=== PATIENT | female | born 1965 | race Caucasian/White ===

== ENCOUNTER → 2016-07-19 | Outpatient (CLI) | payer MEDICARE, OTHER ==
--- NOTE | 2016-07-19 13:47 | REP ---
MRI CERVICAL SPINE WITHOUT CONTRAST: HISTORY: Neck pain. No comparison imaging. TECHNIQUE: Sagittal and axial T1 and T2-weighted scans are acquired in the usual fashion with and without fat saturation. Sequences include spin echo, turbo spin-echo, and STIR imaging sequences. MRI FINDINGS: There is reversal of the normal cervical lordosis. Diffuse degenerative spondylosis changes are noted. No extra vertebral abnormality is appreciated. Axial and sagittal images at C2-3 show no significant abnormality. At C3-4, there is a small to moderate-sized central disc herniation which effaces and subtly indents the ventral margin of the cord. No neural foraminal narrowing is seen. At C4-5, there is moderate diffuse posterior disc bulging effacing the ventral subarachnoid space. The cord is displaced posteriorly somewhat and the dorsal subarachnoid space is effaced as well. There is mild central canal stenosis. The mid sagittal AP dimension of the thecal sac at this level is 7 mm. There is mild right-sided uncovertebral spurring and C4-5. At C5-6, there is a central disc protrusion with posterior osteophytic ridging and diffuse mild disc bulging in the remainder of the disc margin. There is uncovertebral spurring bilaterally right more so than left. Mild central canal stenosis is seen at C5-6. Mid sagittal AP thecal sac dimension is 6 mm. At C6-7, there is diffuse moderate disc bulging and posterior osteophytic ridging. The ventral and dorsal subarachnoid spaces are somewhat effaced consistent with central canal stenosis. Mid sagittal AP dimension of the thecal sac is 6 mm. Mild bilateral uncovertebral spurring is seen. At C7-T1, there is a small central disc herniation effacing the ventral subarachnoid space but not displacing or compressing the cord. At T1-2, there is mild diffuse disc bulging. IMPRESSION: Degenerative spondylosis changes. There is central canal stenosis is C4-5, C5-6 and C6-7. A moderate sized central disc herniation is seen at C3-4 and a small central disc herniation is seen at C7-T1. Cervical cord signal intensity is normal on T1 and T2-weighted scans. Signed by Trav Ireland MD 07/19/2016 03:59 P
--- NOTE | 2016-07-19 13:57 | REP ---
MRI LUMBAR SPINE WITHOUT CONTRAST: HISTORY: Low back pain, limited range of motion, right sided numbness radiating to the buttock and right leg. Comparison MRI lumbar spine study is from January 02, 2016. TECHNIQUE: Sagittal and axial T1 and T2-weighted scans are acquired in the usual fashion with and without fat saturation. Sequences include spin echo, turbo spin-echo, and STIR imaging sequences. MRI findings: Lumbar vertebral body heights are preserved. Alignment is normal. Cortical and medullary bone signal intensity are normal. The conus medullaris terminates at L1 and is unremarkable in appearance. There are mild degenerative disc disease changes at each level in the lumbar spine as before. At L1-2, there is minimal diffuse disc bulging unchanged. No other abnormality. L2-3, there is similar minimal diffuse disc bulging unchanged. At L3-4, there is a small right-sided paracentral disc herniation effacing the ventral margin of the thecal sac and contributing to mild central canal stenosis along with developmentally short pedicles and some ligamentum flavum and facet hypertrophy. These findings are unchanged from the December 30, 2015 prior study. At L4-5, there is mild facet hypertrophy bilaterally and minimal diffuse disc bulging is again seen. At L5-S1, there is mild to moderate facet hypertrophy and diffuse central disc bulging is seen. IMPRESSION: Degenerative spondylosis changes. A right paracentral disc protrusion at L3-4 is again seen. Findings are unchanged from January 02, 2016. Signed by Trav Ireland MD 07/19/2016 03:59 P
== END ==
LOC: M RAD 08:57
PROVIDERS: ATTEND Physician Assistant
DX: M48.02 Spinal stenosis, cervical region (principal); M50.21 Other cervical disc displacement, high cervical region; M50.23 Other cervical disc displacement, cervicothoracic region; M47.892 Other spondylosis, cervical region; M51.26 Other intervertebral disc displacement, lumbar region

== ENCOUNTER 2016-08-01 14:21 | Emergency (ER) | payer MEDICARE ==
[~2016-08-01] VITALS: Ht 162.6 cm; Wt 63.5 kg
[2016-08-01] MEDS ORDERED: TYLE325T5 PO (14:28)
[2016-08-01] MEDS ORDERED: LAMO25TA2 (14:28)
[2016-08-01] MEDS ORDERED: LAMO100T (14:28)
[2016-08-01] MEDS ORDERED: DIVA250T7 (14:28)
[2016-08-01] MEDS ORDERED: PROP60CA (14:28)
[2016-08-01] MEDS ORDERED: OMEP40CA2 (14:28)
[2016-08-01] MEDS ORDERED: TOPI200T4 (14:28)
[2016-08-01] MEDS ORDERED: DIVA500T9 (14:28)
[2016-08-01] MEDS ORDERED: AMOX500C (14:28)
[2016-08-01] MEDS ORDERED: IBUP600T26 PO (14:28)
[2016-08-01] MEDS ORDERED: PERCOCET 5MG/325MG TAB PO ONE (14:45)
[2016-08-01 15:42] VITALS: BP 113/65
[2016-08-01] MEDS ORDERED: OXYC1TAB23 PO (15:47)
== END 2016-08-01 15:55 | disposition home or self-care (01) ==
LOC: M ED 15:04
DX: K02.9 Dental caries, unspecified (principal); I10 Essential (primary) hypertension; R56.9 Unspecified convulsions; G43.909 Migraine, unspecified, not intractable, without status migrainosus; G25.0 Essential tremor; Z79.899 Other long term (current) drug therapy; Z88.5 Allergy status to narcotic agent; Z88.8 Allergy status to other drugs, medicaments and biological substances; Z87.891 Personal history of nicotine dependence

== ENCOUNTER 2016-11-02 15:46 | Emergency (ER) | payer MEDICARE ==
[~2016-11-02] VITALS: Ht 162.6 cm; Wt 65.2 kg
[~2016-11-02 15:46] MED LIST: AMOX500C; DIVA250T7; DIVA500T9; IBUP-1022 PO; LAMO100T; LAMO25TA2; OMEP40CA2; OXYC1TAB23 PO; PROP60CA; TOPI200T7; TYLE325T5 PO
[2016-11-02 16:54] VITALS: BP 130/70
== END 2016-11-02 16:55 | disposition home or self-care (01) ==
LOC: M ED 15:46
DX: F41.9 Anxiety disorder, unspecified (principal); F17.210 Nicotine dependence, cigarettes, uncomplicated; Z88.5 Allergy status to narcotic agent; Z88.8 Allergy status to other drugs, medicaments and biological substances; Z79.899 Other long term (current) drug therapy

== ENCOUNTER → 2017-03-31 | Outpatient (CLI) | payer MEDICARE | LOC: M PAIN 09:30 | DX: G89.29 Other chronic pain (principal); M50.20 Other cervical disc displacement, unspecified cervical region; M79.1 Myalgia; G40.802 Other epilepsy, not intractable, without status epilepticus; R25.1 Tremor, unspecified; J45.909 Unspecified asthma, uncomplicated; K21.9 Gastro-esophageal reflux disease without esophagitis; Z88.5 Allergy status to narcotic agent; Z88.8 Allergy status to other drugs, medicaments and biological substances; Z79.899 Other long term (current) drug therapy; Z87.891 Personal history of nicotine dependence | CPT/HCPCS: G0463 ==

== ENCOUNTER 2017-04-26 09:58 | Emergency (ER) | payer MEDICARE | END 2017-04-26 10:57 | disposition home or self-care (01) | LOC: M ED 09:58 | DX: J45.909 Unspecified asthma, uncomplicated (principal); J02.0 Streptococcal pharyngitis; R56.9 Unspecified convulsions; Z79.899 Other long term (current) drug therapy; Z88.5 Allergy status to narcotic agent; Z88.8 Allergy status to other drugs, medicaments and biological substances | CPT/HCPCS: 87880 ==

== ENCOUNTER 2017-06-13 13:09 | Emergency (ER) | payer MEDICARE, BC ==
[2017-06-13 13:43] LABS: BASO # 0.1 10^3/uL (0.0-0.2); BASO % 0.9 % (0.0-1.0); EOS # 0.1 10^3/uL (0.0-0.50); EOS % 1.4 % (0.0-3.0); HEMATOCRIT 41.1 % (36.0-47.0); HEMOGLOBIN 14.4 g/dl (12.0-16.0); IMMATURE GRANULOCYTE % 2.1 % (0-3.0); MEAN CORPUSCULAR HEMOGLOBIN 32.3 pg (27.0-33.0); MEAN CORPUSCULAR VOLUME 92.2 fl (80.0-96.0); MONO # 0.7 10^3/uL (0.0-0.8); MONO % 8.4 % (0.0-5.0); NEUTROPHILS # 4.5 10^3/uL (1.8-7.7); NEUTROPHILS % 52.2 % (36.0-66.0); PLATELET COUNT, AUTOMATED 322 10^3/uL (150-450); RED BLOOD COUNT 4.46 10^6/uL (4.00-5.40); RED CELL DISTRIBUTION WIDTH 13.2 % (11.5-14.5); WHITE BLOOD COUNT 8.6 10^3/uL (4.0-10.0)
[2017-06-13 14:13] LABS: ANION GAP 15 MEQ/L (8-16); BLOOD UREA NITROGEN 13 MG/DL (7-18); CALCIUM LEVEL 8.2 MG/DL (8.5-10.1); CARBON DIOXIDE LEVEL 14 MEQ/L (21-32); CHLORIDE LEVEL 104 MEQ/L (98-107); CREATININE FOR GFR 0.96 MG/DL (0.55-1.30); GLOMERULAR FILTRATION RATE > 60.0 (>51); GLUCOSE, FASTING 141 MG/DL (70-100); POTASSIUM SERUM 4.5 MEQ/L (3.5-5.1); SODIUM LEVEL 133 MEQ/L (136-145); VALPROIC ACID (DEPAKOTE) 29.5 UG/ML (50.0-100.0)
[2017-06-13 15:21] LABS: LACTIC ACID SEPSIS PROTOCOL 7.4 MMOL/L (0.4-2.0)
[2017-06-13] MEDS: NS 1,000 ML IV (16:11)
[2017-06-13] MEDS: LORazepam 1 MG TAB PO (16:57)
[2017-06-15 00:06] LABS: LAMOTRIGINE (LAMICTAL) 5.2 ug/mL (2.0-20.0)
[2017-06-15 09:41] LABS: BEDSIDE GLUCOSE 147 MG/DL (70-105)
== END 2017-06-13 19:15 | disposition home or self-care (01) ==
LOC: M ED 13:09
DX: R56.9 Unspecified convulsions (principal); G40.B19 Juvenile myoclonic epilepsy, intractable, without status epilepticus; J45.909 Unspecified asthma, uncomplicated; Z79.899 Other long term (current) drug therapy
CPT/HCPCS: 80164

== ENCOUNTER → 2017-06-22 | Outpatient (CLI) | payer MEDICARE ==
[2017-06-22 17:30] LABS: BASO # 0.1 10^3/uL (0.0-0.2); EOS # 0.1 10^3/uL (0.0-0.50); EOS % 2.2 % (0.0-3.0); HEMATOCRIT 39.6 % (36.0-47.0); HEMOGLOBIN 12.9 g/dl (12.0-16.0); IMMATURE GRANULOCYTE % 0.6 % (0-3.0); LYMPH # 2.5 10^3/uL (1.5-4.5); LYMPH % 39.3 % (24.0-44.0); MEAN CORPUSCULAR HGB CONC 32.6 g/dl (32.0-36.5); MEAN CORPUSCULAR VOLUME 95.2 fl (80.0-96.0); MONO # 0.6 10^3/uL (0.0-0.8); MONO % 10.3 % (0.0-5.0); NEUTROPHILS # 2.9 10^3/uL (1.8-7.7); NEUTROPHILS % 46.6 % (36.0-66.0); PLATELET COUNT, AUTOMATED 244 10^3/uL (150-450); RED BLOOD COUNT 4.16 10^6/uL (4.00-5.40); RED CELL DISTRIBUTION WIDTH 13.2 % (11.5-14.5); WHITE BLOOD COUNT 6.2 10^3/uL (4.0-10.0)
[2017-06-22 17:31] LABS: ALBUMIN 3.9 GM/DL (3.2-5.2); ALBUMIN/GLOBULIN RATIO 1.03 (1.00-1.93); ALKALINE PHOSPHATASE 70 U/L (45-117); ALT/SGPT 41 U/L (12-78); ANION GAP 10 MEQ/L (8-16); AST/SGOT 14 U/L (7-37); BILIRUBIN,TOTAL 0.3 MG/DL (0.2-1.0); BLOOD UREA NITROGEN 19 MG/DL (7-18); CALCIUM LEVEL 8.9 MG/DL (8.5-10.1); CARBON DIOXIDE LEVEL 23 MEQ/L (21-32); CHLORIDE LEVEL 107 MEQ/L (98-107); CHOLESTEROL LEVEL 330 MG/DL (<200); CHOLESTEROL RISK RATIO 8.684 (<5); CREATININE FOR GFR 1.08 MG/DL (0.55-1.30); FREE T4 0.94 NG/DL (0.76-1.46); GLOMERULAR FILTRATION RATE 56.5 (>51); GLUCOSE, FASTING 96 MG/DL (70-100); HDL CHOLESTEROL 38 MG/DL (>40); LDL CHOLESTEROL 217.2 MG/DL (<100); NON-HDL-C 292 MG/DL; POTASSIUM SERUM 4.5 MEQ/L (3.5-5.1); SODIUM LEVEL 140 MEQ/L (136-145); TOTAL PROTEIN 7.7 GM/DL (6.4-8.2); TRIGLYCERIDES LEVEL 374 MG/DL (<150)
== END ==
LOC: M WUC 11:15
DX: Z13.220 Encounter for screening for lipoid disorders (principal); Z13.29 Encounter for screening for other suspected endocrine disorder; Z13.21 Encounter for screening for nutritional disorder; Z79.899 Other long term (current) drug therapy; J45.909 Unspecified asthma, uncomplicated; R56.9 Unspecified convulsions
CPT/HCPCS: 84443

== ENCOUNTER 2017-10-27 17:56 | Emergency (ER) | payer BC, MEDICARE ==
[2017-10-27] MEDS: PERCOCET 5MG/325MG TAB PO (19:08)
== END 2017-10-27 19:14 | disposition home or self-care (01) ==
LOC: M ED 17:56
DX: S39.012A Strain of muscle, fascia and tendon of lower back, initial encounter (principal); X50.1XXA Overexertion from prolonged static or awkward postures, initial encounter; Y92.099 Unspecified place in other non-institutional residence as the place of occurrence of the external cause; Y93.9 Activity, unspecified; Y99.9 Unspecified external cause status; R56.9 Unspecified convulsions; J45.909 Unspecified asthma, uncomplicated; K21.9 Gastro-esophageal reflux disease without esophagitis; M54.9 Dorsalgia, unspecified; Z79.899 Other long term (current) drug therapy; Z88.5 Allergy status to narcotic agent; Z88.8 Allergy status to other drugs, medicaments and biological substances
CPT/HCPCS: 99283

== ENCOUNTER → 2018-01-06 | Outpatient (CLI) | payer BC, MEDICARE ==
[2018-01-06 17:44] LABS: BASO # 0.1 10^3/uL (0.0-0.2); BASO % 0.8 % (0.0-1.0); EOS # 0.1 10^3/uL (0.0-0.50); EOS % 1.7 % (0.0-3.0); HEMATOCRIT 38.4 % (36.0-47.0); HEMOGLOBIN 12.9 g/dl (12.0-15.5); IMMATURE GRANULOCYTE % 1.3 % (0-3.0); LYMPH # 2.3 10^3/uL (1.5-4.5); LYMPH % 32.3 % (24.0-44.0); MEAN CORPUSCULAR HEMOGLOBIN 31.1 pg (27.0-33.0); MEAN CORPUSCULAR HGB CONC 33.6 g/dl (32.0-36.5); MEAN CORPUSCULAR VOLUME 92.5 fl (80.0-96.0); MONO # 0.8 10^3/uL (0.0-0.8); MONO % 11.4 % (0.0-5.0); NEUTROPHILS # 3.7 10^3/uL (1.8-7.7); NEUTROPHILS % 52.5 % (36.0-66.0); PLATELET COUNT, AUTOMATED 216 10^3/uL (150-450); RED BLOOD COUNT 4.15 10^6/uL (4.00-5.40); RED CELL DISTRIBUTION WIDTH 12.9 % (11.5-14.5); WHITE BLOOD COUNT 7.1 10^3/uL (4.0-10.0)
[2018-01-06 18:18] LABS: ALBUMIN 3.9 GM/DL (3.2-5.2); ALBUMIN/GLOBULIN RATIO 1.11 (1.00-1.93); ALKALINE PHOSPHATASE 72 U/L (45-117); ALT/SGPT 34 U/L (12-78); ANION GAP 9 MEQ/L (8-16); AST/SGOT 21 U/L (7-37); BILIRUBIN,TOTAL 0.3 MG/DL (0.2-1.0); BLOOD UREA NITROGEN 16 MG/DL (7-18); CARBON DIOXIDE LEVEL 23 MEQ/L (21-32); CHLORIDE LEVEL 102 MEQ/L (98-107); CHOLESTEROL LEVEL 298 MG/DL (<200); CREATININE FOR GFR 0.87 MG/DL (0.55-1.30); GLOMERULAR FILTRATION RATE > 60.0 (>51); GLUCOSE, FASTING 92 MG/DL (70-100); HDL CHOLESTEROL 33 MG/DL (>40); NON-HDL-C 265 MG/DL; POTASSIUM SERUM 4.6 MEQ/L (3.5-5.1); SODIUM LEVEL 134 MEQ/L (136-145); TOTAL PROTEIN 7.4 GM/DL (6.4-8.2); TRIGLYCERIDES LEVEL 512 MG/DL (<150)
[2018-01-06 18:37] LABS: TOTAL 25(OH) VITAMIN D 19.2 NG/ML (30.0-100.0)
== END ==
LOC: M WUC 14:21
DX: J45.20 Mild intermittent asthma, uncomplicated (principal); E78.2 Mixed hyperlipidemia; E55.9 Vitamin D deficiency, unspecified
CPT/HCPCS: 80053

== ENCOUNTER → 2018-08-11 | Outpatient (CLI) | payer BC, MEDICARE ==
[~2018-08-11] MED LIST changes: +AMOX500C PO; -LAMO25TA2; +LAMO25TA4; +LEVA1.2525; +LORA1TAB12; +PERC5TAB12 PO; +PROAAER10; +SIMV20TA2; +TESS100C PO; +VITA50005
== END ==
LOC: M WUC 14:07
PROVIDERS: ATTEND Psychiatry & Neurology Vascular Neurology
DX: G40.319 Generalized idiopathic epilepsy and epileptic syndromes, intractable, without status epilepticus (principal); R25.1 Tremor, unspecified

== ENCOUNTER → 2019-12-08 | Outpatient (CLI) | payer BC, MEDICARE ==
[~2019-12-08] MED LIST changes: +APAP325T4 PO; +ATOR40TA75 PO; +D31000TA2 PO; +FENO160T10 PO; +FLUTISP; +IBUP200C28 PO; -LAMO100T; +LAMO100T3; +LAMO100T3 PO; +LAMO25TA4 PO; +LEVAINH INH; -LORA1TAB12; +LORA1TAB4 PO; -OMEP40CA2; +OMEP40CA97; -PROP60CA; +PROP60CA PO; -SIMV20TA2; +SIMV20TA22; +TOPI100T9 PO
== END ==
LOC: M WUC 16:43
PROVIDERS: ATTEND Psychiatry & Neurology Vascular Neurology
DX: G40.B19 Juvenile myoclonic epilepsy, intractable, without status epilepticus (principal)

== ENCOUNTER 2020-01-19 19:04 | Inpatient (IN) | payer BC, MEDICARE ==
[~2020-01-19] VITALS: Ht 165.1 cm; Wt 74.4 kg
[~2020-01-19 19:04] MED LIST changes: -APAP325T4 PO; -ATOR40TA75 PO; -D31000TA2 PO; -FENO160T10 PO; -FLUTISP; -IBUP200C28 PO; -LAMO100T3 PO; -LAMO25TA4 PO; -LEVAINH INH; -TOPI100T9 PO
[2020-01-19 19:58] LABS: HEMATOCRIT 40.4 % (36.0-47.0); HEMOGLOBIN 13.6 g/dl (12.0-15.5); MEAN CORPUSCULAR HEMOGLOBIN 29.2 pg (27.0-33.0); MEAN CORPUSCULAR HGB CONC 33.7 g/dl (32.0-36.5); MEAN CORPUSCULAR VOLUME 86.9 fl (80.0-96.0); PLATELET COUNT, AUTOMATED 318 10^3/uL (150-450); RED BLOOD COUNT 4.65 10^6/uL (4.00-5.40); WHITE BLOOD COUNT 6.7 10^3/uL (4.0-10.0)
[2020-01-19 20:00] LABS: GLUCOSE, URINE (UA) MANUAL NEGATIVE (NEGATIVE); KETONE, URINE MANUAL NEGATIVE (NEGATIVE); UROBILINOGEN, URINE MANUAL NORMAL (NORMAL)
[2020-01-19 20:01] LABS: BILIRUBIN, URINE MANUAL 2+ (NEGATIVE)
[2020-01-19 20:06] LABS: RBC, URINE 0-1 /hpf (0-3); SQUAMOUS EPITHELIAL CELL URINE MOD AMOUNT /hpf (SMALL AMT)
[2020-01-19 20:07] LABS: AMORPHOUS SEDIMENT, URINE SMALL AMOUNT (NEGATIVE); BACTERIA, URINE SMALL AMOUNT; HYALINE CAST, URINE 0-1 /lpf (0-1); MUCUS, URINE SMALL AMOUNT (NEGATIVE)
--- NOTE | 2020-01-19 20:31 | REPVR ---
PROCEDURE INFORMATION: Exam: CT Head Without Contrast Exam date and time: 01/19/2020 8:02 PM Age: 54 years old Clinical indication: Visual disturbance; Additional info: Visual/auditory hallucinations TECHNIQUE: Imaging protocol: Computed tomography of the head without contrast. Radiation optimization: All CT scans at this facility use at least one of these dose optimization techniques: automated exposure control; mA and/or kV adjustment per patient size (includes targeted exams where dose is matched to clinical indication); or iterative reconstruction. COMPARISON: No relevant prior studies available. FINDINGS: Brain: Normal. No hemorrhage. Unremarkable white matter. No mass effect. Cerebral ventricles: No ventriculomegaly. Bones/joints: Unremarkable. No acute fracture. Paranasal sinuses: Visualized sinuses are unremarkable. No fluid levels. Mastoid air cells: Visualized mastoid air cells are well aerated. Soft tissues: Unremarkable. IMPRESSION: Negative noncontrast head CT. Electronically signed by: Wilmer Mejia On 01/19/2020 20:31:12 PM
[2020-01-19 20:33] LABS: ACETAMINOPHEN LEVEL < 2.0 UG/ML (10.0-30.0); ALBUMIN 4.3 GM/DL (3.2-5.2); ALT/SGPT 70 U/L (12-78); BILIRUBIN,DIRECT 0.2 MG/DL (0.0-0.2); BILIRUBIN,TOTAL 0.7 MG/DL (0.2-1.0); BLOOD UREA NITROGEN 26 MG/DL (7-18); CALCIUM LEVEL 9.2 MG/DL (8.5-10.1); CARBON DIOXIDE LEVEL 20 MEQ/L (21-32); CHLORIDE LEVEL 110 MEQ/L (98-107); ETHYL ALCOHOL (ETHANOL) < 0.003 % (0.000-0.010); GLOMERULAR FILTRATION RATE 45.1 (>51); GLUCOSE, FASTING 105 MG/DL (70-100); POTASSIUM SERUM 3.8 MEQ/L (3.5-5.1); SALICYLATE LEVEL < 1.7 MG/DL (5.0-30.0); SODIUM LEVEL 141 MEQ/L (136-145); THYROID STIMULATING HORMONE 0.656 uIU/ML (0.358-3.740); TOTAL PROTEIN 7.9 GM/DL (6.4-8.2)
[2020-01-19 23:35] LABS: AMPHETAMINES LEVEL URINE NEGATIVE (NEGATIVE); BARBITURATES URINE NEGATIVE (NEGATIVE); BENZODIAZEPINES URINE NEGATIVE (NEGATIVE); CANNABINOIDS URINE NEGATIVE (NEGATIVE); COCAINE METABOLITE URINE NEGATIVE (NEGATIVE); METHADONE URINE NEGATIVE (NEGATIVE); OPIATES URINE NEGATIVE (NEGATIVE); PHENCYCLIDINE URINE NEGATIVE (NEGATIVE)
[2020-01-20] MEDS ORDERED: traZODone 50 MG TAB PO PRN (00:30)
[2020-01-20] MEDS ORDERED: MAALOX 30 ML SUSP *UDC PO PRN (00:30)
[2020-01-20] MEDS ORDERED: MOM 30ML SUSPENSION UDC PO PRN (00:30)
[2020-01-20] MEDS ORDERED: ATOR40TA75 PO (01:23)
[2020-01-20] MEDS ORDERED: TOPI100T9 PO (01:23)
[2020-01-20] MEDS ORDERED: APAP325T4 PO (01:23)
[2020-01-20] MEDS ORDERED: LAMO100T3 PO (01:23)
[2020-01-20] MEDS ORDERED: LAMO25TA4 PO (01:23)
[2020-01-20] MEDS ORDERED: IBUP200C28 PO (01:23)
[2020-01-20] MEDS ORDERED: LORA1TAB4 PO (01:23)
[2020-01-20] MEDS ORDERED: LEVAINH INH (01:23)
[2020-01-20] MEDS ORDERED: D31000TA2 PO (01:25)
[2020-01-20] MEDS ORDERED: FENO160T10 PO (01:25)
[2020-01-20] MEDS ORDERED: FLUTISP (01:25)
[2020-01-20] MEDS: LORazepam 1 MG TAB PO SCH ×2 (02:45→21:34)
[2020-01-20] MEDS: ATORVASTATIN 20 MG TAB PO SCH ×2 (02:45→21:34)
[2020-01-20] MEDS: lamoTRIgine 100MG TAB PO SCH ×3 (02:45→21:35)
[2020-01-20] MEDS: lamoTRIgine 25 MG TAB PO SCH ×3 (02:46→21:34)
[2020-01-20] MEDS: TOPIRAMATE (TopAMAX) 100 MG TAB PO SCH ×3 (02:46→21:35)
[2020-01-20 02:53] VITALS: BP 143/76
[2020-01-20] MEDS: PROPRANOLOL 60 MG LA CAP PO SCH ×2 (03:01→21:34)
[2020-01-20] MEDS: ACETAMINOPHEN TAB 650MG DOSE (2X325MG) PO PRN ×2 (04:09→18:55)
[2020-01-20] MEDS: VITAMIN D 1,000 INTERNATIONAL UNITS TABLET PO SCH (10:00)
[2020-01-20] MEDS: FLUTICASONE PROP 0.05% NASAL SPRAY 16 GM (FLONASE) SCH (10:00)
[2020-01-20] MEDS: LORazepam 0.5 MG TAB PO SCH (11:41)
--- NOTE | 2020-01-20 12:22 | HPEPDOC ---
[facility] Medical History & Physical Date of Admission Jan 20, 2020 Date of Service: Jan 20, 2020 History and Physical Chief complaint: Presented to the ER, brought in by police because was concerned for her safety History of present illness: Patient is a 54 her old female with a PMHx of Epilepsy / Tremors / Grand mal seizures, Chronic Neck & Back pain, Asthma and GERD who presented to the ER, brought in by police because her was concerned for her safety. Patient was reporting negative thoughts and was admitted to the inpatient mental health unit under the care of psychiatry. Hospitalist service was called for medical screening evaluation. Currently patient reports a mild headache. Reports some chest discomfort. Denies any shortness of breath, cough, palpitations, abdominal pain consultation, diarrhea, or urinary discomfort. Patient denies any fevers or chills. Reports some changes in her weight after her medications were adjusted for the last several months. Denies any changes in her appetite. Past Medical History: Epilepsy / Tremors / Grand mal seizures, Chronic Neck & Back pain, Asthma and GERD Past Surgical History: Appendectomy Covered eardrums with skin grafts 1978 and 1981 Ear bone surgery of left 1978 Bilateral cataract surgery Right eye, glaucoma surgery Tonsillectomy Allergies: See below Medications: See below Family History: - Father with a history of diabetes. Mother with a history of hypertension Social History: - Patient reports that she quit smoking socially uses alcohol. Denies any drug use - Denies recent travel or sick contacts - Lives with - Occupation; on stability Review of Systems: 10 point review of systems complete, all negative otherwise stated in HPI Physical exam: - Vitals: BP [143/76], HR [72], RR [16], Sat [96%RA], Temp [98.2F] - General: Sitting up in bed, No acute distress, Speaking in full sentences, AAOx3 - HEENT: NC, AT, PERRLA - CVS: RRR, +S1S2 - Lungs: Fair air entry bilaterally, No wheezing / rales / rhonchi - Abdomen: Soft, Non-distended, Non-tender - Extremities: No lower extremity edema, No calf tenderness - Neuro: No focal motor or sensory deficit - Skin: No visible rashes Imaging: CT head 01/18: Negative noncontrast head CT. Assessment and Plan: Depressive thoughts - Patient has been admitted to inpatient mental health unit under the care of psychiatry - Currently being managed by psychiatry Epilepsy / Tremors / Grand mal seizures - Patient reports that she gets daily tremors; reported questionable seizures - but no post-ictal states - Will c/w home regimen of Lamotrigine, Topiramate and Ativan - Advised patient to continue with outpatient follow-up with her neurologist in [place] upon discharge DLP - c/w Fenofibrate Chronic Neck & Back pain - c/w Tylneol PRN Asthma - No evidence of exacerbation - Continue with inhaled therapy as ordered GERD / Heartburn / Indigestion - c/w Mylanta as needed DVT prophylaxis - Will c/w early ambulation Female licensed investment sales assistant was present for the duration of his history and physical examination Thank you for this consultation; hospitalist service will sign off, please reconsult as needed Vital Signs Vital Signs Date Time Temp Pulse Resp B/P (MAP) Pulse Ox O2 Delivery O2 Flow Rate FiO2 01/20/20 03:01 72 143/76 01/20/20 02:53 98.2 16 96 Room Air Laboratory Data Labs 24H Laboratory Tests 2 01/19/20 19:48: Nucleated Red Blood Cells % (auto) 0.0, Urine Color (CAIN) YELLOW, Urine Appearance (CAIN) HAZYH, Urine pH (CAIN) 5.0, Urine Specific [place] (CAIN) 1.030, Bedside Urine Glucose (UA) NEGATIVE, Bedside Urine Ketones (LAB) NEGATIVE, Bedside Urine Blood TRACEH, Bedside Urine Nitrite (LAB) NEGATIVE, Bedside Urine Bilirubin (LAB) 2+H, Bedside Urine Urobilinogen (LAB) NORMAL, Bedside Urine Leukocyte Esterase (L POSITIVEH, Urine Sediment Examination UNSPUN, Urine RBC 0- 1, Urine WBC 1-3, Urine Squamous Epithelial Cells MOD AMOUNTH, Urine Amorphous Sediment SMALL AMOUNTH, Urine Bacteria SMALL AMOUNTH, Urine Hyaline Casts 0-1, Urine Mucus SMALL AMOUNTH, Anion Gap 11, Glomerular Filtration Rate 45.1L, Calcium Level 9.2, Total Bilirubin 0.7, Direct Bilirubin 0.2, Aspartate Amino Transf (AST/SGOT) 45H, Alanine Aminotransferase (ALT/SGPT) 70, Alkaline Phosphatase 68, Total Protein 7.9, Albumin 4.3, Albumin/Globulin Ratio 1.2, Thyroid Stimulating Hormone (TSH) 0.656, Salicylates Level < 1.7L, Acetaminophen Level < 2.0L, Ethyl Alcohol Level < 0.003 10/10/20 22:53: Urine Opiates Screen NEGATIVE, Urine Methadone Screen NEGATIVE, Urine Barbiturates Screen NEGATIVE, Urine Phencyclidine Screen NEGATIVE, Urine Amphetamines Screen NEGATIVE, Urine Benzodiazepines Screen NEGATIVE, Urine Cocaine Metabolite Screen NEGATIVE, Urine Cannabinoids Screen NEGATIVE CBC/BMP Laboratory Tests 01/19/20 19:48 Microbiology Microbiology 01/19/20 Urine Culture, Received Pending Home Medications Scheduled Atorvastatin Calcium (Atorvastatin Calcium) 40 Mg Tablet, 40 MG PO QHS Cholecalciferol (Vitamin D3) (Vitamin D3) 1,000 Unit Tablet, 1,000 UNITS PO DAILY Fenofibrate (Fenofibrate) 160 Mg Tablet, 160 MG PO QHS Fluticasone Propionate (Fluticasone Propionate) 16 Gm [place].susp, 2 SPRAYS NA DAILY Lamotrigine (Lamotrigine) 100 Mg Tablet, 200 MG PO BID Lamotrigine (Lamotrigine) 25 Mg Tablet, 50 MG PO BID Lorazepam (Lorazepam) 1 Mg Tab, 1 MG PO QHS Lorazepam (Lorazepam) 1 Mg Tablet, 0.5 TAB PO QAM Use sublingually if unable to swallow MDD = 3 mg Propranolol HCl (Propranolol HCl ER) 60 Mg Cap, 60 MG PO QHS Topiramate (Topiramate) 100 Mg Tablet, 100 MG PO BID Scheduled PRN Acetaminophen (Acetaminophen) 325 Mg Tablet, 650 MG PO Q6H PRN for PAIN Ibuprofen (Ibuprofen) 200 Mg Capsule, 400 MG PO Q6H PRN for PAIN Levalbuterol Hydrochloride (Xopenex Hfa) 15 Gm Hfa.aer.ad, 2 PUFF INH Q4-6HP PRN for wheezing Allergies Coded Allergies: codeine (Verified Allergy, Unknown, 01/20/20) diphenhydramine (Verified Allergy, Unknown, 01/20/20) meperidine (Verified Allergy, Unknown, 01/20/20) tramadol (Verified Allergy, Unknown, NOT ALLOWED DUE TO SEIZURE DISORDER, 01/20/20) VY RONQUILLO MD Jan 20, 2020 12:22
[2020-01-20 18:18] VITALS: BP 153/80
[2020-01-20] MEDS: LEVALBUTEROL HFA 45MCG/ACT 15 GM INHALER INH PRN (19:02)
[2020-01-20] MEDS: FENOFIBRATE 145 MG TAB (TRICOR) PO SCH (21:34)
[2020-01-21 06:38] VITALS: BP 110/56
[2020-01-21] MEDS: TOPIRAMATE (TopAMAX) 100 MG TAB PO SCH ×2 (08:37→21:45)
[2020-01-21] MEDS: FLUTICASONE PROP 0.05% NASAL SPRAY 16 GM (FLONASE) SCH (08:37)
[2020-01-21] MEDS: lamoTRIgine 100MG TAB PO SCH ×2 (08:37→21:46)
[2020-01-21] MEDS: VITAMIN D 1,000 INTERNATIONAL UNITS TABLET PO SCH (08:38)
[2020-01-21] MEDS: LORazepam 0.5 MG TAB PO SCH (08:38)
[2020-01-21] MEDS: lamoTRIgine 25 MG TAB PO SCH ×2 (08:38→21:46)
[2020-01-21] MEDS ORDERED: FLUBLOK(EGG FREE)(QUAD)INFLUENZA VACC 0.5ML SYRINGE 18YRS & OLDER IM ONE (09:00)
[2020-01-21 16:07] VITALS: BP 138/71
--- NOTE | 2020-01-21 16:32 | MHIPNPDOC ---
[facility] Progress Note Progress Note DATE OF SERVICE: 01/21/20 HISTORY: Patient is a 54 year old , Domiciled, Female who was admitted to [facility] for reports of auditory and visual hallucinations. Patient r eports that she had been seeing things and hearing things that made her very frightened. She had unusual behaviors as reported by her family i.e. reporting seeing videos and hands reaching out for her in facebook videos and hearing demons. VITAL SIGNS: See below. NEW TEST RESULTS: CURRENT MEDICATIONS: See below. MENTAL STATUS EXAMINATION: Patient is a 54 -year old , female, who is calm and cooperative in the interview. She reports that she is continuing to have visual hallucinations but no auditory hallucinations. She is pleasant and denies depression, anxiety, manic, psychosis, paranoia, delusions or racing thoughts. Speech: Is normal rate, tone and volume. Language skills are intact Thought processes including: linear and goal oriented Thought content: denies depression, anxiety, jennifer or psychotic symptoms. Abstract reasoning, and computation: intact. Description of associations: visual hallucinations (black shadows) Description of abnormal or psychotic thoughts: visual hallucinations, but reports that these are sometimes floaters Judgment: good Insight: good Orientation: to person, place, time and situation Recent and remote memory: intact Attention span and concentration: good Language: expansive Fund of knowledge: average Mood: euthymic. Affect: reactive. DIAGNOSES: Unspecified psychotic disorder possibly due to another medical condition. Seizure disorder. ASSESSMENT: Was prescribed Clobazam and was discontinued off this just recently. Patient reports "It is super embarrassing. One thing lead to another. One night i was sitting in the living room and I thought I saw something, like a mop under the door. It was not tangible and not anything I could touch." She states on FB she was seeing things on there that were "bad" she states she was seeing black hands reaching out. Reporting that when she saw her wedding photo there were burn reynolds and birds on her wedding dress. States she saw a demon in the room. "Like I was being punished I believed it to be t rue I got upset because I feel like no one was seeing what I was seeing. I saw on the windows and I believed that there were these feelings about how I saw the windows, I became paranoid and scared" Reports in the interview that she sees black shadows. Patient reports several ocular medical conditions. History of neurological conditions and Epilepsy. States that she has upwards of 60 seizures per day and has to take an Ativan to reduce the seizure activity. At this time, patient does not exhibit any mental illnesses, she denies depression, SI/HI anxiety, manic behaviors and is not psychotic. I believe that her visual and auditory hallucination may stem from the abrupt discontinuation of Clobazam as well as the ocular medical conditions she reports. Patient is requesting discharge/ MANAGEMENT PLAN: Discharge tomorrow TIME SPENT:35 minutes. Vital Signs Vital Signs Date Time Temp Pulse Resp B/P (MAP) Pulse Ox O2 Delivery O2 Flow Rate FiO2 01/21/20 06:38 97.1 61 16 110/56 (74) 98 Room Air Current Medications Current Medications Medications (Trade) Dose Ordered Sig/Zak Route PRN Reason Start Time Stop Time Status Last Admin Dose Admin Acetaminophen (Tylenol Tab) 650 mg Q6HP PRN PO HEADACHE or DISCOMFORT 01/20/20 00:30 01/20/20 18:55 Al Hydrox/Mg Hydrox/Simethicone (Mylanta) 30 ml Q4HP PRN PO HEARTBURN/INDIGESTION 01/20/20 00:30 Atorvastatin Calcium (Lipitor) 40 mg QHS PO 01/19/20 21:00 01/20/20 21:34 Fenofibrate (Tricor) 145 mg QPM PO 01/20/20 21:00 01/20/20 21:34 Fluticasone Propionate (Flonase 0.05% Nasal [place]) 2 spray DAILY NA 01/20/20 09:00 01/21/20 08:37 Home Med (Med Rec Complete!) ASDIRECTED XX 01/20/20 01:30 01/20/20 01:30 DC Lamotrigine (LaMICtal) 50 mg BID PO 01/19/20 21:00 01/21/20 08:38 Lamotrigine (LaMICtal) 200 mg BID PO 01/19/20 21:00 01/21/20 08:37 Levalbuterol HCl (Xopenex Hfa) 2 puff Q6HP PRN INH wheezing 01/20/20 01:45 01/20/20 19:02 Lorazepam (Ativan) 0.5 mg DAILY PO 01/20/20 09:00 01/21/20 08:38 Lorazepam (Ativan) 1 mg QHS PO 01/19/20 21:00 01/20/20 21:34 Magnesium Hydroxide (Milk Of Magnesia) 30 ml DAILYPRN PRN PO CONSTIPATION 01/20/20 00:30 Propranolol HCl (Inderal La) 60 mg QHS PO 01/19/20 21:00 01/20/20 21:34 Topiramate (TopAMAX) 100 mg BID PO 01/19/20 21:00 01/21/20 08:37 Trazodone HCl (Desyrel) 50 mg QHSP PRN PO INSOMNIA 01/20/20 00:30 01/20/20 21:34 Vitamin D (Vitamin D) 1,000 units DAILY PO 01/20/20 09:00 01/21/20 08:38 Allergies Coded Allergies: codeine (Verified Allergy, Unknown, 01/20/20) diphenhydramine (Verified Allergy, Unknown, 01/20/20) meperidine (Verified Allergy, Unknown, 01/20/20) tramadol (Verified Allergy, Unknown, NOT ALLOWED DUE TO SEIZURE DISORDER, 01/20/20) JUAN LUIS DIEGO NP Jan 21, 2020 12:28
[2020-01-21] MEDS: LEVALBUTEROL HFA 45MCG/ACT 15 GM INHALER INH PRN (17:42)
[2020-01-21] MEDS: ACETAMINOPHEN TAB 650MG DOSE (2X325MG) PO PRN (17:42)
[2020-01-21] MEDS ORDERED: OMEPRAZOLE 20 MG CAP PO SCH (21:00)
[2020-01-21] MEDS: LORazepam 1 MG TAB PO SCH (21:45)
[2020-01-21 21:46] VITALS: BP 138/71
[2020-01-21] MEDS: PROPRANOLOL 60 MG LA CAP PO SCH (21:46)
[2020-01-21] MEDS: FENOFIBRATE 145 MG TAB (TRICOR) PO SCH (21:46)
[2020-01-21] MEDS: ATORVASTATIN 20 MG TAB PO SCH (21:46)
[2020-01-22 06:34] VITALS: BP 128/74
--- NOTE | 2020-01-22 07:33 | MHHPE ---
DATE: 01/20/2020 HISTORY OF PRESENT ILLNESS: This is the first psychiatric hospitalization for this 54-year-old woman who presented to the hospital brought in by the police after the called them. It seems that for about three weeks she has been experiencing auditory and visual hallucinations and possibly some delusions. The patient apparently had her neurologist change her medications for her seizures three weeks ago and it seemed that after that these hallucinations started. They did do a CT scan in the Emergency Room and it was negative for any acute problems in the brain. The patient says she has had seizures since she was 12 years old and that she continues to have seizures sometimes every day. It is not apparently fully treated with medications although apparently they have tried many different medications. For example she has Ativan that she takes on a p.r.n. basis which she says she will take when she thinks she has had a seizure. She talks about having a grand mal but it seems that most of her other seizures are not grand mal seizures but she has difficulty describing what type of seizures they are. The patient says that she has problems with her memory and she has a lot of problems finding appropriate words for what she wants to say. She says that her is very supportive and that he tries to give her cues to help her with finding appropriate words. She states that she started to experience hearing voices and she says that she also sees some what she describes as pepe masses on the hwang. She watches the weather channel. She will often see black masses all over the screen. The day before admission she said that she thought she saw what she refers to as shadow people and thought that one of them came in under her door so she walked to her local confucianist and spent two hours speaking with someone at the confucianist because she feels that the problem is that she is sensitive to spirit. She tries to take photographs of the things that she sees and she gets frustrated when others cannot see what she does. The patient states she can also hear what she refers to as people chanting at night but she says that has been happening less often. She had texted her at work on the day of admission stating that she wanted to sit in his care until he was done with work as she felt that she could not be alone. She told him she was feeling very anxious and that she needed to get away from her house. She stated she has lived in her current place for three years but has never felt at home there. The called the police to check on the patient. The officer asked the patient to come to the Emergency Room to speak with someone. The could not leave his job. In the Emergency Room they spoke with the patient's daughter Domenica Gallo and she expressed concern about the patient and stated that she has never exhibited this behavior before. The patient also tells me that sometimes she will hear music or sometimes she hears little kids voice. PAST PSYCHIATRIC HISTORY: The patient has never had any inpatient or outpatient psychiatric treatment. She is on lorazepam which she takes 0.5 mg every morning and 1 mg at bedtime but she says she takes this for seizures. She has never made any suicidal attempt. She has no history of self-mutilating behavior. FAMILY HISTORY: She denies any psychiatric illness in the family or any suicides in the family. MEDICAL HISTORY: In addition to her seizure disorder, she says she has irritable bowel syndrome, gastroesophageal reflux disease (GERD), asthma, environmental allergies, and she says that she has trouble with my balance sometimes. ABUSE HISTORY: She denies any history of any physical or sexual abuse. SUBSTANCE ABUSE: She denies any problems with alcohol or drugs. MENTAL STATUS EXAM: This patient is alert and oriented times three. Eye contact is fairly good. She is verbally spontaneous. Definitely she has a lot of problems finding the right words for what she wants to say and so it takes her awhile. There is no formal thought disorder noted. Mood is anxious. Affect appropriate to mood. She is not suicidal, homicidal and it does seem that she is having these visual and auditory hallucinations and somehow she is extra sensitive to spirits. The patients concentration is fair. Memory is grossly intact. However, insight and judgment is fair. DIAGNOSES: Unspecified psychotic disorder possibly due to another medical condition. Seizure disorder. TREATMENT PLAN: At this point the patient is having what appears to be both auditory and visual hallucinations. CT of the brain was negative for any acute medical problems. However, the patient appears to have a significant treatment resistant type seizure disorder and she and the family describe that everything started about three weeks ago when her neurologist changed her seizure medication so it is possible that maybe these hallucinations that she is having might be secondary to her neurological problems. My concern was that the patient was reaching the point where she had been leaving her house and not telling her family where she was going and leaving the house, calling the at work saying that she felt frightened. We will continue to monitor the patient. Today she says she is not having any hallucinations, not hearing the voices or seeing the shadows but as we were talking she pointed to the tiles on the floor and said that she was seeing some dark spots on the tile on the floor and this definitely points to an organic origin to these hallucinations. Therefore I am not going to start her on any psychotropic medications but definitely she needs to follow up with her neurologist at the time that she is discharged and prior contact with her neurologist definitely should be considered. MIKAEL
[2020-01-22] MEDS: FLUTICASONE PROP 0.05% NASAL SPRAY 16 GM (FLONASE) SCH (08:25)
[2020-01-22] MEDS: TOPIRAMATE (TopAMAX) 100 MG TAB PO SCH (08:25)
[2020-01-22] MEDS: lamoTRIgine 100MG TAB PO SCH (08:25)
[2020-01-22] MEDS: VITAMIN D 1,000 INTERNATIONAL UNITS TABLET PO SCH (08:25)
[2020-01-22] MEDS: LORazepam 0.5 MG TAB PO SCH (08:26)
[2020-01-22] MEDS: lamoTRIgine 25 MG TAB PO SCH (08:26)
--- NOTE | 2020-01-22 10:09 | MHDSPDOC ---
[facility] Discharge Summary Discharge Summary DATE OF ADMISSION: Jan 20, 2020 at 00:30 DATE OF DISCHARGE: January 22, 2020 at 0945 DISCHARGE DIAGNOSES: 1. 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 Seizure Disorder REASON FOR ADMISSION: Patient is a 54 year old , Domiciled, Female who [facility] for reports of auditory and visual hallucinations. Patient reports that she had been seeing things and hearing things that made her very frightened. She had unusual behaviors as reported by her family i.e. reporting seeing videos and hands reaching out for her in facebook videos and saw a demons. Seeing shadows on the hwang. Seeing things on pictures, TV and other places that weren't there. She has had bilateral cataract surgery. has a stent in right eye for Glaucoma. Has a history of Epileptic Seizures. States that she has had upwards of 60 seizures a day but lately it is about 10 per day. Continues to complain about pepe "floaters" that start in the peripheral areas of her vision. CONSULTANTS INVOLVED: See Medical H + P by medical consult. TREATMENT AND PROGRESS ON THE UNIT : Patient was [facility] to [facility] and restarted on all her home medications. The following treatment modalities: 1) Individual Therapy 2) Group Therapy 3) Medication Management 4) Milieu Therapy 5) Safe Environment HOSPITAL COURSE: She was restarted on all her home medications. DISCHARGE ASSESSMENT: "I am kind of tired, my roommate and I were talking until 3 AM" States she felt like she was helping someone, feels confident about going home. States that she needed to be away from home to realize that she was not having a mental illness but that this was a neurological +/or ocular issue. She reports that she had some stress around the time that her daughter broke up with her boyfriend and felt that she took on that stress. Daughter went to stay with her daughter after the breakup and pt states that this is when she started seeing things. States that she had numerous stressors at this time with needing an appointment for EEG, needing to see neurologist, stopped taking Clobazam without titration which states side effects of auditory and visual hallucinations but also feels that she should not have stopped it suddenly. States, "I am glad I came, because I was afraid of being alone, but now I know those things weren't real but that they were probably neurological or my vision" MENTAL STATUS EXAMINATION ON DISCHARGE: Patient is a 54 -year old , female, who is calm and cooperative in the interview. She reports that she is continuing to have visual hallucinations but no auditory hallucinations. She is pleasant and denies depression, anxiety, manic, psychosis, paranoia, delusions or racing thoughts. Speech: Is normal rate, tone and volume. Language skills are intact Thought processes including: linear and goal oriented Thought content: denies depression, anxiety, jennifer or psychotic symptoms. Abstract reasoning, and computation: intact. Description of associations: visual hallucinations (black shadows) Description of abnormal or psychotic thoughts: visual hallucinations, but reports that these are sometimes floaters Judgment: good Insight: good Orientation: to person, place, time and situation Recent and remote memory: intact Attention span and concentration: good Language: expansive Fund of knowledge: average Mood: euthymic. Affect: reactive. MEDICATIONS ON DISCHARGE: See Medication Reconciliation PLAN/FOLLOWUP ARRANGEMENTS: Patient has numerous appointments for EEG, neurologist, Dr. Mejia on Tuesday01/28/20 and Eye doctor. She is following up with [facility]. She would like to have an MRI. The amount of time spent in the coordination of care for this patient was approximately 35 minutes. Vital Signs/I&Os Vital Signs Date Time Temp Pulse Resp B/P (MAP) Pulse Ox O2 Delivery O2 Flow Rate FiO2 01/22/20 06:34 97.4 61 16 128/74 (92) 01/21/20 06:38 98 Room Air Laboratory Data Microbiology Microbiology 01/19/20 Urine Culture - Final, Complete Medications Scheduled Atorvastatin Calcium (Atorvastatin Calcium) 40 Mg Tablet, 40 MG PO QHS, (Reported) Cholecalciferol (Vitamin D3) (Vitamin D3) 1,000 Unit Tablet, 1,000 UNITS PO DAILY, (Reported) Fenofibrate (Fenofibrate) 160 Mg Tablet, 160 MG PO QHS, (Reported) Fluticasone Propionate (Fluticasone Propionate) 16 Gm Robinson.susp, 2 SPRAYS NA DAILY, (Reported) Lamotrigine (Lamotrigine) 100 Mg Tablet, 200 MG PO BID, (Reported) Lamotrigine (Lamotrigine) 25 Mg Tablet, 50 MG PO BID, (Reported) Lorazepam (Lorazepam) 1 Mg Tab, 1 MG PO QHS, (Reported) Lorazepam (Lorazepam) 1 Mg Tablet, 0.5 TAB PO QAM, (Reported) Use sublingually if unable to swallow MDD = 3 mg Propranolol HCl (Propranolol HCl ER) 60 Mg Cap, 60 MG PO QHS, (Reported) Topiramate (Topiramate) 100 Mg Tablet, 100 MG PO BID, (Reported) Scheduled PRN Acetaminophen (Acetaminophen) 325 Mg Tablet, 650 MG PO Q6H PRN for PAIN, (Reported) Ibuprofen (Ibuprofen) 200 Mg Capsule, 400 MG PO Q6H PRN for PAIN, (Reported) Levalbuterol Hydrochloride (Xopenex Hfa) 15 Gm Hfa.aer.ad, 2 PUFF INH Q4-6HP PRN for wheezing, (Reported) Allergies Coded Allergies: codeine (Verified Allergy, Unknown, 01/20/20) diphenhydramine (Verified Allergy, Unknown, 01/20/20) meperidine (Verified Allergy, Unknown, 01/20/20) tramadol (Verified Allergy, Unknown, NOT ALLOWED DUE TO SEIZURE DISORDER, 01/20/20) JUAN LUIS DIEGO NP Jan 22, 2020 10:09
== END 2020-01-22 11:50 | disposition home or self-care (01) | DRG 754 ==
LOC: M ED 19:04 → M ED INP 01-20 00:30 → M PSY 01-20 01:58
PROVIDERS: ADMIT Psychiatry & Neurology Psychiatry; ATTEND Psychiatry & Neurology Psychiatry
DX: F32.9 Major depressive disorder, single episode, unspecified (principal); G40.909 Epilepsy, unspecified, not intractable, without status epilepticus; Z79.899 Other long term (current) drug therapy; Z88.5 Allergy status to narcotic agent; Z88.8 Allergy status to other drugs, medicaments and biological substances; M54.2 Cervicalgia; M54.5 Low back pain; J45.909 Unspecified asthma, uncomplicated; K21.9 Gastro-esophageal reflux disease without esophagitis

== ENCOUNTER 2021-03-24 00:07 | Inpatient (IN) | payer BC, MEDICARE ==
[~2021-03-24] VITALS: Ht 165.1 cm; Wt 60.1 kg
[~2021-03-24 00:07] MED LIST changes: +APAP325T4 PO; +ATOR40TA75 PO; +D31000TA2 PO; +FENO160T10 PO; +FLUTISP; +IBUP200C28 PO; +LAMO100T3 PO; +LAMO25TA4 PO; +LEVAINH INH; +OMEP40CA4; -OMEP40CA97; +TOPI100T9 PO
--- OUTSIDE RECORDS SUMMARY | 2021-03-24 00:17 | CCD | Continuity of Care Document ---
Author Author Pete MEJIA M.D. Organization Unknown Address [address] [address] Phone [phone] Problems Active Problems Provider Date Refractory epilepsy Sotero Mejia M.D. Onset: 9 Asthma without status asthmaticus Sotero Mejia M.D. On set: 06/29/2018 Hyperlipidemia Sotero Mejia M.D. Onset: 9 Irritable bowel syndrome Sotero Mejia M.D. Onset: 06/10 Social History Type Date Description Comments Sex Unknown ETOH Use Consumes 1-2 beers per week Tobacco Use Start: Unknown Patient has never smoked Allergies and adverse reactions Active Allergies Criticality Reaction | Severity Comments Date Gabapentin Unable to assess criticality seizure 09/03/2020 Inactive Allergies NKDA Unable to assess criticality 08/03/2018 Medications Active Medications SIG Qnty Indications Ordering Provide r Date Levalbuterol Tartrate 45mcg/Act Ae rosol use 2 inhalations orally every 4 to 6 hours as needed. 3unSotero Bass M.D. 06/20/2020 Nebulizer Kit/Tubing/Mouthpiece K it for use with nebulizer as directed 1unSotero Bass M.D. 02/26/2020 Fenofibrate 160mg Tablets Take 1 Tablet Daily 90tabs Sotero Mejia M.D. 08/04/19 19 Lamotrigine 100mg Tablets 2 tabs po bid Unknown Propranolol HCL ER 60mg Caps ER 24 HR 1 by mouth every day Unknown Omeprazole 40mg Capsules DR Take 1 Capsule Daily 90caps Sotero Mejia M.D. Flonase Allergy Relief 50mcg/Act Suspension 2 sprays each nare every day [id number] 15.800ml Sotero Mejia M.D. Ativan 0.5mg Tablets 1 po morning, 2 po hs for seizure Unknown Vitamin D3 1000Unit Tablets 2452-4742 units qd Unknown Xopenex 1.25mg/3ML Nebulizer use via nebulizer 3 times a day as needed for sob or wheezing 144ml Sotero Mejia M.D. Lamotrigine 25mg Tablets 1 by mouth twice a day Unknown Topiramate 100mg Tablets take one tablet by mouth twice a day Unknown Qvar Redihaler 80mcg/Act Aerosol 3 puffs daily Unknown Atorvastatin Calcium 40mg Tablets 1 by mouth every day Unknown [place] Saline Nasal Gel as directed twice a day prn Unknown Immunizations CPT Code Status Date Vaccine Lot # [id number] Refused 01/18/2019 Influenza Virus Vaccine, Quadrivalent, Slit Virus, Im Use 3Y & Up Vital Signs Date Vital Result Comment 09/03/2020 10:35am BP Systolic 126 mmHg BP Diastolic 76 mmHg Body Temperature 98.2 F Heart Rate 68 /min Respiratory Rate 16 /min Height 64 inches 5'4" Weight 144.00 lb [place] Body Weight 120 lb BMI (Body Mass Index) 24.7 kg/m2 O2 % BldC Oximetry 98 % 08/04/2020 10:45am BP Systolic 138 mmHg BP Diastolic 88 mmHg Body Temperature 98.1 F Heart Rate 60 /min Respiratory Rate 18 /min Height 64 inches 5'4" Weight 142.00 lb [place] Body Weight 120 lb BMI (Body Mass Index) 24.4 kg/m2 O2 % BldC Oximetry 98 % Results Test Acquired Date Facility Test Result H/L Range Note Laboratory test finding 03/17/2021 [facility] [place] [address] [phone] Valproic Acid (Depakene) 44 ug/mL Low 50-100 1 CBC W/Automated Diff 03/12/2021 [facility] [place], [place] [id number] [phone] CBC W/Automated Diff (SEE NOTE) 2 WBC 7.2 10^3/uL 4.2 - 11.0 RBC 4.69 10^6/uL 4.20 - 5.40 Hemoglobin 14.1 g/dL 12.0 - 16.0 Hematocrit 42.8 % 37.0 - 47.0 MCV 91.3 fL 81.0 - 101 MCH 30.1 pg 27.0 - 34.0 MCHC 32.9 g/dL 31.0 - 36.0 RDW 13.0 % 11.5 - 14.5 Platelets 295 10^3/uL 150 - 450 MPV 11.0 fL High 7.4 - 10.4 Neut 55.9 % 37.0 - 80.0 Lymph 31.3 % 25.0 - 40.0 [place] 10.2 % High 3.0 - 8.0 Eos 1.2 % 0.0 - 7.0 Baso 1.0 % 0.0 - 2.5 %Ig 0.4 % High 0.0 - 0.0 %NRBC 0.0 % 0.0 - 0.0 #Neut 4.04 10^3/uL 2.00 - 6.90 #Lymph 2.26 10^3/uL 0.60 - 3.40 #[place] 0.74 10^3/uL 0.00 - 0.90 #Eos 0.09 10^3/uL 0.00 - 0.70 #Baso 0.07 10^3/uL 0.00 - 0.20 #Ig 0.03 10^3/uL 0.00 - 0.10 #NRBC 0.00 10^3/uL 0.00 - 0.00 Manual Diff NOT INDICATED RBC Morph NOT INDICATED Comprehensive Metabolic Panel 03/12/2021 [place] [address] [phone] Comprehensive Metabo (SEE NOTE) 3 Sodium 142 mEq/L 134 - 153 Potassium 3.8 mEq/L 3.6 - 5.0 Chloride 106 mEq/L 98 - 107 Co2 25 mEq/L 22 - 30 Glucose 97 mg/dL 70 - 99 BUN 17 mg/dL 7 - 21 Creatinine 1.0 mg/dL 0.7 - 1.5 BUN/Creat 17 8 - 27 Total Protein 7.6 g/dL 6.3 - 8.2 Albumin 4.9 g/dL 3.9 - 5.0 Globulin 2.7 GM/DL 2.4 - 3.2 A/G Ratio 1.8 0.8 - 2.0 Calcium 9.5 mg/dL 8.4 - 10.2 Total Bili <0.7 mg/dL 0.2 - 1.3 Alkaline Phos 103 U/L 38 - 126 Sgot/Ast 32 U/L 5 - 40 SGPT/Alt 30 U/L 7 - 56 Anion Gap 11.0 mmol/L 8.0 - 16.0 Age 55 yrs Non-Aa GFR >60 mL/min Afr Amer GFR >60 mL/min 4 [facility] [place] [id number] [phone] Cve Panel (SEE NOTE) 5 Cholesterol 170 mg/dL 131 - 200 Triglycerides 90 mg/dL 35 - 160 HDL 52 mg/dL 29 - 86 LDL 99 mg/dL 65 - 175 Risk Factor 3.3 3.2 - 4.4 LDL/HDL 1.90 1.47 - 3.22 6 Laboratory test finding 03/12/2021 [place] [id number] [phone] TSH Highly Sensitive 1.32 uIU/mL 0.47 - 5.0 1 Ua With Reflex To Ua Culture 03/12/2021 [place] [address] [phone] Ua Reflex To Ua Cult (SEE NOTE) 7 Source R Color yellow Normal: Yellow Clarity clear Normal: Clear Spec [place] 1.010 1.001 - 1.030 pH 7 5 - 9 Glucose NORM Normal: Negative Bilirubin NEG Normal: Negative Ketone 5 Abnormal Normal: Negative Protein 15 Normal: Negative Nitrite NEG Normal: Negative Blood NEG Normal: Negative Leuk Est 25 Normal: Negative Urobilinogen 1 less than 1.0 mg/dL Microscopic See Below WBC 1 - 3 Normal: None Seen RBC None Seen Normal: None Seen Epithelial MODERATE Abnormal Normal: None Seen Bacteria Trace Normal: None Seen Urine Pain Gideon 13 Drug 03/12/2021 [place] [id number] [phone] Amphetamines Screen,Urine Negative ng/mL Cu vjnq=9229 Barbiturates Screen,Urine Negative ng/mL Oijzxv=660 Benzodiazepines Screen,Urine Negative ng/mL Kzfruy=560 Cannabinoid Screen, Urine Negative ng/mL Cutoff=20 Cocaine (Metab.) Screen,Urine Negative ng/mL Cutoff=30 0 Opiate Screen, Urine Negative ng/mL Gxbbvu=742 8 Oxycodone/Oxymorphone,Urine Negative ng/mL Zgyumo=044 9 Phencyclidine Screen,Urine Negative ng/mL Cutoff=25 Methadone Screen, Urine Negative ng/mL Moyksh=622 Propoxyphene Screen,Urine Negative ng/mL Sctams=306 Meperidine Screen, Urine Negative ng/mL Hqafmm=318 1 0 Fentanyl, Urine Negative pg/mL Ydnfep=7836 11 Tramadol Screen, Urine Negative ng/mL Frlfch=501 Creatinine, Urine 196.3 mg/dL 20.0-300.0 Specific [place] 1.015 NA Please Note: COMMENT 12 pH, Urine 7.0 NA 4.5-8.9 1 Detection Limit = 4 <4 indicates None Detected Toxicity may occur at levels of 100-500. Measurements of free unbound valproic acid may improve the assess- ment of clinical response. 2 COMPLETE BLOOD COUNT 3 COMPREHENSIVE METABOLIC PANE L 4 Male GFR Interprentation 20-49 yrs >60 mL/min Normal 50-59 yrs >56 mL/min Normal 60-69 yrs >49 mL/min Normal 70-79yrs >42 mL/min Normal 80 and above >35 mL/min Normal Female GFR Interpretation 20-39 yrs >60 mL/min Normal 40-49 yrs >58 mL/min Normal 50-59 yrs >51 mL/min Normal 60-69 yrs >45 mL/min Normal 70-79 yrs >39 mL/min Normal 80 and above >32 mL/min Normal 5 LIPID PANEL 6 CVE RISK CHOL/HDL LDL/HDL MEN: 1/2 AVERAGE 3.43 1.00 AVERAGE 4.97 3.55 2X AVERAGE 9.55 6.25 3X AVERAGE 23.99 7.99 WOMEN: 1/2 AVERAGE 3.27 1.47 AVERAGE 4.44 3.22 2X AVERAGE 7.05 5.03 3X AVERAGE 11.04 6.14 7 URINALYSIS 8 Opiate test includes Codeine , Morphine, Hydromorphone, Hydrocodone. 9 Test includes Oxycodone and Oxymorphone 10 This test was developed and its performance characteristics determined by [employer]. It has not been cleared or approved by the Food and Drug Administration. 11 Test includes Fentanyl and N orfentanyl This test was developed and its performance characteristics determined by [employer]. It has not been cleared or approved by the Food and Drug Administration. 12 Drug-test results should be interpreted in the context of clinical information. Patient metabolic variables, specific drug chemistry, and specimen characteristics can affect test outcome. Technical consultation is available if a test result is inconsistent with an expected outcome. (email-[email or web address] or call toll-free [phone]) Drug brands, if listed herein, are trademarks of their respective owners. Procedures Description No Information Available Medical Devices Description No Information Available Encounters Description No Information Available Assessments Description No Information Available Plan of Treatment No Information Available Functional Status Description No Information Available Mental Status Description No Information Available Referrals Description No Information Available
--- OUTSIDE RECORDS SUMMARY | 2021-03-24 00:17 | CCD | Continuity of Care Document ---
Author Author Pete NICOLE Organization Unknown Address [address] [place] [address] Phone [phone] Care Team Providers Care Stores Laborer Name Role Phone Loretta Nicole AUTM [phone] Problems Description No Information Available Social History Type Date Description Comments Sex Unknown ETOH Use Rarely consumes beer Tobacco Use Start: Unknown End: Unknown Patient is a former smoker social smoker never inhaled Recreational Drug Use Denies Drug Use Allergies and adverse reactions Active Allergies Criticality Reaction | Severity Comments Date Gabapentin Unable to assess criticality caused seizu re 03/12/2021 Ahist Antihistamine Unable to assess criticality 03/17/2021 Morphine Unable to assess criticality 03/17/2021 Demerol Unable to assess criticality 03/17/2021 Oxycodone Unable to assess criticality 03/17/2021 Medications Active Medications SIG Qnty Indications Ordering Provide r Date Lorazepam 1mg Tablets Unknown Propranolol HCL ER 60mg Caps ER 24HR Unknown Divalproex Sodium ER 250mg Tablets ER 24HR 1 tab at night Unknown Lamotrigine 25mg Tablets 2 tab by mouth twice a day 60tabs Unknown Topiramate 50mg Tablets Unknown Lorazepam 0.5mg Tablets Unknown Omeprazole 40mg Capsules Sotero Robert, Levalbuterol Tartrate 45mcg/Act Aerosol Sotero Mejia, Lamotrigine 100mg Tablets 1 tab by mouth twice a day Unknown Atorvastatin Calcium 40mg Tablets Yair Morley Qvar Redihaler 80mcg/Act Aerosol Sotero Mejia, Travoprost (Arianna Free) 0.004% Solution Amy Nelson Fluticasone Propionate 50mcg/Act Suspension Sotero Mejia, Immunizations Description No Information Available Vital Signs Date Vital Result Comment 03/17/2021 11:00am BP Systolic 122 mmHg BP Diastolic 80 mmHg Heart Rate 89 /min Body Temperature 96.6 F Respiratory Rate 16 /min O2 % BldC Oximetry 98 % Weight 139.25 lb Weight 63.164 kg 03/12/2021 1:10pm BP Systolic 128 mmHg BP Diastolic 80 mmHg Heart Rate 72 /min Body Temperature 97.5 F Respiratory Rate 16 /min O2 % BldC Oximetry 97 % Weight 138.12 lb Weight 62.654 kg Height 65 inches 5'5" BMI (Body Mass Index) 23.0 kg/m2 BSA (Body Surface Area) 1.69 m2 Results Test Acquired Date Facility Test Result H/L Range Note Laboratory test finding 03/17/2021 [facility] Valproic Acid (Depakene) 44 ug/mL Low 50-100 1 Lamotrigine 16.8 ug/mL 2.0-20.0 2 CBC W/Automated Diff 03/12/2021 [facility] CBC W/Automated Diff (SEE NOTE) 3, 4 WBC 7.2 10^3/uL 4.2 - 11.0 RBC [...] 80.0 Lymph 31.3 % 25.0 - 40.0 [place] 10.2 % High 3.0 - 8.0 Eos 1.2 % 0.0 - 7.0 Baso 1.0 % 0.0 - 2.5 %Ig 0.4 % High 0.0 - 0.0 %NRBC 0.0 % 0.0 - 0.0 #Neut 4.04 10^3/uL 2.00 - 6.90 #Lymph 2.26 10^3/uL 0.60 - 3.40 #[place] 0.74 10^3/uL 0.00 - 0.90 #Eos 0.09 10^3/uL 0.00 - 0.70 #Baso 0.07 10^3/uL 0.00 - 0.20 #Ig 0.03 10^3/uL 0.00 - 0.10 #NRBC 0.00 10^3/uL 0.00 - 0.00 Manual Diff NOT INDICATED RBC Morph NOT INDICATED Comprehensive Metabolic Panel 03/12/2021 [facility] Comprehensive Metabo (SEE NOTE) 5 Sodium 142 mEq/L 134 - 153 Potassium [...] >60 mL/min Afr Amer GFR >60 mL/min 6 Cve Panel 03/12/2021 [facility] Cve Panel (SEE NOTE) 7 Cholesterol 170 mg/dL 131 - 200 Triglycerides 90 mg/dL 35 - 160 HDL 52 mg/dL 29 - 86 LDL 99 mg/dL 65 - 175 Risk Factor 3.3 3.2 - 4.4 LDL/HDL 1.90 1.47 - 3.22 8 Laboratory test finding 03/12/2021 [facility] TSH Highly Sensitive 1.32 uIU/mL 0.47 - 5.01 Ua With Reflex To Ua Culture 03/12/2021 [facility] Ua Reflex To Ua Cult (SEE NOTE) 9 Source R Color yellow Normal: Yellow Clarity clear Normal: Clear Spec [place] 1.010 1.001 - 1.030 pH 7 5 [...] Seen Urine Pain Gideon 13 Drug 03/12/2021 [facility] Amphetamines Screen,Urine Negative ng/mL Apqqmw=1518 Barbiturates Screen,Urine Negative ng/mL Yqhmpq=625 Benzodiazepines Screen,Urine Negative ng/mL Nsgkvg=986 Cannabinoid Screen, Urine Negative ng/mL Cutoff=20 Cocaine (Metab.) Screen,Urine Negative ng/mL Cutoff=30 0 Opiate Screen, Urine Negative ng/mL Jxxipo=358 10 Oxycodone/Oxymorphone,Urine Negative ng/mL Jkpxsp=554 11 Phencyclidine Screen,Urine Negative ng/mL Cutoff=25 Methadone Screen, Urine Negative ng/mL Awkhex=443 Propoxyphene Screen,Urine Negative ng/mL Pvqqku=548 Meperidine Screen, Urine Negative ng/mL Qigpio=581 1 2 Fentanyl, Urine Negative pg/mL Nfsvbz=4280 13 Tramadol Screen, Urine Negative ng/mL Yeenqt=302 Creatinine, Urine 196.3 mg/dL 20.0-300.0 Specific [place] 1.015 NA Please Note: COMMENT 14 pH, Urine 7.0 NA 4.5-8.9 1 Detection Limit = 4 <4 indicates None Detected Toxicity may occur at levels of 100-500. Measurements of free unbound valproic acid may improve the assess- ment of clinical response. 2 Detection Limit = 1.0 3 Is patient fasting? N 4 COMPLETE BLOOD COUNT 5 COMPREHENSIVE METABOLIC PANE L 6 Male GFR Interprentation 20-49 yrs >60 mL/min Normal 50-59 yrs >56 mL/min Normal 60-69 yrs >49 mL/min Normal 70-79yrs >42 mL/min Normal 80 and above >35 mL/min Normal Female GFR Interpretation 20-39 yrs >60 mL/min Normal 40-49 yrs >58 mL/min Normal 50-59 yrs >51 mL/min Normal 60-69 yrs >45 mL/min Normal 70-79 yrs >39 mL/min Normal 80 and above >32 mL/min Normal 7 LIPID PANEL 8 CVE RISK CHOL/HDL LDL/HDL MEN: 1/2 AVERAGE 3.43 1.00 AVERAGE 4.97 3.55 2X AVERAGE 9.55 6.25 3X AVERAGE 23.99 7.99 WOMEN: 1/2 AVERAGE 3.27 1.47 AVERAGE 4.44 3.22 2X AVERAGE 7.05 5.03 3X AVERAGE 11.04 6.14 9 URINALYSIS 10 Opiate test includes Codeine , Morphine, Hydromorphone, Hydrocodone. 11 Test includes Oxycodone and Oxymorphone 12 This test was developed and its performance characteristics determined by [employer]. It has not been cleared or approved by the Food and Drug Administration. 13 Test includes Fentanyl and N orfentanyl This test was developed and its performance characteristics determined by [employer]. It has not been cleared or approved by the Food and Drug Administration. 14 Drug-test results should be interpreted in the context of clinical information. Patient metabolic variables, specific drug chemistry, and specimen characteristics can affect test outcome. Technical consultation is available if a test result is inconsistent with an expected outcome. ([email or web address] or call toll-free [phone]) Drug brands, if listed herein, are trademarks of their respective owners. Procedures Date Code Description Status 03/17/2021 26607 Office/Outpatient Established Lo w MDM 20-29 Min Completed 03/12/2021 14783 Office/Outpatient New Moderate M DM 45-59 Minutes Completed 03/12/2021 55932 Brief Emotional/Beha v Assessment W/ Scoring Doc Per Standard Inst Completed Medical Devices Description No Information Available Encounters Description No Information Available Assessments Date Code Description Provider 03/17/2021 G40.909 Epilepsy, unspecifie d, not intractable, without status epilepticus YAO Quan 03/17/2021 R41.0 Disorientation, unspecified YAO Carnes 03/12/2021 G40.909 Epilepsy, unspecifie d, not intractable, without status epilepticus YAO Quan 03/12/2021 E78.5 Hyperlipidemia, unspecified YAO Carnes 03/12/2021 R25.1 Tremor, unspecified Loretta Yuri son, YAO 03/12/2021 R41.0 Disorientation, unspecified YAO Carnes 03/12/2021 L29.9 Generalized pruritus YAO Moon Plan of Treatment No Information Available Functional Status Description No Information Available Mental Status Description No Information Available Referrals Description No Information Available
--- OUTSIDE RECORDS SUMMARY | 2021-03-24 00:17 | CCD | Continuity of Care Document ---
Author Author Pete NICOLE Organization Unknown Address [address] [place] [address] Phone [phone] Care Team Providers Care Probation Counselor Name Role Phone Loretta Nicole AUTM [phone] Problems Description No Information Available Social History [...] H/L Range Note Laboratory test finding 03/17/2021 [facility] Valproic Acid (Depakene) <pending> Lamotrigine <pending> CBC W/Automated Diff 03/12/2021 [facility] CBC W/Automated Diff (SEE NOTE) 1, 2 WBC 7.2 10^3/uL 4.2 - 11.0 [...] 80.0 Lymph 31.3 % 25.0 - 40.0 [place] 10.2 % High 3.0 - 8.0 Eos 1.2 % 0.0 - 7.0 Baso 1.0 % 0.0 - 2.5 %Ig 0.4 % High 0.0 - 0.0 %NRBC 0.0 % 0.0 - 0.0 #Neut 4.04 10^3/uL 2.00 - 6.90 #Lymph 2.26 10^3/uL 0.60 - 3.40 #[place] 0.74 10^3/uL 0.00 - 0.90 #Eos 0.09 10^3/uL 0.00 - 0.70 #Baso 0.07 10^3/uL 0.00 - 0.20 #Ig 0.03 10^3/uL 0.00 - 0.10 #NRBC 0.00 10^3/uL 0.00 - 0.00 Manual Diff NOT INDICATED RBC Morph NOT INDICATED Comprehensive Metabolic Panel 03/12/2021 [facility] Comprehensive Metabo (SEE NOTE) 3 Sodium 142 [...] GFR >60 mL/min 4 Cve Panel 03/12/2021 [facility] Cve Panel (SEE NOTE) 5 Cholesterol 170 mg/dL 131 - 200 Triglycerides 90 mg/dL 35 - 160 HDL 52 mg/dL 29 - 86 LDL 99 mg/dL 65 - 175 Risk Factor 3.3 3.2 - 4.4 LDL/HDL 1.90 1.47 - 3.22 6 Laboratory test finding 03/12/2021 [facility] TSH Highly Sensitive 1.32 uIU/mL 0.47 - 5.01 Ua With Reflex To Ua Culture 03/12/2021 [facility]ital Ua Reflex To Ua Cult (SEE NOTE) 7 Source R Color yellow Normal: Yellow Clarity clear Normal: Clear Spec [place] 1.010 1.001 - 1.030 pH 7 5 [...] Seen Urine Pain Gideon 13 Drug 03/12/2021 [facility] l Amphetamines Screen,Urine Negative ng/mL Tuofve=4966 Barbiturates Screen,Urine Negative ng/mL Hlogwa=585 Benzodiazepines Screen,Urine Negative ng/mL Cpljsn=063 Cannabinoid Screen, Urine Negative ng/mL Cutoff=20 Cocaine (Metab.) Screen,Urine Negative ng/mL Cutoff=30 0 Opiate Screen, Urine Negative ng/mL Jlwvqn=585 8 Oxycodone/Oxymorphone,Urine Negative ng/mL Kdycuj=104 9 Phencyclidine Screen,Urine Negative ng/mL Cutoff=25 Methadone Screen, Urine Negative ng/mL Ugwubd=937 Propoxyphene Screen,Urine Negative ng/mL Rznwcj=098 Meperidine Screen, Urine Negative ng/mL Thyygr=324 1 0 Fentanyl, Urine Negative pg/mL Zfuwvk=2979 11 Tramadol Screen, Urine Negative ng/mL Auamsr=980 Creatinine, Urine 196.3 mg/dL 20.0-300.0 Specific [place] 1.015 NA Please Note: COMMENT 12 pH, Urine 7.0 NA 4.5-8.9 1 Is patient fasting? N 2 COMPLETE BLOOD COUNT 3 COMPREHENSIVE METABOLIC [...] developed and its performance characteristics determined by [employer]. It has not been cleared or approved by the Food and Drug Administration. 11 Test includes Fentanyl and N orfentanyl This test was developed and its performance characteristics determined by [employer]. It has not been cleared or approved by the Food and Drug Administration. 12 Drug-test results should be interpreted in the context of clinical information. Patient metabolic variables, specific drug chemistry, and specimen characteristics can affect test outcome. Technical consultation is available if a test result is inconsistent with an expected outcome. ([email or web address] or call toll-free [phone]) Drug brands, if listed herein, are trademarks of their respective owners. Procedures Date Code Description Status 03/17/2021 11278 Office/Outpatient Established Lo w MDM 20-29 Min Completed 03/12/2021 62587 Office/Outpatient New Moderate M DM 45-59 Minutes Completed 03/12/2021 12128 Brief Emotional/Beha v Assessment W/ Scoring Doc Per Standard Inst Completed Medical Devices Description No Information Available Encounters Type Date Location Provider Dx Diagnosis Office Visit 03/17/2021 [facility] YAO Quan G4 0.909 Epilepsy, unsp, not intractable, without status epilepticus R41.0 Disorientation, unspecified Assessments Date Code Description Provider 03/17/2021 G40.909 Epilepsy, unspecifie d, not intractable, without status epilepticus YAO Quan 03/17/2021 R41.0 Disorientation, unspecified YAO Carnes 03/12/2021 G40.909 Epilepsy, unspecifie d, not intractable, without status epilepticus YAO Quan 03/12/2021 E78.5 Hyperlipidemia, unspecified Cher Nicole, YAO 03/12/2021 R25.1 Tremor, unspecified Loretta Yuri son, YAO 03/12/2021 R41.0 Disorientation, unspecified Cher Nicole, YAO 03/12/2021 L29.9 Generalized pruritus YAO Moon Plan of Treatment No Information Available Functional Status Description No Information Available Mental Status Description No Information Available Referrals Description No Information Available
--- OUTSIDE RECORDS SUMMARY | 2021-03-24 00:17 | CCD | Continuity of Care Document ---
Author Author Pete MEJIA M.D. Organization Unknown Address [address] [address] Phone [phone] Problems Active Problems Provider Date Refractory epilepsy [...] Suspension 2 sprays each nare every day [id number] 15.800ml Sotero Mejia M.D. Ativan 0.5mg Tablets 1 po morning, 2 po hs for seizure Unknown Vitamin D3 1000Unit Tablets 4169-9508 units qd Unknown Xopenex 1.25mg/3ML Nebulizer use via nebulizer 3 times a day as needed for sob or wheezing 144ml Sotero Mejia M.D. Lamotrigine 25mg Tablets 1 by mouth twice a day Unknown Topiramate 100mg Tablets take one tablet by mouth twice a day Unknown Qvar Redihaler 80mcg/Act Aerosol 3 puffs daily Unknown Atorvastatin Calcium 40mg Tablets 1 by mouth every day Unknown [place] Saline Nasal Gel as directed twice a day prn Unknown Immunizations CPT Code Status Date Vaccine Lot # [id number] Refused 01/18/2019 Influenza Virus Vaccine, Quadrivalent, Slit Virus, Im Use 3Y & Up Vital Signs Date Vital Result Comment 09/03/2020 10:35am BP Systolic 126 mmHg BP Diastolic 76 mmHg Body Temperature 98.2 F Heart Rate 68 /min Respiratory Rate 16 /min Height 64 inches 5'4" Weight 144.00 lb [place] Body Weight 120 lb BMI (Body Mass Index) 24.7 kg/m2 O2 % BldC Oximetry 98 % 08/04/2020 10:45am BP Systolic 138 mmHg BP Diastolic 88 mmHg Body Temperature 98.1 F Heart Rate 60 /min Respiratory Rate 18 /min Height 64 inches 5'4" Weight 142.00 lb [place] Body Weight 120 lb BMI (Body Mass Index) 24.4 kg/m2 O2 % BldC Oximetry 98 % Results Test Acquired Date Facility Test Result H/L Range Note CBC W/Automated Diff 03/12/2021 [place] [address] [phone] CBC W/Automated Diff (SEE NOTE) 1 WBC 7.2 10^3/uL 4.2 - 11.0 RBC [...] 80.0 Lymph 31.3 % 25.0 - 40.0 [place] 10.2 % High 3.0 - 8.0 Eos 1.2 % 0.0 - 7.0 Baso 1.0 % 0.0 - 2.5 %Ig 0.4 % High 0.0 - 0.0 %NRBC 0.0 % 0.0 - 0.0 #Neut 4.04 10^3/uL 2.00 - 6.90 #Lymph 2.26 10^3/uL 0.60 - 3.40 #[place] 0.74 10^3/uL 0.00 - 0.90 #Eos 0.09 10^3/uL 0.00 - 0.70 #Baso 0.07 10^3/uL 0.00 - 0.20 #Ig 0.03 10^3/uL 0.00 - 0.10 #NRBC 0.00 10^3/uL 0.00 - 0.00 Manual Diff NOT INDICATED RBC Morph NOT INDICATED Comprehensive Metabolic Panel 03/12/2021 [place] [address] [phone] Comprehensive Metabo (SEE NOTE) 2 Sodium 142 mEq/L 134 - 153 Potassium [...] >60 mL/min Afr Amer GFR >60 mL/min 3 [facility]ve [facility] [place] [id number] [phone] Cve Panel (SEE NOTE) 4 Cholesterol 170 mg/dL 131 - 200 Triglycerides 90 mg/dL 35 - 160 HDL 52 mg/dL 29 - 86 LDL 99 mg/dL 65 - 175 Risk Factor 3.3 3.2 - 4.4 LDL/HDL 1.90 1.47 - 3.22 5 Laboratory test finding 03/12/2021 [place] [id number] [phone] TSH Highly Sensitive 1.32 uIU/mL 0.47 - 5.0 1 Ua With Reflex To Ua Culture 03/12/2021 [place] [address] [phone] Ua Reflex To Ua Cult (SEE NOTE) 6 Source R Color yellow Normal: Yellow Clarity clear Normal: Clear Spec [place] 1.010 1.001 - 1.030 pH 7 5 [...] Seen Urine Pain Gideon 13 Drug 03/12/2021 [place] [address] [phone] Amphetamines Screen,Urine Negative ng/mL Cu nrhl=0334 Barbiturates Screen,Urine Negative ng/mL Hciuot=955 Benzodiazepines Screen,Urine Negative ng/mL Vrvxqw=888 Cannabinoid Screen, Urine Negative ng/mL Cutoff=20 Cocaine (Metab.) Screen,Urine Negative ng/mL Cutoff=30 0 Opiate Screen, Urine Negative ng/mL Giewzp=215 7 Oxycodone/Oxymorphone,Urine Negative ng/mL Dxgruu=775 8 Phencyclidine Screen,Urine Negative ng/mL Cutoff=25 Methadone Screen, Urine Negative ng/mL Xtiqfi=919 Propoxyphene Screen,Urine Negative ng/mL Nusihq=334 Meperidine Screen, Urine Negative ng/mL Nbsdyz=277 9 Fentanyl, Urine Negative pg/mL Cmnhko=9584 10 Tramadol Screen, Urine Negative ng/mL Ekcapc=006 Creatinine, Urine 196.3 mg/dL 20.0-300.0 Specific [place] 1.015 NA Please Note: COMMENT 11 pH, Urine 7.0 NA 4.5-8.9 1 COMPLETE BLOOD COUNT 2 COMPREHENSIVE METABOLIC PANE L 3 Male GFR Interprentation 20-49 yrs >60 mL/min Normal 50-59 yrs >56 mL/min Normal 60-69 yrs >49 mL/min Normal 70-79yrs >42 mL/min Normal 80 and above >35 mL/min Normal Female GFR Interpretation 20-39 yrs >60 mL/min Normal 40-49 yrs >58 mL/min Normal 50-59 yrs >51 mL/min Normal 60-69 yrs >45 mL/min Normal 70-79 yrs >39 mL/min Normal 80 and above >32 mL/min Normal 4 LIPID PANEL 5 CVE RISK CHOL/HDL LDL/HDL MEN: 1/2 AVERAGE 3.43 1.00 AVERAGE 4.97 3.55 2X AVERAGE 9.55 6.25 3X AVERAGE 23.99 7.99 WOMEN: 1/2 AVERAGE 3.27 1.47 AVERAGE 4.44 3.22 2X AVERAGE 7.05 5.03 3X AVERAGE 11.04 6.14 6 URINALYSIS 7 Opiate test includes Codeine , Morphine, Hydromorphone, Hydrocodone. 8 Test includes Oxycodone and Oxymorphone 9 This test was developed and its performance characteristics determined by [employer]. It has not been cleared or approved by the Food and Drug Administration. 10 Test includes Fentanyl and N orfentanyl This test was developed and its performance characteristics determined by [email or web address]. It has not been cleared or approved by the Food and Drug Administration. 11 Drug-test results should be interpreted in the context of clinical information. Patient metabolic variables, specific drug chemistry, and specimen characteristics can affect test outcome. Technical consultation is available if a test result is inconsistent with an expected outcome. ([email or web address] or call toll-free [phone]) Drug brands, if listed herein, are trademarks of their respective owners. Procedures Description No Information Available Medical Devices Description No Information Available Encounters Description No Information Available Assessments Description No Information Available Plan of Treatment No Information Available Functional Status Description No Information Available Mental Status Description No Information Available Referrals Description No Information Available
--- OUTSIDE RECORDS SUMMARY | 2021-03-24 00:17 | CCD | Continuity of Care Document ---
Author Author Pete NICOLE Organization Unknown Address [address] [place] [address] Phone [phone] Care Team Providers Care Homemaker Companion Name Role Phone Loretta Nicole AUTM [phone] Problems Description No Information Available Social History [...] H/L Range Note Laboratory test finding 03/17/2021 [facility] Valproic Acid (Depakene) <pending> Lamotrigine <pending> CBC W/Automated Diff 03/12/2021 [facility] CBC W/Automated Diff (SEE NOTE) 1, 2 [...] 80.0 Lymph 31.3 % 25.0 - 40.0 [place] 10.2 % High 3.0 - 8.0 Eos 1.2 % 0.0 - 7.0 Baso 1.0 % 0.0 - 2.5 %Ig 0.4 % High 0.0 - 0.0 %NRBC 0.0 % 0.0 - 0.0 #Neut 4.04 10^3/uL 2.00 - 6.90 #Lymph 2.26 10^3/uL 0.60 - 3.40 #[place] 0.74 10^3/uL 0.00 - 0.90 #Eos 0.09 10^3/uL 0.00 - 0.70 #Baso 0.07 10^3/uL 0.00 - 0.20 #Ig 0.03 10^3/uL 0.00 - 0.10 #NRBC 0.00 10^3/uL 0.00 - 0.00 Manual Diff NOT INDICATED RBC Morph NOT INDICATED Comprehensive Metabolic Panel 03/12/2021 [facility] Comprehensive Metabo (SEE NOTE) 3 Sodium [...] GFR >60 mL/min 4 Cve Panel 03/12/2021 [facility] Cve Panel (SEE NOTE) 5 Cholesterol 170 mg/dL 131 - 200 Triglycerides 90 mg/dL 35 - 160 HDL 52 mg/dL 29 - 86 LDL 99 mg/dL 65 - 175 Risk Factor 3.3 3.2 - 4.4 LDL/HDL 1.90 1.47 - 3.22 6 Laboratory test finding 03/12/2021 [facility] TSH Highly Sensitive 1.32 uIU/mL 0.47 - 5.01 Ua With Reflex To Ua Culture 03/12/2021 [facility] spital Ua Reflex To Ua Cult (SEE NOTE) 7 Source R Color yellow Normal: Yellow Clarity clear Normal: Clear Spec [place] 1.010 1.001 - 1.030 pH 7 5 [...] Seen Urine Pain Gideon 13 Drug 03/12/2021 [facility] l Amphetamines Screen,Urine Negative ng/mL Gcxoyn=6722 Barbiturates Screen,Urine Negative ng/mL Ucyecl=731 Benzodiazepines Screen,Urine Negative ng/mL Bzupsl=881 Cannabinoid Screen, Urine Negative ng/mL Cutoff=20 Cocaine (Metab.) Screen,Urine Negative ng/mL Cutoff=30 0 Opiate Screen, Urine Negative ng/mL Zvlntd=138 8 Oxycodone/Oxymorphone,Urine Negative ng/mL Ypixgt=294 9 Phencyclidine Screen,Urine Negative ng/mL Cutoff=25 Methadone Screen, Urine Negative ng/mL Vaufvc=634 Propoxyphene Screen,Urine Negative ng/mL Mthrcx=216 Meperidine Screen, Urine Negative ng/mL Cgzwjk=916 1 0 Fentanyl, Urine Negative pg/mL Nudeup=4380 11 Tramadol Screen, Urine Negative ng/mL Nbxahn=834 Creatinine, Urine 196.3 mg/dL 20.0-300.0 Specific [place] 1.015 NA Please Note: COMMENT 12 pH, [...] developed and its performance characteristics determined by [employer]. It has not been cleared or approved by the Food and Drug Administration. 11 Test includes Fentanyl and N orfentanyl This test was developed and its performance characteristics determined by [employer]. It has not been cleared or approved by the Food and Drug Administration. 12 Drug-test results should be interpreted in the context of clinical information. Patient metabolic variables, specific drug chemistry, and specimen characteristics can affect test outcome. Technical consultation is available if a test result is inconsistent with an expected outcome. ([email or web address] or call toll-free [phone]) Drug brands, if listed herein, are trademarks of their respective owners. Procedures Date Code Description Status 03/12/2021 27671 Office/Outpatient New Moderate M DM 45-59 Minutes Completed 03/12/2021 88206 Brief Emotional/Beha v Assessment W/ Scoring Doc Per Standard Inst Completed Medical Devices Description No Information Available Encounters Description No Information Available Assessments Date Code Description Provider 03/17/2021 G40.909 Epilepsy, unspecifie d, not intractable, without status epilepticus YAO Quan 03/12/2021 G40.909 Epilepsy, unspecifie d, not intractable, without status epilepticus YAO Quan 03/12/2021 E78.5 Hyperlipidemia, unspecified YAO Carnes 03/12/2021 R25.1 Tremor, unspecified Loretta lovelace, YAO 03/12/2021 R41.0 Disorientation, unspecified YAO Carnes 03/12/2021 L29.9 Generalized pruritus YAO Moon Plan of Treatment No Information Available Functional Status Description No Information Available Mental Status Description No Information Available Referrals Description No Information Available
--- OUTSIDE RECORDS SUMMARY | 2021-03-24 00:17 | CCD | Continuity of Care Document ---
Author Author Pete MEJIA M.D. Organization Unknown Address [address] [address] Phone [phone] Problems Active Problems Provider Date Refractory epilepsy [...] DR Take 1 Capsule Daily 90caps Sotero Meija M.D. Flonase Allergy Relief 50mcg/Act Suspension 2 sprays each nare every day [id number] 15.800ml Sotero Mejia M.D. Ativan 0.5mg Tablets 1 po morning, 2 po hs for seizure Unknown Vitamin D3 1000Unit Tablets 6753-9160 units qd Unknown Xopenex 1.25mg/3ML Nebulizer use via nebulizer 3 times a day as needed for sob or wheezing 144ml Sotero Mejia M.D. Lamotrigine 25mg Tablets 1 by mouth twice a day Unknown Topiramate 100mg Tablets take one tablet by mouth twice a day Unknown Qvar Redihaler 80mcg/Act Aerosol 3 puffs daily Unknown Atorvastatin Calcium 40mg Tablets 1 by mouth every day Unknown [place] Saline Nasal Gel as directed twice a day prn Unknown Immunizations CPT Code Status Date Vaccine Lot # [id number] Refused 01/18/2019 Influenza Virus Vaccine, Quadrivalent, Slit Virus, Im Use 3Y & Up Vital Signs Date Vital Result Comment 09/03/2020 10:35am BP Systolic 126 mmHg BP Diastolic 76 mmHg Body Temperature 98.2 F Heart Rate 68 /min Respiratory Rate 16 /min Height 64 inches 5'4" Weight 144.00 lb [place] Body Weight 120 lb BMI (Body Mass Index) 24.7 kg/m2 O2 % BldC Oximetry 98 % 08/04/2020 10:45am BP Systolic 138 mmHg BP Diastolic 88 mmHg Body Temperature 98.1 F Heart Rate 60 /min Respiratory Rate 18 /min Height 64 inches 5'4" Weight 142.00 lb [place] Body Weight 120 lb BMI (Body Mass Index) 24.4 kg/m2 O2 % BldC Oximetry 98 % Results Test Acquired Date Facility Test Result H/L Range Note Laboratory test finding 03/17/2021 [facility] [place] [address] [phone] Valproic Acid (Depakene) 44 ug/mL Low 50-100 1 Lamotrigine 16.8 ug/mL 2.0-20.0 2 CBC W/Automated Diff 03/12/2021 [facility] [place] [address] [phone] CBC W/Automated Diff (SEE NOTE) 3 WBC 7.2 10^3/uL 4.2 - 11.0 RBC [...] 80.0 Lymph 31.3 % 25.0 - 40.0 [place] 10.2 % High 3.0 - 8.0 Eos 1.2 % 0.0 - 7.0 Baso 1.0 % 0.0 - 2.5 %Ig 0.4 % High 0.0 - 0.0 %NRBC 0.0 % 0.0 - 0.0 #Neut 4.04 10^3/uL 2.00 - 6.90 #Lymph 2.26 10^3/uL 0.60 - 3.40 #[place] 0.74 10^3/uL 0.00 - 0.90 #Eos 0.09 10^3/uL 0.00 - 0.70 #Baso 0.07 10^3/uL 0.00 - 0.20 #Ig 0.03 10^3/uL 0.00 - 0.10 #NRBC 0.00 10^3/uL 0.00 - 0.00 Manual Diff NOT INDICATED RBC Morph NOT INDICATED Comprehensive Metabolic Panel 03/12/2021 [place] [address] [phone] Comprehensive Metabo (SEE NOTE) 4 Sodium 142 mEq/L 134 - 153 Potassium [...] >60 mL/min Afr Amer GFR >60 mL/min 5 [facility] [place] [place] [address] [phone] Cve Panel (SEE NOTE) 6 Cholesterol 170 mg/dL 131 - 200 Triglycerides 90 mg/dL 35 - 160 HDL 52 mg/dL 29 - 86 LDL 99 mg/dL 65 - 175 Risk Factor 3.3 3.2 - 4.4 LDL/HDL 1.90 1.47 - 3.22 7 Laboratory test finding 03/12/2021 [place] [address] [phone] TSH Highly Sensitive 1.32 uIU/mL 0.47 - 5.0 1 Ua With Reflex To Ua Culture 03/12/2021 [place] [address] [phone] Ua Reflex To Ua Cult (SEE NOTE) 8 Source R Color yellow Normal: Yellow Clarity clear Normal: Clear Spec [place] 1.010 1.001 - 1.030 pH 7 5 [...] Seen Urine Pain Gideon 13 Drug 03/12/2021 [place] [address] [phone] Amphetamines Screen,Urine Negative ng/mL Cu zfpp=5086 Barbiturates Screen,Urine Negative ng/mL Rbujlw=727 Benzodiazepines Screen,Urine Negative ng/mL Mvytcn=588 Cannabinoid Screen, Urine Negative ng/mL Cutoff=20 Cocaine (Metab.) Screen,Urine Negative ng/mL Cutoff=30 0 Opiate Screen, Urine Negative ng/mL Jrqonh=815 9 Oxycodone/Oxymorphone,Urine Negative ng/mL Shhfwn=445 10 Phencyclidine Screen,Urine Negative ng/mL Cutoff=25 Methadone Screen, Urine Negative ng/mL Bfzltn=865 Propoxyphene Screen,Urine Negative ng/mL Ullgbh=318 Meperidine Screen, Urine Negative ng/mL Xhoxdl=248 1 1 Fentanyl, Urine Negative pg/mL Rrmdaa=0360 12 Tramadol Screen, Urine Negative ng/mL Wnddok=470 Creatinine, Urine 196.3 mg/dL 20.0-300.0 Specific [place] 1.015 NA Please Note: COMMENT 13 pH, Urine 7.0 NA 4.5-8.9 1 Detection Limit = 4 <4 indicates None Detected Toxicity may occur at levels of 100-500. Measurements of free unbound valproic acid may improve the assess- ment of clinical response. 2 Detection Limit = 1.0 3 COMPLETE BLOOD COUNT 4 COMPREHENSIVE METABOLIC PANE L 5 Male GFR Interprentation 20-49 yrs >60 mL/min Normal 50-59 yrs >56 mL/min Normal 60-69 yrs >49 mL/min Normal 70-79yrs >42 mL/min Normal 80 and above >35 mL/min Normal Female GFR Interpretation 20-39 yrs >60 mL/min Normal 40-49 yrs >58 mL/min Normal 50-59 yrs >51 mL/min Normal 60-69 yrs >45 mL/min Normal 70-79 yrs >39 mL/min Normal 80 and above >32 mL/min Normal 6 LIPID PANEL 7 CVE RISK CHOL/HDL LDL/HDL MEN: 1/2 AVERAGE 3.43 1.00 AVERAGE 4.97 3.55 2X AVERAGE 9.55 6.25 3X AVERAGE 23.99 7.99 WOMEN: 1/2 AVERAGE 3.27 1.47 AVERAGE 4.44 3.22 2X AVERAGE 7.05 5.03 3X AVERAGE 11.04 6.14 8 URINALYSIS 9 Opiate test includes Codeine , Morphine, Hydromorphone, Hydrocodone. 10 Test includes Oxycodone and Oxymorphone 11 This test was developed and its performance characteristics determined by [facility]. It has not been cleared or approved by the Food and Drug Administration. 12 Test includes Fentanyl and N orfentanyl This test was developed and its performance characteristics determined by [employer]. It has not been cleared or approved by the Food and Drug Administration. 13 Drug-test results should be interpreted in the context of clinical information. Patient metabolic variables, specific drug chemistry, and specimen characteristics can affect test outcome. Technical consultation is available if a test result is inconsistent with an expected outcome. ([email or web address] or call toll-free [phone]) Drug brands, if listed herein, are trademarks of their respective owners. Procedures Description No Information Available Medical Devices Description No Information Available Encounters Description No Information Available Assessments Description No Information Available Plan of Treatment No Information Available Functional Status Description No Information Available Mental Status Description No Information Available Referrals Description No Information Available
--- OUTSIDE RECORDS SUMMARY | 2021-03-24 00:18 | CCD | Continuity of Care Document ---
Author Author Pete NICOLE [place] Organization Unknown Address [address] [place] [address] Phone [phone] Problems Description No Information Available Social History Type Date Description Comments Sex Unknown ETOH Use Rarely consumes beer Tobacco Use Start: Unknown End: Unknown Patient is a former smoker social smoker never inhaled Recreational Drug Use Denies Drug Use Allergies and adverse reactions Active Allergies Criticality Reaction | Severity Comments Date Gabapentin Unable to assess criticality caused seizu re 03/12/2021 Medications Active Medications SIG Qnty Indications Ordering [...] Nelson Fluticasone Propionate 50mcg/Act Suspension Sotero Mejia, 00 Immunizations Description No Information Available Vital Signs Date Vital Result Comment 03/12/2021 1:10pm BP Systolic 128 mmHg BP Diastolic 80 mmHg Heart Rate 72 /min Body Temperature 97.5 F Respiratory Rate 16 /min O2 % BldC Oximetry 97 % Weight 138.12 lb Weight 62.654 kg Height 65 inches 5'5" BMI (Body Mass Index) 23.0 kg/m2 BSA (Body Surface Area) 1.69 m2 Results Test Acquired Date Facility Test Result H/L Range Note Laboratory test finding 03/12/2021 [facility] TSH Highly Sensitive <pending> Procedures Date Code Description Status 03/12/2021 43492 Brief Emotional/Beha v Assessment W/ Scoring Doc Per Standard Inst Completed Medical Devices Description No Information Available Encounters Description No Information Available Assessments Date Code Description Provider 03/12/2021 G40.909 Epilepsy, unspecifie d, not intractable, without status epilepticus YAO Quan 03/12/2021 E78.5 Hyperlipidemia, unspecified YAO Carnes 03/12/2021 R25.1 Tremor, unspecified Loretta Welch son, YAO 03/12/2021 R41.0 Disorientation, unspecified YAO Carnes 03/12/2021 L29.9 Generalized pruritus YAO Moon Plan of Treatment 03/12/2021 - YAO Quan* G40.909 Epilepsy, unspecified, not intractable, without status epilepticus* New Labs:* Valproic Acid (Depakene), Ordered: 03/12/21 * Lamotrigine, Ordered: 03/12/21 * Recommendations:* Patient is following with [facility]. She should continue to follow with [facility]. Will obtain old records to verify when her seizure medications were started due to possible reaction. Will verify this is not a side effect of any of her medications. Will obtain Lamotrigine and Depakote levels. Lamictal and Depakote does have a side effect of abnormality of thinking. * E78.5 Hyperlipidemia, unspecified* Recommendations:* In order to maintain a LDL<100 please eat a heart-healthy diet that is low in saturated fats and salt and includes whole grains, fruits, vegetables and lean protein; exercise regularly and maintain a heart healthy weight. Please continue to take medication as prescribed. Will update labs and treat accordingly. She should continue to follow with cardiology. * R25.1 Tremor, unspecified* Recommendations:* She is following with neurology. She should continue to follow with neurology. * R41.0 Disorientation, unspecified* Recommendations:* Patient is pre-occupied with thoughts of bugs biting her causing itching and pain. Discussed this with her who says this has been occurring for 3-4 months. He has had an environmental economist come to the house and they found only one beetle. He is having another environmental economist come tomorrow. He has placed her in hotel's to be away from house and symptoms are still occurring. She is seeing bugs bite her on exam that are not there. These symptoms are unlikely caused by bugs. Will obtain CT head. Will obtain seizure medication levels. Will order blood work including tox screen. Will have her return in 2 weeks for follow up. * L29.9 Generalized pruritus* Recommendations:* see above. Functional Status Description No Information Available Mental Status Description No Information Available Referrals Description No Information Available
--- OUTSIDE RECORDS SUMMARY | 2021-03-24 00:18 | CCD | Continuity of Care Document ---
Author Author Pete MEJIA M.D. Organization Unknown Address [address] [address] Phone [phone] Problems Active Problems Provider Date Refractory epilepsy [...] Suspension 2 sprays each nare every day [id number] 15.800ml Sotero Mejia M.D. Ativan 0.5mg Tablets 1 po morning, 2 po hs for seizure Unknown Vitamin D3 1000Unit Tablets 4032-4561 units qd Unknown Xopenex 1.25mg/3ML Nebulizer use via nebulizer 3 times a day as needed for sob or wheezing 144ml Sotero Mejia M.D. Lamotrigine 25mg Tablets 1 by mouth twice a day Unknown Topiramate 100mg Tablets take one tablet by mouth twice a day Unknown Qvar Redihaler 80mcg/Act Aerosol 3 puffs daily Unknown Atorvastatin Calcium 40mg Tablets 1 by mouth every day Unknown [place] Saline Nasal Gel as directed twice a day prn Unknown Immunizations CPT Code Status Date Vaccine Lot # [id number] Refused 01/18/2019 Influenza Virus Vaccine, Quadrivalent, Slit Virus, Im Use 3Y & Up Vital Signs Date Vital Result Comment 09/03/2020 10:35am BP Systolic 126 mmHg BP Diastolic 76 mmHg Body Temperature 98.2 F Heart Rate 68 /min Respiratory Rate 16 /min Height 64 inches 5'4" Weight 144.00 lb [place] Body Weight 120 lb BMI (Body Mass Index) 24.7 kg/m2 O2 % BldC Oximetry 98 % 08/04/2020 10:45am BP Systolic 138 mmHg BP Diastolic 88 mmHg Body Temperature 98.1 F Heart Rate 60 /min Respiratory Rate 18 /min Height 64 inches 5'4" Weight 142.00 lb [place] Body Weight 120 lb BMI (Body Mass Index) 24.4 kg/m2 O2 % BldC Oximetry 98 % Results Test Acquired Date Facility Test Result H/L Range Note CBC W/Automated Diff 03/12/2021 [place] [address] [phone] CBC W/Automated Diff (SEE NOTE) 1 WBC [...] 80.0 Lymph 31.3 % 25.0 - 40.0 [place] 10.2 % High 3.0 - 8.0 Eos 1.2 % 0.0 - 7.0 Baso 1.0 % 0.0 - 2.5 %Ig 0.4 % High 0.0 - 0.0 %NRBC 0.0 % 0.0 - 0.0 #Neut 4.04 10^3/uL 2.00 - 6.90 #Lymph 2.26 10^3/uL 0.60 - 3.40 #Roane 0.74 10^3/uL 0.00 - 0.90 #Eos 0.09 10^3/uL 0.00 - 0.70 #Baso 0.07 10^3/uL 0.00 - 0.20 #Ig 0.03 10^3/uL 0.00 - 0.10 #NRBC 0.00 10^3/uL 0.00 - 0.00 Manual Diff NOT INDICATED RBC Morph NOT INDICATED Comprehensive Metabolic Panel 03/12/2021 [place] [address] [phone] Comprehensive Metabo (SEE NOTE) 2 Sodium 142 [...] GFR >60 mL/min 3 Cve Panel 03/12/2021 [facility] [place] [address] [phone] Cve Panel (SEE NOTE) 4 Cholesterol 170 mg/dL 131 - 200 Triglycerides 90 mg/dL 35 - 160 HDL 52 mg/dL 29 - 86 LDL 99 mg/dL 65 - 175 Risk Factor 3.3 3.2 - 4.4 LDL/HDL 1.90 1.47 - 3.22 5 Laboratory test finding 03/12/2021 [facility] [place] [address] [phone] TSH Highly Sensitive 1.32 uIU/mL 0.47 - 5.0 1 Ua With Reflex To Ua Culture 03/12/2021 [place] [address] [phone] Ua Reflex To Ua Cult (SEE NOTE) 6 Source R Color yellow Normal: Yellow Clarity clear Normal: Clear Spec [place] 1.010 1.001 - 1.030 pH 7 5 [...] None Seen Bacteria Trace Normal: None Seen 1 COMPLETE BLOOD COUNT 2 COMPREHENSIVE METABOLIC [...] 5.03 3X AVERAGE 11.04 6.14 6 URINALYSIS Procedures Description No Information Available Medical Devices Description No Information Available Encounters Description No Information Available Assessments Description No Information Available Plan of Treatment No Information Available Functional Status Description No Information Available Mental Status Description No Information Available Referrals Description No Information Available
--- OUTSIDE RECORDS SUMMARY | 2021-03-24 00:18 | CCD | Continuity of Care Document ---
Author Author Pete NICOLE [place] Organization Unknown Address [address] [place] [address] Phone [phone] Problems Description No Information Available Social History [...] H/L Range Note Laboratory test finding 03/12/2021 [facility] TSH Highly Sensitive <pending> Procedures Date Code Description Status 03/12/2021 69280 Brief Emotional/Beha v Assessment W/ Scoring Doc [...] 03/12/21 * Recommendations:* Patient is following with [facility]. She should continue to follow with [facility]. Will obtain old records to verify when [...] for 3-4 months. He has had an marketing services specialist come to the house and they found only one beetle. He is having another marketing services specialist come tomorrow. He has placed her in [...]
--- OUTSIDE RECORDS SUMMARY | 2021-03-24 00:18 | CCD | Continuity of Care Document ---
Author Author Pete NICOLE [place] Organization Unknown Address [address] [place] [address] Phone [phone] Problems Description No Information Available Social History [...] H/L Range Note Laboratory test finding 03/12/2021 [facility] TSH Highly Sensitive <pending> Procedures Date Code Description Status 03/12/2021 74702 Brief Emotional/Beha v Assessment W/ Scoring Doc [...] 03/12/21 * Recommendations:* Patient is following with [facility]. She should continue to follow with [facility]. Will obtain old records to verify when [...] for 3-4 months. He has had an windows migration technician come to the house and they found only one beetle. He is having another windows migration technician come tomorrow. He has placed her in [...]
--- OUTSIDE RECORDS SUMMARY | 2021-03-24 00:18 | CCD | Continuity of Care Document ---
Author Author Pete NICOLE [place] Organization Unknown Address [address] [place] [address] Phone [phone] Problems Description No Information Available Social History [...] H/L Range Note Laboratory test finding 03/12/2021 [facility] TSH Highly Sensitive <pending> Procedures Date Code Description Status 03/12/2021 12045 Brief Emotional/Beha v Assessment W/ Scoring Doc [...] YAO Moon Plan of Treatment 03/12/2021 - AYO Quan* G40.909 Epilepsy, unspecified, not intractable, without status epilepticus* New Labs:* Valproic Acid (Depakene), Ordered: 03/12/21 * Lamotrigine, Ordered: 03/12/21 * Recommendations:* Patient is following with [facility]. She should continue to follow with [facility]. Will obtain old records to verify when [...] for 3-4 months. He has had an technology strategist come to the house and they found only one beetle. He is having another technology strategist come tomorrow. He has placed her in [...]
--- OUTSIDE RECORDS SUMMARY | 2021-03-24 00:19 | CCD ---
Author Author [facility] Organization [facility] Address Unknown Phone Unavailable Care Team Providers Care Community Development Worker Name Role Phone Loretta Ogden Unavailable Unavailable Loretta Ogden Unavailable Unavailable Loretta Ogden Unavailable Unavailable Loretta Ogden Unavailable Unavailable Loretta Ogden Unavailable Unavailable Loretta Ogden Unavailable Unavailable Loretta Ogden Unavailable Unavailable Loretta Ogden Unavailable Unavailable Loretta Ogden Unavailable Unavailable Loretta Ogden Unavailable Unavailable Steve Phan MD Unavailable Unavailable Steve Phan MD Unavailable Unavailable Steve Phan MD Unavailable Unavailable Steve Phan MD Unavailable Unavailable Steve Phan MD Unavailable Unavailable Steve Phan MD Unavailable Unavailable Paas-Mar, Piret MD Unavailable Unavailable MAJAK, R SHARRI DPM Unavailable Unavailable MAJAK, R SHARRI DPM Unavailable Unavailable MAJAK, R SHARRI DPM Unavailable Unavailable MAJAK, R SHARRI DPM Unavailable Unavailable MAJAK, R SHARRI DPM Unavailable Unavailable MAJAK, R SHARRI DPM Unavailable Unavailable MAJAK, R SHARRI DPM Unavailable Unavailable MAJAK, R SHARRI DPM Unavailable Unavailable MAJAK, R SHARRI DPM Unavailable Unavailable MAJAK, R SHARRI DPM Unavailable Unavailable MAJAK, R SHARRI DPM Unavailable Unavailable MAJAK, R SHARRI DPM Unavailable Unavailable MAJAK, R SHARRI DPM Unavailable Unavailable MAJAK, R SHARRI DPM Unavailable Unavailable MAJAK, R SHARRI DPM Unavailable Unavailable MAJAK, R SHARRI DPM Unavailable Unavailable MAJAK, R SHARRI DPM Unavailable Unavailable MAJAK, R SHARRI DPM Unavailable Unavailable MAJAK, R SHARRI DPM Unavailable Unavailable MAJAK, R SHARRI DPM Unavailable Unavailable MAJAK, R SHARRI DPM Unavailable Unavailable MAJAK, R SHARRI DPM Unavailable Unavailable MAJAK, R SHARRI DPM Unavailable Unavailable MAJAK, R SHARRI DPM Unavailable Unavailable MAJAK, R SHARRI DPM Unavailable Unavailable MAJAK, R SHARRI DPM Unavailable Unavailable MAJAK, R SHARRI DPM Unavailable Unavailable MAJAK, R SHARRI DPM Unavailable Unavailable MAJAK, R SHARRI DPM Unavailable Unavailable MAJAK, R SHARRI DPM Unavailable Unavailable MAJAK, R SHARRI DPM Unavailable Unavailable MAJAK, R SHARRI DPM Unavailable Unavailable MAJAK, R SHARRI DPM Unavailable Unavailable Graham Sosa DO Unavailable Unavailable Henry MEJIA MD Unavailable Unavailable Henry MEJIA MD Unavailable Unavailable Henry MEJIA MD Unavailable Unavailable Henry MEJIA MD Unavailable Unavailable Henry MEJIA MD Unavailable Unavailable Henry MEJIA MD Unavailable Unavailable Henry MEJIA MD Unavailable Unavailable Henry MEJIA MD Unavailable Unavailable Henry MEJIA MD Unavailable Unavailable Hnery MEJIA MD Unavailable Unavailable Henry MEJIA MD Unavailable Unavailable Henry MEJIA MD Unavailable Unavailable Henry MEJIA MD Unavailable Unavailable Henry MEJIA MD Unavailable Unavailable Henry MEJIA MD Unavailable Unavailable Henry MEJIA MD Unavailable Unavailable Henry MEJIA MD Unavailable Unavailable Henry MEJIA MD Unavailable Unavailable Henry MEJIA MD Unavailable Unavailable Henry MEJIA MD Unavailable Unavailable Henry MEJIA MD Unavailable Unavailable Henry MEJIA MD Unavailable Unavailable Henry MEJIA MD Unavailable Unavailable Henry MEJIA MD Unavailable Unavailable Henry MEJIA MD Unavailable Unavailable Henry MEJIA MD Unavailable Unavailable Henry MEJIA MD Unavailable Unavailable Henry MEJIA MD Unavailable Unavailable Henry MEJIA MD Unavailable Unavailable Henry MEJIA MD Unavailable Unavailable Henry MEJIA MD Unavailable Unavailable Henry MEJIA MD Unavailable Unavailable Henry MEJIA MD Unavailable Unavailable Henry MEJIA MD Unavailable Unavailable Henry MEJIA MD Unavailable Unavailable Henry MEJIA MD Unavailable Unavailable Henry MEJIA MD Unavailable Unavailable Henry MEJIA MD Unavailable Unavailable Henry MEJIA MD Unavailable Unavailable Henry MEJIA MD Unavailable Unavailable Henry MEJIA MD Unavailable Unavailable Henry MEJIA MD Unavailable Unavailable Henry MEJIA MD Unavailable Unavailable Henry MEJIA MD Unavailable Unavailable Henry MEJIA MD Unavailable Unavailable Henry MEJIA MD Unavailable Unavailable Henry MEJIA MD Unavailable Unavailable Henry MEJIA MD Unavailable Unavailable Henry MEJIA MD Unavailable Unavailable Henry MEJIA MD Unavailable Unavailable Henry MEJIA MD Unavailable Unavailable Henry MEJIA MD Unavailable Unavailable Henry MEJIA MD Unavailable Unavailable Henry MEJIA MD Unavailable Unavailable Henry MEJIA MD Unavailable Unavailable Henry MEJIA MD Unavailable Unavailable Henry MEJIA MD Unavailable Unavailable Henry MEJIA MD Unavailable Unavailable Henry MEJIA MD Unavailable Unavailable Henry MEJIA MD Unavailable Unavailable Henry MEJIA MD Unavailable Unavailable Henry MEJIA MD Unavailable Unavailable Henry MJEIA MD Unavailable Unavailable Henry MEJIA MD Unavailable Unavailable Henry MEJIA MD Unavailable Unavailable Henry MEJIA MD Unavailable Unavailable Henry MEJIA MD Unavailable Unavailable Henry MEJIA MD Unavailable Unavailable Henry MEJIA MD Unavailable Unavailable Henry MEJIA MD Unavailable Unavailable Henry MEJIA MD Unavailable Unavailable Henry MEJIA MD Unavailable Unavailable Henry MEJIA MD Unavailable Unavailable Henry MEJIA MD Unavailable Unavailable Henry MEJIA MD Unavailable Unavailable Henry MEJIA MD Unavailable Unavailable Henry MEJIA MD Unavailable Unavailable Henry MEJIA MD Unavailable Unavailable Henry MEJIA MD Unavailable Unavailable Sotero Feliz MD Unavailable Unavailable Sotero Feliz MD Unavailable Unavailable Sotero Feliz MD Unavailable Unavailable Sotero Feliz MD Unavailable Unavailable Sotero Feliz MD Unavailable Unavailable Sotero Feliz MD Unavailable Unavailable Sotero Feliz MD Unavailable Unavailable Sotero Feliz MD Unavailable Unavailable Sotero Feliz MD Unavailable Unavailable Sotero Feliz MD Unavailable Unavailable Sotero Feliz MD Unavailable Unavailable Sotero Feliz MD Unavailable Unavailable Sotero Feliz MD Unavailable Unavailable Sotero Feliz MD Unavailable Unavailable Sotero Feliz MD Unavailable Unavailable Sotero Feliz MD Unavailable Unavailable Sotero Feliz MD Unavailable Unavailable Sotero Feliz MD Unavailable Unavailable Sotero Feliz MD Unavailable Unavailable Sotero Feliz MD Unavailable Unavailable Sotero Feliz MD Unavailable Unavailable Sotero Feliz MD Unavailable Unavailable Sotero Feliz MD Unavailable Unavailable Sotero Feliz MD Unavailable Unavailable Sotero Feliz MD Unavailable Unavailable Sotero Feliz MD Unavailable Unavailable NICK, KEVIN COOK VEGETABLE Unavailable Unavailable NICK, KEVIN COOK VEGETABLE Unavailable Unavailable Maring, Efraín PA Unavailable Unavailable Maring, Efraín PA Unavailable Unavailable Maring, Efraín PA Unavailable Unavailable Maring, Efraín PA Unavailable Unavailable Maring, Efraín PA Unavailable Unavailable Maring, Efraín PA Unavailable Unavailable Maring, Efraín PA Unavailable Unavailable Maring, Efraín PA Unavailable Unavailable Maring, Efraín PA Unavailable Unavailable Maring, Efraín PA Unavailable Unavailable Maring, Efraín PA Unavailable Unavailable Maring, Efraín PA Unavailable Unavailable Maring, Efraín PA Unavailable Unavailable Maring, Efraín PA Unavailable Unavailable Maring, Efraín PA Unavailable Unavailable Maring, Efraín PA Unavailable Unavailable Skyler Preciado PA-C Unavailable Unavailable Skyler Preciado PA-C Unavailable Unavailable Feola, T Danielle PA Unavailable Unavailable Feola, T Danielle PA Unavailable Unavailable Feola, T Danielle PA Unavailable Unavailable Feola, T Danielle PA Unavailable Unavailable Feola, T Danielle PA Unavailable Unavailable Feola, T Danielle PA Unavailable Unavailable Feola, T Danielle PA Unavailable Unavailable Feola, T Danielle PA Unavailable Unavailable Feola, T Danielle PA Unavailable Unavailable Feola, T Danielle PA Unavailable Unavailable Feola, T Danielle PA Unavailable Unavailable Feola, T Danielle PA Unavailable Unavailable Feola, T Danielle PA Unavailable Unavailable Feola, T Danielle PA Unavailable Unavailable Feola, T Danielle PA Unavailable Unavailable Feola, T Danielle PA Unavailable Unavailable Feola, T Danielle PA Unavailable Unavailable Feola, T Danielle PA Unavailable Unavailable Feola, T Danielle PA Unavailable Unavailable Feola, T Danielle PA Unavailable Unavailable Feola, T Danielle PA Unavailable Unavailable Feola, T Danielle PA Unavailable Unavailable Feola, T Danielle PA Unavailable Unavailable Feola, T Danielle PA Unavailable Unavailable Feola, T Danielle PA Unavailable Unavailable Feola, T Danielle PA Unavailable Unavailable Feola, T Danielle PA Unavailable Unavailable Feola, T Danielle PA Unavailable Unavailable Feola, T Danielle PA Unavailable Unavailable Feola, T Danielle PA Unavailable Unavailable Feola, T Danielle PA Unavailable Unavailable Feola, T Danielle PA Unavailable Unavailable Feola, T Danielle PA Unavailable Unavailable Feola, T Danielle PA Unavailable Unavailable Feola, T Danielle PA Unavailable Unavailable Feola, T Danielle PA Unavailable Unavailable Feola, T Danielle PA Unavailable Unavailable Feola, T Danielle PA Unavailable Unavailable Feola, T Danielle PA Unavailable Unavailable Feola, T Danielle PA Unavailable Unavailable Feola, T Danielle PA Unavailable Unavailable Ramos Landaverde MD Unavailable Unavailable Ramos Landaverde MD Unavailable Unavailable Ramos Landaverde MD Unavailable Unavailable Ramos Landaverde MD Unavailable Unavailable Ramos Landaverde MD Unavailable Unavailable Ramos Landaverde MD Unavailable Unavailable Ramos Landaverde MD Unavailable Unavailable Ramos Landaverde MD Unavailable Unavailable Ramos Landaverde MD Unavailable Unavailable Ramos Landaverde MD Unavailable Unavailable Ramos Landaverde MD Unavailable Unavailable Ramos Landaverde MD Unavailable Unavailable Ramos Landaverde MD Unavailable Unavailable Ramos Landaverde MD Unavailable Unavailable Ramos Landaverde MD Unavailable Unavailable Ramos Landaverde MD Unavailable Unavailable Ramos Landaverde MD Unavailable Unavailable Ramos Landaverde MD Unavailable Unavailable Ramos Landaverde MD Unavailable Unavailable Ramos Landaverde MD Unavailable Unavailable Ramos Landaverde MD Unavailable Unavailable Ramos Landaverde MD Unavailable Unavailable Ramos Landaverde MD Unavailable Unavailable Ramos Landaverde MD Unavailable Unavailable Ramos Landaverde MD Unavailable Unavailable Ramos Landaverde MD Unavailable Unavailable Ramos Landaverde MD Unavailable Unavailable Ramos Landaverde MD Unavailable Unavailable Ramos Landaverde MD Unavailable Unavailable Ramos Landaverde MD Unavailable Unavailable Ramos Landaverde MD Unavailable Unavailable Ramos Landaverde MD Unavailable Unavailable Ramos Landaverde MD Unavailable Unavailable Ramos Landaverde MD Unavailable Unavailable Ramos Landaverde MD Unavailable Unavailable Ramos Landaverde MD Unavailable Unavailable Ramos Landaverde MD Unavailable Unavailable Ramos Landaverde MD Unavailable Unavailable Ramos Landaverde MD Unavailable Unavailable Ramos Landaevrde MD Unavailable Unavailable Ramos Landaverde MD Unavailable Unavailable Ramos Landaverde MD Unavailable Unavailable Ramos Landaverde MD Unavailable Unavailable Ramos Landaverde MD Unavailable Unavailable Ramos Landaverde MD Unavailable Unavailable Ogden, Loretta PA Unavailable Unavailable Ogden, Loretta PA Unavailable Unavailable Ogden, Loretta PA Unavailable Unavailable Ogden, Loretta PA Unavailable Unavailable Ogden, Loretta PA Unavailable Unavailable Ogden, Loretta PA Unavailable Unavailable Ogden, Loretta PA Unavailable Unavailable Ogden, Loretta PA Unavailable Unavailable Ogden, Loretta PA Unavailable Unavailable Ogden, Loretta PA Unavailable Unavailable Nik, Ary Unavailable Unavailable Nik, Ary Unavailable Unavailable Nik, Ary Unavailable Unavailable Nik, Ary Unavailable Unavailable Nik, Ary Unavailable Unavailable Nik, Ary Unavailable Unavailable Nik, Ary Unavailable Unavailable Nik, Ary Unavailable Unavailable Nik, Ary Unavailable Unavailable Nik, Ary Unavailable Unavailable Nik, Ary Unavailable Unavailable Nik, Ary Unavailable Unavailable Nik, Ary Unavailable Unavailable Nik, Ary Unavailable Unavailable Nik, Ary Unavailable Unavailable Nik, Ary Unavailable Unavailable Henry MEJIA MD Unavailable Unavailable Henry MEJIA MD Unavailable Unavailable Henry MEJIA MD Unavailable Unavailable Henry MEJIA MD Unavailable Unavailable Henry MEJIA MD Unavailable Unavailable Henry MEJIA MD Unavailable Unavailable Henry MEJIA MD Unavailable Unavailable Henry MEJIA MD Unavailable Unavailable Henry MEJIA MD Unavailable Unavailable Henry MEJIA MD Unavailable Unavailable Henry MEJIA MD Unavailable Unavailable Henry MEJIA MD Unavailable Unavailable Henry MEJIA MD Unavailable Unavailable Henry MEJIA MD Unavailable Unavailable Henry MEJIA MD Unavailable Unavailable Henry MEJIA MD Unavailable Unavailable Henry MEJIA MD Unavailable Unavailable Henry MEJIA MD Unavailable Unavailable Henry MEJIA MD Unavailable Unavailable Henry MEJIA MD Unavailable Unavailable Henry MEJIA MD Unavailable Unavailable Henry MEJIA MD Unavailable Unavailable Henry MEJIA MD Unavailable Unavailable Henry MEJIA MD Unavailable Unavailable Henry MEJIA MD Unavailable Unavailable Henry MEJIA MD Unavailable Unavailable Henry MEJIA MD Unavailable Unavailable ROBERTO H SOTERO LAGUNA Unavailable Unavailable Henry MEJIA MD Unavailable Unavailable Henry MEJIA MD Unavailable Unavailable Henry MEJIA MD Unavailable Unavailable Henry MEJIA MD Unavailable Unavailable ROBERTO H SOTERO LAGUNA Unavailable Unavailable ROBERTO H SOTERO LAGUNA Unavailable Unavailable ROBERTO H SOTERO LAGUNA Unavailable Unavailable ROBERTO H SOTERO LAGUNA Unavailable Unavailable ROBERTO H SOTERO LAGUNA Unavailable Unavailable ROBERTO H SOTERO LAGUNA Unavailable Unavailable ROBERTO H SOTERO LAGUNA Unavailable Unavailable ROBERTO H SOTERO LAGUNA Unavailable Unavailable ROBERTO H SOTERO LAGUNA Unavailable Unavailable ROBERTO H SOTERO LAGUNA Unavailable Unavailable ROBERTO H SOTERO LAGUNA Unavailable Unavailable ROBERTO H SOTERO LAGUNA Unavailable Unavailable ROBERTO H SOTERO LAGUAN Unavailable Unavailable ROBERTO H SOTERO LAGUNA Unavailable Unavailable Henry MEJIA MD Unavailable Unavailable Henry MEJIA MD Unavailable Unavailable Henry MEJIA MD Unavailable Unavailable Henry MEJIA MD Unavailable Unavailable Henry MEJIA MD Unavailable Unavailable Henry MEJIA MD Unavailable Unavailable Henry MEJIA MD Unavailable Unavailable Henry MEJIA MD Unavailable Unavailable Henry MEJIA MD Unavailable Unavailable Henry MEJIA MD Unavailable Unavailable Henry MEJIA MD Unavailable Unavailable Henry MEJIA MD Unavailable Unavailable Henry MEJIA MD Unavailable Unavailable Henry MEJIA MD Unavailable Unavailable Henry MEJIA MD Unavailable Unavailable Henry MEJIA MD Unavailable Unavailable Henry MEJIA MD Unavailable Unavailable Henry MEJIA MD Unavailable Unavailable Henry MEJIA MD Unavailable Unavailable Henry MEJIA MD Unavailable Unavailable Henry MEJIA MD Unavailable Unavailable Henry MEJIA MD Unavailable Unavailable Henry MEJIA MD Unavailable Unavailable Henry MEJIA MD Unavailable Unavailable Henry MEJIA MD Unavailable Unavailable Henry MEJIA MD Unavailable Unavailable Henry MEJIA MD Unavailable Unavailable Henry MEJIA MD Unavailable Unavailable Henry MEJIA MD Unavailable Unavailable Henry MEJIA MD Unavailable Unavailable Henry MEJIA MD Unavailable Unavailable Henry MEJIA MD Unavailable Unavailable Henry MEJIA MD Unavailable Unavailable KORManjinder Smith MD Unavailable Unavailable KORManjinder Smith MD Unavailable Unavailable KORManjinder Smith MD Unavailable Unavailable KORManjinder Smith MD Unavailable Unavailable KORManjinder Smith MD Unavailable Unavailable KORManjinder Smith MD Unavailable Unavailable KORManjinder Smith MD Unavailable Unavailable KORManjinder Smith MD Unavailable Unavailable KORT, Manjinder AVALOS MD Unavailable Unavailable KORT, Manjinder AVALOS MD Unavailable Unavailable KORManjinder Smith MD Unavailable Unavailable KORT C ROBBIE LAGUNA Unavailable Unavailable KORT, C ROBBIE MD Unavailable Unavailable KORT, C ROBBIE MD Unavailable Unavailable KORT, C ROBBIE MD Unavailable Unavailable KORT, C ROBBIE MD Unavailable Unavailable KORT, C ROBBIE MD Unavailable Unavailable KORT, C ROBBIE MD Unavailable Unavailable KORT, C ROBBIE MD Unavailable Unavailable KORT, C ROBBIE MD Unavailable Unavailable KORT, C ROBBIE MD Unavailable Unavailable KORT, C ROBBIE MD Unavailable Unavailable KORT, C ROBBIE MD Unavailable Unavailable KORT, C ROBBIE MD Unavailable Unavailable KORT, C ROBBIE MD Unavailable Unavailable KORT, C ROBBIE MD Unavailable Unavailable KORT, C ROBBIE MD Unavailable Unavailable KORT, C ROBBIE MD Unavailable Unavailable KORT, C ROBBIE MD Unavailable Unavailable KORT, C ROBBIE MD Unavailable Unavailable KORT, C ROBBIE MD Unavailable Unavailable KORT, C ROBBIE MD Unavailable Unavailable KORT, C ROBBIE MD Unavailable Unavailable KORT, C ROBBIE MD Unavailable Unavailable KORT, C ROBBIE MD Unavailable Unavailable KORT, C ROBBIE MD Unavailable Unavailable KORT, C ROBBIE MD Unavailable Unavailable KORT, C ROBBIE MD Unavailable Unavailable KORT, C ROBBIE MD Unavailable Unavailable KORT, C ROBBIE MD Unavailable Unavailable KORT, C ROBBIE MD Unavailable Unavailable KORT, C ROBBIE MD Unavailable Unavailable KORT, C ROBBIE MD Unavailable Unavailable KORT, C ROBBIE MD Unavailable Unavailable KORT, C ROBBIE MD Unavailable Unavailable KORT, C ROBBIE MD Unavailable Unavailable KORT, C ROBBIE MD Unavailable Unavailable KORT, C ROBBIE MD Unavailable Unavailable KORT, C ROBBIE MD Unavailable Unavailable KORT, C ROBBIE MD Unavailable Unavailable KORT, C ROBBIE MD Unavailable Unavailable KORT, C ROBBIE MD Unavailable Unavailable KORT, C ROBBIE MD Unavailable Unavailable KORT, C ROBBIE MD Unavailable Unavailable KORT, C ROBBIE MD Unavailable Unavailable KORT, C ROBBIE MD Unavailable Unavailable KORT, C ROBBIE MD Unavailable Unavailable KORT, C ROBBIE MD Unavailable Unavailable KORT, C ROBBIE MD Unavailable Unavailable KORT, C ROBBIE MD Unavailable Unavailable KORT, C ROBBIE MD Unavailable Unavailable KORT, C ROBBIE MD Unavailable Unavailable KORT, C ROBBIE MD Unavailable Unavailable KORT, C ROBBIE MD Unavailable Unavailable KORT, C ROBBIE MD Unavailable Unavailable KORT, C ORBBIE MD Unavailable Unavailable KORT, C ROBBIE MD Unavailable Unavailable KORT, C ROBBIE MD Unavailable Unavailable KORT, C ROBBIE MD Unavailable Unavailable KORT, C ROBBIE MD Unavailable Unavailable KORT, C ROBBIE MD Unavailable Unavailable KORT, C ROBBIE MD Unavailable Unavailable KORT, C ROBBIE MD Unavailable Unavailable KORT, C ROBBIE MD Unavailable Unavailable KORT, C ROBBIE MD Unavailable Unavailable KORT, C ROBBIE MD Unavailable Unavailable KORT, C ROBBIE MD Unavailable Unavailable KORT, C ROBBIE MD Unavailable Unavailable KORT, C ROBBIE MD Unavailable Unavailable KORT, C ROBBIE MD Unavailable Unavailable KORT, C ROBBIE MD Unavailable Unavailable KORT, C ROBBIE MD Unavailable Unavailable KORT, C ROBBIE MD Unavailable Unavailable KORT, C ROBBIE MD Unavailable Unavailable KORT, C ROBBIE MD Unavailable Unavailable KORT, C ROBBIE MD Unavailable Unavailable KORT, C ROBBIE MD Unavailable Unavailable KORT, C ROBBIE MD Unavailable Unavailable KORT, C ROBBIE MD Unavailable Unavailable KORT, C ROBBIE MD Unavailable Unavailable KORT, C ROBBIE MD Unavailable Unavailable KORT, C ROBBIE MD Unavailable Unavailable KORT, C ROBBIE MD Unavailable Unavailable KORT, C ROBBIE MD Unavailable Unavailable KORT, C ROBBIE MD Unavailable Unavailable KORT, C ROBBIE MD Unavailable Unavailable KORT, C ROBBIE MD Unavailable Unavailable Hicks, L Camelia PA Unavailable Unavailable Hicks, L Camelia PA Unavailable Unavailable Hicks, L Camelia PA Unavailable Unavailable Hicks, L Camelia PA Unavailable Unavailable Hicks, L Camelia PA Unavailable Unavailable Hicks, L Camelia PA Unavailable Unavailable Hicks, L Camelia PA Unavailable Unavailable Hicks, L Camelia PA Unavailable Unavailable Hicks, L Camelia PA Unavailable Unavailable Hicks, L Camelia PA Unavailable Unavailable Hicks, L Camelia PA Unavailable Unavailable Hicks, L Camelia PA Unavailable Unavailable Hicks, L Camelia PA Unavailable Unavailable Hicks, L Camelia PA Unavailable Unavailable Hicks, L Camelia PA Unavailable Unavailable Hicks, L Camelia PA Unavailable Unavailable Hicks, L Camelia PA Unavailable Unavailable Hicks, L Camelia PA Unavailable Unavailable Hicks, L Camelia PA Unavailable Unavailable Hicks, L Camelia PA Unavailable Unavailable Hicks, L Camelia PA Unavailable Unavailable Hicks, L Camelia PA Unavailable Unavailable Hicks, L Camelia PA Unavailable Unavailable Hicks, L Camelia PA Unavailable Unavailable Hicks, L Camelia PA Unavailable Unavailable Hicks, L Camelia PA Unavailable Unavailable Hicks, L Camelia PA Unavailable Unavailable Hicks, L Camelia PA Unavailable Unavailable Hicks, L Camelia PA Unavailable Unavailable Hicks, L Camelia PA Unavailable Unavailable Hicks, L Camelia PA Unavailable Unavailable Hicks, L Camelia PA Unavailable Unavailable Hicks, L Camelia PA Unavailable Unavailable Hicks, L Camelia PA Unavailable Unavailable Hicks, L Camelia PA Unavailable Unavailable Hicks, L Camelia PA Unavailable Unavailable Hicks, L Camelia PA Unavailable Unavailable Hicks, L Camelia PA Unavailable Unavailable Hicks, L Camelia PA Unavailable Unavailable Fons, M Mary CHIEF OF [employer]ITAL [employer]IST[employer] Unavailable Unavailable Fons, M Mary CHIE[employer]IST[employer] Unavailable Unavailable Fons, M Mary CHIE[employer] Unavailable Unavailable Fons, M Mary CHIE[employer] OF [employer]IST[employer] Unavailable Unavailable Fons, M Mary CHIEF OF [employer]ITAL STATIST[employer] Unavailable Unavailable Fons, M Mary CHIEF OF VITAL STATIST[employer] Unavailable Unavailable Fons, M Mary CHIEF OF VITAL STATIST[employer] Unavailable Unavailable Fons, M Mary CHIEF OF VITAL STATIST[employer] Unavailable Unavailable Fons, M Mary CHIEF OF [employer]ITAL STATIST[employer] Unavailable Unavailable Fons, M Mary CHIEF OF [employer]ITAL STATIST[employer] Unavailable Unavailable Fons, M Mary CHIEF OF [employer]ITAL STATIST[employer] Unavailable Unavailable Fons, M Mary CHIEF OF VITAL STATIST[employer] Unavailable Unavailable Fons, M Mary CHIEF OF VITAL STATIST[employer] Unavailable Unavailable Fons, M Mary CHIEF OF VITAL STATIST[employer] Unavailable Unavailable Fons, M Mary CHIEF OF VITAL STATIST[employer] Unavailable Unavailable Fons, M Mary CHIEF OF [employer]ITAL STATIST[employer] Unavailable Unavailable Fons, M Mary CHIEF OF [employer]ITAL STATIST[employer] Unavailable Unavailable Fons, M Mary CHIEF OF [employer] STATIST[employer] Unavailable Unavailable Fons, M Mary CHIEF OF [employer]ITAL STATIST[employer] Unavailable Unavailable Fons, M Mary CHIEF OF [employer]ITAL [employer]IST[employer] Unavailable Unavailable Fons, M Mary CHIEF OF [employer]ITAL [employer]IST[employer] Unavailable Unavailable Fons, M Mary CHIEF OF [employer]ITAL STATIST[employer] Unavailable Unavailable Fons, M Mary CHIEF OF [employer]IST[employer] Unavailable Unavailable Fons, M Mary CHIEF OF [employer]IST[employer] Unavailable Unavailable Fons, M Mary CHIEF OF [employer]IST[employer] Unavailable Unavailable Fons, M Mary CHIEF OF [employer]IST[employer] Unavailable Unavailable Fons, M Mary CHIEF OF [employer]IST[employer] Unavailable Unavailable Fons, M Mary CHIEF OF [employer]IST[employer] Unavailable Unavailable Fons, M Mary CHIEF OF [employer]IST[employer] Unavailable Unavailable Fons, M Mary CHIEF OF [employer]IST[employer] Unavailable Unavailable Fons, M Mary CHIEF OF [employer] Unavailable Unavailable Fons, M Mary CHIE[employer] OF [employer] Unavailable Unavailable Fons, M Mary CHIEF OF [employer] Unavailable Unavailable Fons, M Mary CHIEF OF [employer] Unavailable Unavailable Fons, M Mary CHIEF OF [employer]IST[employer] Unavailable Unavailable Fons, M Mary CHIEF OF [employer]IST[employer] Unavailable Unavailable Fons, M Mary CHIEF OF [employer]IST[employer] Unavailable Unavailable Fons, M Mary CHIEF OF [employer]IST[employer] Unavailable Unavailable Fons, M Mary CHIEF OF [employer] Unavailable Unavailable Fons, M Mary CHIEF OF [employer]IST[employer] Unavailable Unavailable Fons, M Mary CHIE[employer] Unavailable Unavailable Fons, M Mary CHIE[employer] Unavailable Unavailable Fons, M Mary CHIE[employer] Unavailable Unavailable Fons, M Mary CHIEF [employer] Unavailable Unavailable Fons, M Mary CHIEF OF VITAL STATISTICS Unavailable Unavailable Fons, M Mary CHIEF OF VITAL STATISTICS Unavailable Unavailable Fons, M Mary CHIEF OF VITAL STATISTICS Unavailable Unavailable Fons, M Mary CHIEF OF VITAL STATISTICS Unavailable Unavailable Fons, M Mary CHIEF OF VITAL STATISTICS Unavailable Unavailable Fons, M Mary CHIEF OF VITAL STATISTICS Unavailable Unavailable Fons, M Mary CHIEF OF VITAL STATISTICS Unavailable Unavailable Fons, M Mary CHIEF OF VITAL STATISTICS Unavailable Unavailable Fons, M Mary CHIEF OF VITAL STATISTICS Unavailable Unavailable Henry MEJIA MD Unavailable Unavailable Henry MEJIA MD Unavailable Unavailable Henry MEJIA MD Unavailable Unavailable Henry MEJIA MD Unavailable Unavailable Henry MEJIA MD Unavailable Unavailable Henry MEJIA MD Unavailable Unavailable Henry MEJIA MD Unavailable Unavailable Henry MEJIA MD Unavailable Unavailable Henry MEJIA MD Unavailable Unavailable Henry MEJIA MD Unavailable Unavailable Henry MEJIA MD Unavailable Unavailable Henry MEJIA MD Unavailable Unavailable Henry MEJIA MD Unavailable Unavailable Henry MEJIA MD Unavailable Unavailable Henry MEJIA MD Unavailable Unavailable Herny MEJIA MD Unavailable Unavailable Henry MEJIA MD Unavailable Unavailable Henry MEJIA MD Unavailable Unavailable Henry MEJIA MD Unavailable Unavailable Henry MEJIA MD Unavailable Unavailable Henry MEJIA MD Unavailable Unavailable Henry MEJIA MD Unavailable Unavailable Henry MEJIA MD Unavailable Unavailable Henry MEJIA MD Unavailable Unavailable Henry MEJIA MD Unavailable Unavailable Henry MEJIA MD Unavailable Unavailable Henry MEJIA MD Unavailable Unavailable Henry MEJIA MD Unavailable Unavailable Henry MEJIA MD Unavailable Unavailable Henry MEJIA MD Unavailable Unavailable Henry MEJIA MD Unavailable Unavailable Henry MEJIA MD Unavailable Unavailable Henry MEJIA MD Unavailable Unavailable Henry MEJIA MD Unavailable Unavailable Henry MEJIA MD Unavailable Unavailable Henry MEJIA MD Unavailable Unavailable Henry MEJIA MD Unavailable Unavailable Henry MEJIA MD Unavailable Unavailable Henry MEJIA MD Unavailable Unavailable Henry MEJIA MD Unavailable Unavailable Henry MEJIA MD Unavailable Unavailable Henry MEJIA MD Unavailable Unavailable Henry MEJIA MD Unavailable Unavailable Henry MEJIA MD Unavailable Unavailable Henry MEJIA MD Unavailable Unavailable Henry MEJAI MD Unavailable Unavailable Henry MEJIA MD Unavailable Unavailable Henry MEJIA MD Unavailable Unavailable Henry MEJIA MD Unavailable Unavailable Henry MEJIA MD Unavailable Unavailable Henry MEJIA MD Unavailable Unavailable Henry MEJIA MD Unavailable Unavailable Henry MEJIA MD Unavailable Unavailable Henry MEJIA MD Unavailable Unavailable Henry MEJIA MD Unavailable Unavailable Henry MEJIA MD Unavailable Unavailable Henry MEJIA MD Unavailable Unavailable Henry MEJIA MD Unavailable Unavailable ROBERTO, H SOTERO MD Unavailable Unavailable ROBERTO, H SOTERO MD Unavailable Unavailable ROBERTO, H SOTERO MD Unavailable Unavailable ROBERTO, H SOTERO MD Unavailable Unavailable ROBERTO, H SOTERO MD Unavailable Unavailable ROBERTO, H SOTERO MD Unavailable Unavailable ROBERTO, H SOTERO MD Unavailable Unavailable ROBERTO, H SOTERO MD Unavailable Unavailable ROBERTO, H SOTERO MD Unavailable Unavailable ROBERTO, H SOTERO MD Unavailable Unavailable ROBERTO, H SOTERO MD Unavailable Unavailable ROBERTO, H SOTERO MD Unavailable Unavailable ROBERTO, H SOTERO MD Unavailable Unavailable ROBERTO, H SOTERO MD Unavailable Unavailable ROBERTO, H SOTERO MD Unavailable Unavailable ROBERTO, H SOTERO MD Unavailable Unavailable ROBERTO, H SOTERO MD Unavailable Unavailable ROBERTO, H SOTERO MD Unavailable Unavailable ROBERTO, H SOTERO MD Unavailable Unavailable ROBERTO, H SOTERO MD Unavailable Unavailable ROBERTO, H SOTERO MD Unavailable Unavailable Re-disclosure Warning The records that you are about to access may contain information from federally-assisted alcohol or drug abuse programs. If such information is present, then the following federally mandated warning applies: This information has been disclosed to you from records protected by federal confidentiality rules (42 CFR part 2). The federal rules prohibit you from making any further disclosure of this information unless further disclosure is expressly permitted by the written consent of the person to whom it pertains or as otherwise permitted by 42 CFR part 2. A general authorization for the release of medical or other information is NOT sufficient for this purpose. The Federal rules restrict any use of the information to criminally investigate or prosecute any alcohol or drug abuse patient.The records that you are about to access may contain highly sensitive health information, the redisclosure of which is protected by Article 27-F of the [facility] Public Health law. If you continue you may have access to information: Regarding HIV / AIDS; Provided by facilities licensed or operated by the [facility] Office of Mental Health; or Provided by the [facility] Office for People With Developmental Disabilities. If such information is present, then the following [facility] mandated warning applies: This information has been disclosed to you from confidential records which are protected by state law. State law prohibits you from making any further disclosure of this information without the specific written consent of the person to whom it pertains, or as otherwise permitted by law. Any unauthorized further disclosure in violation of state law may result in a fine or nursing home sentence or both. A general authorization for the release of medical or other information is NOT sufficient authorization for further disc losure. Allergies and Adverse Reactions Type Description Substance Reaction Status Data Source(s ) Drug allergy Narcotics Narcotics Seizure [facility] Drug allergy antihistamines antihistamines SEIZURES; Seizure [facility] Drug allergy narcotics narcotics [facility] Drug allergy ANTIHISTAMINES ANTIHISTAMINES [facility] Propensity to adverse reactions FEXOFENADINE-PSEUDOEPHED ER Fexofenadine- Pseudoephed Er Other (See Comments) Low Active [facility] Low Propensity to adverse reactions GABAPENTIN gabapentin Acti ve [facility] Drug Allergy Drug Allergy NKDA [facility] ([facility] Family History Family Member Name Family Member Gender Family Member Status Date o f Status Description Data Source(s) Unknown Male Problem [facility] ([facility]) Encounters Encounter Providers Location Date Indications Data Source(s ) Outpatient Attender: Loretta Ogden PAConsultant: Loretta SAAMYOA 03/18/2021 08:33:00 AM EST - 03/18/2021 09:33:00 AM [facility] Outpatient Attender: Loretta Ogden PAConsultant: SOTERO GOLD MD 03/17/2021 10:12:00 AM EST - 03/17/2021 10:12:00 AM [facility] Outpatient Attender: Loretta SAMAYOA [facility] 10/2020 10:00:00 AM EST [facility] Emergency Attender: Graham Sosa DO 021 07:36:00 PM EST - 03/13/2021 09:31:00 PM EST [facility]. Outpatient Attender: Loretta Ogden PAConsultant: SOTERO GOLD MD 03/12/2021 01:08:00 PM EST - 03/12/2021 01:08:00 PM [facility] Emergency Attender: Kevin SAMAYOA-CAttender: Maki Bone MD 03/10/2021 04:42:00 PM EST - 03/10/2021 08:55:00 PM EST SCALP DISCOMFORT [facility] SCALP DISCOMFORT Patient discharged. Emergency Attender: Steve Phan MDConsultant: SOTERO Urbina 02/21/2021 12:18:00 AM EST - 02/21/2021 02:23:00 AM [facility] Patient discharged. Outpatient Attender: Efraín SAMAYOA 12/26/19 11:29:36 AM EDT - 12/25/2020 12:20:23 PM EDT [facility] ([facility] ) Outpatient Attender: Mary VAZQUEZ SJP.NAYA-SJP.NAYA 12:43:02 PM EDT - 11/14/2020 02:59:32 PM EDT [facility] Outpatient Attender: Efraín SAMAYOA 10/05/19 04:54:18 PM EDT - 10/04/2020 05:48:06 PM EDT [facility] ([facility] ) Outpatient Referrer: Ary Zaragoza 09/25/2020 03:46:30 PM ED T [facility] Outpatient Referrer: Ary Zaragoza 09/25/2020 02:28:40 PM ED T [facility] Outpatient Attender: Ary MARSHALL 09/25/2020 12:12:21 PM EDT - 09/25/2020 01:56:58 PM EDT [facility] Outpatient Referrer: Ary Zaragoza 09/19/2020 10:07:10 AM ED T [facility] Outpatient Attender: SOTERO [place] [facility] 10:20:00 AM EDT [facility] ([facility] Outpatient Attender: SHARRI BUSTILLOS DPM [place] [facility] 06/2020 09:45:00 AM EDT [facility] ([facility] Outpatient Attender: SOTERO [place] [facility] 10:20:00 AM EDT [facility] ([facility] Outpatient Attender: SOTERO MEJIA MD 06/18/2020 12:20:00 PM EST [facility]MA Outpatient Attender: SOTERO [place] [facility] 11/2020 03:00:00 PM EST [facility] ([facility] Outpatient Attender: Bree Landaverde MD 05/19/2020 09:30:00 AM EST [facility] Outpatient Attender: Danielle SAMAYOA 03:52:01 PM EST - 05/14/2020 04:49:56 PM EST [facility] ([facility] ) Outpatient Attender: Efraín SAMAYOA 04/30/19 01:12:18 PM EST - 04/30/2020 02:06:20 PM EST [facility] ([facility] ) Outpatient Attender: SOTERO [place] [facility] 03:00:00 PM EST [facility] ([facility] Outpatient Referrer: Ary Zaragoza 04/24/2020 02:06:25 PM ES [facility] Outpatient Referrer: ROBBIE OHLDER MD 04/10/2020 02:33:00 PM E [facility] Outpatient Attender: Ary MARSHALL 04/10/2020 10:53:10 AM EST - 04/10/2020 12:00:29 PM EST [facility] Outpatient Referrer: ROBBIE HOLDER MD 03/19/2020 09:03:01 AM E [facility] Outpatient Attender: SOTERO [place] [facility] 11/2019 12:30:00 PM EST [facility] ([facility] Outpatient Attender: SOTERO [place] [facility] 12:45:00 PM EST [facility] ([facility] Outpatient Attender: SOTERO [place] [facility] 10:15:00 AM EST [facility] ([facility] Outpatient Attender: Camelia Beller: Todd SAMAYOA SJSvetlana.NAYA-SJP.NAYA 02/18/2020 08:51:06 AM EST - 02/18/2020 09:43:12 AM EST [facility] Outpatient Referrer: Mary VAZQUEZ SJP.NAYA-SJP.NAYA 02/18/2020 12:00:00 AM EST [facility] Outpatient Attender: SOTERO MEJIA MDConsultant: SOTERO CHEUNG MD 02/07/2020 10:51:00 AM EDT - 02/07/2020 11:51:00 AM EDT [facility] Outpatient Attender: SOTERO MEJIA MD [facility] 10:00:00 AM EDT [facility] ([facility] Outpatient Attender: KEVIN APODACA WReferrer: Trav Feliz MDConsultant: SOTERO MEJIA MD 02/01/2020 08:50:00 AM EDT - 02/01/2020 08:50:00 AM EDT [facility] Immunizations Vaccine Date Status Description Data Source(s) COVID-19 VACCINE Moderna 07/25/2020 12:00:00 AM EDT completed [facility] Vaccine Series Complete: YESThis Data wa s Submitted to [facility] Via [facility]. 208 07/15/2020 12:00:00 AM EDT completed <td I D="[id number]">Covid-19 (Pfizer)</td><td>07/15/2020, 06/27/2020</td><td></td> [facility] COVID-19 VACCINE Pfizer 07/15/2020 12:00:00 AM EDT completed [facility] Vaccine Series Complete: YESThis Data wa s Submitted to [facility]. 208 06/27/2020 12:00:00 AM EDT completed <td I D="[id number]">Covid-19 (Pfizer)</td><td>07/15/2020, 06/27/2020</td><td></td> [facility] COVID-19 VACCINE Moderna 06/27/2020 12:00:00 AM EDT completed [facility] Vaccine Series Complete: NOThis Data was Submitted to [facility]. Medications Medication Brand Name Start Date Product Form Dose Route Admi nistrative Instructions Pharmacy Instructions Status Indications Reaction Description Data Source(s) atorvastatin 40 MG Oral Tablet atorvastatin (LIPITOR) 40 MG tablet atorvastatin (LIPITOR) 40 MG tablet 10/27/2020 12:00:00 AM EDT 40 mg Oral active Mixed hyperlipidemia Take 1 tablet (40 mg total) by mouth richard ly [facility] Mixed hyperlipidemia gabapentin 300 MG Oral Capsule Gabapentin 08/04/2020 12:00:00 AM EDT ORAL completed [facility] ([facility] 200 ACTUAT Levalbuterol 0.045 MG/ACTUAT Metered Dose I nhaler Levalbuterol Tartrate 06/20/2020 12:00:00 AM EST active [facility] ([facility] Nebulizer Kit/Tubing/Mouthpiece 02/26/2020 12:00:00 AM EST active [facility] ([facility] Cephalexin 500 MG Oral Capsule [Keflex] Keflex 02/26/2020 12:00:0 0 AM EST ORAL completed [facility] ([facility] travoprost 0.04 MG/ML Ophthalmic Solution travoprost ( TRAVATAN Z) 0.004 % SOLN travoprost (TRAVATAN Z) 0.004 % SOLN 01/24/2020 12:00:00 AM EDT active [facility] 200 ACTUAT Levalbuterol 0.045 MG/ACTUAT Metered Dose I nhaler Levalbuterol Tartrate 01/01/2020 12:00:00 AM EDT ORAL completed [facility] ([facility] Albuterol 0.83 MG/ML Inhalant Solution a lbuterol (PROVENTIL) (2.5 MG/3ML) 0.083% nebulizer solution albuterol (PROVENTIL) (2.5 MG/3ML) 0.083 % nebulizer solution 2.5 mg Inhalation aborted Inhale 2.5 m g [facility] Insurance Providers Payer name Policy type / Coverage type Policy ID Covered green party ID Covered green party's relationship to marinelli Policy Marinelli Plan Information [facility] [id number] [facility] [id number] MEDICARE BLUE PPO [id number] SP [id number] MEDICARE [id number] SP [id number] A [facility] [id number] [facility] [id number] EXCELLUS H [id number] Self [id number] EXCELLUS H [id number] Self [id number] Blue Shield MCR Advantage Commercial [id number] Self UHC UNITED MEDICARE COMPLETE [id number] Self [id number] EXCELLUS BCBS [id number] Spo [id number] EXCELLUS BCBS [id number] xxxxxxxxxxxxxxx [id number] RPR- Needs Payer Match [id number] Spouse [id number] [facility] MEDICARE [id number] Jazzy [id number] [facility] MEDICARE [id number] xxxxxxxxx [id number] [facility] MEDICARE [id number] Jazzy [id number] [facility] [employer] [id number] Self [id number] [employer] Blue Cross and Blue Shield - [place] Blue Cross/B lue Shield [id number] Spouse [id number] RPR- Needs Payer Match [id number] Spouse [id number] [employer] and Blue Shield [place] Blue Cross/B lue Shield [id number] Spouse [id number] RPR- Needs Payer Match [id number] Spouse [id number] [facility] [employer] [id number] Self [id number] RPR- Needs Payer Match [id number] Spouse [id number] [employer] and Blue [employer] [place] Blue Cross/B lue Shield [id number] Spouse [id number] [facility] [employer] [id number] Self [id number] MEDICARE COMPLETE [id number] SP [id number] Nys Of Temp Disability Commercial [id number] Self [id number] Nys Of Temp Disability Commercial [id number] Self [id number] MEDICARE BLUE PPO [id number] SP [id number] [employer] [place] [id number] SP [id number] MEDICARE BLUE PPO 306 [id number] SP [id number] [employer] [place] [id number] SP [id number] [employer] [place] O [id number] O [id number] EXCELLUS BCBS B [id number] S [id number] MEDICARE BLUE PPO 306 [id number] SP [id number] [employer] [place] [id number] SP [id number] MEDICARE BLUE PPO P [id number] S [id number] MEDICARE COMPLETE [id number] SP [id number] BCBS [place] PPO [id number] UNHC MEDICARE COMPLETE [id number] 18 [id number] BLUE CROSS BLUE SHIELD [place] [id number] 01 [id number] CLINIC BLUE CROSS BS [id number] UNHC MEDICARE COMPLETE - O/P [id number] 18 [id number] BLUE CROSS BLUE SHIELD -O/P [id number] UNHC MEDICARE COMPLETE -PHYS [id number] 18 [id number] BLUE CROSS BLUE SHIELD -PHYSICIAN [id number] 01 [id number] EXCELLUS BCBS B [id number] S [id number] MEDICARE COMPLETE-UHC O [id number] S [id number] EXCELLUS BCBS B [id number] S [id number] EXCELLUS BCBS B [id number] P H [id number] UNHC MEDICARE COMPLETE [id number] 18 [id number] UNHC MEDICARE COMPLETE [place] [id number] 18 [id number] MEDICARE COMPLETE [id number] ANS-Commercial [id number] ANS-Medicare Part B [id number] UNHC MEDICARE COMPLETE - O/P [id number] 18 [id number] [facility]-Medicare Part B [id number] [facility]-[employer] [id number] ANS-Commercial [id number] [facility]-Medicare Part B [id number] MEDICARE COMPLETE [id number] SP [id number] [place] [id number] [facility] [id number] Problems, Conditions, and Diagnoses Code Display Name Description Problem Type Effective Dates Data Source(s) R410 Disorientation, unspecified Disorientation, unspecifie d Diagnosis 03/17/2021 10:12:00 AM [facility] Y07414 Epilepsy, unspecified, not intractable, without status epilepticus Epilepsy, unspecified, not intractable, without status epilepticus Diagnosis 03/17/2021 10:12:00 AM [facility] L299 Pruritus, unspecified Pruritus, unspecified Diagnosis 03/12/2021 01:08:00 PM [facility] R251 Tremor, unspecified Tremor, unspecified Diagnosis 1 05/13/2020 01:08:00 PM [facility] E785 Hyperlipidemia, unspecified Hyperlipidemia, unspecifie d Diagnosis 03/12/2021 01:08:00 PM [facility] [id number] Toxic effect of detergents, accidental (unintentional), initial encounter Toxic effect of detergents, accidental ( unintentional), initial encounter Diagnosis 02/21/2021 12:18:00 AM [facility] D32675 Unspecified asthma, uncomplicated Unspecified as thma, uncomplicated Diagnosis 02/21/2021 12:18:00 AM [facility] L240 Irritant contact dermatitis due to deter gents Irritant contact dermatitis due to detergents Diagnosis 02/21/2021 12:18:00 AM [facility] R21 Rash and other nonspecific skin eruption Rash and other nonspecific skin eruption Diagnosis 02/21/2021 12:18:00 AM [facility] R07.89 Other chest pain Other chest pain Diagnosis 11/14/2020 12 :43:02 PM EDT [facility] R00.2 Palpitations Palpitations Diagnosis 11/14/2020 12:43:02 P M EDT [facility] E78.2 Mixed hyperlipidemia Mixed hyperlipidemia Diagnosis 11/14/2020 12:43:02 PM EDT [facility] R92.8 Other abnormal and inconclusive findings on diagnostic imaging of breast Other abnormal and inconclusive findings Diagnosis 04/10/2020 10:53:10 AM [facility] R07.9 Chest pain, unspecified Chest pain, unspecified Diagno sis 02/18/2020 08:51:06 AM [facility] Z711 Person with feared health complaint in w nida no diagnosis is made Person with feared health complaint in whom no diagnosis is made Diagnosis 02/01/2020 08:50:00 AM EDT [facility] N64.4 Breast pain Breast pain [id number] 09/19/2020 12:00:00 AM EDT [facility] M47.812 Cervical spondylosis Cervical spondylosis [id number] 07/01/2020 12:00:00 AM EDT [facility] R92.8 Abnormal finding on breast imaging Abnormal find ing on breast imaging [id number] 03/18/2020 12:00:00 AM EST [facility] Surgeries/Procedures Procedure Description Date Indications Data Source(s) OFFICE OUTPATIENT VISIT 15 MINUTES 03/17/2021 12:00:00 AM EST [facility] ([facility]) Brief Emotional/Behav Assessment W/ Scoring Doc Per Standard Inst 03/12/2021 12:00:00 AM EST [facility] ([facility]) OFFICE OUTPATIENT NEW 45 MINUTES 03/12/2021 12:00:00 A M EST [facility] ([facility]) ECG ROUTINE ECG W/LEAST 12 LDS W/I&R <td>POCT AMB EKG</td><td>Routine</td><td>11/19/2020 1:23 PM EDT</td><td> Other chest pain</td><td> </td> 11/19/2020 01:23:00 PM EDT Other chest pain [facility] Other chest pain HEPATIC FUNCTION PANEL <td>HEPATIC FUNCTION PANEL</td><td>Routine</td><td>08/04/2020</td><td></td><td> </td> 08/04/2020 12:00:00 AM EDT [facility] LIPID PANEL <td>LIPID PANEL</td><td>Rout ine</td><td>08/04/2020</td><td></td><td> </td> 08/04/2020 12:00:00 AM EDT [facility] BASIC METABOLIC PANEL CALCIUM TOTAL <td>BASIC METABOLI C PANEL</td><td>Routine</td><td>08/04/2020</td><td></td><td> </td> 08/04/2020 12:00:00 AM EDT [facility] Results ID Date Data Source [id number] 03/18/2021 09:46:00 AM EST [facility] [address] [place] [address] PHONE: [phone] FAX: [phone] Name .................. : NIRAJ GARCIA Acct Number.................. : [id number] ROOM. ................. : MR Number ................... : [id number] Stay type ............. : O/P Discharge Date......... ... : 03/18/21 Admit Date ......... : 03/18/21 Admit Phys .................... : COREY Alvarado Date of ....... : 1965 Family Phys ................... : OGDEN J Phone .................. : [phone] Age ................................ : 55 Film# .................. .:[id number] Sex ................................. : F Unsigned transcriptions are preliminary reports and do not represent a medical or legal document CT HEAD W/O CONTRAST [id number] COMPLETE:03/18/21 08:40 33053 Reason for Exam: DISORIENTATION CT BRAIN WITHOUT IV CONTRAST INDICATION: Disorientation COMPARISON: None CONTRAST: None One or more of the following dose reduction techniques were utilized in effectively lowering the radiation dose for this examination: Automated Exposure Control, Adjustment of the mA and/or kV according to patient size, or Iterative Reconstruction. FINDINGS: The ventricles, cisterns, sulci are normal for the patient's age. Silva white differentiation is intact. No acute infarction or hemorrhage. No midline shift or mass effect. No mass identified. No extra-axial fluid collections. No lesions are seen in the skull. Visualized sinuses are clear. IMPRESSION: Negative study. Electronically Reviewed and Signed By Thom Zelaya MD , 03/18/21 09:46, FILOMENA Transcribe Initials: SSR, Transcribe Date: 03/18/21 09:17, Dictation Date: Page 1 of 2 [facility] [address] [place] [address] PHONE: [phone] FAX: [phone] Name .................. : NIRAJ GARCIA Acct Number.................. : [id number] ROOM. ................. : MR Number ................... : [id number] Stay type ............. : O/P Discharge Date......... ... : 03/18/21 Admit Date ......... : 03/18/21 Admit Phys .................... : COREY Alvarado Date of ....... : 1965 Family Phys ................... : OGDEN J Phone .................. : [phone] Age ................................ : 55 Film# .................. .:[id number] Sex ................................. : F Unsigned transcriptions are preliminary reports and do not represent a medical or legal document CT HEAD W/O CONTRAST [id number] COMPLETE:03/18/21 08:40 [id number] Reason for Exam: DISORIENTATION Copy for: COREY JAIME Ese via fax Copy for: 710 MED REC Page 2 of 2 Name Value Range Interpretation Code Description Data Pallavi rce(s) Supporting Document(s) ID Date Data Source [id number] 03/17/2021 11:42:00 AM EST [facility] ([facility]) Name Value Range Interpretation Code Description Data Pallavi rce(s) Supporting Document(s) Lamotrigine [Mass/volume] in Serum or Plasma 16.8 ug/mL 2.0-20.0 [facility] ([facility]) Detection Limit = 1.0 Valproate [Mass/volume] in Serum or Plasma 44 ug/mL 50-100 [facility] normal [facility] ([facility]) <content>Detection Limit = 4</content><b r/><content><4 indicates None Detected</content>
<content>Toxicity may occur at levels of 100-500. Measurements</content>
<content>of free unbound valproic acid may improve the assess-</content>
<content>ment of clinical response.</content>
<content></content> ID Date Data Source [id number] 03/17/2021 11:16:00 AM EST [facility] ([facility] Name Value Range Interpretation Code Description Data Pallavi rce(s) Supporting Document(s) Valproate [Mass/volume] in Serum or Plasma 44 ug/mL 50-100 [place] w low normal [facility] ([facility] <content>Detection Limit = 4</content><b r/><content><4 indicates None Detected</content>
<content>Toxicity may occur at levels of 100-500. Measurements</content>
<content>of free unbound valproic acid may improve the assess-</content>
<content>ment of clinical response.</content>
<content></content> Lamotrigine [Mass/volume] in Serum or Plasma 16.8 ug/mL 2.0-20.0 [facility] ([facility] Detection Limit = 1.0 ID Date Data Source [id number] 03/21/2021 08:52:00 AM [facility] Name Value Range Interpretation Code Description Data Pallavi rce(s) Supporting Document(s) Lamotrigine [Mass/volume] in Serum or Plasma 16.8 ug/mL 2.0-20.0 [facility] Detection Limit = 1.0 ID Date Data Source [id number] 03/19/2021 08:58:00 AM [facility] Name Value Range Interpretation Code Description Data Pallavi rce(s) Supporting Document(s) Valproate [Mass/volume] in Serum or Plasma 44 ug/mL 50-100 L [facility] Detection Limit = 4 <4 indicates None Detected Toxicity may occur at levels of 100-500. Measurements of free unbound valproic acid may improve the assess- ment of clinical response. ID Date Data Source [id number] 03/13/2021 08:50:00 PM [facility] ED Physician Documentation NAME: JOSE HEALY : 1965 AGE: 55 MR#: [id number] SERVICE DATE: 03/13/[address]: Graham Sosa DO PRIMARY CARE DR: No Family PHYS Provided ROOM#: [facility] (Adult, General) General Chief Complaint: Multi system (Adult) Stated Complaint: BACK PAIN Time Seen by Provider: 03/13/21 20:54 History of Present Illness Narrative: 55-year-old female here with chief complaint of some back pain ongoing since she feels that she was bit by some bugs living in her home, states that she feels as if the bugs have created significant inflammation and is unclear what is causing her back pain in the upper left. Denies any fever or other complaints. Notes that they are currently treating the bugs. Denies any other significant complaints.States that her house is full of bugs including larva in her bedAnd she feels she is being bit on a regular basis. She was apparently previously seen for similar episode where she had had bugs biting her scalp Allergies/Home Meds Home M edications Medication Instructions Recorded Confirmed Last Taken Type lidocaine 5 % topical patch 1 patch TOPICAL DAILY #30 ea 03/13/21 Unknown Rx (Lidoderm) PMH (from Triage) Patient Medical History PMH Reviewed/Updated as Needed: Yes PMH/PSH from Triage: Medical History (Updated 03/13/21 @ 19:59 by Elaine Bergeron RN) Cataract (Medical) H26.9 Epilepsy (Medical) G40.909 Hx of appendectomy (Medical) Z90.49 Hx of tonsillectomy (Medical) Z90.89 Surgical History (Updated 03/13/21 @ 19:59 by Elaine Bergeron RN) Hx of appendectomy (Surgical) Z90.49 Hx of tonsillectomy (Surgical) Z90.89 Female History LMP:: Menopause Hx Drug Resistant Infections Hx Other Resistant Infection?: No Isolation: Standard precautions Hx Recent Travel Nurse screening for coronavirus: Recent Travel outside the No country (where) Has patient experienced No coronavirus symptoms Social History Are you in a relationship with/Does anyone hit you, yell/swear at you, steal from you?: No Substance Use Second Hand Smoke Exposure: No Smoking Status: Former smoker Vaccination History Hx/Date of Influenza Vaccination: No (would like vaccine if possible.) Hx/Date of Pneumococcal Vaccination: No Immunizations Up to Date: Yes PFSH Medical History (Updated 03/13/21 @ 19:59 by Elaine Bergeron RN) Cataract Epilepsy Surgical History (Updated 03/13/21 @ 19:59 by Elaine Bergeron RN) Hx of appendectomy Hx of tonsillectomy Social History Does the Patient have a Healthcare Proxy: No Does Patient have a DNR?: No Does Patient have a Living Will?: No Smoking Status: Former smoker ROS Review of Systems ROS Narrative: General: Denies fever, chills. Head: Denies headache, scalp tenderness. Eyes: Denies blurry vision, double vision. Ears: Denies earache, discharge. Nose: Denies nosebleeds, discharge. Neck: Denies pain, masses. Heart: Denies chest pain, palpitations. Lungs: Denies shortness of breath, orthopnea, cough. GI: Denies nausea, vomiting, diarrhea, constipation : Denies dysuria, hematuria. MUSK: + back pain. Skin: Denies rash, itching. Neurologic: Denies numbness, tingling. Psychiatric: Denies depression, anxiety. no si/hi Physical Exam General Physical Exam Narrative: General: Patient is alert and oriented to person, place, and time. Appears in no acute distress.Patient is offended when I asked her these questions, stating that she is not crazy and that there really are bugs in her home Head: Normocephalic and atraumatic. Eyes: Pupils equally round and react to light. Extraocular movements intact. Ears: Gross hearing intact. External ears within normal limits. Nose: No septal deviation. Nasal p assages clear. Throat: Moist oral mucosa. No erythema or exudate of the pharynx. Neck: Supple. Trachea midline. Heart: Regular, rate, and rhythm. Lungs: Clear to auscultation bilateral. Abdomen: Soft, non-tender, non- distended, and bowel sounds are present. Genitourinary: Deferred. Rectal: Deferred. Extremities: No cyanosis, clubbing, or edema. Skin: Warm and dry. Noting no significant erythema, but did note a few very very small Papular lesions on the posterior back In the general region she is indicating with no erythema or fluctuance Musculoskeletal: Deferred. Neurologic: Cranial nerves II through XII are grossly intact. Sensation to light touch is intact. Psychiatric: Judgment and insight are seemingly intact. Mood and affect are appropriate for the situation. Vital Signs Vital Signs: Vital Signs 03/13/21 19:36 Temperature 97.4 F L Pulse Rate 87 Respiratory Rate 18 Blood Pressure 182/84 O2 Sat by Pulse Oximetry 100 MDM (comprehensive) Medical Decision Making Free Text/Narative:: 55-year-old female with chief complaint of bugs biting her back leading to some back pain with a reassuring examination and some improvement noted with Toradol, patient was without any suicidal or homicidal ideation and was psychiatrically normal with the exception of the fact that she recurrently stated bugs in her bed, I am unclear as to whether or not this is true but does seem somewhat unlikely given the lack of exam findings. Based on her exam and History I cannot recommendany further evaluation at this time given particular the fact that she was offended when I made her answer some more in- depth questions such as who she was where she was etc. She answered everything appropriately. Follow-up as needed. Plan Visit Medications Administered ED medications:: Medications Discontinued Medications Generic Name Dose Route Start Last Admin Trade Name Damian PRN Reason Stop Dose Admin Ketorolac Tromethamine 30 mg 03/13/21 21:12 03/13/21 21:20 Ketorolac Tromethamine 30 Mg/Ml Sdv IM 03/13/21 21:13 30 mg 1T ONE Administration Lidocaine 1 pat 03/13/21 20:15 03/13/21 20:15 Lidocaine Hcl Patch TP 1 pat DAILY NILDA Administration Discharge Plan Admission/Discharge Dx Primary DC Diagnosis: back pain ED Provider: Graham Sosa ED Status: Discharged Time Seen by Provider: 03/13/21 20:54 Triaged At: 03/13/21 19:36 Discharge Detail Disposition: Home, Self-Care Med Rec New Prescriptions: New lidocaine [Lidoderm] 5 % adhesive patch,medicated 1 patch topical DAILY Qty: 30 0RF Rx Instructions: leave on most painful area for up to 12 hrs Follow Up Care/Instructions Diet/Activity/Wound Care..: Follow-up with your regular doctor if the problem persists *Discharge Patient* Discharge Orders: Discharge Order (Routine); Ordered 03/13/21 Ordered By: Graham Sosa Discharge Date/Time: 03/13/21 21:31 Interventions Interventions: ED Discharge Instructions Last Done: 03/13/21 21:28 ED General Adult Last Done: 03/13/21 19:50 Report Signers: <Electronically signed by Graham Sosa DO> Graham Sosa DO 03/13/21 2258 Graham Sosa DO SIGNATURE DA Report Cosigners: D: CHERISE 03/13/212049 T: CHERISE 03/13/212049 CC: No Family PHYS Provided Name Value Range Interpretation Code Description Data Pallavi rce(s) Supporting Document(s) ID Date Data Source [id number] 03/12/2021 02:47:00 PM EST [facility] ([facility]) Name Value Range Interpretation Code Description Data Pallavi rce(s) Supporting Document(s) Amphetamines Screen,Urine Laboratory test result [facility] ([facility]) Is patient fasting? N Benzodiazepines Screen,Urine Laboratory test result [facility] ([facility]) Is patient fasting? N Barbiturates Screen,Urine Laboratory test result [facility] ([facility]) Is patient fasting? N Cocaine (Metab.) Screen,Urine Laboratory test result [facility] ([facility]) Is patient fasting? N Cannabinoid Screen, Urine Laboratory test result [facility] ([facility]) Is patient fasting? N Oxycodone/Oxymorphone,Urine Laboratory test result [facility] ([facility]) Is patient fasting? N Opiate Screen, Urine Laboratory test result [facility] ([facility]) Is patient fasting? N Phencyclidine Screen,Urine Laboratory test result [facility] ([facility]) Is patient fasting? N Methadone Screen, Urine Laboratory test result [facility] ([facility]) Is patient fasting? N Propoxyphene Screen,Urine Laboratory test result [facility] ([facility]) Is patient fasting? N Meperidine Screen, Urine Laboratory test result [facility] ([facility]) Is patient fasting? N Fentanyl, Urine Laboratory test result [facility] ([facility]) Is patient fasting? N Creatinine, Urine 196.3 mg/dL 20.0-300.0 [facility] ([facility]) Is patient fasting? N Tramadol Screen, Urine Laboratory test result [facility] ([facility]) Is patient fasting? N Specific [place] 1.015 NA [facility] ([facility]) Is patient fasting? N Please Note: Laboratory test result [facility] ([facility]) Is patient fasting? N pH, Urine 7.0 NA 4.5-8.9 [facility] ([facility]) Is patient fasting? N ID Date Data Source [id number] 03/12/2021 02:47:00 PM EST [facility] ([facility]) Name Value Range Interpretation Code Description Data Pallavi rce(s) Supporting Document(s) Source Laboratory test result [facility] ([facility]) Is patient fasting? N Laboratory test finding (navigational concept) Laboratory test result [facility] ([facility]) Is patient fasting? N Color Laboratory test result [facility] ([facility]) Is patient fasting? N Clarity Laboratory test result [facility] ([facility]) Is patient fasting? N pH 7 5-9 [facility] ([facility]) Is patient fasting? N Spec [place] 1.010 1.001-1.030 [facility] ([facility]) Is patient fasting? N Ketone 5 Abnormal (applies to non-numeric res ults) [facility] ([facility]) Is patient fasting? N Bilirubin Laboratory test result [facility] ([facility]) Is patient fasting? N Glucose Laboratory test result [facility] ([facility]) Is patient fasting? N Nitrite Laboratory test result [facility] ([facility]) Is patient fasting? N Protein 15 [facility] ([facility]) Is patient fasting? N Blood Laboratory test result [facility] ([facility]) Is patient fasting? N Leuk Est 25 [facility] ([facility]) Is patient fasting? N Urobilinogen 1 [facility] ([facility]) Is patient fasting? N Microscopic Laboratory test result M [facility] ([facility]) Is patient fasting? N RBC Laboratory test result [facility] ([facility]) Is patient fasting? N WBC Laboratory test result [facility] ([facility]) Is patient fasting? N Epithelial Laboratory test result Abnormal (applies to non -numeric results) [facility] ([facility]) Is patient fasting? N Bacteria Laboratory test result [facility] ([facility]) Is patient fasting? N ID Date Data Source [id number] 03/12/2021 02:47:00 PM EST [facility] ([facility]) Name Value Range Interpretation Code Description Data Pallavi rce(s) Supporting Document(s) Thyrotropin [Units/volume] in Serum or Plasma 1.32 uIU/mL 0.47-5.01 [facility] ([facility]) Is patient fasting? N ID Date Data Source [id number] 03/12/2021 02:47:00 PM EST [facility] ([facility]) Name Value Range Interpretation Code Description Data Pallavi rce(s) Supporting Document(s) Cve Panel Laboratory test result [facility] ([facility]) Is patient fasting? N Cholesterol 170 mg/dL 131-200 [facility] ([facility]) Is patient fasting? N Triglycerides 90 mg/dL 35-160 [facility] ([facility]) Is patient fasting? N HDL 52 mg/dL 29-86 [facility] ([facility]) Is patient fasting? N LDL 99 mg/dL 65-175 [facility] ([facility]) Is patient fasting? N LDL/HDL 1.90 1.47-3.22 [facility] ([facility]) Is patient fasting? N Risk Factor 3.3 3.2-4.4 [facility] ([facility]) Is patient fasting? N ID Date Data Source [id number] 03/12/2021 02:47:00 PM EST [facility] ([facility]) Name Value Range Interpretation Code Description Data Pallavi rce(s) Supporting Document(s) Comprehensive Metabo Laboratory test result [facility] ([facility]) Is patient fasting? N Sodium 142 meq/L 134-153 [facility] ([facility]) Is patient fasting? N Potassium 3.8 meq/L 3.6-5.0 [facility] ([facility]) Is patient fasting? N Chloride 106 meq/L 98-107 [facility] ([facility]) Is patient fasting? N Co2 25 meq/L 22-30 [facility] ([facility]) Is patient fasting? N Glucose 97 mg/dL 70-99 [facility] ([facility]) Is patient fasting? N BUN 17 mg/dL 7-21 [facility] ([facility]) Is patient fasting? N Creatinine 1.0 mg/dL 0.7-1.5 [facility] ([facility]) Is patient fasting? N BUN/Creat 17 8-27 [facility] ([facility]) Is patient fasting? N Albumin 4.9 g/dL 3.9-5.0 [facility] ([facility]) Is patient fasting? N Total Protein 7.6 g/dL 6.3-8.2 [facility] ([facility]) Is patient fasting? N A/G Ratio 1.8 0.8-2.0 [facility] ([facility]) Is patient fasting? N Globulin 2.7 GM/DL 2.4-3.2 [facility] ([facility]) Is patient fasting? N Calcium 9.5 mg/dL 8.4-10.2 [facility] ([facility]) Is patient fasting? N Total Bili Laboratory test result 0.2-1.3 [facility] ([facility]) Is patient fasting? N Alkaline Phos 103 U/L 38-126 [facility] ([facility]) Is patient fasting? N Sgot/Ast 32 U/L 5-40 [facility] ([facility]) Is patient fasting? N Anion Gap 11.0 mmol/L 8.0-16.0 [facility] ([facility]) Is patient fasting? N SGPT/Alt 30 U/L 7-[facility] Is patient fasting? N Age 55 y[facility] Is patient fasting? N Non-Aa GFR Laboratory test result [facility] Is patient fasting? N Afr Amer GFR Laboratory test result [facility] ([facility]) Is patient fasting? N ID Date Data Source [id number] 03/12/2021 02:47:00 PM EST [facility] Name Value Range Interpretation Code Description Data Pallavi rce(s) Supporting Document(s) WBC 7.2 10^3/uL 4.2-11.0 [facility] Is patient fasting? N CBC W/Automated Diff Laboratory test result [facility] Is patient fasting? N Hemoglobin 14.1 g/dL 12.0-16.0 [facility] ([facility]) Is patient fasting? N RBC 4.69 10^6/uL 4.20-5.40 [facility] ([facility]) Is patient fasting? N Hematocrit 42.8 % 37.0-47.0 [facility] ([facility]) Is patient fasting? N MCV 91.3 fL 81.0-101 [facility] ([facility]) Is patient fasting? N MCH 30.1 pg 27.0-34.0 [facility] ([facility]) Is patient fasting? N RDW 13.0 % 11.5-14.5 [facility] ([facility]) Is patient fasting? N MCHC 32.9 g/dL 31.0-36.0 [facility] ([facility]) Is patient fasting? N MPV 11.0 fL 7.4-10.4 Above high normal [facility] ([facility]) Is patient fasting? N Platelets 295 10^3/uL 150-450 [facility] ([facility]) Is patient fasting? N Neut 55.9 % 37.0-80.0 [facility] ([facility]) Is patient fasting? N Lymph 31.3 % 25.0-40.0 [facility] ([facility]) Is patient fasting? N [place] 10.2 % 3.0-8.0 Above high normal [facility] ([facility]) Is patient fasting? N Eos 1.2 % 0.0-7.0 [facility] ([facility]) Is patient fasting? N %Ig 0.4 % 0.0-0.0 Above high normal [facility] ([facility]) Is patient fasting? N Baso 1.0 % 0.0-2.5 [facility] ([facility]) Is patient fasting? N %NRBC 0.0 % 0.0-0.0 [facility] ([facility]) Is patient fasting? N #Neut 4.04 10^3/uL 2.00-6.90 [facility] ([facility]) Is patient fasting? N #Lymph 2.26 10^3/uL 0.60-3.40 [facility] ([facility]) Is patient fasting? N #[place] 0.74 10^3/uL 0.00-0.90 [facility] ([facility]) Is patient fasting? N #Eos 0.09 10^3/uL 0.00-0.70 [facility] ([facility]) Is patient fasting? N #Baso 0.07 10^3/uL 0.00-0.20 [facility] ([facility]) Is patient fasting? N #Ig 0.03 10^3/uL 0.00-0.10 [facility] ([facility]) Is patient fasting? N #NRBC 0.00 10^3/uL 0.00-0.00 [facility] ([facility]) Is patient fasting? N Manual Diff Laboratory test result [facility] ([facility]) Is patient fasting? N RBC Morph Laboratory test result [facility] ([facility]) Is patient fasting? N ID Date Data Source [id number] 03/12/2021 02:16:00 PM EST [facility] ([facility] Name Value Range Interpretation Code Description Data Pallavi rce(s) Supporting Document(s) Laboratory test finding (navigational concept) Laboratory test result [facility] ([facility] Laboratory test finding (navigational concept) Laboratory test result [facility] ([facility] Cannabinoid Screen, Urine Laboratory test result [facility] ([facility] Laboratory test finding (navigational concept) Laboratory test result [facility] ([facility] Opiate Screen, Urine Laboratory test result [facility] ([facility] Opiate test includes Codeine, Morphine, Hydromorphone, Hydrocodone. Laboratory test finding (navigational concept) Laboratory test result [facility] ([facility] Laboratory test finding (navigational concept) Laboratory test result [facility] ([facility] Test includes Oxycodone and Oxymorphone Laboratory test finding (navigational concept) Laboratory test result [facility] ([facility] Laboratory test finding (navigational concept) Laboratory test result [facility] ([facility] Laboratory test finding (navigational concept) Laboratory test result [facility] ([facility] Laboratory test finding (navigational concept) Laboratory test result [facility] ([facility] This test was developed and its performa nce characteristics determined by [facility]. It has not been cleared or approved by the Food and Drug Administration. Tramadol Screen, Urine Laboratory test result [facility] ([facility] Laboratory test finding (navigational concept) Laboratory test result [facility] ([facility] Test includes Fentanyl and Norfentanyl This test was developed and its performance characteristics determined by [facility]. It has not been cleared or approved by the Food and Drug Administration. Specific [place] 1.015 NA [facility] ([facility] Creatinine, Urine 196.3 mg/dL 20.0-300.0 [facility] ([facility] Please Note: Laboratory test result [facility] ([facility] Drug-test results should be interpreted in the context of clinical information. Patient metabolic variables, specific drug chemistry, and specimen characteristics can affect test outcome. Technical consultation is available if a test result is inconsistent with an expected outcome. ([email or web address] or call toll-free [phone]) Drug brands, if listed herein, are trademarks of their respective owners. pH, Urine 7.0 NA 4.5-8.9 [facility] ([facility] ID Date Data Source [id number] 03/12/2021 02:16:00 PM EST [facility] ([facility] Name Value Range Interpretation Code Description Data Pallavi rce(s) Supporting Document(s) Source Laboratory test result [facility] ([facility] Laboratory test finding (navigational concept) Laboratory test result [facility] ([facility] URINALYSIS Clarity Laboratory test result [facility] ([facility] Color Laboratory test result [facility] ([facility] Spec [place] 1.010 1.001-1.030 [facility] ([facility] pH 7 5-9 [facility] Glucose Laboratory test result [facility] ([facility] Bilirubin Laboratory test result [facility] ([facility] Nitrite Laboratory test result [facility] ([facility] Ketone 5 Abnormal (applies to non-numeric res ults) [facility] ([facility] Protein 15 [facility] Leuk Est 25 [facility] Blood Laboratory test result [facility] Microscopic Laboratory test result [facility] Urobilinogen 1 [facility] WBC Laboratory test result [facility] [facility] RBC Laboratory test result [facility] ([facility] Bacteria Laboratory test result [facility] ([facility] Epithelial Laboratory test result Abnormal (applies to non -numeric results) [facility] ([facility] ID Date Data Source [id number] 03/12/2021 02:16:00 PM EST [facility] ([facility] Name Value Range Interpretation Code Description Data Pallavi rce(s) Supporting Document(s) Thyrotropin [Units/volume] in Serum or Plasma 1.32 uIU/mL 0.47-5.01 [facility] ([facility] ID Date Data Source [id number] 03/12/2021 02:16:00 PM EST [facility] ([facility] Name Value Range Interpretation Code Description Data Pallavi rce(s) Supporting Document(s) Cve Panel Laboratory test result ME DENT ([facility] LIPID PANEL Cholesterol 170 mg/dL 131-200 [facility] ([facility] HDL 52 mg/dL 29-86 [facility] ([facility] Triglycerides 90 mg/dL 35-160 [facility] ([facility] LDL 99 mg/dL 65-175 [facility] LDL/HDL 1.90 1.47-3.22 [facility] ([facility] CVE RISK CHOL/HDL LDL/HDL MEN: 1/2 AVERAGE 3.43 1.00 AVERAGE 4.97 3.55 2X AVERAGE 9.55 6.25 3X AVERAGE 23.99 7.99 WOMEN: /2 AVERAGE 3.27 1.47 AVERAGE 4.44 3.22 2X AVERAGE 7.05 5.03 3X AVERAGE 11.04 6.14 Risk Factor 3.3 3.2-4.4 [facility] ([facility] ID Date Data Source [id number] 03/12/2021 02:16:00 PM EST MED[facility] ([facility] Name Value Range Interpretation Code Description Data Pallavi rce(s) Supporting Document(s) Sodium 142 meq/L 134-153 [facility] Comprehensive [place] Laboratory test result [facility] ([facility] COMPREHENSIVE METABOLIC PANEL Potassium 3.8 meq/L 3.6-5.0 [facility] ([facility] Chloride 106 meq/L 98-107 [facility] Glucose 97 mg/dL 70-99 [facility] Co2 25 meq/L 22-30 [facility] BUN 17 mg/dL 7-21 [facility] ([facility] Creatinine 1.0 mg/dL 0.7-1.5 [facility] ([facility] Total Protein 7.6 g/dL 6.3-8.2 [facility] ([facility] BUN/Creat 17 8-27 [facility] ([facility] Albumin 4.9 g/dL 3.9-5.0 [facility] ([facility] A/G Ratio 1.8 0.8-2.0 [facility] ([facility] Globulin 2.7 GM/DL 2.4-3.2 [facility] ([facility] Total Bili Laboratory test result 0.2-1.3 ME DENT ([facility] Calcium 9.5 mg/dL 8.4-10.2 [facility] ([facility] Alkaline Phos 103 U/L 38-126 [facility] ([facility] Sgot/Ast 32 U/L 5-40 [facility] ([facility] SGPT/Alt 30 U/L 7-56 [facility] ([facility] Anion Gap 11.0 mmol/L 8.0-16.0 [facility] Age 55 [facility] ([facility] Non-Aa GFR Laboratory test result ME DENT ([facility] Afr Amer GFR Laboratory test result [facility] ([facility] Male GFR Interprentation 20-49 yrs >60 mL/min Normal 50-59 yrs >56 mL/min Normal 60-69 yrs >49 mL/min Normal 70-79yrs >42 mL/min Normal 80 and above >35 mL/min Normal Female GFR Interpretation 20-39 yrs >60 mL/min Normal 40-49 yrs >58 mL/min Normal 50-59 yrs >51 mL/min Normal 60-69 yrs >45 mL/min Normal 70-79 yrs >39 mL/min Normal 80 and above >32 mL/min Normal ID Date Data Source [id number] 03/12/2021 02:16:00 PM EST [facility] ([facility] Name Value Range Interpretation Code Description Data Pallavi rce(s) Supporting Document(s) CBC W/Automated Diff Laboratory test result [facility] ([facility] COMPLETE BLOOD COUNT WBC 7.2 10^3/uL 4.2-11.0 [facility] ([facility] Hemoglobin 14.1 g/dL 12.0-16.0 [facility] ([facility] RBC 4.69 10^6/uL 4.20-5.40 [facility] ([facility] MCV 91.3 fL 81.0-101 [facility] ([facility] Hematocrit 42.8 % 37.0-47.0 [facility] ([facility] MCH 30.1 pg 27.0-34.0 [facility] ([facility] MCHC 32.9 g/dL 31.0-36.0 [facility] RDW 13.0 % 11.5-14.5 [facility] Platelets 295 10^3/uL 150-450 [facility] Lymph 31.3 % 25.0-40.0 [facility] ([facility] Neut 55.9 % 37.0-80.0 [facility] MPV 11.0 fL 7.4-10.4 Above high normal [facility] ([facility] Eos 1.2 % 0.0-7.0 [facility] [place] 10.2 % 3.0-8.0 Above high normal [facility] ([facility] %Ig 0.4 % 0.0-0.0 Above high normal [facility] ([facility] Baso 1.0 % 0.0-2.5 [facility] ([facility] %NRBC 0.0 % 0.0-0.0 [facility] #Neut 4.04 10^3/uL 2.00-6.90 [facility] #[place] 0.74 10^3/uL 0.00-0.90 [facility] ([facility] #Lymph 2.26 10^3/uL 0.60-3.40 [facility] ([facility] #Eos 0.09 10^3/uL 0.00-0.70 [facility] ([facility] #Baso 0.07 10^3/uL 0.00-0.20 [facility] ([facility] #Ig 0.03 10^3/uL 0.00-0.10 [facility] ([facility] Manual Diff Laboratory test result M EDENT ([facility] #NRBC 0.00 10^3/uL 0.00-0.00 MEDJOSÉ ([facility] RBC Morph Laboratory test result ME BLUM ([facility] ID Date Data Source [id number] 03/17/2021 06:27:00 AM EST [facility] Name Value Range Interpretation Code Description Data Pallavi rce(s) Supporting Document(s) Amphetamines [Presence] in Urine by Screen method Negative ng/mL Cu njfc=6855 [facility] Barbiturates [Presence] in Urine by Screen method Negative ng/mL Cuto eq=285 [facility] Benzodiazepines [Presence] in Urine by Screen method Negative ng /mL Dessnz=586 [facility] Cannabinoids [Presence] in Urine by Screen method Negative ng/mL Cuto ff=20 [facility] Benzoylecgonine [Presence] in Urine by Screen method Negative ng /mL Bdasts=268 [facility] Opiates [Presence] in Urine by Screen method Negative ng/mL Cutoff=30 0 [facility] Opiate test includes Codeine, Morphine, Hydromorphone, Hydrocodone. Oxycodone+Oxymorphone [Presence] in Urine by Screen method N egative ng/mL Jtkagh=817 [facility] Test includes Oxycodone and Oxymorphone Phencyclidine [Presence] in Urine Negative ng/mL Cutoff=25 [facility] Methadone [Presence] in Urine by Screen method Negative ng/mL Cutoff= 300 [facility] Propoxyphene [Presence] in Urine by Screen method Negative ng/mL Cuto wu=422 [facility] Meperidine [Presence] in Urine Negative ng/mL Wvjauw=328 [facility] This test was developed and its performa nce characteristicsdetermined by [facility]. It has not been cleared or approvedby the Food and Drug Administration. Fentanyl [Mass/volume] in Urine Negative pg/mL Thtrpp=8294 [facility] Test includes Fentanyl and NorfentanylTh is test was developed and its performance characteristicsdetermined by [facility]. It has not been cleared or approvedby the Food and Drug Administration. Tramadol [Presence] in Urine by Screen method Negative ng/mL Cutoff=2 00 [facility] Creatinine [Mass/volume] in Urine 196.3 mg/dL 20.0-300.0 [facility] Specific gravity of Urine 1.015 NA [facility] Laboratory comment [Text] in Report Narrative COMMENT [facility] Drug-test results should be interpreted in the context of clinicalinformation. Patient metabolic variables, specific drug chemistry, andspecimen characteristics can affect test outcome. Technicalconsultation is available if a test result is inconsistent with anexpected outcome. (email- [email or web address] or call [phone])Drug brands, if listed herein, are trademarks of their respectiveowners. pH of Urine 7.0 NA 4.5-8.9 [facility] ital ID Date Data Source [id number] 03/12/2021 10:44:00 PM EST [facility] Name Value Range Interpretation Code Description Data Pallavi rce(s) Supporting Document(s) UA REFLEX TO UA CULTURE [facility]ALYSIS SOURCE R [facility] yellow NORMAL: Yellow [facility] CLARITY clear NORMAL: Clear [facility] Specific gravity of Urine by Test strip 1.010 1.001 - 1.030 [facility] pH 7 5 - 9 [facility] Glucose [Mass/volume] in Urine by Test strip NORM NORMAL: Negat [facility] Bilirubin.total [Presence] in Urine by Test strip NEG NORMAL: Negative [facility] Ketones [Presence] in Urine by Test strip 5 NORMAL: Negative [facility] Protein [Mass/volume] in Urine by Test strip 15 NORMAL: Negat [facility] Nitrite [Presence] in Urine by Test strip NEG NORMAL: Negative [facility] BLOOD NEG NORMAL: Negative [facility] Leukocyte esterase [Presence] in Urine by Test strip 25 ASHLEY L: Negative [facility] Urobilinogen [Mass/volume] in Urine by Test strip 1 less yaya n 1.0 mg/dL [facility] MICROSCOPIC See Below [facility] ital WBC 1 - 3 NORMAL: NONE SEEN [facility] Erythrocytes [#/volume] in Urine by Test strip None Seen NORMAL: NON E SEEN [facility] EPITHELIAL MODERATE NORMAL: NONE SEEN A [facility] Bacteria [Presence] in Urine sediment by Light microscopy Tr candiod NORMAL: NONE SEEN [facility] ID Date Data Source [id number] 03/12/2021 09:45:00 PM EST [facility] Name Value Range Interpretation Code Description Data Pallavi rce(s) Supporting Document(s) Thyrotropin [Units/volume] in Serum or Plasma by Detec tion limit <= 0.05 mIU/L 1.32 uIU/mL 0.47 - 5.01 [facility] ID Date Data Source [id number] 03/12/2021 09:32:00 PM [facility] Name Value Range Interpretation Code Description Data Pallavi rce(s) Supporting Document(s) CVE PANEL [facility] al LIPID PANEL Cholesterol [Mass/volume] in Serum or Plasma 170 MG/DL 131 - 200 [facility] Deprecated Triglyceride [Mass/volume] in Serum or Plasma 90 MG/DL 3 5 - 160 [facility] HDL 52 MG/DL 29 - 86 [facility] Cholesterol in LDL [Mass/volume] in Serum or Plasma by Direc t assay 99 mg/dL 65 - 175 [facility] Cholesterol.total/Cholesterol in HDL [Mass Ratio] in Serum o r Plasma 3.3 3.2 - 4.4 [facility] LDL/HDL 1.90 1.47 - 3.22 [facility] ital CVE RISK CHOL/HDL LDL/HDLMEN: 1/2 AVERAGE 3.43 1.00 AVERAGE 4.97 3.55 2X AVERAGE 9.55 6.25 3X AVERAGE 23.99 7.99WOMEN: 1/2 AVERAGE 3.27 1.47 AVERAGE 4.44 3.22 2X AVERAGE 7.05 5.03 3X AVERAGE 11.04 6.14 ID Date Data Source [id number] 03/12/2021 09:32:00 PM EST [facility] Name Value Range Interpretation Code Description Data Pallavi rce(s) Supporting Document(s) COMPREHENSIVE METABOLIC PANEL [facility] COMPREHENSIVE METABOLIC PANEL Sodium [Moles/volume] in Serum or Plasma 142 mEq/L 134 - 153 [facility] Potassium [Moles/volume] in Serum or Plasma 3.8 mEq/L 3.6 - 5.0 [facility] Chloride [Moles/volume] in Serum or Plasma 106 mEq/L 98 - 107 [facility] Carbon dioxide, total [Moles/volume] in Serum or Plasma 25 MEQ/L 22 - 30 [facility] Glucose [Mass/volume] in Serum or Plasma 97 MG/DL 70 - 99 [facility] BUN 17 MG/DL 7 - 21 [facility] Creatinine [Mass/volume] in Serum or Plasma 1.0 MG/DL 0.7 - 1.5 [facility] BUN/CREAT 17 8 - 27 [facility] Protein [Mass/volume] in Serum or Plasma 7.6 G/DL 6.3 - 8.2 [facility] Albumin [Mass/volume] in Serum or Plasma 4.9 G/DL 3.9 - 5.0 [facility] Globulin [Mass/volume] in Serum by calculation 2.7 GM/DL 2.4 - 3.2 [facility] A/G RATIO 1.8 0.8 - 2.0 [facility] Calcium [Mass/volume] in Serum or Plasma 9.5 MG/DL 8.4 - 10.2 [facility] Bilirubin.total [Mass/volume] in Serum or Plasma <0.7 MG/DL 0.2 - 1.3 [facility] Alkaline phosphatase [Enzymatic activity/volume] in Serum or Plasma 103 U/L 38 - 126 [facility] Aspartate aminotransferase [Enzymatic activity/volume] in Serum or Plasma 32 U/L 5 - 40 [facility] Alanine aminotransferase [Enzymatic activity/volume] in Seru m or Plasma 30 U/L 7 - 56 [facility] Anion gap 3 in Serum or Plasma 11.0 mmol/L 8.0 - 16.0 [facility] AGE 55 yrs [facility] NON-AA GFR >60 mL/min [facility] ital AFR AMER GFR >60 mL/min [facility] Male GFR In terprentation 20-49 yrs >60 mL/min Normal 50-59 yrs >56 mL/min Normal 60-69 yrs >49 mL/min Normal 70-79yrs >42 mL/min Normal 80 and above >35 mL/min Normal Female GFR Interpretation 20-39 yrs >60 mL/min Normal 40-49 yrs >58 mL/min Normal 50-59 yrs >51 mL/min Normal 60-69 yrs >45 mL/min Normal 70-79 yrs >39 mL/min Normal 80 and above >32 mL/min Normal ID Date Data Source [id number] 03/12/2021 09:27:00 PM EST [facility] Name Value Range Interpretation Code Description Data Pallavi rce(s) Supporting Document(s) CBC W/AUTOMATED DIFF [facility] COMPLETE BLOOD COUNT Leukocytes [#/volume] in Blood by Automated count 7.2 10^3/uL 4.2 - 1 1.0 [facility] Erythrocytes [#/volume] in Blood by Automated count 4.69 10^6/uL 4. 20 - 5.40 [facility] Hemoglobin [Mass/volume] in Blood 14.1 g/dL 12.0 - 16.0 [facility] Hematocrit [Volume Fraction] of Blood by Automated count 42.8 % 3 7.0 - 47.0 [facility] Erythrocyte mean corpuscular volume [Entitic volume] by Auto mated count 91.3 fL 81.0 - 101 [facility] Erythrocyte mean corpuscular hemoglobin [Entitic mass] by Automated count 30.1 pg 27.0 - 34.0 [facility] Erythrocyte mean corpuscular hemoglobin concentration [Mass/volume] by Automated count 32.9 g/dL 31.0 - 36.0 [facility] Erythrocyte distribution width [Ratio] by Automated count 13.0 % 11.5 - 14.5 [facility] Platelets [#/volume] in Blood by Automated count 295 10^3/uL 150 - 45 0 [facility] Platelet mean volume [Entitic volume] in Blood by Automated count 11.0 fL 7.4 - 10.4 H [facility] Neutrophils/100 leukocytes in Blood by Automated count 55.9 % 37. 0 - 80.0 [facility] Lymphocytes/100 leukocytes in Blood by Manual count 31.3 % 25.0 - 40.0 [facility] Monocytes/100 leukocytes in Blood by Automated count 10.2 % 3.0 - 8.0 H [facility] Eosinophils/100 leukocytes in Blood by Automated count 1.2 % 0.0 - 7.0 [facility] Basophils/100 leukocytes in Blood by Automated count 1.0 % 0.0 - 2.5 [facility] %IG 0.4 % 0.0 - 0.0 H [facility] %NRBC 0.0 % 0.0 - 0.0 [facility] Neutrophils [#/volume] in Blood by Automated count 4.04 10^3/uL 2.00 - 6.90 [facility] Lymphocytes [#/volume] in Blood by Automated count 2.26 10^3/uL 0.60 - 3.40 [facility] Monocytes [#/volume] in Blood by Automated count 0.74 10^3/uL 0.00 - 0.90 [facility] Eosinophils [#/volume] in Blood by Automated count 0.09 10^3/uL 0.00 - 0.70 [facility] Basophils [#/volume] in Blood by Automated count 0.07 10^3/uL 0.00 - 0.20 [facility] #IG 0.03 10^3/uL 0.00 - 0.10 [facility] #NRBC 0.00 10^3/uL 0.00 - 0.00 [facility] MANUAL DIFF NOT INDICATED [facility] RBC MORPH NOT INDICATED [facility] ID Date Data Source [id number] 03/11/2021 01:58:00 AM [facility] ED Physician Documentation NAME: JOSE HEALY : 1965 AGE: 55 MR#: [id number] SERVICE DATE: 03/10/[address]: Kevin Preciado MD PRIMARY CARE DR: No Family PHYS Provided ROOM#: HPI (Adult, General) General Chief Complaint: Skin/integument Stated Complaint: SCALP DISCOMFORT Time Seen by Provider: 03/10/21 20:10 History of Present Illness Narrative: Pt not in ED at 2100 PMH (from Triage) Patient Medical History PMH Reviewed/Updated as Needed: No PFSH Social History Does the Patient have a Healthcare Proxy: No Does Patient have a DNR?: No Does Patient have a Living Will?: No Discharge Plan Admission/Discharge Dx Primary DC Diagnosis: LWBS ED Provider: Kevin Preciado ED Status: Discharged Time Seen by Provider: 03/10/21 20:10 Triaged At: 03/10/21 16:43 Condition Condition: Undetermined Discharge Detail Disposition: Left Without Being Seen (ER) *Discharge Patient* Discharge Date/Time: 03/10/21 20:55 Report Signers: <Electronically signed by Kevin Preciado MD> Kevin Preciado MD 03/11/21 0200 Kevin Preciado MD SIGNATURE DA Report Cosigners: D: ISAEL 03/11/21 015 T: ISAEL 03/11/21 015 CC: No Family PHYS Provided Name Value Range Interpretation Code Description Data Pallavi rce(s) Supporting Document(s) ID Date Data Source [id number] 02/21/2021 12:18:00 AM EST [facility] 1 Medication Reconciliation Report [facility] Emergency Department [address] [place] [address] Phone #: ext- [phone] 02/21/2021 00:18 Patient: JOSE HEALY Sex: F : 1965 Age: 55yWeight: 63.5 kgHeight/Length: 65 in.BMI: 23.3ALLERGIES: Antihistamine, Narcotics cause seizuresThe patient's Home Medications are listed below:CONTINUE TAKING THE FOLLOWING MEDICATIONS: Ativan Oral Depakote Oral Eye Drops, for glaucoma lamoTRIgine Oral Topiramate OralThe source(s) of the original Home Medication information:Not obtained.The following Medications were given to the patient in the Emergency Department:None.The following Medications were prescribed to the patient:None. Name Value Range Interpretation Code Description Data [facility] Supporting Document(s) ID Date Data Source [id number] 02/21/2021 12:18:00 AM [facility] 1 Medication Administration Record [facility] Emergency Department [address] [place] [address] Phone #: ext- [phone] 02/21/2021 00:18 Patient: JOSE HEALY Sex: F : 1965 Age: 55yWeight: 63.5 kgHeight/Length: 65 inBMI: 23.3ALLERGIES: Narcotics cause seizures, AntihistamineDate/Time Medication Administered Medication Ordered Name Value Range Interpretation Code Description Data [facility](s) Supporting Document(s) ID Date Data Source [id number] 02/21/2021 12:18:00 AM [facility] 1 General Instructions [facility] Emergency Department [address] [place] [address] Phone #: [phone]- [phone] 02/21/2021 00:18 Patient: JOSE HEALY Sex: F : 1965 Age: 55yMild irritative contact dermatitis from detergents.INSTRUCTIONS(hydrocortisone cream TID).Warnings: Further evaluation is necessary.GENERAL WARNINGS: Return or contact your physician immediately if your condition worsens orchanges unexpectedly, if not improving as expected, or if other problems arise.Your Current Medications: Your current home medications have been reviewed.CONTINUE TAKING THE FOLLOWING MEDICATIONS:Ativan Oral.Depakote Oral.Eye Drops* : for glaucoma.lamoTRIgine Oral.Topiramate Oral.Understanding of the discharge instructions verbalized by patient.Follow-up with: Sotero Roberto, , , [address] [place] [address], [phone] Follow up in two if not better. Call for an appointment. Reason for referral: evaluation. ADDITIONAL INFORMATIONContact DermatitisContact dermatitis is a skin rash caused by something that touches the skin and makes it irritated andinflamed. Your skin may be red, swollen, dry, and may be cracked. Blisters may form and ooze. Therash will itch.Contact dermatitis often forms on the face and neck, backs of hands, forearms, genitals, and lowerlegs. But it can affect any area.People can get contact dermatitis from lots of sources. These include: Plants such as poison schuyler, oak, or sumac 2 General Instructions [facility] Emergency Department [address] [place] [address] Phone #: ext- [phone] 02/21/2021 00:18 Patient: JOSE HEALY Sex: F : 1965 Age: 55y Chemicals in hair dyes and rinses, soaps, solvents, waxes, fingernail english, and deodorants Jewelry or watchbands made of nickel or cobaltContact dermatitis is not passed from person to person.Talk with your healthcare provider about what may have caused the rash. A type of allergy testingcalled &q uot;patch testing" may be used to discover what you are allergic to. You will need to stay awayfrom the source of the rash in the future to prevent it from coming back.Treatment is done to ease itching and prevent the rash from coming back. The rash should go awayin a few days to a few weeks.Home careYour healthcare provider may prescribe medicine to ease swelling and itching. Follow all instructionswhen using these medicines.General care Stay away from anything that heats up your skin, such as hot showers or baths, or direct sunlight. This can make itching worse. Apply cold compresses to soothe your sores to help ease your symptoms. Do this for 30 minutes 3 to 4 times a day. You can make a cold compress by soaking a cloth in cold water. Squeeze out excess water. You can add colloidal oatmeal to the water to help reduce itching. For severe itching in a small area, apply an ice pack wrapped in a thin towel. Do this for 20 minutes 3 to 4 times a day. You can also try wet dressings. One way to do this is to wear a wet piece of clothing under a dry one. Wear a damp shirt under a dry shirt if your upper body is affected. This can relieve itching and prevent you from scratching the affected area. You can also help ease large areas of itching by taking a lukewarm bath with colloidal oatmeal added to the water. Use hydrocortisone cream for redness and irritation, unless another medicine was prescribed. Calamine lotion can also relieve mild symptoms. Use oral diphenhydramine to help reduce itching. You can buy this antihistamine at drugstores and grocery stores. It can make you sleepy, so use lower doses during the daytime. Don't use diphenhydramine if you have glaucoma or have trouble urinating because of an enlarged prostate. If a plant causes your rash, make sure to wash your skin and the clothes you were wearing when you came into contact with the plant. This is to wash away the plant oils that gave you 3 General Instructions [facility] Emergency Department [address] [place] [address] Phone #: ext- [phone] 02/21/2021 00:18 Patient: JOSE HEALY Sex: F DO B: 1965 Age: 55y the rash and prevent more or worse symptoms. If you have a pet that's been outdoors, its fur may also have oil from the plant. Bathe your pet with soap or shampoo. Stay away from the substance or object that causes your symptoms. If you can't stay away from it, wear gloves or some other type of protectionFollow-up careFollow up with your healthcare provider, or as advised.When to seek medical adviceCall your healthcare provider or seek medical attention right away if any of these occur: Spreading of the rash to other parts of your body Severe swelling of your face, eyelids, mouth, throat or tongue Trouble urinating due to swelling in the genital area Fever of 100.4F (38C) or higher, or as advised by your provider Redness or swelling that gets worse Pain that gets worse Foul-smelling fluid leaking from the skin Yellow-brown crusts on the open blisters [id number] [employer]. [address] [place] [address]. All rights reserved. This information is not intended as asubstitute for professional medical care. Always follow your healthcare professional's instructions. You have been given the following additional information: Contact Dermatitis(Electronically signed by Steve Phan 02/21/2021 19:42) Name Value Range Interpretation Code Description Data Pallavi rce(s) Supporting Document(s) ID Date Data Source [id number] 02/21/2021 12:18:00 AM EST [facility] 1 Clinical Report - Nurses [facility] Emergency Department [address] [place] [address] Phone #: [phone]- [phone] 02/21/2021 00:18 Patient: JOSE HEALY Sex: F : 1965 Age: 55yTRIAGEHistorian: patient.Triage time: 01:40 02/21/2021.Chief Complaint: PAIN TO RIGHT EYE. PAIN TO LEFT EYE.Onset. (yesterday afternoon). ( states that she was treating her head for lice and got shampoo in hereyes. Had runny nose and is concerned that she may of gotten shampoo in her bloodstream.). --01: Kiki Reddy R.N.( Pt reports the exposure was around 3 pm.). --01:53 02/21/21 Kiki Reddy R.N.01:54 02/21/21. BP: 128/74. MAP: 92. HR: 72. RR: 18. O2 saturation: 97%. Temp: 98.9 F. Pain level now:09/18. Additional comments: reports a dull frontal headache. --01:55 02/21/21 Kiki Reddy R.N.Acuity: LEVEL 5. --01:57 02/21/21 Kiki Reddy R.N.Fidencio ght: 63.5 kg stated. Height/Length: 65 inches Per Patient. BMI: 23.3. --01:39 02/21/21 Kiki Bassett R.N.MedicationsDepakote Oral. --01:49 02/21/21 Kkii Reddy R.N. lamoTRIgine Oral. --01:49 02/21/21 Kiki Reddy R.N. Ativan Oral. Topiramate Oral. --01:49 02/21/21 Kiki Reddy R.N. Eye Drops (for glaucoma). --01:51 02/21/21 Kiki Reddy R.N.AllergiesAntihistamine. (seizures) --01:52 02/21/21 Kiki Reddy R.N.Narcotics cause seizures. --01:52 02/21/21 Kiki Reddy R.N.PROBLEMS:Seizure.Asthma. --01:50 02/21/21 Kiki Reddy R.N.HistorySOCIAL HX: Never smoker. No alcohol use or drug use. She was offered HIV testing but declined andhepatitis C testing but declined. She has not traveled outside the [place]Infectious disease exposure: No infectious disease exposure. The patient was not exposed to C-diff,MRSA, VRE or CRE. (Has had her COVID Vaccines June and July (Moderna)). 2 Clinical Report - Nurses [facility] Emergency Department [address] [place] [address], [place] [address] Phone #: ext- [phone] 02/21/2021 00:18 Patient: JOSE HEALY Sex: F : 1965 Age: 55y SELF HARM ASSESSMENT: Self harm assessment was performed. The patient answered "no" to the question(s) "Do you have thoughts of harming or killing yourself?" and "Have you recently had thoughts about harming or killing others?". ABUSE ASSESSMENT: No report of abuse. FALL RISK ASSESSMENT: Fall risk assessment completed. Risk factors identified include patient impairment of sight. Fall interventions initiated. Bed in low position. Brakes on. Call light in reach of patient. --01:56 02/21/21 Kiki Reddy R.N. FAMILY HX: (non- contributory). --01:56 02/21/21 Steve Phan.PHYSICAL ASSESSMENTAmbulatory to room.GENERAL / NEURO / PSYCH: Alert.HEENT: Conjunctival findings present: redness of the right conjunctiva and redness of the left conjunctiva.Runny nose.RESPIRATORY: Respirations not labored.SKIN: Skin is warm and dry. Normal skin turgor. --01:51 02/21/21 Kiki Reddy R.N. RESPIRATORY: Respirations not labored. --01:54 02/21/21 Kiki Reddy R.N.NURSING PROGRESS NOTES( unable to do visual acuity as pt states that she left her glasses "for distance" at home). --01:50 02/21/21Kiki Reddy R.N. Reassurance given. Call light placed in reach. Bed placed in lowest position. Brakes of bed on. --01:51 02/21/21 Kiki Reddy R.N.DISPOSITION / DISCHARGE Departure time: 02:23 02/21/2021. Condition at departure: stable. No learning barriers present. Reviewed medication(s) information. Patient verbalized understanding. Written instructions provided in Brazilian. The patient was discharged by the physician. She was discharged home. She left ambulatory and via private vehicle. --02:02/21/21 Kiki Reddy R.N. 02:20 02/21/21. BP: deferred. HR: deferred. RR: deferred. O2 saturation: deferred. Temp: deferred. Pain level now deferred. --02:02/21/21 Kiki Reddy R.N.Locked/Released at 02/21/2021 21:37 by Kiki Reddy R.N. 3 Clinical Report - Nurses [facility] Emergency Department [address] [place] [address] Phone #: ext- [phone] 02/21/2021 00:18 Patient: JOSE HEALY Sex: F : 1965 Age: 55y Name Value Range Interpretation Code Description Data Pallavi rce(s) Supporting Document(s) ID Date Data Source [id number] 02/21/2021 12:18:00 AM EST [facility] 1 Clinical Report - Physicians/Mid Levels [facility] Emergency Department [address] [place] [address] Phone #: ext- [phone] 02/21/2021 00:18 Patient: JOSE HEALY Sex: F : 1965 Age: 55y Time Seen: 01:48 02/21/2021. Arrived- By private vehicle. Historian- patient.HISTORY OF PRESENT ILLNESS Chief Complaint: SKIN RASH. This started yesterday and is still present. It has been constant. Not painful. It is described as burning. It has been located on the face. Not located on the scalp. A cause has been identified. She has recently taken medication (Nix lotion/shampoo). (Treating lice with OTC medication. She dabbed a small amount of medication to right cheek and its now red. Eyelashes also crusting. She believes she has lice in her eyebrow and eyelashes and tried nix. Now she thinks she may need ivermectin). Similar symptoms previously. None. Recent medical care: Not recently seen/assessed.REVIEW OF SYSTEMSNo fever, sore throat, cough, hoarseness or enlarged lymph nodes. No nausea, vomiting, fever,decreased vision or double vision. No photophobia. She has had a runny nose, a headache, eyeirritation and eye irritation. All other systems reviewed and are negative.PAST HISTORYSee nurses notes. No history of diabetes mellitus. Problems: Seizure. Asthma. Medications: Eye Drops (for glaucoma). Ativan Oral. Topiramate Oral. lamoTRIgine Oral. Depakote Oral. Allergies: Antihistamine. (seizures) Narcotics cause seizures.SOCIAL HISTORYNo alcohol use. 2 Clinical Report - Physicians/Mid [facility] Emergency Department [address] [place] [address] Phone #: ext- [phone] 02/21/2021 00:18 Patient: JOSE HEALY Sex: F : 1965 Age: 55yFAMILY HISTORY(non-contributory).ADDITIONAL NOTESThe nursing notes have been reviewed.PHYSICAL EXAMVital Signs: 02/21/2021 01:54 BP: 128/74. MAP: 92. HR: 72. RR: 18. O2 saturation: 97%. Temp: 98.9 F.Pain level now: 09/18.Appearance: Alert. Oriented X3. No acute distress. Anxious.Eyes: Mild redness of the right conjunctiva; mild redness of the left conjunctiva.ENT: Nose normal. Pharynx normal. No pharyngeal swelling.Neck: Neck supple.CVS: Normal heart rate and rhythm.Respiratory: No respiratory distress. Breath sounds normal.Abdomen: Nontender.Skin: Skin warm. Normal skin color. No cellulitis.Extremities: Normal external inspection. Extremities nontender.Neuro: Oriented X 3. No motor deficit.PROGRESS AND PROCEDURESCourse of Care: 01:57 02/21/21. No signs of periorbital cellulitis, angioedema, chemosis to eyes. Nodacrocystitis. 02:13 . Patient now is questioning whether or not she needs Ivermectin. No signs of lice/scabies. Disposition: Discharged. Condition: stable.CLINICAL IMPRESSION Mild irritative contact dermatitis from detergents.INSTRUCTIONS (hydrocortisone cream TID). Warnings: Further evaluation is necessary. GENERAL WARNINGS: Return or contact your physician immediately if your condition worsens or changes unexpectedly, if not improving as expected, or if other problems arise. Your Current Medications: Your current home medications have been reviewed. CONTINUE TAKING THE FOLLOWING MEDICATIONS: 3 Clinical Report - Physicians/Mid Levels [facility] Emergency Department [address] [place] [address] Phone #: ext- [phone] 02/21/2021 00:18 Patient: JOSE HEALY Sex: F : 1965 Age: 55y Ativan Oral. Depakote Oral. Eye Drops* : for glaucoma. lamoTRIgine Oral. Topiramate Oral. Understanding of the discharge instructions verbalized by patient. Follow-up with: Sotero Mejia, , , [address] [place] [address], [id number] Follow up in two if not better. Call for an appointment. Reason for referral: evaluation.(Electronically signed by Steve Phan 02/21/2021 19:42) Name Value Range Interpretation Code Description Data Pallavi rce(s) Supporting Document(s) ID Date Data Source [id number] 10/01/2020 12:12:13 PM [facility] NT INFORMATIONPatient MRN Name Date of Age Gend*PT [id number] Jose Healy 1965 54 years F ---PT Location Admission Date/Time Visit ID Attending Provider --- --- --- --- EPI ID CSN Admitting Provider [id number] ---09/25/20 Jose Healy [id number] female 54 yearsInitial consult 04/10/2020, BI-RADS 4Referred by: Dr MejiaAssessment / Plan:1. Breast cancer screening by mammogram ([facility] or External) Mammography 3Dscreening bilateral with CAD & sarbjit ([facility] or External) Mammography 3D screening bilateral with CAD & tomoAssessment: Patient has a benign breast exam and benign bilateral mammogram andright sonogram.Follow-up: The patient will follow-up in 1 year with a bilateral mammogram.At today's appointment we discussed the physical examination and imagingfindings, and any questions they had were answered.We look for to seeing at her next appointment and we would be happy to see herin the interim if needed. She understands she can contact us at any time if shenotes any change in her self breast/chest wall exam, or has any questionsregarding her breast health.Dr Holder and Dr Rodriguez's office follows NCCN guidelines for benign and malignantbreast disease, she is my collaborating physician. I have followed protocolsestablished with them, and periodically review charts with them.Certain parts of this note may have been carried over from prior notes tomaintain patient's pertinent medical history and continuity of care. The detailswere verified and edited as appropriate.Pertinent History:Jose Healy comes in today for new breast consultation referred from . She had her recent screening mammogram completed 02/28/20. Spotcompression views were recommended of RIGHT breast, completed 03/13/20. Therewas a tiny nodular density noted in her right breast, lower/inner near 3:00.This was not palpable on exam. RIGHT stereo bx 04/10/2020:Benign breast tissue with fibrocystic changes Previous breast bx: None Pertinent PMH: Seizure disorder - refractory epilepsyDrHanna Dobbins [facility] Menstrual History:Menarche: 13Age at first live :20Menopause: 50G 1 , P 2HRT: noInfertility Drugs in past: noOC use in past: yes Social History:Occupation: Disabled (d/t her epilepsy) , RobertSmoking: social when youngETOH: occasional Family cancer history:F - lymphoma, 74MGF - prostate, 80 / bladder, 87PGM - crc; 83PGF - leukemia; 80sSubjective:HPI / Interval history:Jose Healy is a very pleasant 54 yearsyo female here today for more of anacute visit. She c/o lateral left breast pain for the past few months and theareola area and is tender to touch, she also noticed a few new bumps along theoutside edge of her areola. On exam, her breast exam is really unremarkablebilaterally. She is a bit tender in the lateral / superior left breast, butthere is no palpable abnormality noted.She was due to see me in October for a right mammogram following her benign biopsysix months ago. Given her current symptoms in the other breast; we obtaineddiagnostic mammogram today and right targeted ultrasound following her biopsy.Her imaging was benign, BR 2 B. Her right sonogram reveals a complex cysticarea with biopsy clip in place in the 3-400 position, which correlates withmammographic density, likely related to post biopsy change.She has numerous generalized complaints of fatigue and arthralgias, myalgias.She does have history of chronic back pain. She also has long standing historyof epilepsy. She tells me she does have seizures almost daily. [facility]. She maintains on lamotrigine and topiramate. Shealso has chronic back/lumbar/cervical pain. She is not able to take narcoticsnor is she able to get steroid injections d/t her epilepsy. She does takeativan prn. She brought her medication with her to take prior to her biopsy (toensure she does not tremor). She takes propanolol to help control her tremorsas well.I did reassure her that her breast imaging is benign, and stable. And herbreast tenderness is not related to the back and lateral rib pains, which hasbeen chronic. She inquires about if she should see rheumatology for additionalevalua tion of her chronic symptoms, which I did advise certainly would be a goodidea and she will need to obtain referral from her PCP.Again, her CBE was unremarkable with no worrisome findings.Current Meds:Current Outpatient Medications: acetaminophen (TYLENOL) 500 MG tablet, Take 500 mg by mouth as needed , Disp:, Rfl: albuterol (PROVENTIL) (2.5 MG/3ML) 0.083% nebulizer solution, Inhale 2.5 mg,Disp: , Rfl: atorvastatin (LIPITOR) 40 MG tablet, Take 1 tablet (40 mg total) by mouthdaily, Disp: 90 tablet, Rfl: 1 Cholecalciferol (VITAMIN D3) 10 MCG (400 UNIT) CHEW, Chew 1,600 Units daily,Disp: , Rfl: fenofibrate (LOFIBRA) 160 MG tablet, Take 160 mg by mouth daily, Disp: , Rfl: fluticasone (FLONASE) 50 MCG/ACT nasal spray, USE 2 SPRAY(S) IN EACH NOSTRILONCE DAILY, Disp: , Rfl: 4 lamoTRIgine (LAMICTAL) 100 MG tablet, Take 200 mg by mouth 2 (two) times aday, Disp: , Rfl: lamoTRIgine (LAMICTAL) 25 MG tablet, Take 50 mg by mouth 2 (two) times a d ay,Disp: , Rfl: levalbuterol (XOPENEX HFA) 45 MCG/ACT inhaler, INHALE 2 PUFFS BY MOUTH EVERY4 TO 6 HOURS NEEDED, Disp: , Rfl: LORazepam (ATIVAN) 0.5 MG tablet, TAKE 1 TABLET BY MOUTH ONCE DAILY BEFOREBREAKFAST AND 2 AT BEDTIME . DO NOT EXCEED 3 PER 24 HOURS, Disp: , Rfl: LORazepam (ATIVAN) 1 MG tablet, 1 tab twice daily prn for seizure or severejerking. MDD 2 mg, Disp: , Rfl: omeprazole (PRILOSEC) 40 MG capsule, Take 40 mg by mouth, Disp: , Rfl: propranolol (INDERAL LA) 60 MG 24 hr capsule, TAKE 1 CAPSULE BY MOUTH DAILY.SWALLOW WHOLE; DO NOT CRUSH OR CHEW., Disp: , Rfl: QVAR REDIHALER 80 MCG/ACT AERB, , Disp: , Rfl: topiramate (TOPAMAX) 200 MG tablet, 300 mg , Disp: , Rfl: travoprost (TRAVATAN Z) 0.004 % SOLN, , Disp: , Rfl:Allergi es:AllergiesAllergen Reactions Antihistamines, Diphenhydramine-Type Codeine Gabapentin Ketorolac Tromethamine Lacosamide Levetiracetam Meperidine Rizatriptan Sumatriptan-Naproxen SodiumPast Medical History:Diagnosis Date Asthma Back pain Epilepsy Followed by neurology in [place] [facility] ETT 09/18/2018 Borderline for ischemia at maximal workload 5.3 MET's. Moderately impairedfunctional aerobic capacity. No exercise-induced arrhythmias. Exercise inducedatypical chest discomfort without ischemic abnormalities on ECG Exercise SPECT 11/19/2009 ([facility]) - 7.7 MET's. Limited by chest pressure, dyspnea and leg fatigue.Worsened with deep inspiration. Baseline repolarization abnormalities. LVEF 81%.Normal perfusion. GERD (gastroesophageal reflux disease) Headache Hyperlipidemia Irritable bowel syndromeFamily HistoryProblem Relation Age of Onset Hypertension Mother Arthritis Mother GI problems Mother Heart disease Father 50's Lymphoma Father 74 Diabetes Father Hypertension Father Arthritis Father Epilepsy Sister Diabetes Sister Alcohol abuse Brother GI problems Daughter Epilepsy Daughter Healthy, No Significant History Daughter Healthy, No Significant History Sister Healthy, No Significant History Sister Prostate cancer Maternal Grandfather 60 Bladder Cancer Maternal Grandfather 85 Leukemia Paternal Grandfather 80Social HistorySocioeconomic History Marital status: Spouse name: Not on file Number of children: Not on file Years of education: Not on file Highest education level: Not on fileOccupational History Not on fileTobacco Use Smoking status: Never Smoker Smokeless tobacco: Never UsedSubstance and Sexual Activity Alcohol use: Yes Comment: 4 beers total a month very sparingly with water Drug use: Never Sexual activity: Not on fileOther Topics Concern Bike Helmet Not Asked History of Falls Not Asked Self-Exams Not Asked Caffeine Concern Not Asked Hobby Hazards Not Asked Sleep Concern Not Asked Daily Calcium Supplement Not Asked Lead Exposure Not Asked Special Diet Not Asked Daily Vitamin D Supplement Not Asked Service Not Asked Stress Concern Not Asked Domestic Violence in home Not Asked Radon exposure Not Asked Weight Concern Not Asked Exercise Not Asked Seat Belt Not Asked Well water Not Asked Firearms in home Not AskedSocial History Narrative Not on fileSocial Determinants of HealthFinancial Resource Strain: Difficulty of Paying Living Expenses:Food Insecurity: Worried About Running Out of Food in the Last Year: Ran Out of Food in the Last Year:Transportation Needs: Lack of Transportation (Medical): Lack of Transportation (Non-Medical):Physical Activity: Days of Exercise per Week: Minutes of Exercise per Session:Stress: Feeling of Stress :Social Connections: Frequency of Communication with Friends and Family: Frequency of Social Gatherings with Friends and Family: Attends [employer] Services: Active Member of Clubs or Organizations: Attends Club or Organization Meetings: Marital Status:Intimate Partner Violence: Fear of Current or Ex-Partner: Emotionally Abused: Physically Abused: Sexually Abused:Past Surgical History:Procedure Laterality Date APPENDECTOMY bilateral ear surgery CATARACT EXTRACTION eye stent INNER EAR SURGERY TONSILLECTOMYReview of SystemsReview of SystemsConstitutional: Positive for fatigue.HENT: Negative.Eyes: Negative.Respiratory: Negative.Cardiovascular: Negative.Gastrointestinal: Negative.Endocrine: Negative.Genitourinary: Negative.Musculoskeletal: Positive for arthralgias, back pain, gait problem, myalgias,neck pain and neck stiffness.Skin: Negative.Allergic/Immunologic: Negative.Neurological: Positive for tremors, seizures and weakness.Hematological: Negative.Psychiatric/Behavioral: Negative.ROS are not new according to patient.Objective:Vitals: 09/25/20 1306BP: 162/74Pulse: 60Exam:Const: Appears pleasant. No signs of apparent distress present. Alert andoriented. Patient is a good historian.Head/Face: Atraumatic, normocephalic and no lesions or masses.Eyes: Conjunctivae pink.No icterus of the sclerae bilaterally.ENMT: Oral mucosa: pink and moist with no lesions.Neck: Supple. Palpation reveals no lymphadenopathy, swelling or tenderness.Trachea midline.Resp: Respirations non labored, speech is normal.CV: Extremities: No clubbing, cyanosis or edema.Breasts: Breast exam was performed while patient was in a supine position and david sitting position. Breasts are large size and symmetrical. No dimpling of thebreasts bilaterally. Breasts are normal and no dominant mass on both breasts.Bilateral infraclavicular nodes are non-palpable. Nipples: No discharge orinversion of the nipples bilaterally. Axillae: Axillae are normal to palpationbilaterally, but no lymphadenopathy of the axillae.Musculo: Walks with a normal gait for age. Upper Extremities: Full ROMbilaterally. Lower Extremities: Full ROM bilaterally.Skin: No jaundice, lesion, rash.Neuro: Upper Extremities: Lower Extremities: Neuro reveals no focal deficits.Physical ExamToday's imaging reveals:CLINICAL HISTORY: Bilateral breast pain along the lateral side of thebreast.Last Clinical Breast Exam:September 2020. Tyrer-Cuzick Model 10-year risk:2.1% (Average: 3.3%) Tyrer-Cuzick Model lifetime risk: 6.5% (Average: 10.0%). COMPARISON: 02/28/2020 TECHNIQUE: Craniocaudal and oblique views were obtained digitally.Craniocaudal views were reviewed by CAD. Digital Breast Tomosynthesis wasobtained. FINDINGS: There are scattered fibroglandular densities. Benign typecalcifications are noted. There is a biopsy marker clip noted within theinferior medial right breast. In the region of the biopsy marker clip there maggy circumscribed nodulardensity which is likely related to post biopsy change. Targeted ultrasound ofthe same date demonstrates two adjacent benign-appearing cystic structures inthe prior biopsy site, most consistent with post biopsy change.No dominant mass, suspicious microcalcifications, architectural distortion orskin/nipple thickening or retraction is seen. There are no significant changes compared to the prior study/studies. IMPRESSION: Benign findings. No mammographic evidence for malignancy.A follow up mammogram is recommended in one year as per the [employer]. CLASSIFICATION: BI-RADS 2 - BENIGN FINDINGS. ACR Breast Density: B- Scattered fibroglandular density ResultCode: BR 2 B Dictated by: DIAMOND VERA MD on 1 Transcribed by: [email or web address] on 09/25/2020 03:34 PM CLINICAL HISTORY: Evaluate right biospy stereo region. COMPARISON: None available. FINDINGS: Real-time targeted sonographic images of the right breast wereobtained. At the three-4 o'clock position 2 to 3 cm from the nipple there is an ovoid,hypoechoic minimally complex cystic area with a biopsy marker clip measuring 0.9x 0.7 x 0.4 cm. Immediately adjacent to this is a small minimally complexcystic structuremeasuring 0.3 cm. This correlates with the mammographic density. IMPRESSION: Benign-appearing cystic structures are noted in the area of theprior biopsy and are likely related to post biopsy change. Please refer tomammogram report for further information. Dictated by: DIAMOND VERA MD on 09/25/2020lectronically Signed by: DIAMOND VERA MD on 09/25/2020 03:34 PMTranscribed by: [email or web address] on 09/25/2020 03:34 PMSignature: Ary Zaragoza NPDate: September 25, 2020Time: 1:03 PM Name Value Range Interpretation Code Description Data Pallavi rce(s) Supporting Document(s) ID Date Data Source [id number] 09/25/2020 02:54:00 PM EDT [facility] ULTR ASOUND BREAST RIGHT LIMITEDCLINICAL HISTORY: Evaluate right biospy stereo region.COMPARISON: None available.FINDINGS: Real-time targeted sonographic images of the right breast were obtained.At the three-4 o'clock position 2 to 3 cm from the nipple there is an ovoid, hypoechoic minimally complex cystic area with a biopsy marker clip measuring 0.9 x 0.7 x 0.4 cm. Immediately adjacent to this is a small minimally complex cystic structure measuring 0.3 cm. This correlates with the mammographic density.IMPRESSION: Benign-appearing cystic structures are noted in the area of the prior biopsy and are likely related to post biopsy change. Please refer to mammogram report for further information.Dictated by: DIAMOND VERA MD on 09/25/2020lectronically Signed by: DIAMOND VERA MD on 09/25/2020 03:34 PMTranscribed by: [email or web address] on 09/25/2020 03:34 PMCDS G code: ,CDS Modifier: ,cc: Name Value Range Interpretation Code Description Data Pallavi rce(s) Supporting Document(s) ID Date Data Source [id number] 09/25/2020 01:51:00 PM EDT [facility]EX[facility]: PATTIE PASTOR MAMMOGRAM DIAG BL W CAD W TOMOSYNTHESISCLINICAL HISTORY: Bilateral breast pain along the lateral side of the breast.Last Clinical Breast Exam:September 2020. Tyrer-Cuzick Model 10-year risk: 2.1% (Average: 3.3%) Tyrer-Cuzick Model lifetime risk: 6.5% (Average: 10.0%).COMPARISON: 02/28/2020TECHNIQUE: Craniocaudal and oblique views were obtained digitally. Craniocaudal views were reviewed by CAD. Digital Breast Tomosynthesis was obtained.FINDINGS: There are scattered fibroglandular densities. Benign type calcifications are noted. There is a biopsy marker clip noted within the inferior medial right breast. In the region of the biopsy marker clip there is a circumscribed nodular density which is likely related to post biopsy change. Targeted ultrasound of the same date demonstrates two adjacent benign-appearing cystic structures in the prior biopsy site, most consistent with post biopsy change.No dominant mass, suspicious microcalcifications, architectural distortion or skin/nipple thickening or retraction is seen.There are no significant changes compared to the prior study/studies.IMPRESSION: Benign findings. No mammographic evidence for malign sebastien.A follow up mammogram is recommended in one year as per the [employer].CLASSIFICATION: BI-RADS 2 - BENIGN FINDINGS.ACR Breast Density: B- Scattered fibroglandular densityResultCode: BR 2 BDISCLAIMER: According to the [employer] and the [employer], any patient with a lifetime risk assessment greater than 20% or patients with dense breasts (heterogeneously or extremely dense), may benefit from additional screening tests for breast cancer. Further screening tests for patients with dense breasts (heterogeneously or extremely dense) should be based upon the patient's breast cancer risk status. All patients, having their mammogram with [facility], with a lifetime risk assessment greater than 20% or with dense breasts, will be given the opportunity to meet with our certified breast health navigator to discuss their risk and further imaging options.Further screening test includes Ultrasound and MR (Magnetic Resonance) imaging.Dictated by: DIAMOND VERA MD on 09/25/2020lectronically Signed by: DIAMOND VERA MD on 09/25/2020 03:34 PMTranscribed by: [email or web address] on 09/25/2020 03:34 PMCDS G code: , ,CDS Modifier: , ,cc: Name Value Range Interpretation Code Description Data Pallavi rce(s) Supporting Document(s) ID Date Data Source [id number] 08/04/2020 12:25:00 PM EDT [facility] ([facility] Name Value Range Interpretation Code Description Data Pallavi rce(s) Supporting Document(s) Chol 247 mg/dL 0-200 Above high normal [facility] ([facility] CHRONIC KIDNEY DISEASE STAGING PER NKF: MALE GFR INTERPRETATION: 20-49 YRS: >60 mL/min Normal 50-59 YRS: >56 mL/min Normal 60-69 YRS: >49 mL/min Normal 70-79 YRS: >42 mL/min Normal 80 and above >35 mL/min Normal FEMALE GRF INTERPRETATION: 20-39 YRS: >60 mL/min Normal 40-49 YRS: >58 mL/min Normal 50-59 YRS: >51 mL/min Normal 60-69 YRS: >45 mL/min Normal 70-79 YRS: >39 mL/min Normal 80 and above >32 mL/min NormalCLASSIFICATION CHOLESTEROL FOR ADULTS CHILDREN/ADOLESCENTS* DESIRABLE: <200 MG/DL <170 MG/DL BORDER-LINE HIGH RISK: 200-239 MG/DL 170-199 MG/DL HIGH RISK: >240 MG/DL >200 MG/DL CLASS. FOR PRIMARY LDL CHOL PREVENTION: LDL CHOL-CHILD/ADOLESCENTS* DESIRABLE: <130 MG/DL <110 MG/DL BORDERLINE-HIGH RISK: 130- 159 MG/DL 110-129 MG/DL HIGH RISK: >160 MG/DL >130 MG/DL *CHILDREN AND ADOLESCENTS REPRESENTS INDIVIDUALA AGED 2-19 YEARS EXCLUSIVE. Trig 295 mg/dL 40-200 Above high normal [facility] ([facility] CHRONIC KIDNEY DISEASE STAGING PER NKF: MALE GFR INTERPRETATION: 20-49 YRS: >60 mL/min Normal 50-59 YRS: >56 mL/min Normal 60-69 YRS: >49 mL/min Normal 70-79 YRS: >42 mL/min Normal 80 and above >35 mL/min Normal FEMALE GRF INTERPRETATION: 20-39 YRS: >60 mL/min Normal 40-49 YRS: >58 mL/min Normal 50-59 YRS: >51 mL/min Normal 60-69 YRS: >45 mL/min Normal 70-79 YRS: >39 mL/min Normal 80 and above >32 mL/min NormalCLASSIFICATION CHOLESTEROL FOR ADULTS CHILDREN/ADOLESCENTS* DESIRABLE: <200 MG/DL <170 MG/DL BORDER-LINE HIGH RISK: 200-239 MG/DL 170-199 MG/DL HIGH RISK: >240 MG/DL >200 MG/DL CLASS. FOR PRIMARY LDL CHOL PREVENTION: LDL CHOL-CHILD/ADOLESCENTS* DESIRABLE: <130 MG/DL <110 MG/DL BORDERLINE-HIGH RISK: 130- 159 MG/DL 110-129 MG/DL HIGH RISK: >160 MG/DL >130 MG/DL *CHILDREN AND ADOLESCENTS REPRESENTS INDIVIDUALA AGED 2-19 YEARS EXCLUSIVE. Cholesterol in HDL [Mass/volume] in Serum or Plasma 40 mg/dL 45-65 Below low normal [facility] ([facility] CHRONIC KIDNEY DISEASE STAGING PER NKF: MALE GFR INTERPRETATION: 20-49 YRS: >60 mL/min Normal 50-59 YRS: >56 mL/min Normal 60-69 YRS: >49 mL/min Normal 70-79 YRS: >42 mL/min Normal 80 and above >35 mL/min Normal FEMALE GRF INTERPRETATION: 20-39 YRS: >60 mL/min Normal 40-49 YRS: >58 mL/min Normal 50-59 YRS: >51 mL/min Normal 60-69 YRS: >45 mL/min Normal 70-79 YRS: >39 mL/min Normal 80 and above >32 mL/min NormalCLASSIFICATION CHOLESTEROL FOR ADULTS CHILDREN/ADOLESCENTS* DESIRABLE: <200 MG/DL <170 MG/DL BORDER-LINE HIGH RISK: 200-239 MG/DL 170-199 MG/DL HIGH RISK: >240 MG/DL >200 MG/DL CLASS. FOR PRIMARY LDL CHOL PREVENTION: LDL CHOL-CHILD/ADOLESCENTS* DESIRABLE: <130 MG/DL <110 MG/DL BORDERLINE-HIGH RISK: 130- 159 MG/DL 110-129 MG/DL HIGH RISK: >160 MG/DL >130 MG/DL *CHILDREN AND ADOLESCENTS REPRESENTS INDIVIDUALA AGED 2-19 YEARS EXCLUSIVE. Cho/HDL Ratio 6.2 Calc [facility] ([facility] CHRONIC KIDNEY DISEASE STAGING PER NKF: MALE GFR INTERPRETATION: 20-49 YRS: >60 mL/min Normal 50-59 YRS: >56 mL/min Normal 60-69 YRS: >49 mL/min Normal 70-79 YRS: >42 mL/min Normal 80 and above >35 mL/min Normal FEMALE GRF INTERPRETATION: 20-39 YRS: >60 mL/min Normal 40-49 YRS: >58 mL/min Normal 50-59 YRS: >51 mL/min Normal 60-69 YRS: >45 mL/min Normal 70-79 YRS: >39 mL/min Normal 80 and above >32 mL/min NormalCLASSIFICATION CHOLESTEROL FOR ADULTS CHILDREN/ADOLESCENTS* DESIRABLE: <200 MG/DL <170 MG/DL BORDER-LINE HIGH RISK: 200-239 MG/DL 170-199 MG/DL HIGH RISK: >240 MG/DL >200 MG/DL CLASS. FOR PRIMARY LDL CHOL PREVENTION: LDL CHOL-CHILD/ADOLESCENTS* DESIRABLE: <130 MG/DL <110 MG/DL BORDERLINE-HIGH RISK: 130- 159 MG/DL 110-129 MG/DL HIGH RISK: >160 MG/DL >130 MG/DL *CHILDREN AND ADOLESCENTS REPRESENTS INDIVIDUALA AGED 2-19 YEARS EXCLUSIVE. LDL_C 148 Calc 75-129 Above high normal [facility] ([facility] CHRONIC KIDNEY DISEASE STAGING PER NKF: MALE GFR INTERPRETATION: 20-49 YRS: >60 mL/min Normal 50-59 YRS: >56 mL/min Normal 60-69 YRS: >49 mL/min Normal 70-79 YRS: >42 mL/min Normal 80 and above >35 mL/min Normal FEMALE GRF INTERPRETATION: 20-39 YRS: >60 mL/min Normal 40-49 YRS: >58 mL/min Normal 50-59 YRS: >51 mL/min Normal 60-69 YRS: >45 mL/min Normal 70-79 YRS: >39 mL/min Normal 80 and above >32 mL/min NormalCLASSIFICATION CHOLESTEROL FOR ADULTS CHILDREN/ADOLESCENTS* DESIRABLE: <200 MG/DL <170 MG/DL BORDER-LINE HIGH RISK: 200-239 MG/DL 170-199 MG/DL HIGH RISK: >240 MG/DL >200 MG/DL CLASS. FOR PRIMARY LDL CHOL PREVENTION: LDL CHOL-CHILD/ADOLESCENTS* DESIRABLE: <130 MG/DL <110 MG/DL BORDERLINE-HIGH RISK: 130- 159 MG/DL 110-129 MG/DL HIGH RISK: >160 MG/DL >130 MG/DL *CHILDREN AND ADOLESCENTS REPRESENTS INDIVIDUALA AGED 2-19 YEARS EXCLUSIVE. ID Date Data Source [id number] 08/04/2020 12:25:00 PM EDT [facility] ([facility] Name Value Range Interpretation Code Description Data Pallavi rce(s) Supporting Document(s) Glu 113 mg/dL 70-110 Above high normal [facility] ([facility] CHRONIC KIDNEY DISEASE STAGING PER NKF: MALE GFR INTERPRETATION: 20-49 YRS: >60 mL/min Normal 50-59 YRS: >56 mL/min Normal 60-69 YRS: >49 mL/min Normal 70-79 YRS: >42 mL/min Normal 80 and above >35 mL/min Normal FEMALE GRF INTERPRETATION: 20-39 YRS: >60 mL/min Normal 40-49 YRS: >58 mL/min Normal 50-59 YRS: >51 mL/min Normal 60-69 YRS: >45 mL/min Normal 70-79 YRS: >39 mL/min Normal 80 and above >32 mL/min NormalCLASSIFICATION CHOLESTEROL FOR ADULTS CHILDREN/ADOLESCENTS* DESIRABLE: <200 MG/DL <170 MG/DL BORDER-LINE HIGH RISK: 200-239 MG/DL 170-199 MG/DL HIGH RISK: >240 MG/DL >200 MG/DL CLASS. FOR PRIMARY LDL CHOL PREVENTION: LDL CHOL-CHILD/ADOLESCENTS* DESIRABLE: <130 MG/DL <110 MG/DL BORDERLINE-HIGH RISK: 130- 159 MG/DL 110-129 MG/DL HIGH RISK: >160 MG/DL >130 MG/DL *CHILDREN AND ADOLESCENTS REPRESENTS INDIVIDUALA AGED 2-19 YEARS EXCLUSIVE. BUN 16 mg/dL 8-23 [facility] CHRONIC KIDNEY DISEASE STAGING PER NKF: MALE GFR INTERPRETATION: 20-49 YRS: >60 mL/min Normal 50-59 YRS: >56 mL/min Normal 60-69 YRS: >49 mL/min Normal 70-79 YRS: >42 mL/min Normal 80 and above >35 mL/min Normal FEMALE GRF INTERPRETATION: 20-39 YRS: >60 mL/min Normal 40-49 YRS: >58 mL/min Normal 50-59 YRS: >51 mL/min Normal 60-69 YRS: >45 mL/min Normal 70-79 YRS: >39 mL/min Normal 80 and above >32 mL/min NormalCLASSIFICATION CHOLESTEROL FOR ADULTS CHILDREN/ADOLESCENTS* DESIRABLE: <200 MG/DL <170 MG/DL BORDER-LINE HIGH RISK: 200-239 MG/DL 170-199 MG/DL HIGH RISK: >240 MG/DL >200 MG/DL CLASS. FOR PRIMARY LDL CHOL PREVENTION: LDL CHOL-CHILD/ADOLESCENTS* DESIRABLE: <130 MG/DL <110 MG/DL BORDERLINE-HIGH RISK: 130- 159 MG/DL 110-129 MG/DL HIGH RISK: >160 MG/DL >130 MG/DL *CHILDREN AND ADOLESCENTS REPRESENTS INDIVIDUALA AGED 2-19 YEARS EXCLUSIVE. BUN/Creatinine Ratio 14.5 CALC [facility] ([facility] CHRONIC KIDNEY DISEASE STAGING PER NKF: MALE GFR INTERPRETATION: 20-49 YRS: >60 mL/min Normal 50-59 YRS: >56 mL/min Normal 60-69 YRS: >49 mL/min Normal 70-79 YRS: >42 mL/min Normal 80 and above >35 mL/min Normal FEMALE GRF INTERPRETATION: 20-39 YRS: >60 mL/min Normal 40-49 YRS: >58 mL/min Normal 50-59 YRS: >51 mL/min Normal 60-69 YRS: >45 mL/min Normal 70-79 YRS: >39 mL/min Normal 80 and above >32 mL/min NormalCLASSIFICATION CHOLESTEROL FOR ADULTS CHILDREN/ADOLESCENTS* DESIRABLE: <200 MG/DL <170 MG/DL BORDER-LINE HIGH RISK: 200-239 MG/DL 170-199 MG/DL HIGH RISK: >240 MG/DL >200 MG/DL CLASS. FOR PRIMARY LDL CHOL PREVENTION: LDL CHOL-CHILD/ADOLESCENTS* DESIRABLE: <130 MG/DL <110 MG/DL BORDERLINE-HIGH RISK: 130- 159 MG/DL 110-129 MG/DL HIGH RISK: >160 MG/DL >130 MG/DL *CHILDREN AND ADOLESCENTS REPRESENTS INDIVIDUALA AGED 2-19 YEARS EXCLUSIVE. Creat 1.1 mg/dL 0.5-1.0 Above high normal [facility] ([facility] CHRONIC KIDNEY DISEASE STAGING PER NKF: MALE GFR INTERPRETATION: 20-49 YRS: >60 mL/min Normal 50-59 YRS: >56 mL/min Normal 60-69 YRS: >49 mL/min Normal 70-79 YRS: >42 mL/min Normal 80 and above >35 mL/min Normal FEMALE GRF INTERPRETATION: 20-39 YRS: >60 mL/min Normal 40-49 YRS: >58 mL/min Normal 50-59 YRS: >51 mL/min Normal 60-69 YRS: >45 mL/min Normal 70-79 YRS: >39 mL/min Normal 80 and above >32 mL/min NormalCLASSIFICATION CHOLESTEROL FOR ADULTS CHILDREN/ADOLESCENTS* DESIRABLE: <200 MG/DL <170 MG/DL BORDER-LINE HIGH RISK: 200-239 MG/DL 170-199 MG/DL HIGH RISK: >240 MG/DL >200 MG/DL CLASS. FOR PRIMARY LDL CHOL PREVENTION: LDL CHOL-CHILD/ADOLESCENTS* DESIRABLE: <130 MG/DL <110 MG/DL BORDERLINE-HIGH RISK: 130- 159 MG/DL 110-129 MG/DL HIGH RISK: >160 MG/DL >130 MG/DL *CHILDREN AND ADOLESCENTS REPRESENTS INDIVIDUALA AGED 2-19 YEARS EXCLUSIVE. Na 135 mmol/L 136-145 Below low normal [facility] ( [facility] CHRONIC KIDNEY DISEASE STAGING PER NKF: MALE GFR INTERPRETATION: 20-49 YRS: >60 mL/min Normal 50-59 YRS: >56 mL/min Normal 60-69 YRS: >49 mL/min Normal 70-79 YRS: >42 mL/min Normal 80 and above >35 mL/min Normal FEMALE GRF INTERPRETATION: 20-39 YRS: >60 mL/min Normal 40-49 YRS: >58 mL/min Normal 50-59 YRS: >51 mL/min Normal 60-69 YRS: >45 mL/min Normal 70-79 YRS: >39 mL/min Normal 80 and above >32 mL/min NormalCLASSIFICATION CHOLESTEROL FOR ADULTS CHILDREN/ADOLESCENTS* DESIRABLE: <200 MG/DL <170 MG/DL BORDER-LINE HIGH RISK: 200-239 MG/DL 170-199 MG/DL HIGH RISK: >240 MG/DL >200 MG/DL CLASS. FOR PRIMARY LDL CHOL PREVENTION: LDL CHOL-CHILD/ADOLESCENTS* DESIRABLE: <130 MG/DL <110 MG/DL BORDERLINE-HIGH RISK: 130- 159 MG/DL 110-129 MG/DL HIGH RISK: >160 MG/DL >130 MG/DL *CHILDREN AND ADOLESCENTS REPRESENTS INDIVIDUALA AGED 2-19 YEARS EXCLUSIVE. K 4.5 mmol/L 3.5-5.1 [facility] ([facility] CHRONIC KIDNEY DISEASE STAGING PER NKF: MALE GFR INTERPRETATION: 20-49 YRS: >60 mL/min Normal 50-59 YRS: >56 mL/min Normal 60-69 YRS: >49 mL/min Normal 70-79 YRS: >42 mL/min Normal 80 and above >35 mL/min Normal FEMALE GRF INTERPRETATION: 20-39 YRS: >60 mL/min Normal 40-49 YRS: >58 mL/min Normal 50-59 YRS: >51 mL/min Normal 60-69 YRS: >45 mL/min Normal 70-79 YRS: >39 mL/min Normal 80 and above >32 mL/min NormalCLASSIFICATION CHOLESTEROL FOR ADULTS CHILDREN/ADOLESCENTS* DESIRABLE: <200 MG/DL <170 MG/DL BORDER-LINE HIGH RISK: 200-239 MG/DL 170-199 MG/DL HIGH RISK: >240 MG/DL >200 MG/DL CLASS. FOR PRIMARY LDL CHOL PREVENTION: LDL CHOL-CHILD/ADOLESCENTS* DESIRABLE: <130 MG/DL <110 MG/DL BORDERLINE-HIGH RISK: 130- 159 MG/DL 110-129 MG/DL HIGH RISK: >160 MG/DL >130 MG/DL *CHILDREN AND ADOLESCENTS REPRESENTS INDIVIDUALA AGED 2-19 YEARS EXCLUSIVE. CL 102.1 mmol/L 98.0-107.0 [facility] ([facility] CHRONIC KIDNEY DISEASE STAGING PER NKF: MALE GFR INTERPRETATION: 20-49 YRS: >60 mL/min Normal 50-59 YRS: >56 mL/min Normal 60-69 YRS: >49 mL/min Normal 70-79 YRS: >42 mL/min Normal 80 and above >35 mL/min Normal FEMALE GRF INTERPRETATION: 20-39 YRS: >60 mL/min Normal 40-49 YRS: >58 mL/min Normal 50-59 YRS: >51 mL/min Normal 60-69 YRS: >45 mL/min Normal 70-79 YRS: >39 mL/min Normal 80 and above >32 mL/min NormalCLASSIFICATION CHOLESTEROL FOR ADULTS CHILDREN/ADOLESCENTS* DESIRABLE: <200 MG/DL <170 MG/DL BORDER-LINE HIGH RISK: 200-239 MG/DL 170-199 MG/DL HIGH RISK: >240 MG/DL >200 MG/DL CLASS. FOR PRIMARY LDL CHOL PREVENTION: LDL CHOL-CHILD/ADOLESCENTS* DESIRABLE: <130 MG/DL <110 MG/DL BORDERLINE-HIGH RISK: 130- 159 MG/DL 110-129 MG/DL HIGH RISK: >160 MG/DL >130 MG/DL *CHILDREN AND ADOLESCENTS REPRESENTS INDIVIDUALA AGED 2-19 YEARS EXCLUSIVE. CA 9.8 mg/dL 8.6-10.2 [facility] ([facility] CHRONIC KIDNEY DISEASE STAGING PER NKF: MALE GFR INTERPRETATION: 20-49 YRS: >60 mL/min Normal 50-59 YRS: >56 mL/min Normal 60-69 YRS: >49 mL/min Normal 70-79 YRS: >42 mL/min Normal 80 and above >35 mL/min Normal FEMALE GRF INTERPRETATION: 20-39 YRS: >60 mL/min Normal 40-49 YRS: >58 mL/min Normal 50-59 YRS: >51 mL/min Normal 60-69 YRS: >45 mL/min Normal 70-79 YRS: >39 mL/min Normal 80 and above >32 mL/min NormalCLASSIFICATION CHOLESTEROL FOR ADULTS CHILDREN/ADOLESCENTS* DESIRABLE: <200 MG/DL <170 MG/DL BORDER-LINE HIGH RISK: 200-239 MG/DL 170-199 MG/DL HIGH RISK: >240 MG/DL >200 MG/DL CLASS. FOR PRIMARY LDL CHOL PREVENTION: LDL CHOL-CHILD/ADOLESCENTS* DESIRABLE: <130 MG/DL <110 MG/DL BORDERLINE-HIGH RISK: 130- 159 MG/DL 110-129 MG/DL HIGH RISK: >160 MG/DL >130 MG/DL *CHILDREN AND ADOLESCENTS REPRESENTS INDIVIDUALA AGED 2-19 YEARS EXCLUSIVE. Co2 19.0 mmol/L 22.0-29.0 Below low normal [facility] ([facility] CHRONIC KIDNEY DISEASE STAGING PER NKF: MALE GFR INTERPRETATION: 20-49 YRS: >60 mL/min Normal 50-59 YRS: >56 mL/min Normal 60-69 YRS: >49 mL/min Normal 70-79 YRS: >42 mL/min Normal 80 and above >35 mL/min Normal FEMALE GRF INTERPRETATION: 20-39 YRS: >60 mL/min Normal 40-49 YRS: >58 mL/min Normal 50-59 YRS: >51 mL/min Normal 60-69 YRS: >45 mL/min Normal 70-79 YRS: >39 mL/min Normal 80 and above >32 mL/min NormalCLASSIFICATION CHOLESTEROL FOR ADULTS CHILDREN/ADOLESCENTS* DESIRABLE: <200 MG/DL <170 MG/DL BORDER-LINE HIGH RISK: 200-239 MG/DL 170-199 MG/DL HIGH RISK: >240 MG/DL >200 MG/DL CLASS. FOR PRIMARY LDL CHOL PREVENTION: LDL CHOL-CHILD/ADOLESCENTS* DESIRABLE: <130 MG/DL <110 MG/DL BORDERLINE-HIGH RISK: 130- 159 MG/DL 110-129 MG/DL HIGH RISK: >160 MG/DL >130 MG/DL *CHILDREN AND ADOLESCENTS REPRESENTS INDIVIDUALA AGED 2-19 YEARS EXCLUSIVE. TP 7.2 g/dL 6.6-8.7 [facility] ([facility] CHRONIC KIDNEY DISEASE STAGING PER NKF: MALE GFR INTERPRETATION: 20-49 YRS: >60 mL/min Normal 50-59 YRS: >56 mL/min Normal 60-69 YRS: >49 mL/min Normal 70-79 YRS: >42 mL/min Normal 80 and above >35 mL/min Normal FEMALE GRF INTERPRETATION: 20-39 YRS: >60 mL/min Normal 40-49 YRS: >58 mL/min Normal 50-59 YRS: >51 mL/min Normal 60-69 YRS: >45 mL/min Normal 70-79 YRS: >39 mL/min Normal 80 and above >32 mL/min NormalCLASSIFICATION CHOLESTEROL FOR ADULTS CHILDREN/ADOLESCENTS* DESIRABLE: <200 MG/DL <170 MG/DL BORDER-LINE HIGH RISK: 200-239 MG/DL 170-199 MG/DL HIGH RISK: >240 MG/DL >200 MG/DL CLASS. FOR PRIMARY LDL CHOL PREVENTION: LDL CHOL-CHILD/ADOLESCENTS* DESIRABLE: <130 MG/DL <110 MG/DL BORDERLINE-HIGH RISK: 130- 159 MG/DL 110-129 MG/DL HIGH RISK: >160 MG/DL >130 MG/DL *CHILDREN AND ADOLESCENTS REPRESENTS INDIVIDUALA AGED 2-19 YEARS EXCLUSIVE. Alb 4.9 g/dL 3.4-4.8 Above high normal [facility] ([facility] CHRONIC KIDNEY DISEASE STAGING PER NKF: MALE GFR INTERPRETATION: 20-49 YRS: >60 mL/min Normal 50-59 YRS: >56 mL/min Normal 60-69 YRS: >49 mL/min Normal 70-79 YRS: >42 mL/min Normal 80 and above >35 mL/min Normal FEMALE GRF INTERPRETATION: 20-39 YRS: >60 mL/min Normal 40-49 YRS: >58 mL/min Normal 50-59 YRS: >51 mL/min Normal 60-69 YRS: >45 mL/min Normal 70-79 YRS: >39 mL/min Normal 80 and above >32 mL/min NormalCLASSIFICATION CHOLESTEROL FOR ADULTS CHILDREN/ADOLESCENTS* DESIRABLE: <200 MG/DL <170 MG/DL BORDER-LINE HIGH RISK: 200-239 MG/DL 170-199 MG/DL HIGH RISK: >240 MG/DL >200 MG/DL CLASS. FOR PRIMARY LDL CHOL PREVENTION: LDL CHOL-CHILD/ADOLESCENTS* DESIRABLE: <130 MG/DL <110 MG/DL BORDERLINE-HIGH RISK: 130- 159 MG/DL 110-129 MG/DL HIGH RISK: >160 MG/DL >130 MG/DL *CHILDREN AND ADOLESCENTS REPRESENTS INDIVIDUALA AGED 2-19 YEARS EXCLUSIVE. Globulin 2.2 CALC [facility] ([facility] CHRONIC KIDNEY DISEASE STAGING PER NKF: MALE GFR INTERPRETATION: 20-49 YRS: >60 mL/min Normal 50-59 YRS: >56 mL/min Normal 60-69 YRS: >49 mL/min Normal 70-79 YRS: >42 mL/min Normal 80 and above >35 mL/min Normal FEMALE GRF INTERPRETATION: 20-39 YRS: >60 mL/min Normal 40-49 YRS: >58 mL/min Normal 50-59 YRS: >51 mL/min Normal 60-69 YRS: >45 mL/min Normal 70-79 YRS: >39 mL/min Normal 80 and above >32 mL/min NormalCLASSIFICATION CHOLESTEROL FOR ADULTS CHILDREN/ADOLESCENTS* DESIRABLE: <200 MG/DL <170 MG/DL BORDER-LINE HIGH RISK: 200-239 MG/DL 170-199 MG/DL HIGH RISK: >240 MG/DL >200 MG/DL CLASS. FOR PRIMARY LDL CHOL PREVENTION: LDL CHOL-CHILD/ADOLESCENTS* DESIRABLE: <130 MG/DL <110 MG/DL BORDERLINE-HIGH RISK: 130- 159 MG/DL 110-129 MG/DL HIGH RISK: >160 MG/DL >130 MG/DL *CHILDREN AND ADOLESCENTS REPRESENTS INDIVIDUALA AGED 2-19 YEARS EXCLUSIVE. A/G Ratio 2.2 CALC [facility] ([facility] CHRONIC KIDNEY DISEASE STAGING PER NKF: MALE GFR INTERPRETATION: 20-49 YRS: >60 mL/min Normal 50-59 YRS: >56 mL/min Normal 60-69 YRS: >49 mL/min Normal 70-79 YRS: >42 mL/min Normal 80 and above >35 mL/min Normal FEMALE GRF INTERPRETATION: 20-39 YRS: >60 mL/min Normal 40-49 YRS: >58 mL/min Normal 50-59 YRS: >51 mL/min Normal 60-69 YRS: >45 mL/min Normal 70-79 YRS: >39 mL/min Normal 80 and above >32 mL/min NormalCLASSIFICATION CHOLESTEROL FOR ADULTS CHILDREN/ADOLESCENTS* DESIRABLE: <200 MG/DL <170 MG/DL BORDER-LINE HIGH RISK: 200-239 MG/DL 170-199 MG/DL HIGH RISK: >240 MG/DL >200 MG/DL CLASS. FOR PRIMARY LDL CHOL PREVENTION: LDL CHOL-CHILD/ADOLESCENTS* DESIRABLE: <130 MG/DL <110 MG/DL BORDERLINE-HIGH RISK: 130- 159 MG/DL 110-129 MG/DL HIGH RISK: >160 MG/DL >130 MG/DL *CHILDREN AND ADOLESCENTS REPRESENTS INDIVIDUALA AGED 2-19 YEARS EXCLUSIVE. Alp 70.5 U/L 35-129 [facility] CHRONIC KIDNEY DISEASE STAGING PER NKF: MALE GFR INTERPRETATION: 20-49 YRS: >60 mL/min Normal 50-59 YRS: >56 mL/min Normal 60-69 YRS: >49 mL/min Normal 70-79 YRS: >42 mL/min Normal 80 and above >35 mL/min Normal FEMALE GRF INTERPRETATION: 20-39 YRS: >60 mL/min Normal 40-49 YRS: >58 mL/min Normal 50-59 YRS: >51 mL/min Normal 60-69 YRS: >45 mL/min Normal 70-79 YRS: >39 mL/min Normal 80 and above >32 mL/min NormalCLASSIFICATION CHOLESTEROL FOR ADULTS CHILDREN/ADOLESCENTS* DESIRABLE: <200 MG/DL <170 MG/DL BORDER-LINE HIGH RISK: 200-239 MG/DL 170-199 MG/DL HIGH RISK: >240 MG/DL >200 MG/DL CLASS. FOR PRIMARY LDL CHOL PREVENTION: LDL CHOL-CHILD/ADOLESCENTS* DESIRABLE: <130 MG/DL <110 MG/DL BORDERLINE-HIGH RISK: 130- 159 MG/DL 110-129 MG/DL HIGH RISK: >160 MG/DL >130 MG/DL *CHILDREN AND ADOLESCENTS REPRESENTS INDIVIDUALA AGED 2-19 YEARS EXCLUSIVE. Alt (SGPT) 24 U/L 0-41 [facility] ([facility] CHRONIC KIDNEY DISEASE STAGING PER NKF: MALE GFR INTERPRETATION: 20-49 YRS: >60 mL/min Normal 50-59 YRS: >56 mL/min Normal 60-69 YRS: >49 mL/min Normal 70-79 YRS: >42 mL/min Normal 80 and above >35 mL/min Normal FEMALE GRF INTERPRETATION: 20-39 YRS: >60 mL/min Normal 40-49 YRS: >58 mL/min Normal 50-59 YRS: >51 mL/min Normal 60-69 YRS: >45 mL/min Normal 70-79 YRS: >39 mL/min Normal 80 and above >32 mL/min NormalCLASSIFICATION CHOLESTEROL FOR ADULTS CHILDREN/ADOLESCENTS* DESIRABLE: <200 MG/DL <170 MG/DL BORDER-LINE HIGH RISK: 200-239 MG/DL 170-199 MG/DL HIGH RISK: >240 MG/DL >200 MG/DL CLASS. FOR PRIMARY LDL CHOL PREVENTION: LDL CHOL-CHILD/ADOLESCENTS* DESIRABLE: <130 MG/DL <110 MG/DL BORDERLINE-HIGH RISK: 130- 159 MG/DL 110-129 MG/DL HIGH RISK: >160 MG/DL >130 MG/DL *CHILDREN AND ADOLESCENTS REPRESENTS INDIVIDUALA AGED 2-19 YEARS EXCLUSIVE. Ast (Sgot) 26 U/L 0-40 [facility] ([facility] CHRONIC KIDNEY DISEASE STAGING PER NKF: MALE GFR INTERPRETATION: 20-49 YRS: >60 mL/min Normal 50-59 YRS: >56 mL/min Normal 60-69 YRS: >49 mL/min Normal 70-79 YRS: >42 mL/min Normal 80 and above >35 mL/min Normal FEMALE GRF INTERPRETATION: 20-39 YRS: >60 mL/min Normal 40-49 YRS: >58 mL/min Normal 50-59 YRS: >51 mL/min Normal 60-69 YRS: >45 mL/min Normal 70-79 YRS: >39 mL/min Normal 80 and above >32 mL/min NormalCLASSIFICATION CHOLESTEROL FOR ADULTS CHILDREN/ADOLESCENTS* DESIRABLE: <200 MG/DL <170 MG/DL BORDER-LINE HIGH RISK: 200-239 MG/DL 170-199 MG/DL HIGH RISK: >240 MG/DL >200 MG/DL CLASS. FOR PRIMARY LDL CHOL PREVENTION: LDL CHOL-CHILD/ADOLESCENTS* DESIRABLE: <130 MG/DL <110 MG/DL BORDERLINE-HIGH RISK: 130- 159 MG/DL 110-129 MG/DL HIGH RISK: >160 MG/DL >130 MG/DL *CHILDREN AND ADOLESCENTS REPRESENTS INDIVIDUALA AGED 2-19 YEARS EXCLUSIVE. Tbili 0.30 mg/dL 0.0-1.2 [facility] ([facility] CHRONIC KIDNEY DISEASE STAGING PER NKF: MALE GFR INTERPRETATION: 20-49 YRS: >60 mL/min Normal 50-59 YRS: >56 mL/min Normal 60-69 YRS: >49 mL/min Normal 70-79 YRS: >42 mL/min Normal 80 and above >35 mL/min Normal FEMALE GRF INTERPRETATION: 20-39 YRS: >60 mL/min Normal 40-49 YRS: >58 mL/min Normal 50-59 YRS: >51 mL/min Normal 60-69 YRS: >45 mL/min Normal 70-79 YRS: >39 mL/min Normal 80 and above >32 mL/min NormalCLASSIFICATION CHOLESTEROL FOR ADULTS CHILDREN/ADOLESCENTS* DESIRABLE: <200 MG/DL <170 MG/DL BORDER-LINE HIGH RISK: 200-239 MG/DL 170-199 MG/DL HIGH RISK: >240 MG/DL >200 MG/DL CLASS. FOR PRIMARY LDL CHOL PREVENTION: LDL CHOL-CHILD/ADOLESCENTS* DESIRABLE: <130 MG/DL <110 MG/DL BORDERLINE-HIGH RISK: 130- 159 MG/DL 110-129 MG/DL HIGH RISK: >160 MG/DL >130 MG/DL *CHILDREN AND ADOLESCENTS REPRESENTS INDIVIDUALA AGED 2-19 YEARS EXCLUSIVE. Osmolality-Calculated 271.6 [facility] ([facility] CHRONIC KIDNEY DISEASE STAGING PER NKF: MALE GFR INTERPRETATION: 20-49 YRS: >60 mL/min Normal 50-59 YRS: >56 mL/min Normal 60-69 YRS: >49 mL/min Normal 70-79 YRS: >42 mL/min Normal 80 and above >35 mL/min Normal FEMALE GRF INTERPRETATION: 20-39 YRS: >60 mL/min Normal 40-49 YRS: >58 mL/min Normal 50-59 YRS: >51 mL/min Normal 60-69 YRS: >45 mL/min Normal 70-79 YRS: >39 mL/min Normal 80 and above >32 mL/min NormalCLASSIFICATION CHOLESTEROL FOR ADULTS CHILDREN/ADOLESCENTS* DESIRABLE: <200 MG/DL <170 MG/DL BORDER-LINE HIGH RISK: 200-239 MG/DL 170-199 MG/DL HIGH RISK: >240 MG/DL >200 MG/DL CLASS. FOR PRIMARY LDL CHOL PREVENTION: LDL CHOL-CHILD/ADOLESCENTS* DESIRABLE: <130 MG/DL <110 MG/DL BORDERLINE-HIGH RISK: 130- 159 MG/DL 110-129 MG/DL HIGH RISK: >160 MG/DL >130 MG/DL *CHILDREN AND ADOLESCENTS REPRESENTS INDIVIDUALA AGED 2-19 YEARS EXCLUSIVE. Anion Gap 18 mmol/L [facility] CHRONIC KIDNEY DISEASE STAGING PER NKF: MALE GFR INTERPRETATION: 20-49 YRS: >60 mL/min Normal 50-59 YRS: >56 mL/min Normal 60-69 YRS: >49 mL/min Normal 70-79 YRS: >42 mL/min Normal 80 and above >35 mL/min Normal FEMALE GRF INTERPRETATION: 20-39 YRS: >60 mL/min Normal 40-49 YRS: >58 mL/min Normal 50-59 YRS: >51 mL/min Normal 60-69 YRS: >45 mL/min Normal 70-79 YRS: >39 mL/min Normal 80 and above >32 mL/min NormalCLASSIFICATION CHOLESTEROL FOR ADULTS CHILDREN/ADOLESCENTS* DESIRABLE: <200 MG/DL <170 MG/DL BORDER-LINE HIGH RISK: 200-239 MG/DL 170-199 MG/DL HIGH RISK: >240 MG/DL >200 MG/DL CLASS. FOR PRIMARY LDL CHOL PREVENTION: LDL CHOL-CHILD/ADOLESCENTS* DESIRABLE: <130 MG/DL <110 MG/DL BORDERLINE-HIGH RISK: 130- 159 MG/DL 110-129 MG/DL HIGH RISK: >160 MG/DL >130 MG/DL *CHILDREN AND ADOLESCENTS REPRESENTS INDIVIDUALA AGED 2-19 YEARS EXCLUSIVE. eGFR 65 # [facility] ( [facility] CHRONIC KIDNEY DISEASE STAGING PER NKF: MALE GFR INTERPRETATION: 20-49 YRS: >60 mL/min Normal 50-59 YRS: >56 mL/min Normal 60-69 YRS: >49 mL/min Normal 70-79 YRS: >42 mL/min Normal 80 and above >35 mL/min Normal FEMALE GRF INTERPRETATION: 20-39 YRS: >60 mL/min Normal 40-49 YRS: >58 mL/min Normal 50-59 YRS: >51 mL/min Normal 60-69 YRS: >45 mL/min Normal 70-79 YRS: >39 mL/min Normal 80 and above >32 mL/min NormalCLASSIFICATION CHOLESTEROL FOR ADULTS CHILDREN/ADOLESCENTS* DESIRABLE: <200 MG/DL <170 MG/DL BORDER-LINE HIGH RISK: 200-239 MG/DL 170-199 MG/DL HIGH RISK: >240 MG/DL >200 MG/DL CLASS. FOR PRIMARY LDL CHOL PREVENTION: LDL CHOL-CHILD/ADOLESCENTS* DESIRABLE: <130 MG/DL <110 MG/DL BORDERLINE-HIGH RISK: 130- 159 MG/DL 110-129 MG/DL HIGH RISK: >160 MG/DL >130 MG/DL *CHILDREN AND ADOLESCENTS REPRESENTS INDIVIDUALA AGED 2-19 YEARS EXCLUSIVE. eGFR Non-Afr. [place] 56 # [facility] ([facility] CHRONIC KIDNEY DISEASE STAGING PER NKF: MALE GFR INTERPRETATION: 20-49 YRS: >60 mL/min Normal 50-59 YRS: >56 mL/min Normal 60-69 YRS: >49 mL/min Normal 70-79 YRS: >42 mL/min Normal 80 and above >35 mL/min Normal FEMALE GRF INTERPRETATION: 20-39 YRS: >60 mL/min Normal 40-49 YRS: >58 mL/min Normal 50-59 YRS: >51 mL/min Normal 60-69 YRS: >45 mL/min Normal 70-79 YRS: >39 mL/min Normal 80 and above >32 mL/min NormalCLASSIFICATION CHOLESTEROL FOR ADULTS CHILDREN/ADOLESCENTS* DESIRABLE: <200 MG/DL <170 MG/DL BORDER-LINE HIGH RISK: 200-239 MG/DL 170-199 MG/DL HIGH RISK: >240 MG/DL >200 MG/DL CLASS. FOR PRIMARY LDL CHOL PREVENTION: LDL CHOL-CHILD/ADOLESCENTS* DESIRABLE: <130 MG/DL <110 MG/DL BORDERLINE-HIGH RISK: 130- 159 MG/DL 110-129 MG/DL HIGH RISK: >160 MG/DL >130 MG/DL *CHILDREN AND ADOLESCENTS REPRESENTS INDIVIDUALA AGED 2-19 YEARS EXCLUSIVE. ID Date Data Source [id number] 06/18/2020 03:43:00 PM [facility] [address] [place] [address] [phone] NAME SEX PT STATUS ACCOUNT NUMBER JOSE HEALY REG REF [id number] ORDERING PHYSICIAN LOCATION MEDICAL RECORD NO. SOTERO MEJIA MD RAD [id number] ATTENDING PHYSICIAN DATE OF DATE OF EXAM/TIME SOTERO MEJIA MD 1965 06/18/20 / 1302 TYPE / EXAM Xray Chest 2 view PA/LAT REASON FOR EXAM ASTHMA COMPARISON: None FINDINGS: The cardiac and mediastinal silhouettes appear normal and the lungs are clear. The bones and soft tissues are normal. The upper abdomen is unremarkable. IMPRESSION: No acute cardiopulmonary disease. Reported By Conrado Lynne MD on 06/18/201542 Signed By Conrado Lynne MD on 06/18/201542 Date Time CC: SOTERO MEJIA MD; Conrado Lynne MD Techn: CARR Trans Dt/Tm: Trans by: DT Prt Dt/Tm: [id number]: Total DLP = 0.00 mGy-cm Fluoroscopy Time (in secs): Name Value Range Interpretation Code Description Data Pallavi rce(s) Supporting Document(s) ID Date Data Source [id number] 05/19/2020 11:12:00 AM [facility] Normal result is "BinaxNow Covid-19 Ag n egative"BinaxNow Covid-19 Ag is a rapid lateral flowimmunochromatographic immunoassayThis test detects both viable(live) and non-viable, SARS-COVand SARS-COV-2.Positive test results do not differentiate between SARS-COVand [id number] results , from patients with symptom onset beyondseven days, should be treated as presumptive andconfirmation with a molecular assay, if necessary, forpatient managementIf the differentiation of specific SARS viruses and strainsis needed, additional testing, in consultation with stateand local public health departments, is required.SARS-CoV-2 Ag Resp Ql IA.rapid Name Value Range Interpretation Code Description Data Pallavi rce(s) Supporting Document(s) ID Date Data Source [id number] 05/19/2020 12:00:00 AM EST [facility] Name Value Range Interpretation Code Description Data Pallavi rce(s) Supporting Document(s) SARS-CoV-2 (COVID-19) RNA [Presence] in Respiratory specimen by [facility] with probe detection Not Detected [facility] This lab was ordered by [facility] and reported by [employer]. ID Date Data Source [id number] 05/14/2020 12:00:00 AM EST [facility] Name Value Range Interpretation Code Description Data Pallavi rce(s) Supporting Document(s) SARS coronavirus 2 RNA [Presence] in Res piratory specimen by IRASEMA with probe detection NEGATIVE [facility] This lab was ordered by [facility] and reported by [employer]. ID Date Data Source [id number] 04/25/2020 04:21:00 PM EST [facility] Name Value Range Interpretation Code Description Data Pallavi rce(s) Supporting Document(s) Chol 269 mg/dL 0-200 Above high normal [facility] ([facility] Trig 409 mg/dL 40-200 Above high normal [facility] ([facility] LDL_C Laboratory test result 75-129 Abnormal (applies to non -numeric results) [facility] ([facility] Cholesterol in HDL [Mass/volume] in Serum or Plasma 29 mg/dL 45-65 Below low normal [facility] ([facility] ) Cho/HDL Ratio 9.1 Calc [facility] ([facility] ID Date Data Source [id number] 04/25/2020 04:21:00 PM EST [facility] Name Value Range Interpretation Code Description Data Pallavi rce(s) Supporting Document(s) Glu 104 mg/dL 70-110 [facility] ([facility] Creat 1.1 mg/dL 0.5-1.0 Above high normal [facility] ([facility] BUN 15 mg/dL 8-23 [facility] ([facility] BUN/Creatinine Ratio 14.0 Calc [facility] ([facility] K 4.2 mmol/L 3.5-5.1 [facility] Na 135 mmol/L 136-145 Below low normal [facility] ( [facility] CA 9.8 mg/dL 8.6-10.2 [facility] ([facility] Co2 16.5 mmol/L 22.0-29.0 Below low normal [facility] ([facility] CL 105.5 mmol/L 98.0-107.0 [facility] ([facility] A/G Ratio 2.2 Calc [facility] ([facility] TP 7.0 g/dL 6.6-8.7 [facility] ([facility] Alb 4.8 g/dL 3.4-4.8 [facility] ([facility] Alp 61.5 U/L 35-129 [facility] ([facility] Globulin 2.2 Calc [facility] ([facility] Ast (Sgot) 31 U/L 0-40 [facility] Alt (SGPT) 35 U/L 0-41 [facility] Tbili 0.32 mg/dL 0.0-1.2 [facility] ([facility] Osmolality-Calculated 270.4 Calc [facility] ([facility] Comment Laboratory test result [facility] ([facility] Anion Gap 17 mmol/L [facility] ([facility] eGFR Non-Afr. [place] 56 # [facility] ([facility] CKD-EPI eGFR 65 # [facility] ( [facility] CKD-EPI ID Date Data Source [id number] 04/25/2020 04:20:00 PM EST [facility] ([facility] Name Value Range Interpretation Code Description Data Pallavi rce(s) Supporting Document(s) Hemoglobin A1c/Hemoglobin.total in Blood 5.4 % 4.8-5.6 [facility] ([facility] <content>Prediabetes: 5.7 - 6.4</content >
<content>Diabetes: >6.4</content>
<content>Glycemic control for adults with diabetes: <7.0</content>
<content></content> ID Date Data Source [id number] 04/18/2020 02:00:00 PM EST [facility] [employer] [facility] EOTACTIC BREAST BIOPSY RIGHTADDENDUM: DiagnosisRight breast, stereotactic core biopsy:Benign breast tissue with fibrocystic changesThese findings are likely image concordant.Follow-up right breast mammogram in six months is recommended for re-evaluation.Dictated by: DIAMOND VERA MD on 1 Transcribed by: glory 04/24/2020 08:07 AM CDS G Code: , ,CDS Modifier: , ,cc: End of Addendum Report CLINICAL HISTORY: Right breast density.COMP ARISON: 03/13/2020 and 02/28/2020TECHNIQUE: See belowFINDINGS: After the risks and benefits of the procedure were explained to the patient, informed consent was obtained. The patient was brought to the stereotactic unit where sports photographer and stereotactic images of the right breast were obtained. The density of interest was identified in the right breast. The coordinates of the density was calculated and transmitted to the stereotactic unit. The breast was sterilely prepped, 1% lidocaine was used for local anesthesia, a small skin quinn was made. The stereotactic needle was advanced into the breast and additional stereotactic images demonstrate satisfactory needle positioning. The needle was fired. Subsequently, twelve 9 gauge vacuum assisted core biopsy specimens were obtained. The breast was lavaged. The specimen was radiographed demonstrating the density of interest within the specimen. A open coil biopsy clip was then placed. The sheath was removed and hemostasis was achieved using manual compress ion. A sterile dressing was applied.Postprocedure mammogram demonstrates satisfactory positioning of the biopsy clip with respect to the previously seen density.Providers: Dr. VeraComplications: None.IMPRESSION: Status post successful stereotactic biopsy of indeterminate right breast density. Pathology is pending.DISCLAIMER: According to [employer] [place] [employer] and the [place] [employer], any patient with a lifetime risk assessment greater than 20% of patients with dense breasts (heterogeneously or extremely dense), may benefit from additional screening tests for breast cancer. Further screening tests for patients with dense breasts (heterogeneously or extremely dense) should be based upon the patient's breast cancer risk status. All patients, having their mammogram with [facility], with a lifetime risk assessment greater than 20% or with dense breasts, will be given the opportunity to meet with our certified breast health navigator to discuss their risk and further imaging options.Further screening test includes Ultrasound and MR (Magnetic Resonance) imaging. While BSGI imaging (Gammagram) or 3D Mammography (Tomosynthesis) can be used, the radiation dose should be taken into consideration.Dictated by: DIAMOND VERA MD on 1 Transcribed by: glory 04/18/2020 02:33 PM CDS G Code: , ,CDS Modifier: , ,cc: Name Value Range Interpretation Code Description Data Pallavi rce(s) Supporting Document(s) ID Date Data Source [id number] 04/10/2020 01:14:40 PM EST [facility] NT INFORMATIONPatient MRN Name Date of Age Gend*PT [id number] Jose Healy 1965 54 years F ---PT Location Admission Date/Time Visit ID Attending Provider --- --- --- --- EPI ID CSN Admitting Provider [id number] ---04/10/20 Jose Healy [id number] female 54 yearsRene Brandee Healy is a new breast consultation; BI-RADS 4; BX recommended.Pertinent History:Jose Healy comes in today for new breast consultation referred from . She had her recent screening mammogram completed 02/28/20. Spotcompression views were recommended of RIGHT breast, completed 03/13/20. Therewas a tiny nodular density noted in her right breast, lower/inner near 3:00.This was not palpable on exam.RIGHT stereo bx 04/10/2020: results pendingPrevious breast bx: Non ePertinent PMH: Seizure disorder - refractory epilepsyDr. Dobbins [facility] CenterMenstrual History:Menarche: 13Age at first live :20Menopause: 50G 1 , P 2HRT: noInfertility Drugs in past: noOC use in past: yesSocial History:Occupation: Disabled (d/t her epilepsy) , RobertSmoking: social when youngETOH: occasionalFamily cancer history:F - lymphoma, 72MGF - prostate, 78 / bladder, 85PGM - crc; 81PGF - leukemia; 80sSubjective:Jose Healy comes in today with her very nice , Peter for new breastconsultation for abnormal findings of the RIGHT breast on recent imaging asnoted above. Stereotactic bx is recommended, which she is scheduled for today.She was a bit tearful and nervous today about her biopsy. Her is verysupportive. I reviewed her imaging with her in detail. We discussed the biopsyprocedure and what to expect during and afterward. She understands that we willcontact her with pathology results when they become available and we willschedule appropriate follow up at that time.Patient has long standing history of epilepsy. She tells me she does haveseizures almost daily. [facility]. Shemaintains on lamotrigine and topiramate. She also has chronicback/lumbar/cervical pain. She is not able to take narcotics nor is she able toget steroid injections d/t her epilepsy. She does take ativan prn. She broughther medication with her to take prior to her biopsy (to ensure she does nottremor). She takes propanolol to help control her tremors as well.Current Meds:Current Outpatient Medications: acetaminophen (TYLENOL) 500 MG tablet, Take 500 mg by mouth as needed , Disp:, Rfl: atorvastatin (LIPITOR) 40 MG tablet, Take 1 tablet (40 mg total) by mouthdaily, Disp: 30 tablet, Rfl: 2 fenofibrate (LOFIBRA) 160 MG tablet, Take 160 mg by mouth daily, Disp: , Rfl: fluticasone (FLONASE) 50 MCG/ACT nasal spray, USE 2 SPRAY(S) IN EACH NOSTRILONCE DAILY, Disp: , Rfl: 4 lamoTRIgine (LAMICTAL) 100 MG tablet, Take 200 mg by mouth 2 (two) times aday, Disp: , Rfl: lamoTRIgine (LAMICTAL) 25 MG tablet, Take 50 mg by mouth 2 (two) times a day,Disp: , Rfl: levalbuterol (XOPENEX HFA) 45 MCG/ACT inhaler, INHALE 2 PUFFS BY MOUTH EVERY4 TO 6 HOURS NEEDED, Disp: , Rfl: LORazepam (ATIVAN) 0.5 MG tablet, TAKE 1 TABLET BY MOUTH ONCE DAILY BEFOREBREAKFAST AND 2 AT BEDTIME . DO NOT EXCEED 3 PER 24 HOURS, Disp: , Rfl: LORazepam (ATIVAN) 1 MG tablet, 1 tab twice daily prn for seizure or severejerking. MDD 2 mg, Disp: , Rfl: omeprazole (PRILOSEC) 40 MG capsule, Take 40 mg by mouth, Disp: , Rfl: propranolol (INDERAL LA) 60 MG 24 hr capsule, TAKE 1 CAPSULE BY MOUTH DAILY.SWALLOW WHOLE; DO NOT CRUSH OR CHEW., Disp: , Rfl: QVAR REDIHALER 80 MCG/ACT AERB, , Disp: , Rfl: topiramate (TOPAMAX) 200 MG tablet, TAKE 1 TABLET BY MOUTH TWO TIMES DAILY,Disp: , Rfl: travoprost (TRAVATAN Z) 0.004 % SOLN, , Disp: , Rfl: albuterol (PROVENTIL) (2.5 MG/3ML) 0.083% nebulizer solution, Inhale 2.5 mg,Disp: , Rfl: Cholecalciferol (VITAMIN D3) 10 MCG (400 UNIT) CHEW, Chew 1,600 Units daily,Disp: , Rfl:Allergies:AllergiesAllergen Reactions Antihistamines, Diphenhydramine-Type Codeine Ketorolac Tromethamine Lacosamide Levetiracetam Meperidine Rizatriptan Sumatriptan-Naproxen SodiumPast Medical History:Diagnosis Date Asthma Back pain Epilepsy Followed by neurology in [place] [facility] 09/18/2018 Borderline for ischemia at maximal workload 5.3 MET's. Moderately impairedfunctional aerobic capacity. No exercise-induced arrhythmias. Exercise inducedatypical chest discomfort without ischemic abnormalities on ECG Exercise SPECT 11/19/2009 ([facility]) - 7.7 MET's. Limited by chest pressure, dyspnea and leg fatigue.Worsened with deep inspiration. Baseline repolarization abnormalities. LVEF 81%.Normal perfusion. GERD (gastroesophageal reflux disease) Headache Hyperlipidemia Irritable bowel syndromeFamily HistoryProblem Relation Age of Onset Hypertension Mother Arthritis Mother GI problems Mother Heart disease Father 50's Cancer Father Lymphoma Father Diabetes Father Hypertension Father Arthritis Father Epilepsy Sister Diabetes Sister Alcohol abuse Brother GI problems Daughter Epilepsy Daughter Healthy, No Significant History Daughter Healthy, No Significant History Sister Healthy, No Significant History Sister Prostate cancer Maternal Grandfather Bladder Cancer Maternal Grandfather Leukemia Paternal Grandfather 80Social HistorySocioeconomic History Marital status: Spouse name: Not on file Number of children: Not on file Years of education: Not on file Highest education level: Not on fileOccupational History Not on fileSocial Needs Financial resource strain: Not on file Food insecurity: Worry: Not on file Inability: Not on file Transportation needs: Medical: Not on file Non-medical: Not on fileTobacco Use Smoking status: Never Smoker Smokeless tobacco: Never UsedSubstance and Sexual Activity Alcohol use: Yes Frequency: 2-4 times a month Drinks per session: 1 or 2 Binge frequency: Never Comment: 4 beers total a month very sparingly with water Drug use: Never Sexual activity: Not on fileLifestyle Physical activity: Days per week: Not on file Minutes per session: Not on file Stress: Not on fileRelationships Social connections: Talks on phone: Not on file Gets together: Not on file Attends samaritan service: Not on file Active member of club or organization: Not on file Attends meetings of clubs or organizations: Not on file Relationship status: Not on file Intimate partner violence: Fear of current or ex partner: Not on file Emotionally abused: Not on file Physically abused: Not on file Forced sexual activity: Not on fileOther Topics Concern Bike Helmet Not Asked History of Falls Not Asked Self-Exams Not Asked Caffeine Concern Not Asked Hobby Hazards Not Asked Sleep Concern Not Asked Daily Calcium Supplement Not Asked Lead Exposure Not Asked Special Diet Not Asked Daily Vitamin D Supplement Not Asked Service Not Asked Stress Concern Not Asked Domestic Violence in home Not Asked Radon exposure Not Asked Weight Concern Not Asked Exercise Not Asked Seat Belt Not Asked Well water Not Asked Firearms in home Not AskedSocial History Narrative Not on filePast Surgical History:Procedure Laterality Date APPENDECTOMY bilateral ear surgery CATARACT EXTRACTION eye stent INNER EAR SURGERYReview of SystemsReview of SystemsConstitutional: Positive for fatigue.HENT: Negative.Eyes: Negative.Respiratory: Negative.Cardiovascular: Negative.Gastrointestinal: Negative.Endocrine: Negative.Genitourinary: Negative.Musculoskeletal: Positive for arthralgias, back pain, gait problem, myalgias,neck pain and neck stiffness.Skin: Negative.Allergic/Immunologic: Negative.Neurological: Positive for tremors, seizures and weakness.Hematologi bailee: Negative.Psychiatric/Behavioral: Negative.Objective:Vitals: 04/10/20 1106BP: 154/83Pulse: 68Exam:Const: Appears pleasant. No signs of apparent distress present. Alert andoriented. Patient is a good historian.Head/Face: Atraumatic, normocephalic and no lesions or masses.Eyes: Conjunctivae pink. No icterus of the sclerae bilaterally.ENMT: Oral mucosa: pink and moist with no lesions.Neck: Supple. Palpation reveals no lymphadenopathy, swelling or tenderness.Trachea midline.Resp: Respirations are regular. Lungs are clear bilaterally.CV: Rate is regular. Rhythm is regular. Extremities: No clubbing, c yanosis oredema.Breasts: Breast exam was performed while patient was in a supine position and david sitting position. Breasts are large size and symmetrical. No dimpling of thebreasts bilaterally. Breasts are normal and no dominant mass on both breasts.Bilateral infraclavicular nodes are non-palpable. Nipples: No discharge orinversion of the nipples bilaterally. Axillae: Axillae are normal to palpationbilaterally, but no lymphadenopathy of the axillae.Musculo: Walks with a normal gait for age. Upper Extremities: Full ROMbilaterally.Lower Extremities: Full ROM bilaterally.Skin: No jaundice, lesion or rash.Neuro: Neuro reveals no focal deficits.Today's imaging reveals:N/aAssessment / Plan:1. Abnormal finding on breast imagingAssessment: The patient has an area of moderate suspicion in the rightbreast(s). We recommend a/an stereotactic core biopsy. The procedure and thepost procedural period was discussed with the patient. The risks and thebenefits were discussed and included but did not dash ited to bleeding andinfections. The patient understands and accepts the risks and complication andwould like to move forward with the procedure.Plan: The patient has been set up for a stereotactic core biopsy of the rightbreast(s). She is aware not to take aspirin or aspirin products 5 days beforethe biopsy. We will contact her with the results. In the meantime, patientwill call with any problems, questions, or concerns.At today's appointment we discussed the physical examination and imagingfindings, and any questions they had were answered.We look for to seeing at her next appointment and we would be happy to see herin the interim if needed. She understands she can contact us at any time if shenotes any change in her self breast/chest wall exam, or has any questionsregarding her breast health.Dr Holder and Dr Rodriguez's office follows NCCN guidelines for benign and malignantbreast disease, she is my collaborating physician. I have followed protocolsestablished with them, and periodically rev iew charts with them.Certain parts of this note may have been carried over from prior notes tomaintain patient's pertinent medical history and continuity of care. The detailswere verified and edited as appropriate.Signature: Ary Zaragoza NPDate: April 10, 2020Time: 1:14 PMThis document or parts of this document, were dictated using The [employer] software. A reasonable attempt at proofreading has beenmade to minimize errors. Please call with any questions or corrections. Name Value Range Interpretation Code Description Data Pallavi rce(s) Supporting Document(s) ID Date Data Source [id number] 03/13/2020 12:00:00 AM EST [facility] Sotero Mejia MD Patient Name: PRIYA [id number] [facility] Date of : 1965[place] [address] Date of Exam: 03/13/2020PH#: Fax: [phone] EXAM: MAMMO DIAG INC CAD BILATERAL AND ULTRASOUND BREAST UNI LIMITEDCLINICAL INFORMATION: Diagnostic.Prior screening examination 02/28/2020 showed potential densities in eachbreast, right breast lower/inner quadrant near 3 o'clock and left breastupper/inner aspect near 12 o'clock.In addition to diagnostic digital magnified spot compression views over theregions of interest bilaterally, diagnostic ultrasonography was performedbilaterally.In the right breast, the tiny suspected nodular density persists on thespot compression views.Ultrasonography of the right breast over the region of interest shows nocystic or solid masses.In the left breast, the potential area of interest has compressed out tonormal breast parenchyma. Ultrasonography of the left breast region ofinterest shows no cystic or solid masses.IMPRESSION:BI-RADS Category 4 - Suspicious findings right breast. No left breastabnormalities are noted.Seen in the right breast, there is a tiny nodular density seenmammographically only as described and for which biopsy is recommended.This density has partially obscured margins which persist on spotcompression view imaging.SHERIN Mendosa/Shreyas you for referring JOSE HEALY to our office. Electronically Signed - PITER POP DO 03/14/20 16:57 Name Value Range Interpretation Code Description Data Pallavi rce(s) Supporting Document(s) ID Date Data Source [id number] 03/13/2020 12:00:00 AM EST [facility] Sotero Mejia MD Patient Name: PRIYA [id number] [facility] Date of : 1965[place] [address] Date of Exam: 03/13/2020PH#: Fax: [id number] EXAM: MAMMO DIAG INC CAD BILATERAL AND ULTRASOUND BREAST UNI LIMITEDCLINICAL INFORMATION: Diagnostic.Prior screening examination 02/28/2020 showed potential densities in eachbreast, right breast lower/inner quadrant near 3 o'clock and left breastupper/inner aspect near 12 o'clock.In addition to diagnostic digital magnified spot compression views over theregions of interest bilaterally, diagnostic ultrasonography was performedbilaterally.In the right breast, the tiny suspected nodular density persists on thespot compression views.Ultrasonography of the right breast over the region of interest shows nocystic or solid masses.In the left breast, the potential area of interest has compressed out tonormal breast parenchyma. Ultrasonography of the left breast region ofinterest shows no cystic or solid masses.IMPRESSION:BI-RADS Category 4 - Suspicious findings right breast. No left breastabnormalities are noted.Seen in the right breast, there is a tiny nodular density seenmammographically only as described and for which biopsy is recommended.This density has partially obscured margins which persist on spotcompression view imaging.SHERIN Mendosa/Shreyas you for referring JOSE HEALY to our office. Electronically Signed - PITER POP DO 03/14/20 16:57 Name Value Range Interpretation Code Description Data Pallavi rce(s) Supporting Document(s) ID Date Data Source [id number] 02/28/2020 12:00:00 AM EST [facility] Sotero Mejia MD Patient Name: KOURTNEY HEALY [address] Date of : 1965[place], [place] [address] Date of Exam: 02/28/2020PH#: Fax: [phone] EXAM: MAMMO SCREENING WITH CADCLINICAL INFORMATION: Screening.Based on the personal and family history information your patient suppliedat the time of imaging, her lifetime risk of breast cancer estimated by theTyrer-Cuzick model is 7.3%. Given that this patient has less than 20% TCrisk score, no further medical management is currently recommended at thistime.Digital screening (2D) mammography was performed bilaterally. Additionally,breast tomosynthesis (3D) mammography was performed bilaterally in the CCand MLO projections.Today's examination is the initial screening examination.By history, the patient has no complaints of a palpable breast abnormalityor other significant breast complaints.The patient states last clinical breast exam was in February of 2020.The breasts are symmetric in size and shape.In the right breast lower/inner quadrant but near the 3 o'clock position,there is a potential nodular density.In the left breast in the upper/slightly inner aspect but near the 12o'clock position, there is a potential adrian-density. These are seen muchmore clearly on the DBT images.Benign calcifications are seen bilaterally.No other suspicious features are seen in either breast.The Volpara volumetric breast density category is B, there are scatteredareas of fibroglandular density.IMPRESSION:BI-RADS Category 0 - Incomplete: Needs Additional Imaging Evaluation.Possible breast nodules, one in each breast, as described above and forwhich diagnostic digital magnified spot compression views are recommendedin the CC and MLO projections along with diagnostic ultrasonography ifnecessary.Our office will attempt to contact the patient for additional imaging.This mammogram was read with the assistance of [employer], an FDAapproved computer aided detection system for mammography.Negative x-ray reports should not delay surgical consultation if a dominantor clinically suspicious mass is present.Not all breast cancers can be identified by mammography. Therefore, werecommend that you continue to perform regular breast self-examination andphysical examination and then promptly contact your physician of anyconcerns or changes.Adenosis and dense breasts may obscure an underlying neoplasm.SHERIN Mendosa/Shreyas you for referring JOSE HEALY to our office. Electronically Signed - PITER POP DO 02/29/20 16:48 Name Value Range Interpretation Code Description Data Pallavi rce(s) Supporting Document(s) ID Date Data Source [id number] 02/26/2020 11:48:00 AM EST [facility] ([facility] Name Value Range Interpretation Code Description Data Pallavi rce(s) Supporting Document(s) Glu 91 mg/dL 70-110 [facility] NORMAL RANGES Age WBC RBC HGB HCT MCV PLT Adult M 4.1-10.9 4.20-6.30 12.0-18.0 37.0-51.0 80-97 140-440 Adult F 4.1-10.9 4.04-5.48 12.0-18.0 37.0-51.0 80-97 140-440 0 -1 Yr 5.0-20.0 3.9-5.9 15-18 MV: 44 MV: 91 MV: 277 2-9 Yr. 6.0-17.0 3.8-5.4 11-13 MV: 37 MV: 78 MV: 300 10 Yrs. 5.0-13.0 3.8-5.4 12-15 MV: 39 MV: 80 MV: 250 NOTE: * FOR ADULT BLACK MALES AND FEMALES, NORMAL WBC IS 2.9-7.7 K/ML * FOR ADULT BLACK MALES AND FEMALES, NORMAL RBC,HGB, AND HCT IS 5% LESS SOURCE FOR DATA: [employer] 1800 OPERATION MANUAL( AUTOMATED BLOOD COUNTS AND DIFF.) APPENDIX B-3 CHRONIC KIDNEY DISEASE STAGING PER NKF: MALE GFR INTERPRETATION: 20-49 YRS: >60 mL/min Normal 50-59 YRS: >56 mL/min Normal 60-69 YRS: >49 mL/min Normal 70-79 YRS: >42 mL/min Normal 80 and above >35 mL/min Normal FEMALE GRF INTERPRETATION: 20-39 YRS: >60 mL/min Normal 40-49 YRS: >58 mL/min Normal 50-59 YRS: >51 mL/min Normal 60-69 YRS: >45 mL/min Normal 70-79 YRS: >39 mL/min Normal 80 and above >32 mL/min Normal BUN 19 mg/dL 8-23 [facility] NORMAL RANGES Age WBC RBC HGB HCT MCV PLT Adult M 4.1-10.9 4.20-6.30 12.0-18.0 37.0-51.0 80-97 140-440 Adult F 4.1-10.9 4.04-5.48 12.0-18.0 37.0-51.0 80-97 140-440 0 -1 Yr 5.0-20.0 3.9-5.9 15-18 MV: 44 MV: 91 MV: 277 2-9 Yr. 6.0-17.0 3.8-5.4 11-13 MV: 37 MV: 78 MV: 300 10 Yrs. 5.0-13.0 3.8-5.4 12-15 MV: 39 MV: 80 MV: 250 NOTE: * FOR ADULT BLACK MALES AND FEMALES, NORMAL WBC IS 2.9-7.7 K/ML * FOR ADULT BLACK MALES AND FEMALES, NORMAL RBC,HGB, AND HCT IS 5% LESS SOURCE FOR DATA: [employer] 1800 OPERATION MANUAL( AUTOMATED BLOOD COUNTS AND DIFF.) APPENDIX B-3 CHRONIC KIDNEY DISEASE STAGING PER NKF: MALE GFR INTERPRETATION: 20-49 YRS: >60 mL/min Normal 50-59 YRS: >56 mL/min Normal 60-69 YRS: >49 mL/min Normal 70-79 YRS: >42 mL/min Normal 80 and above >35 mL/min Normal FEMALE GRF INTERPRETATION: 20-39 YRS: >60 mL/min Normal 40-49 YRS: >58 mL/min Normal 50-59 YRS: >51 mL/min Normal 60-69 YRS: >45 mL/min Normal 70-79 YRS: >39 mL/min Normal 80 and above >32 mL/min Normal Creat 1.0 mg/dL 0.5-1.0 [facility] ([facility] NORMAL RANGES Age WBC RBC HGB HCT MCV PLT Adult M 4.1-10.9 4.20-6.30 12.0-18.0 37.0-51.0 80-97 140-440 Adult F 4.1-10.9 4.04-5.48 12.0-18.0 37.0-51.0 80-97 140-440 0 -1 Yr 5.0-20.0 3.9-5.9 15-18 MV: 44 MV: 91 MV: 277 2-9 Yr. 6.0-17.0 3.8-5.4 11-13 MV: 37 MV: 78 MV: 300 10 Yrs. 5.0-13.0 3.8-5.4 12-15 MV: 39 MV: 80 MV: 250 NOTE: * FOR ADULT BLACK MALES AND FEMALES, NORMAL WBC IS 2.9-7.7 K/ML * FOR ADULT BLACK MALES AND FEMALES, NORMAL RBC,HGB, AND HCT IS 5% LESS SOURCE FOR DATA: [employer] 1800 OPERATION MANUAL( AUTOMATED BLOOD COUNTS AND DIFF.) APPENDIX B-3 CHRONIC KIDNEY DISEASE STAGING PER NKF: MALE GFR INTERPRETATION: 20-49 YRS: >60 mL/min Normal 50-59 YRS: >56 mL/min Normal 60-69 YRS: >49 mL/min Normal 70-79 YRS: >42 mL/min Normal 80 and above >35 mL/min Normal FEMALE GRF INTERPRETATION: 20-39 YRS: >60 mL/min Normal 40-49 YRS: >58 mL/min Normal 50-59 YRS: >51 mL/min Normal 60-69 YRS: >45 mL/min Normal 70-79 YRS: >39 mL/min Normal 80 and above >32 mL/min Normal BUN/Creatinine Ratio 18.3 CALC [facility] ([facility] NORMAL RANGES Age WBC RBC HGB HCT MCV PLT Adult M 4.1-10.9 4.20-6.30 12.0-18.0 37.0-51.0 80-97 140-440 Adult F 4.1-10.9 4.04-5.48 12.0-18.0 37.0-51.0 80-97 140-440 0 -1 Yr 5.0-20.0 3.9-5.9 15-18 MV: 44 MV: 91 MV: 277 2-9 Yr. 6.0-17.0 3.8-5.4 11-13 MV: 37 MV: 78 MV: 300 10 Yrs. 5.0-13.0 3.8-5.4 12-15 MV: 39 MV: 80 MV: 250 NOTE: * FOR ADULT BLACK MALES AND FEMALES, NORMAL WBC IS 2.9-7.7 K/ML * FOR ADULT BLACK MALES AND FEMALES, NORMAL RBC,HGB, AND HCT IS 5% LESS SOURCE FOR DATA: [employer] 1800 OPERATION MANUAL( AUTOMATED BLOOD COUNTS AND DIFF.) APPENDIX B-3 CHRONIC KIDNEY DISEASE STAGING PER NKF: MALE GFR INTERPRETATION: 20-49 YRS: >60 mL/min Normal 50-59 YRS: >56 mL/min Normal 60-69 YRS: >49 mL/min Normal 70-79 YRS: >42 mL/min Normal 80 and above >35 mL/min Normal FEMALE GRF INTERPRETATION: 20-39 YRS: >60 mL/min Normal 40-49 YRS: >58 mL/min Normal 50-59 YRS: >51 mL/min Normal 60-69 YRS: >45 mL/min Normal 70-79 YRS: >39 mL/min Normal 80 and above >32 mL/min Normal Co2 20.6 mmol/L 22.0-29.0 Below low normal [facility] ([facility] NORMAL RANGES Age WBC RBC HGB HCT MCV PLT Adult M 4.1-10.9 4.20-6.30 12.0-18.0 37.0-51.0 80-97 140-440 Adult F 4.1-10.9 4.04-5.48 12.0-18.0 37.0-51.0 80-97 140-440 0 -1 Yr 5.0-20.0 3.9-5.9 15-18 MV: 44 MV: 91 MV: 277 2-9 Yr. 6.0-17.0 3.8-5.4 11-13 MV: 37 MV: 78 MV: 300 10 Yrs. 5.0-13.0 3.8-5.4 12-15 MV: 39 MV: 80 MV: 250 NOTE: * FOR ADULT BLACK MALES AND FEMALES, NORMAL WBC IS 2.9-7.7 K/ML * FOR ADULT BLACK MALES AND FEMALES, NORMAL RBC,HGB, AND HCT IS 5% LESS SOURCE FOR DATA: [employer] 1800 OPERATION MANUAL( AUTOMATED BLOOD COUNTS AND DIFF.) APPENDIX B-3 CHRONIC KIDNEY DISEASE STAGING PER NKF: MALE GFR INTERPRETATION: 20-49 YRS: >60 mL/min Normal 50-59 YRS: >56 mL/min Normal 60-69 YRS: >49 mL/min Normal 70-79 YRS: >42 mL/min Normal 80 and above >35 mL/min Normal FEMALE GRF INTERPRETATION: 20-39 YRS: >60 mL/min Normal 40-49 YRS: >58 mL/min Normal 50-59 YRS: >51 mL/min Normal 60-69 YRS: >45 mL/min Normal 70-79 YRS: >39 mL/min Normal 80 and above >32 mL/min Normal Na 136 mmol/L 136-145 [facility] NORMAL RANGES Age WBC RBC HGB HCT MCV PLT Adult M 4.1-10.9 4.20-6.30 12.0-18.0 37.0-51.0 80-97 140-440 Adult F 4.1-10.9 4.04-5.48 12.0-18.0 37.0-51.0 80-97 140-440 0 -1 Yr 5.0-20.0 3.9-5.9 15-18 MV: 44 MV: 91 MV: 277 2-9 Yr. 6.0-17.0 3.8-5.4 11-13 MV: 37 MV: 78 MV: 300 10 Yrs. 5.0-13.0 3.8-5.4 12-15 MV: 39 MV: 80 MV: 250 NOTE: * FOR ADULT BLACK MALES AND FEMALES, NORMAL WBC IS 2.9-7.7 K/ML * FOR ADULT BLACK MALES AND FEMALES, NORMAL RBC,HGB, AND HCT IS 5% LESS SOURCE FOR DATA: [employer] 1800 OPERATION MANUAL( AUTOMATED BLOOD COUNTS AND DIFF.) APPENDIX B-3 CHRONIC KIDNEY DISEASE STAGING PER NKF: MALE GFR INTERPRETATION: 20-49 YRS: >60 mL/min Normal 50-59 YRS: >56 mL/min Normal 60-69 YRS: >49 mL/min Normal 70-79 YRS: >42 mL/min Normal 80 and above >35 mL/min Normal FEMALE GRF INTERPRETATION: 20-39 YRS: >60 mL/min Normal 40-49 YRS: >58 mL/min Normal 50-59 YRS: >51 mL/min Normal 60-69 YRS: >45 mL/min Normal 70-79 YRS: >39 mL/min Normal 80 and above >32 mL/min Normal CA 10.3 mg/dL 8.6-10.2 Above high normal [facility] ([facility] NORMAL RANGES Age WBC RBC HGB HCT MCV PLT Adult M 4.1-10.9 4.20-6.30 12.0-18.0 37.0-51.0 80-97 140-440 Adult F 4.1-10.9 4.04-5.48 12.0-18.0 37.0-51.0 80-97 140-440 0 -1 Yr 5.0-20.0 3.9-5.9 15-18 MV: 44 MV: 91 MV: 277 2-9 Yr. 6.0-17.0 3.8-5.4 11-13 MV: 37 MV: 78 MV: 300 10 Yrs. 5.0-13.0 3.8-5.4 12-15 MV: 39 MV: 80 MV: 250 NOTE: * FOR ADULT BLACK MALES AND FEMALES, NORMAL WBC IS 2.9-7.7 K/ML * FOR ADULT BLACK MALES AND FEMALES, NORMAL RBC,HGB, AND HCT IS 5% LESS SOURCE FOR DATA: [employer] 1800 OPERATION MANUAL( AUTOMATED BLOOD COUNTS AND DIFF.) APPENDIX B-3 CHRONIC KIDNEY DISEASE STAGING PER NKF: MALE GFR INTERPRETATION: 20-49 YRS: >60 mL/min Normal 50-59 YRS: >56 mL/min Normal 60-69 YRS: >49 mL/min Normal 70-79 YRS: >42 mL/min Normal 80 and above >35 mL/min Normal FEMALE GRF INTERPRETATION: 20-39 YRS: >60 mL/min Normal 40-49 YRS: >58 mL/min Normal 50-59 YRS: >51 mL/min Normal 60-69 YRS: >45 mL/min Normal 70-79 YRS: >39 mL/min Normal 80 and above >32 mL/min Normal K 4.1 mmol/L 3.5-5.1 [facility] ([facility] NORMAL RANGES Age WBC RBC HGB HCT MCV PLT Adult M 4.1-10.9 4.20-6.30 12.0-18.0 37.0-51.0 80-97 140-440 Adult F 4.1-10.9 4.04-5.48 12.0-18.0 37.0-51.0 80-97 140-440 0 -1 Yr 5.0-20.0 3.9-5.9 15-18 MV: 44 MV: 91 MV: 277 2-9 Yr. 6.0-17.0 3.8-5.4 11-13 MV: 37 MV: 78 MV: 300 10 Yrs. 5.0-13.0 3.8-5.4 12-15 MV: 39 MV: 80 MV: 250 NOTE: * FOR ADULT BLACK MALES AND FEMALES, NORMAL WBC IS 2.9-7.7 K/ML * FOR ADULT BLACK MALES AND FEMALES, NORMAL RBC,HGB, AND HCT IS 5% LESS SOURCE FOR DATA: LISSETH DYN 1800 OPERATION MANUAL( AUTOMATED BLOOD COUNTS AND DIFF.) APPENDIX B-3 CHRONIC KIDNEY DISEASE STAGING PER NKF: MALE GFR INTERPRETATION: 20-49 YRS: >60 mL/min Normal 50-59 YRS: >56 mL/min Normal 60-69 YRS: >49 mL/min Normal 70-79 YRS: >42 mL/min Normal 80 and above >35 mL/min Normal FEMALE GRF INTERPRETATION: 20-39 YRS: >60 mL/min Normal 40-49 YRS: >58 mL/min Normal 50-59 YRS: >51 mL/min Normal 60-69 YRS: >45 mL/min Normal 70-79 YRS: >39 mL/min Normal 80 and above >32 mL/min Normal CL 103.9 mmol/L 98.0-107.0 [facility] ([facility] NORMAL RANGES Age WBC RBC HGB HCT MCV PLT Adult M 4.1-10.9 4.20-6.30 12.0-18.0 37.0-51.0 80-97 140-440 Adult F 4.1-10.9 4.04-5.48 12.0-18.0 37.0-51.0 80-97 140-440 0 -1 Yr 5.0-20.0 3.9-5.9 15-18 MV: 44 MV: 91 MV: 277 2-9 Yr. 6.0-17.0 3.8-5.4 11-13 MV: 37 MV: 78 MV: 300 10 Yrs. 5.0-13.0 3.8-5.4 12-15 MV: 39 MV: 80 MV: 250 NOTE: * FOR ADULT BLACK MALES AND FEMALES, NORMAL WBC IS 2.9-7.7 K/ML * FOR ADULT BLACK MALES AND FEMALES, NORMAL RBC,HGB, AND HCT IS 5% LESS SOURCE FOR DATA: LISSETH DYN 1800 OPERATION MANUAL( AUTOMATED BLOOD COUNTS AND DIFF.) APPENDIX B-3 CHRONIC KIDNEY DISEASE STAGING PER NKF: MALE GFR INTERPRETATION: 20-49 YRS: >60 mL/min Normal 50-59 YRS: >56 mL/min Normal 60-69 YRS: >49 mL/min Normal 70-79 YRS: >42 mL/min Normal 80 and above >35 mL/min Normal FEMALE GRF INTERPRETATION: 20-39 YRS: >60 mL/min Normal 40-49 YRS: >58 mL/min Normal 50-59 YRS: >51 mL/min Normal 60-69 YRS: >45 mL/min Normal 70-79 YRS: >39 mL/min Normal 80 and above >32 mL/min Normal Anion Gap 16 mmol/L [facility] NORMAL RANGES Age WBC RBC HGB HCT MCV PLT Adult M 4.1-10.9 4.20-6.30 12.0-18.0 37.0-51.0 80-97 140-440 Adult F 4.1-10.9 4.04-5.48 12.0-18.0 37.0-51.0 80-97 140-440 0 -1 Yr 5.0-20.0 3.9-5.9 15-18 MV: 44 MV: 91 MV: 277 2-9 Yr. 6.0-17.0 3.8-5.4 11-13 MV: 37 MV: 78 MV: 300 10 Yrs. 5.0-13.0 3.8-5.4 12-15 MV: 39 MV: 80 MV: 250 NOTE: * FOR ADULT BLACK MALES AND FEMALES, NORMAL WBC IS 2.9-7.7 K/ML * FOR ADULT BLACK MALES AND FEMALES, NORMAL RBC,HGB, AND HCT IS 5% LESS SOURCE FOR DATA: [employer] 1800 OPERATION MANUAL( AUTOMATED BLOOD COUNTS AND DIFF.) APPENDIX B-3 CHRONIC KIDNEY DISEASE STAGING PER NKF: MALE GFR INTERPRETATION: 20-49 YRS: >60 mL/min Normal 50-59 YRS: >56 mL/min Normal 60-69 YRS: >49 mL/min Normal 70-79 YRS: >42 mL/min Normal 80 and above >35 mL/min Normal FEMALE GRF INTERPRETATION: 20-39 YRS: >60 mL/min Normal 40-49 YRS: >58 mL/min Normal 50-59 YRS: >51 mL/min Normal 60-69 YRS: >45 mL/min Normal 70-79 YRS: >39 mL/min Normal 80 and above >32 mL/min Normal eGFR Non-Afr. [place] 63 # [facility] ([facility] NORMAL RANGES Age WBC RBC HGB HCT MCV PLT Adult M 4.1-10.9 4.20-6.30 12.0-18.0 37.0-51.0 80-97 140-440 Adult F 4.1-10.9 4.04-5.48 12.0-18.0 37.0-51.0 80-97 140-440 0 -1 Yr 5.0-20.0 3.9-5.9 15-18 MV: 44 MV: 91 MV: 277 2-9 Yr. 6.0-17.0 3.8-5.4 11-13 MV: 37 MV: 78 MV: 300 10 Yrs. 5.0-13.0 3.8-5.4 12-15 MV: 39 MV: 80 MV: 250 NOTE: * FOR ADULT BLACK MALES AND FEMALES, NORMAL WBC IS 2.9-7.7 K/ML * FOR ADULT BLACK MALES AND FEMALES, NORMAL RBC,HGB, AND HCT IS 5% LESS SOURCE FOR DATA: [employer] 1800 OPERATION MANUAL( AUTOMATED BLOOD COUNTS AND DIFF.) APPENDIX B-3 CHRONIC KIDNEY DISEASE STAGING PER NKF: MALE GFR INTERPRETATION: 20-49 YRS: >60 mL/min Normal 50-59 YRS: >56 mL/min Normal 60-69 YRS: >49 mL/min Normal 70-79 YRS: >42 mL/min Normal 80 and above >35 mL/min Normal FEMALE GRF INTERPRETATION: 20-39 YRS: >60 mL/min Normal 40-49 YRS: >58 mL/min Normal 50-59 YRS: >51 mL/min Normal 60-69 YRS: >45 mL/min Normal 70-79 YRS: >39 mL/min Normal 80 and above >32 mL/min Normal eGFR 73 # [facility] ( [facility] NORMAL RANGES Age WBC RBC HGB HCT MCV PLT Adult M 4.1-10.9 4.20-6.30 12.0-18.0 37.0-51.0 80-97 140-440 Adult F 4.1-10.9 4.04-5.48 12.0-18.0 37.0-51.0 80-97 140-440 0 -1 Yr 5.0-20.0 3.9-5.9 15-18 MV: 44 MV: 91 MV: 277 2-9 Yr. 6.0-17.0 3.8-5.4 11-13 MV: 37 MV: 78 MV: 300 10 Yrs. 5.0-13.0 3.8-5.4 12-15 MV: 39 MV: 80 MV: 250 NOTE: * FOR ADULT BLACK MALES AND FEMALES, NORMAL WBC IS 2.9-7.7 K/ML * FOR ADULT BLACK MALES AND FEMALES, NORMAL RBC,HGB, AND HCT IS 5% LESS SOURCE FOR DATA: [employer] 1800 OPERATION MANUAL( AUTOMATED BLOOD COUNTS AND DIFF.) APPENDIX B-3 CHRONIC KIDNEY DISEASE STAGING PER NKF: MALE GFR INTERPRETATION: 20-49 YRS: >60 mL/min Normal 50-59 YRS: >56 mL/min Normal 60-69 YRS: >49 mL/min Normal 70-79 YRS: >42 mL/min Normal 80 and above >35 mL/min Normal FEMALE GRF INTERPRETATION: 20-39 YRS: >60 mL/min Normal 40-49 YRS: >58 mL/min Normal 50-59 YRS: >51 mL/min Normal 60-69 YRS: >45 mL/min Normal 70-79 YRS: >39 mL/min Normal 80 and above >32 mL/min Normal ID Date Data Source [id number] 02/26/2020 11:48:00 AM EST [facility] ([facility] Name Value Range Interpretation Code Description Data Pallavi rce(s) Supporting Document(s) WBC 5.6 10E3/uL 4.1-10.9 [facility] ([facility] NORMAL RANGES Age WBC RBC HGB HCT MCV PLT Adult M 4.1-10.9 4.20-6.30 12.0-18.0 37.0-51.0 80-97 140-440 Adult F 4.1-10.9 4.04-5.48 12.0-18.0 37.0-51.0 80-97 140-440 0 -1 Yr 5.0-20.0 3.9-5.9 15-18 MV: 44 MV: 91 MV: 277 2-9 Yr. 6.0-17.0 3.8-5.4 11-13 MV: 37 MV: 78 MV: 300 10 Yrs. 5.0-13.0 3.8-5.4 12-15 MV: 39 MV: 80 MV: 250 NOTE: * FOR ADULT BLACK MALES AND FEMALES, NORMAL WBC IS 2.9-7.7 K/ML * FOR ADULT BLACK MALES AND FEMALES, NORMAL RBC,HGB, AND HCT IS 5% LESS SOURCE FOR DATA: [employer] 1800 OPERATION MANUAL( AUTOMATED BLOOD COUNTS AND DIFF.) APPENDIX B-3 CHRONIC KIDNEY DISEASE STAGING PER NKF: MALE GFR INTERPRETATION: 20-49 YRS: >60 mL/min Normal 50-59 YRS: >56 mL/min Normal 60-69 YRS: >49 mL/min Normal 70-79 YRS: >42 mL/min Normal 80 and above >35 mL/min Normal FEMALE GRF INTERPRETATION: 20-39 YRS: >60 mL/min Normal 40-49 YRS: >58 mL/min Normal 50-59 YRS: >51 mL/min Normal 60-69 YRS: >45 mL/min Normal 70-79 YRS: >39 mL/min Normal 80 and above >32 mL/min Normal HGB 13.7 g/dL 12.0-18.0 [facility] ([facility] NORMAL RANGES Age WBC RBC HGB HCT MCV PLT Adult M 4.1-10.9 4.20-6.30 12.0-18.0 37.0-51.0 80-97 140-440 Adult F 4.1-10.9 4.04-5.48 12.0-18.0 37.0-51.0 80-97 140-440 0 -1 Yr 5.0-20.0 3.9-5.9 15-18 MV: 44 MV: 91 MV: 277 2-9 Yr. 6.0-17.0 3.8-5.4 11-13 MV: 37 MV: 78 MV: 300 10 Yrs. 5.0-13.0 3.8-5.4 12-15 MV: 39 MV: 80 MV: 250 NOTE: * FOR ADULT BLACK MALES AND FEMALES, NORMAL WBC IS 2.9-7.7 K/ML * FOR ADULT BLACK MALES AND FEMALES, NORMAL RBC,HGB, AND HCT IS 5% LESS SOURCE FOR DATA: [employer]anda 1800 OPERATION MANUAL( AUTOMATED BLOOD COUNTS AND DIFF.) APPENDIX B-3 CHRONIC KIDNEY DISEASE STAGING PER NKF: MALE GFR INTERPRETATION: 20-49 YRS: >60 mL/min Normal 50-59 YRS: >56 mL/min Normal 60-69 YRS: >49 mL/min Normal 70-79 YRS: >42 mL/min Normal 80 and above >35 mL/min Normal FEMALE GRF INTERPRETATION: 20-39 YRS: >60 mL/min Normal 40-49 YRS: >58 mL/min Normal 50-59 YRS: >51 mL/min Normal 60-69 YRS: >45 mL/min Normal 70-79 YRS: >39 mL/min Normal 80 and above >32 mL/min Normal RBC 4.52 10E6/uL 4.20-6.30 [facility] ([facility] NORMAL RANGES Age WBC RBC HGB HCT MCV PLT Adult M 4.1-10.9 4.20-6.30 12.0-18.0 37.0-51.0 80-97 140-440 Adult F 4.1-10.9 4.04-5.48 12.0-18.0 37.0-51.0 80-97 140-440 0 -1 Yr 5.0-20.0 3.9-5.9 15-18 MV: 44 MV: 91 MV: 277 2-9 Yr. 6.0-17.0 3.8-5.4 11-13 MV: 37 MV: 78 MV: 300 10 Yrs. 5.0-13.0 3.8-5.4 12-15 MV: 39 MV: 80 MV: 250 NOTE: * FOR ADULT BLACK MALES AND FEMALES, NORMAL WBC IS 2.9-7.7 K/ML * FOR ADULT BLACK MALES AND FEMALES, NORMAL RBC,HGB, AND HCT IS 5% LESS SOURCE FOR DATA: [employer]anda 1800 OPERATION MANUAL( AUTOMATED BLOOD COUNTS AND DIFF.) APPENDIX B-3 CHRONIC KIDNEY DISEASE STAGING PER NKF: MALE GFR INTERPRETATION: 20-49 YRS: >60 mL/min Normal 50-59 YRS: >56 mL/min Normal 60-69 YRS: >49 mL/min Normal 70-79 YRS: >42 mL/min Normal 80 and above >35 mL/min Normal FEMALE GRF INTERPRETATION: 20-39 YRS: >60 mL/min Normal 40-49 YRS: >58 mL/min Normal 50-59 YRS: >51 mL/min Normal 60-69 YRS: >45 mL/min Normal 70-79 YRS: >39 mL/min Normal 80 and above >32 mL/min Normal MCV 89.6 fL 80.0-97.0 [facility] NORMAL RANGES Age WBC RBC HGB HCT MCV PLT Adult M 4.1-10.9 4.20-6.30 12.0-18.0 37.0-51.0 80-97 140-440 Adult F 4.1-10.9 4.04-5.48 12.0-18.0 37.0-51.0 80-97 140-440 0 -1 Yr 5.0-20.0 3.9-5.9 15-18 MV: 44 MV: 91 MV: 277 2-9 Yr. 6.0-17.0 3.8-5.4 11-13 MV: 37 MV: 78 MV: 300 10 Yrs. 5.0-13.0 3.8-5.4 12-15 MV: 39 MV: 80 MV: 250 NOTE: * FOR ADULT BLACK MALES AND FEMALES, NORMAL WBC IS 2.9-7.7 K/ML * FOR ADULT BLACK MALES AND FEMALES, NORMAL RBC,HGB, AND HCT IS 5% LESS SOURCE FOR DATA: [employer] 1800 OPERATION MANUAL( AUTOMATED BLOOD COUNTS AND DIFF.) APPENDIX B-3 CHRONIC KIDNEY DISEASE STAGING PER NKF: MALE GFR INTERPRETATION: 20-49 YRS: >60 mL/min Normal 50-59 YRS: >56 mL/min Normal 60-69 YRS: >49 mL/min Normal 70-79 YRS: >42 mL/min Normal 80 and above >35 mL/min Normal FEMALE GRF INTERPRETATION: 20-39 YRS: >60 mL/min Normal 40-49 YRS: >58 mL/min Normal 50-59 YRS: >51 mL/min Normal 60-69 YRS: >45 mL/min Normal 70-79 YRS: >39 mL/min Normal 80 and above >32 mL/min Normal HCT 40.5 % 37.0-51.0 [facility] NORMAL RANGES Age WBC RBC HGB HCT MCV PLT Adult M 4.1-10.9 4.20-6.30 12.0-18.0 37.0-51.0 80-97 140-440 Adult F 4.1-10.9 4.04-5.48 12.0-18.0 37.0-51.0 80-97 140-440 0 -1 Yr 5.0-20.0 3.9-5.9 15-18 MV: 44 MV: 91 MV: 277 2-9 Yr. 6.0-17.0 3.8-5.4 11-13 MV: 37 MV: 78 MV: 300 10 Yrs. 5.0-13.0 3.8-5.4 12-15 MV: 39 MV: 80 MV: 250 NOTE: * FOR ADULT BLACK MALES AND FEMALES, NORMAL WBC IS 2.9-7.7 K/ML * FOR ADULT BLACK MALES AND FEMALES, NORMAL RBC,HGB, AND HCT IS 5% LESS SOURCE FOR DATA: [employer] 1800 OPERATION MANUAL( AUTOMATED BLOOD COUNTS AND DIFF.) APPENDIX B-3 CHRONIC KIDNEY DISEASE STAGING PER NKF: MALE GFR INTERPRETATION: 20-49 YRS: >60 mL/min Normal 50-59 YRS: >56 mL/min Normal 60-69 YRS: >49 mL/min Normal 70-79 YRS: >42 mL/min Normal 80 and above >35 mL/min Normal FEMALE GRF INTERPRETATION: 20-39 YRS: >60 mL/min Normal 40-49 YRS: >58 mL/min Normal 50-59 YRS: >51 mL/min Normal 60-69 YRS: >45 mL/min Normal 70-79 YRS: >39 mL/min Normal 80 and above >32 mL/min Normal PLT 288 10E3/uL 140-440 [employer] ([facility] NORMAL RANGES Age WBC RBC HGB HCT MCV PLT Adult M 4.1-10.9 4.20-6.30 12.0-18.0 37.0-51.0 80-97 140-440 Adult F 4.1-10.9 4.04-5.48 12.0-18.0 37.0-51.0 80-97 140-440 0 -1 Yr 5.0-20.0 3.9-5.9 15-18 MV: 44 MV: 91 MV: 277 2-9 Yr. 6.0-17.0 3.8-5.4 11-13 MV: 37 MV: 78 MV: 300 10 Yrs. 5.0-13.0 3.8-5.4 12-15 MV: 39 MV: 80 MV: 250 NOTE: * FOR ADULT BLACK MALES AND FEMALES, NORMAL WBC IS 2.9-7.7 K/ML * FOR ADULT BLACK MALES AND FEMALES, NORMAL RBC,HGB, AND HCT IS 5% LESS SOURCE FOR DATA: [employer] 1800 OPERATION MANUAL( AUTOMATED BLOOD COUNTS AND DIFF.) APPENDIX B-3 CHRONIC KIDNEY DISEASE STAGING PER NKF: MALE GFR INTERPRETATION: 20-49 YRS: >60 mL/min Normal 50-59 YRS: >56 mL/min Normal 60-69 YRS: >49 mL/min Normal 70-79 YRS: >42 mL/min Normal 80 and above >35 mL/min Normal FEMALE GRF INTERPRETATION: 20-39 YRS: >60 mL/min Normal 40-49 YRS: >58 mL/min Normal 50-59 YRS: >51 mL/min Normal 60-69 YRS: >45 mL/min Normal 70-79 YRS: >39 mL/min Normal 80 and above >32 mL/min Normal MCHC 33.8 g/dL 31.0-36.0 [facility] ([facility] NORMAL RANGES Age WBC RBC HGB HCT MCV PLT Adult M 4.1-10.9 4.20-6.30 12.0-18.0 37.0-51.0 80-97 140-440 Adult F 4.1-10.9 4.04-5.48 12.0-18.0 37.0-51.0 80-97 140-440 0 -1 Yr 5.0-20.0 3.9-5.9 15-18 MV: 44 MV: 91 MV: 277 2-9 Yr. 6.0-17.0 3.8-5.4 11-13 MV: 37 MV: 78 MV: 300 10 Yrs. 5.0-13.0 3.8-5.4 12-15 MV: 39 MV: 80 MV: 250 NOTE: * FOR ADULT BLACK MALES AND FEMALES, NORMAL WBC IS 2.9-7.7 K/ML * FOR ADULT BLACK MALES AND FEMALES, NORMAL RBC,HGB, AND HCT IS 5% LESS SOURCE FOR DATA: [employer] 1800 OPERATION MANUAL( AUTOMATED BLOOD COUNTS AND DIFF.) APPENDIX B-3 CHRONIC KIDNEY DISEASE STAGING PER NKF: MALE GFR INTERPRETATION: 20-49 YRS: >60 mL/min Normal 50-59 YRS: >56 mL/min Normal 60-69 YRS: >49 mL/min Normal 70-79 YRS: >42 mL/min Normal 80 and above >35 mL/min Normal FEMALE GRF INTERPRETATION: 20-39 YRS: >60 mL/min Normal 40-49 YRS: >58 mL/min Normal 50-59 YRS: >51 mL/min Normal 60-69 YRS: >45 mL/min Normal 70-79 YRS: >39 mL/min Normal 80 and above >32 mL/min Normal MCH 30.3 pg 26.0-32.0 [facility] ([facility] NORMAL RANGES Age WBC RBC HGB HCT MCV PLT Adult M 4.1-10.9 4.20-6.30 12.0-18.0 37.0-51.0 80-97 140-440 Adult F 4.1-10.9 4.04-5.48 12.0-18.0 37.0-51.0 80-97 140-440 0 -1 Yr 5.0-20.0 3.9-5.9 15-18 MV: 44 MV: 91 MV: 277 2-9 Yr. 6.0-17.0 3.8-5.4 11-13 MV: 37 MV: 78 MV: 300 10 Yrs. 5.0-13.0 3.8-5.4 12-15 MV: 39 MV: 80 MV: 250 NOTE: * FOR ADULT BLACK MALES AND FEMALES, NORMAL WBC IS 2.9-7.7 K/ML * FOR ADULT BLACK MALES AND FEMALES, NORMAL RBC,HGB, AND HCT IS 5% LESS SOURCE FOR DATA: [employer] 1800 OPERATION MANUAL( AUTOMATED BLOOD COUNTS AND DIFF.) APPENDIX B-3 CHRONIC KIDNEY DISEASE STAGING PER NKF: MALE GFR INTERPRETATION: 20-49 YRS: >60 mL/min Normal 50-59 YRS: >56 mL/min Normal 60-69 YRS: >49 mL/min Normal 70-79 YRS: >42 mL/min Normal 80 and above >35 mL/min Normal FEMALE GRF INTERPRETATION: 20-39 YRS: >60 mL/min Normal 40-49 YRS: >58 mL/min Normal 50-59 YRS: >51 mL/min Normal 60-69 YRS: >45 mL/min Normal 70-79 YRS: >39 mL/min Normal 80 and above >32 mL/min Normal RDW-CV 13.7 % 11.5-14.5 [facility] NORMAL RANGES Age WBC RBC HGB HCT MCV PLT Adult M 4.1-10.9 4.20-6.30 12.0-18.0 37.0-51.0 80-97 140-440 Adult F 4.1-10.9 4.04-5.48 12.0-18.0 37.0-51.0 80-97 140-440 0 -1 Yr 5.0-20.0 3.9-5.9 15-18 MV: 44 MV: 91 MV: 277 2-9 Yr. 6.0-17.0 3.8-5.4 11-13 MV: 37 MV: 78 MV: 300 10 Yrs. 5.0-13.0 3.8-5.4 12-15 MV: 39 MV: 80 MV: 250 NOTE: * FOR ADULT BLACK MALES AND FEMALES, NORMAL WBC IS 2.9-7.7 K/ML * FOR ADULT BLACK MALES AND FEMALES, NORMAL RBC,HGB, AND HCT IS 5% LESS SOURCE FOR DATA: [employer] 1800 OPERATION MANUAL( AUTOMATED BLOOD COUNTS AND DIFF.) APPENDIX B-3 CHRONIC KIDNEY DISEASE STAGING PER NKF: MALE GFR INTERPRETATION: 20-49 YRS: >60 mL/min Normal 50-59 YRS: >56 mL/min Normal 60-69 YRS: >49 mL/min Normal 70-79 YRS: >42 mL/min Normal 80 and above >35 mL/min Normal FEMALE GRF INTERPRETATION: 20-39 YRS: >60 mL/min Normal 40-49 YRS: >58 mL/min Normal 50-59 YRS: >51 mL/min Normal 60-69 YRS: >45 mL/min Normal 70-79 YRS: >39 mL/min Normal 80 and above >32 mL/min Normal Lym% 37.6 % 10.0-58.5 [facility] ([facility] NORMAL RANGES Age WBC RBC HGB HCT MCV PLT Adult M 4.1-10.9 4.20-6.30 12.0-18.0 37.0-51.0 80-97 140-440 Adult F 4.1-10.9 4.04-5.48 12.0-18.0 37.0-51.0 80-97 140-440 0 -1 Yr 5.0-20.0 3.9-5.9 15-18 MV: 44 MV: 91 MV: 277 2-9 Yr. 6.0-17.0 3.8-5.4 11-13 MV: 37 MV: 78 MV: 300 10 Yrs. 5.0-13.0 3.8-5.4 12-15 MV: 39 MV: 80 MV: 250 NOTE: * FOR ADULT BLACK MALES AND FEMALES, NORMAL WBC IS 2.9-7.7 K/ML * FOR ADULT BLACK MALES AND FEMALES, NORMAL RBC,HGB, AND HCT IS 5% LESS SOURCE FOR DATA: [employer] 1800 OPERATION MANUAL( AUTOMATED BLOOD COUNTS AND DIFF.) APPENDIX B-3 CHRONIC KIDNEY DISEASE STAGING PER NKF: MALE GFR INTERPRETATION: 20-49 YRS: >60 mL/min Normal 50-59 YRS: >56 mL/min Normal 60-69 YRS: >49 mL/min Normal 70-79 YRS: >42 mL/min Normal 80 and above >35 mL/min Normal FEMALE GRF INTERPRETATION: 20-39 YRS: >60 mL/min Normal 40-49 YRS: >58 mL/min Normal 50-59 YRS: >51 mL/min Normal 60-69 YRS: >45 mL/min Normal 70-79 YRS: >39 mL/min Normal 80 and above >32 mL/min Normal Neut% 55.4 % 37.0-92.0 [facility] ([facility] NORMAL RANGES Age WBC RBC HGB HCT MCV PLT Adult M 4.1-10.9 4.20-6.30 12.0-18.0 37.0-51.0 80-97 140-440 Adult F 4.1-10.9 4.04-5.48 12.0-18.0 37.0-51.0 80-97 140-440 0 -1 Yr 5.0-20.0 3.9-5.9 15-18 MV: 44 MV: 91 MV: 277 2-9 Yr. 6.0-17.0 3.8-5.4 11-13 MV: 37 MV: 78 MV: 300 10 Yrs. 5.0-13.0 3.8-5.4 12-15 MV: 39 MV: 80 MV: 250 NOTE: * FOR ADULT BLACK MALES AND FEMALES, NORMAL WBC IS 2.9-7.7 K/ML * FOR ADULT BLACK MALES AND FEMALES, NORMAL RBC,HGB, AND HCT IS 5% LESS SOURCE FOR DATA: [employer] 1800 OPERATION MANUAL( AUTOMATED BLOOD COUNTS AND DIFF.) APPENDIX B-3 CHRONIC KIDNEY DISEASE STAGING PER NKF: MALE GFR INTERPRETATION: 20-49 YRS: >60 mL/min Normal 50-59 YRS: >56 mL/min Normal 60-69 YRS: >49 mL/min Normal 70-79 YRS: >42 mL/min Normal 80 and above >35 mL/min Normal FEMALE GRF INTERPRETATION: 20-39 YRS: >60 mL/min Normal 40-49 YRS: >58 mL/min Normal 50-59 YRS: >51 mL/min Normal 60-69 YRS: >45 mL/min Normal 70-79 YRS: >39 mL/min Normal 80 and above >32 mL/min Normal MXD% 7.0 % 0.1-24.0 [facility] ([facility] NORMAL RANGES Age WBC RBC HGB HCT MCV PLT Adult M 4.1-10.9 4.20-6.30 12.0-18.0 37.0-51.0 80-97 140-440 Adult F 4.1-10.9 4.04-5.48 12.0-18.0 37.0-51.0 80-97 140-440 0 -1 Yr 5.0-20.0 3.9-5.9 15-18 MV: 44 MV: 91 MV: 277 2-9 Yr. 6.0-17.0 3.8-5.4 11-13 MV: 37 MV: 78 MV: 300 10 Yrs. 5.0-13.0 3.8-5.4 12-15 MV: 39 MV: 80 MV: 250 NOTE: * FOR ADULT BLACK MALES AND FEMALES, NORMAL WBC IS 2.9-7.7 K/ML * FOR ADULT BLACK MALES AND FEMALES, NORMAL RBC,HGB, AND HCT IS 5% LESS SOURCE FOR DATA: [employer] 1800 OPERATION MANUAL( AUTOMATED BLOOD COUNTS AND DIFF.) APPENDIX B-3 CHRONIC KIDNEY DISEASE STAGING PER NKF: MALE GFR INTERPRETATION: 20-49 YRS: >60 mL/min Normal 50-59 YRS: >56 mL/min Normal 60-69 YRS: >49 mL/min Normal 70-79 YRS: >42 mL/min Normal 80 and above >35 mL/min Normal FEMALE GRF INTERPRETATION: 20-39 YRS: >60 mL/min Normal 40-49 YRS: >58 mL/min Normal 50-59 YRS: >51 mL/min Normal 60-69 YRS: >45 mL/min Normal 70-79 YRS: >39 mL/min Normal 80 and above >32 mL/min Normal Lym# 2.1 10E3/uL 0.6-4.1 [facility] ([facility] NORMAL RANGES Age WBC RBC HGB HCT MCV PLT Adult M 4.1-10.9 4.20-6.30 12.0-18.0 37.0-51.0 80-97 140-440 Adult F 4.1-10.9 4.04-5.48 12.0-18.0 37.0-51.0 80-97 140-440 0 -1 Yr 5.0-20.0 3.9-5.9 15-18 MV: 44 MV: 91 MV: 277 2-9 Yr. 6.0-17.0 3.8-5.4 11-13 MV: 37 MV: 78 MV: 300 10 Yrs. 5.0-13.0 3.8-5.4 12-15 MV: 39 MV: 80 MV: 250 NOTE: * FOR ADULT BLACK MALES AND FEMALES, NORMAL WBC IS 2.9-7.7 K/ML * FOR ADULT BLACK MALES AND FEMALES, NORMAL RBC,HGB, AND HCT IS 5% LESS SOURCE FOR DATA: [employer] 1800 OPERATION MANUAL( AUTOMATED BLOOD COUNTS AND DIFF.) APPENDIX B-3 CHRONIC KIDNEY DISEASE STAGING PER NKF: MALE GFR INTERPRETATION: 20-49 YRS: >60 mL/min Normal 50-59 YRS: >56 mL/min Normal 60-69 YRS: >49 mL/min Normal 70-79 YRS: >42 mL/min Normal 80 and above >35 mL/min Normal FEMALE GRF INTERPRETATION: 20-39 YRS: >60 mL/min Normal 40-49 YRS: >58 mL/min Normal 50-59 YRS: >51 mL/min Normal 60-69 YRS: >45 mL/min Normal 70-79 YRS: >39 mL/min Normal 80 and above >32 mL/min Normal Neut# 3.1 % 2.0-7.8 [facility] NORMAL RANGES Age WBC RBC HGB HCT MCV PLT Adult M 4.1-10.9 4.20-6.30 12.0-18.0 37.0-51.0 80-97 140-440 Adult F 4.1-10.9 4.04-5.48 12.0-18.0 37.0-51.0 80-97 140-440 0 -1 Yr 5.0-20.0 3.9-5.9 15-18 MV: 44 MV: 91 MV: 277 2-9 Yr. 6.0-17.0 3.8-5.4 11-13 MV: 37 MV: 78 MV: 300 10 Yrs. 5.0-13.0 3.8-5.4 12-15 MV: 39 MV: 80 MV: 250 NOTE: * FOR ADULT BLACK MALES AND FEMALES, NORMAL WBC IS 2.9-7.7 K/ML * FOR ADULT BLACK MALES AND FEMALES, NORMAL RBC,HGB, AND HCT IS 5% LESS SOURCE FOR DATA: [employer] 1800 OPERATION MANUAL( AUTOMATED BLOOD COUNTS AND DIFF.) APPENDIX B-3 CHRONIC KIDNEY DISEASE STAGING PER NKF: MALE GFR INTERPRETATION: 20-49 YRS: >60 mL/min Normal 50-59 YRS: >56 mL/min Normal 60-69 YRS: >49 mL/min Normal 70-79 YRS: >42 mL/min Normal 80 and above >35 mL/min Normal FEMALE GRF INTERPRETATION: 20-39 YRS: >60 mL/min Normal 40-49 YRS: >58 mL/min Normal 50-59 YRS: >51 mL/min Normal 60-69 YRS: >45 mL/min Normal 70-79 YRS: >39 mL/min Normal 80 and above >32 mL/min Normal MXD# 0.4 10E3/uL 0.0-1.8 [employer] ([facility] NORMAL RANGES Age WBC RBC HGB HCT MCV PLT Adult M 4.1-10.9 4.20-6.30 12.0-18.0 37.0-51.0 80-97 140-440 Adult F 4.1-10.9 4.04-5.48 12.0-18.0 37.0-51.0 80-97 140-440 0 -1 Yr 5.0-20.0 3.9-5.9 15-18 MV: 44 MV: 91 MV: 277 2-9 Yr. 6.0-17.0 3.8-5.4 11-13 MV: 37 MV: 78 MV: 300 10 Yrs. 5.0-13.0 3.8-5.4 12-15 MV: 39 MV: 80 MV: 250 NOTE: * FOR ADULT BLACK MALES AND FEMALES, NORMAL WBC IS 2.9-7.7 K/ML * FOR ADULT BLACK MALES AND FEMALES, NORMAL RBC,HGB, AND HCT IS 5% LESS SOURCE FOR DATA: [employer] 1800 OPERATION MANUAL( AUTOMATED BLOOD COUNTS AND DIFF.) APPENDIX B-3 CHRONIC KIDNEY DISEASE STAGING PER NKF: MALE GFR INTERPRETATION: 20-49 YRS: >60 mL/min Normal 50-59 YRS: >56 mL/min Normal 60-69 YRS: >49 mL/min Normal 70-79 YRS: >42 mL/min Normal 80 and above >35 mL/min Normal FEMALE GRF INTERPRETATION: 20-39 YRS: >60 mL/min Normal 40-49 YRS: >58 mL/min Normal 50-59 YRS: >51 mL/min Normal 60-69 YRS: >45 mL/min Normal 70-79 YRS: >39 mL/min Normal 80 and above >32 mL/min Normal MPV 9.5 fL 9.0-13.0 [facility] NORMAL RANGES Age WBC RBC HGB HCT MCV PLT Adult M 4.1-10.9 4.20-6.30 12.0-18.0 37.0-51.0 80-97 140-440 Adult F 4.1-10.9 4.04-5.48 12.0-18.0 37.0-51.0 80-97 140-440 0 -1 Yr 5.0-20.0 3.9-5.9 15-18 MV: 44 MV: 91 MV: 277 2-9 Yr. 6.0-17.0 3.8-5.4 11-13 MV: 37 MV: 78 MV: 300 10 Yrs. 5.0-13.0 3.8-5.4 12-15 MV: 39 MV: 80 MV: 250 NOTE: * FOR ADULT BLACK MALES AND FEMALES, NORMAL WBC IS 2.9-7.7 K/ML * FOR ADULT BLACK MALES AND FEMALES, NORMAL RBC,HGB, AND HCT IS 5% LESS SOURCE FOR DATA: [employer] 1800 OPERATION MANUAL( AUTOMATED BLOOD COUNTS AND DIFF.) APPENDIX B-3 CHRONIC KIDNEY DISEASE STAGING PER NKF: MALE GFR INTERPRETATION: 20-49 YRS: >60 mL/min Normal 50-59 YRS: >56 mL/min Normal 60-69 YRS: >49 mL/min Normal 70-79 YRS: >42 mL/min Normal 80 and above >35 mL/min Normal FEMALE GRF INTERPRETATION: 20-39 YRS: >60 mL/min Normal 40-49 YRS: >58 mL/min Normal 50-59 YRS: >51 mL/min Normal 60-69 YRS: >45 mL/min Normal 70-79 YRS: >39 mL/min Normal 80 and above >32 mL/min Normal ID Date Data Source [id number] 02/18/2020 03:04:17 PM EST [facility] Name Value Range Interpretation Code Description Data Pallavi rce(s) Supporting Document(s) &PDF [facility] [id number]/CPXvoDCUan0DhYWliUXi2QYizZEMbU4BjaYoqDL5MBSRNPD0iLfIGWDIAAO4m oRX [file] ICAgICAgICAgICAgICAgICAgICAgICAgICAgICAgICAgICAgICAgICAgICAgICAgICAgICAgICAgICAg QKRdEYRvHSBaYJJeTLUqWAIaXKIgHX4IGVXeIXVbTNSyIMFoKCStARDaSDBoPPGeAAUrTPUvMHRxXJOc ICAgICAgICAgICAgICAgICAgICAgICAgICAgICAgIC NjITMeITKdVLFsEEVzPEKuVMAtOHRtAAAuEWUmNDHhWV6PJXDbHQTjZSBjDLMfBEMcCWVfTPEnHTJgTD AgICAgICAgICAgICAgICAgICAgICAgICAgICAgICAgICAgICAgICAgICAgICAgICAgICAgICAgICAgIC JuMPTyBFSaRTNsWDSiVL8HGAEiKGBwASOrXYScLBTv ICAgICAgICAgICAgICAgICAgICAgICAgICAgICAgICAgICAgICAgICAgICAgICAgICAgICAgICAgICAg WQAmEQFmQDQfXGTaEUGwVENoLQWvQGZoVM5YLDKwSAVaASKqORFkELIyXUTnKFLpLULiVGPiKOLiDAVh ICAgICAgICAgICAgICAgICAgICAgICAgICAgICAgIC DhJZAkXTEjEYFdWOGtJPBvBSBnISNfCQYyARSwCEGfOBKmDO4WMSItUISxSSEbENUlSFJpBDUqYKTiPP AgICAgICAgICAgICAgICAgICAgICAgICAgICAgICAgICAgICAgICAgICAgICAgICAgICAgICAgICAgIC UvGZUqXGNvPGZvPHGlUHKuWF8HDGBuIDGrVYRjQQTj ICAgICAgICAgICAgICAgICAgICAgICAgICAgICAgICAgICAgICAgICAgICAgICAgICAgICAgICAgICAg WQOwFXMkWFDnNIIuQJYvEGKtQXCxJOQrJAIlBI2WVEObZXQsNNEdSTBjGSAtOQQdGWPfHGHyIPGgSFOx ICAgICAgICAgICAgICAgICAgICAgICAgICAgICAgIC AwGXWkJPLwKGHtIOLtZTJyAODpLISiLDMzIJKkRMKbTOPiZACdPA3QCNTpLXPzWDRsENQgVBTkMPByKI AgICAgICAgICAgICAgICAgICAgICAgICAgICAgICAgICAgICAgICAgICAgICAgICAgICAgICAgICAgIC ChBNOcBWPlRUKrGTOfERDjPSAzBS6DLXVpFCQcVEHe ICAgICAgICAgICAgICAgICAgICAgICAgICAgICAgICAgICAgICAgICAgICAgICAgICAgICAgICAgICAg RBToESEqHHTzBCWcBTKnNFLcCUPvEWGtDDQmGNGbGK8UEG16iFPbt9J1QZRjUS9ovaa/Cc2HTGefbyVy fRGkDT4TFzTuYR6pft9BEqGnEE5skq3VXAmQIxFdL5 E0xHHzLOPnGLQXIwIwN63tYUhcBy87YNbfIVOyQrYpIBe4Xi8MFlVaH2arMKRkWrR6YAEnKtD8DTRkOj FhLLpbJB6Cq1PiyWGvTKd+Lw1QOE1lj7OeQNjjXVZjYI9imj7IHWeNWiFxI3S4dWYvJ7Q3BLkaVj8MWD UaEFVhRScgQXWOPVccZQ3CYZ5emkT1IZ5MeQGpCPUk BBQxnTMpFPd2R46hdXHmQHmrTM9JWBU+Viktoria+Ac0QBYXbEKXvPKYdRqAlNLXDZsVmV65beAOcONSwJDVy URKzGf2HVNBpH7UxlcNnjJhpsyOqASYxOJTAIY9RKWitrtYbaCYhqQnbAU40gZvrWO5SPu1OUrOcJH0s de0VhCSrFp2NGMJbXk9CLVXsPPBuIEXwSKG2PNZaCo RtSHowFMUdIDRqTOQ5UBTsNLNcBL7PQoNwBHRtQChhKZRlYNJfXCQksg6CGUZaVUMqXBKyAfJgWWUkPA RlIOjzJTYkUTFzUWxkBSOiCXZmSZ2IUhYgKYIxSHB4MKYmHTSnOYSfdp5YTZXwKRSoIbAgIESkMRPkFE MaLBgrRVKsVJJ6DJU2BMMgYELqYA9GHrIrCWXvYSF9 AxMxCXOpVJXeov7WNIDfXWEeZlC4FcQtFTZdGWIkFVbwVWSsVXV8Grh3JJAqKTPsWO1VShYnWYDdIQT2 BOdkYJPuIRRjry3BFFUkJNVfJluvIJWnBLOoRZHzCItbOIYyCPC1DYCiRUXrJIIrMK1ZWcMaGGWrOCwc XNadZDQeLOMalr1UJBCkFEMxTZX1TwRaGTHiPJVsSX iuRKHbFKI9WLV7PRCkTTTuTX7QRdIgMRYxRGn9XLEjVNZbOBIitc7HFZYcPTNxMJB5OCZySQZhRZCfCE aeHVJdVOK6OfWzLHFeVTRvPR5UKfDgWNJjJKm4NSJnWBTaAKDuwi8HANQtZUWnEIEfRuNjZMRkDANtWN o8hpLfnSKoEHs4HS1VX8GlldKaLkSOXm3Ra273SOMk AVXmPd5ND9ksYm0iLIDyHTDSCz6PLHw7WEKbKDPvCFFtBRP6HVZeAjI5TSudTuTjRUB9ONH2JiS+IDwx H4XbPaRsIrWbSZyoKdFoSIdtHNLpTSY2Cme3QgtsVo3mKQHTUp5+INkxoLLodBezBDGDPaMlFSH1MOlq BOKHBo4R ID Date Data Source [id number] 02/08/2020 02:01:00 PM EDT [facility] [address] [place] [address] PHONE: [phone] FAX: [phone] Name .................. : NIRAJ GARCIA Acct Number.................. : [id number] ROOM. ................. : MR Number ................... : [id number] Stay type ............. : O/P Discharge Date......... ... : 02/07/20 Admit Date ......... : 02/07/20 Admit Phys .................... : ORBERTO Reyes Date of ....... : 1965 Family Phys ................... : ROBERTO Amy Phone .................. : [phone] Age ................................ : 54 Film# .................. .:[id number] Sex ................................. : F Unsigned transcriptions are preliminary reports and do not represent a medical or legal document CHEST 2 VIEWS [id number] COMPLETE:02/07/20 13:26 ARS [id number] (REASON FOR CHEST: unspecified a sthma,uncomplicated TWO VIEW CHEST, 02/07/20: INDICATION: Unspecified asthma. FINDINGS: The cardiac and mediastinal silhouettes appear normal and the lungs are clear. The bones and soft tissues are normal. The upper abdomen is unremarkable. IMPRESSION: No acute disease identifiable. Examination dictated by YAO Narvaez. Examination was reviewed with Hugh Oleary MD, radiologist at the time of this dictation. Electronically Reviewed and Signed By Hugh Oleary MD , 02/08/20 14:01, KGG Transcribe Initials: SSR, Transcribe Date: 02/07/20 13:53, Dictation Date: Copy for: ROBERTO DE LA GARZA via fax Copy for: [address] [facility] Page 1 of 1 Name Value Range Interpretation Code Description Data Pallavi rce(s) Supporting Document(s) ID Date Data Source [id number] 01/29/2020 12:00:00 AM EDT [facility] Name Value Range Interpretation Code Description Data Pallavi rce(s) Supporting Document(s) SARS coronavirus 2 RNA panel N [facility] This lab was ordered by [place] [id number] [facility] and reported by [facility]. Procedure Social History Code Duration Value Status Description Data Source(s ) Alcohol intake 11/14/2020 12:00:00 AM EDT Current drinker of al cohol (finding) completed Current drinker of alcohol (finding) [facility] Alcohol intake 04/10/2020 12:00:00 AM EST Yes completed [facility] Smoking 04/10/2020 12:00:00 AM EST Never smoker completed Never s moker [facility] Vital Signs ID Date Data Source UNK Name Value Range Interpretation Code Description Data Source(s) Respiratory rate 16 /min 16 /min [facility] ( [facility]) Systolic blood pressure 122 mm[Hg] 122 mm[Hg] [facility] ([facility]) Diastolic blood pressure 80 mm[Hg] 80 mm[Hg] [facility] ([facility]) Oxygen saturation in Arterial blood by Pulse oximetry 98 % 98 % [facility] ([facility]) Heart rate 89 /min 89 /min [facility] ([facility]) Body temperature 96.6 [degF] 96.6 [degF] [facility] Body weight 139.25 [lb_av] 139.25 [lb_av] [facility] ([facility]) Body weight 63.164 kg 63.164 kg [facility] ([facility]) Heart rate 72 /min 72 /min [facility] ([facility]) Diastolic blood pressure 80 mm[Hg] 80 mm[Hg] [facility] ([facility]) Systolic blood pressure 128 mm[Hg] 128 mm[Hg] [facility] ([facility]) Body temperature 97.5 [degF] 97.5 [degF] [facility] ([facility]) [facility] 16 /min 16 /[facility] Oxygen saturation in Arterial blood by Pulse oximetry 97 % 97 % [facility] ([facility]) Body weight 138.12 [lb_av] 138.12 [lb_av] [facility] ([facility]) Body weight 62.654 kg 62.654 kg [facility] ([facility]) Body height 65 [in_i] 65 [in_i] [facility] ([facility]) 5'5" Body mass index (BMI) [Ratio] 23.0 kg/m2 23.0 k g/m2 [facility] ([facility]) Body surface area Derived from formula 1.69 m2 1.69 m2 [facility] ([facility]) Diastolic blood pressure 70 mm[Hg] 70 mm[Hg] [facility] Systolic blood pressure 136 mm[Hg] 136 mm[Hg] [facility] Heart rate 60 /min 60 /min [facility] Body height 162.6 cm 162.6 cm [facility] Body weight 66.679 kg 66.679 kg [facility] Body mass index (BMI) [Ratio] 25.23 kg/m2 25.23 kg/m2 [facility] Oxygen saturation in Arterial blood by Pulse oximetry 99 % 99 % [facility] Body temperature 98.2 [degF] 98.2 [degF] [facility] ([facility] Respiratory rate 16 /min 16 /min [facility] ( [facility] Heart rate 68 /min 68 /min [facility] ([facility] Body height 64 [in_i] 64 [in_i] [facility] ([facility] 5'4" Body weight 144.00 [lb_av] 144.00 [lb_av] [facility] ([facility] [place] body weight 120 [lb_av] 120 [lb_av] [facility] ([facility] Body mass index (BMI) [Ratio] 24.7 kg/m2 24.7 k g/m2 [facility] ([facility] Oxygen saturation in Arterial blood by Pulse oximetry 98 % 98 % [facility] ([facility] Systolic blood pressure 126 mm[Hg] 126 mm[Hg] [facility] ([facility] Diastolic blood pressure 76 mm[Hg] 76 mm[Hg] [facility] ([facility] Body height 64 [in_i] 64 [in_i] [facility] ([facility] 5'4" Body weight 148.00 [lb_av] 148.00 [lb_av] [facility] ([facility] Systolic blood pressure 146 mm[Hg] 146 mm[Hg] M EDENT ([facility] Diastolic blood pressure 92 mm[Hg] 92 mm[Hg] [facility] ([facility] Heart rate 101 /min 101 /min [facility] ([facility] Body mass index (BMI) [Ratio] 25.4 kg/m2 25.4 k g/m2 [facility] ([facility] Heart rate 60 /min 60 /min MEDENT ([facility] Respiratory rate 18 /min 18 /min MEDENT ( [facility] Body height 64 [in_i] 64 [in_i] MEDENT ([facility] 5'4" Diastolic blood pressure 88 mm[Hg] 88 mm[Hg] MEDENT ([facility] Body weight 142.00 [lb_av] 142.00 [lb_av] MEDEN T ([facility] [place] body weight 120 [lb_av] 120 [lb_av] MEDEN T ([facility] Body mass index (BMI) [Ratio] 24.4 kg/m2 24.4 k g/m2 MEDENT ([facility] Oxygen saturation in Arterial blood by Pulse oximetry 98 % 98 % MEDENT ([facility] Systolic blood pressure 138 mm[Hg] 138 mm[Hg] M EDENT ([facility] Body temperature 98.1 [degF] 98.1 [degF] MEDENT ([facility] Systolic blood pressure 148 mm[Hg] 148 mm[Hg] M EDENT ([facility] Diastolic blood pressure 94 mm[Hg] 94 mm[Hg] MEDENT ([facility] Respiratory rate 18 /min 18 /min MEDENT ( [facility] Heart rate 74 /min 74 /min MEDENT ([facility] Body temperature 98.0 [degF] 98.0 [degF] MEDENT ([facility] Body height 64 [in_i] 64 [in_i] MEDENT ([facility] 5'4" Body weight 148.00 [lb_av] 148.00 [lb_av] MEDEN T ([facility] [place] body weight 120 [lb_av] 120 [lb_av] MEDEN T ([facility] Body mass index (BMI) [Ratio] 25.4 kg/m2 25.4 k g/m2 MEDENT ([facility] Oxygen saturation in Arterial blood by Pulse oximetry 98 % 98 % MEDENT ([facility] Respiratory rate 18 /min 18 /min MEDENT ( [facility] Systolic blood pressure 158 mm[Hg] 158 mm[Hg] M EDENT ([facility] Diastolic blood pressure 98 mm[Hg] 98 mm[Hg] MEDENT ([facility] Body temperature 97.7 [degF] 97.7 [degF] MEDENT ([facility] Heart rate 80 /min 80 /min MEDENT ([facility] [place] body weight 120 [lb_av] 120 [lb_av] MEDEN T ([facility] Body height 64 [in_i] 64 [in_i] MEDENT ([facility] 5'4" Body weight 155.00 [lb_av] 155.00 [lb_av] MEDEN T ([facility] Body mass index (BMI) [Ratio] 26.6 kg/m2 26.6 k g/m2 MEDENT ([facility] Oxygen saturation in Arterial blood by Pulse oximetry 98 % 98 % MEDENT ([facility] Systolic blood pressure 154 mm[Hg] 154 mm[Hg] [facility] Diastolic blood pressure 83 mm[Hg] 83 mm[Hg] [facility] Heart rate 68 /min 68 /min [facility] Body height 162.6 cm 162.6 cm [facility] Body weight 70.761 kg 70.761 kg [facility] Body mass index (BMI) [Ratio] 26.78 kg/m2 26.78 kg/m2 [facility] Body temperature 98.0 [degF] 98.0 [degF] MEDENT ([facility] Body height 64 [in_i] 64 [in_i] MEDENT ([facility] 5'4" Respiratory rate 18 /min 18 /min MEDENT ( [facility] Body weight 158.00 [lb_av] 158.00 [lb_av] MEDEN T ([facility] Oxygen saturation in Arterial blood by Pulse oximetry 98 % 98 % MEDENT ([facility] Heart rate 66 /min 66 /min MEDENT ([facility] Systolic blood pressure 128 mm[Hg] 128 mm[Hg] M EDENT ([facility] Diastolic blood pressure 78 mm[Hg] 78 mm[Hg] MEDENT ([facility] [place] body weight 120 [lb_av] 120 [lb_av] MEDEN T ([facility] Body mass index (BMI) [Ratio] 27.1 kg/m2 27.1 k g/m2 MEDENT ([facility] Respiratory rate 18 /min 18 /min MED[facility] ( [facility] Body height 64 [in_i] 64 [in_i] MEDENT ([facility] 5'4" Body weight 157.00 [lb_av] 157.00 [lb_av] MEDEN T ([facility] [place] body weight 120 [lb_av] 120 [lb_av] MEDEN T ([facility] Body mass index (BMI) [Ratio] 26.9 kg/m2 26.9 k g/m2 MEDENT ([facility] Oxygen saturation in Arterial blood by Pulse oximetry 97 % 97 % MEDENT ([facility] Systolic blood pressure 128 mm[Hg] 128 mm[Hg] M EDENT ([facility] Diastolic blood pressure 88 mm[Hg] 88 mm[Hg] MEDENT ([facility] Body temperature 98.1 [degF] 98.1 [degF] MEDENT ([facility] Heart rate 68 /min 68 /min MEDENT ([facility] Body weight 156.00 [lb_av] 156.00 [lb_av] MEDEN T ([facility] Oxygen saturation in Arterial blood by Pulse oximetry 98 % 98 % MEDENT ([facility] [place] body weight 120 [lb_av] 120 [lb_av] MEDEN T ([facility] Body mass index (BMI) [Ratio] 26.8 kg/m2 26.8 k g/m2 MEDENT ([facility] Systolic blood pressure 136 mm[Hg] 136 mm[Hg] M EDENT ([facility] Diastolic blood pressure 80 mm[Hg] 80 mm[Hg] MEDENT ([facility] Body temperature 97.9 [degF] 97.9 [degF] MEDENT ([facility] Heart rate 82 /min 82 /min MEDENT ([facility] Respiratory rate 18 /min 18 /min MEDENT ( [facility] Body height 64 [in_i] 64 [in_i] MEDENT ([facility] 5'4" Body weight 162.00 [lb_av] 162.00 [lb_av] MEDEN T ([facility] [place] body weight 120 [lb_av] 120 [lb_av] MEDEN T ([facility] Body mass index (BMI) [Ratio] 27.8 kg/m2 27.8 k g/m2 MEDENT ([facility] Oxygen saturation in Arterial blood by Pulse oximetry 98 % 98 % MEDENT ([facility] Systolic blood pressure 126 mm[Hg] 126 mm[Hg] M EDENT ([facility] Diastolic blood pressure 86 mm[Hg] 86 mm[Hg] MEDENT ([facility] Body temperature 97.8 [degF] 97.8 [degF] MEDENT ([facility] Heart rate 68 /min 68 /min MEDENT ([facility] Respiratory rate 18 /min 18 /min MEDENT ( [facility] Body height 64 [in_i] 64 [in_i] MEDENT ([facility] 5'4" Patient Treatment Plan of Care Planned Activity Planned Date Details Description Data Source (s) atorvastatin 40 MG Oral Tablet 10/27/2020 12:00:00 AM EDT [facility] travoprost 0.04 MG/ML Ophthalmic Solution 01/24/2020 12:00:00 AM ED T [facility] Albuterol 0.83 MG/ML Inhalant Solution [facility]
[2021-03-24] MEDS ORDERED: LAMO100T80 PO (00:34)
[2021-03-24] MEDS ORDERED: LAMO100T3 PO ×2 (00:34→06:45)
[2021-03-24 01:53] LABS: HEMATOCRIT 44.4 % (36.0-47.0); HEMOGLOBIN 14.5 g/dl (12.0-15.5); MEAN CORPUSCULAR HEMOGLOBIN 29.7 pg (27.0-33.0); MEAN CORPUSCULAR HGB CONC 32.7 g/dl (32.0-36.5); PLATELET COUNT, AUTOMATED 319 10^3/uL (150-450); RED BLOOD COUNT 4.88 10^6/uL (4.00-5.40); WHITE BLOOD COUNT 8.8 10^3/uL (4.0-10.0)
[2021-03-24 02:20] LABS: AMPHETAMINES LEVEL URINE NEGATIVE (NEGATIVE); BARBITURATES URINE NEGATIVE (NEGATIVE); BENZODIAZEPINES URINE NEGATIVE (NEGATIVE); CANNABINOIDS URINE NEGATIVE (NEGATIVE); COCAINE METABOLITE URINE NEGATIVE (NEGATIVE); METHADONE URINE NEGATIVE (NEGATIVE); OPIATES URINE NEGATIVE (NEGATIVE); PHENCYCLIDINE URINE NEGATIVE (NEGATIVE)
[2021-03-24 02:23] LABS: RSV AMPLIFICATION NEGATIVE (NEGATIVE)
[2021-03-24 03:18] LABS: ACETAMINOPHEN LEVEL < 2.0 UG/ML (10.0-30.0); ALBUMIN 4.3 GM/DL (3.2-5.2); ALT/SGPT 30 U/L (12-78); BILIRUBIN,DIRECT 0.1 MG/DL (0.0-0.2); BILIRUBIN,TOTAL 0.5 MG/DL (0.2-1.0); BLOOD UREA NITROGEN 27 MG/DL (7-18); CALCIUM LEVEL 9.9 MG/DL (8.5-10.1); CARBON DIOXIDE LEVEL 29 MEQ/L (21-32); CHLORIDE LEVEL 107 MEQ/L (98-107); CREATININE FOR GFR 1.05 MG/DL (0.55-1.30); ETHYL ALCOHOL (ETHANOL) < 0.003 % (0.000-0.010); GLOMERULAR FILTRATION RATE 57.5 (>51); GLUCOSE, FASTING 87 MG/DL (70-100); POTASSIUM SERUM 3.6 MEQ/L (3.5-5.1); SALICYLATE LEVEL < 1.7 MG/DL (5.0-30.0); SODIUM LEVEL 141 MEQ/L (136-145)
--- NOTE | 2021-03-24 03:46 | REPVR ---
PROCEDURE INFORMATION: Exam: CT Head Without Contrast Exam date and time: 03/24/2021 2:24 AM Age: 55 years old Clinical indication: Altered mental status/memory loss; Confusion or disorientation TECHNIQUE: Imaging protocol: Computed tomography of the head without contrast. Radiation optimization: All CT scans at this facility use at least one of these dose optimization techniques: automated exposure control; mA and/or kV adjustment per patient size (includes targeted exams where dose is matched to clinical indication); or iterative reconstruction. COMPARISON: CT Head without contrast 01/19/2020 7:53 PM FINDINGS: Brain: There is no CT evidence for an acute large vessel territorial infarct. No acute intracranial hemorrhage is seen. No mass effect, midline shift, or herniation is noted. Cerebral ventricles: The ventricles are mildly dilated in proportion to the sulci, which is compatible with mild generalized cerebral volume loss that is similar in appearance compared to the prior CT head on 01/19/2020. Paranasal sinuses: The imaged portions of the sinuses are well aerated. No air-fluid levels are noted in the sinuses. Mastoid air cells: The mastoid air cells are well aerated. Bones/joints: The skull is intact. No suspicious osteolytic or osteoblastic lesion. Soft tissues: Unremarkable. No soft tissue fluid collection. IMPRESSION: No acute intracranial abnormality. Electronically signed by: Kevin Macario On 03/24/2021 03:46:24 AM
--- NOTE | 2021-03-24 03:47 | REPVR ---
PROCEDURE INFORMATION: Exam: XR Chest Exam date and time: 03/24/2021 2:39 AM Age: 55 years old Clinical indication: Altered mentation, cough, rule out pneumonia TECHNIQUE: Imaging protocol: XR of the chest. Views: 1 view. COMPARISON: No relevant prior studies available. FINDINGS: Lungs: Unremarkable. No consolidation. No pulmonary edema. Pleural spaces: Unremarkable. No pleural effusion. No pneumothorax. Heart/Mediastinum: Unremarkable. No cardiomegaly. Bones/joints: Unremarkable. IMPRESSION: No acute findings. Electronically signed by: Kevin Macario On 03/24/2021 03:47:31 AM
--- OUTSIDE RECORDS SUMMARY | 2021-03-24 06:41 | CCD ---
Author Author [facility] Organization [facility] Address Unknown Phone Unavailable Care Team Providers Care Electrical And Instrument Technician Name Role Phone Loretta Ogden Unavailable Unavailable [...] Unavailable Sotero Feliz MD Unavailable Unavailable Sotero Felzi MD Unavailable Unavailable Sotero Feliz MD Unavailable Unavailable Sotero Feliz MD Unavailable Unavailable Sotero Feliz MD Unavailable Unavailable Sotero Feliz MD Unavailable Unavailable Sotero Feliz MD Unavailable Unavailable NICK, KEVIN CAPITAL EQUIPMENT SPECIALIST Unavailable Unavailable NICK, KEVIN CAPITAL EQUIPMENT SPECIALIST Unavailable Unavailable Maring, Efraín PA Unavailable Unavailable [...] Unavailable Feola, T Danielle PA Unavailable Unavailable Fons, M Mary ELECTRIC RANGE PREPARER Unavailable Unavailable Fons, M Mary ELECTRIC RANGE PREPARER Unavailable Unavailable Fons, M Mary ELECTRIC RANGE PREPARER Unavailable Unavailable Fons, M Mary ELECTRIC RANGE PREPARER Unavailable Unavailable Fons, M Mary ELECTRIC RANGE PREPARER Unavailable Unavailable Fons, M Mary ELECTRIC RANGE PREPARER Unavailable Unavailable Fons, M Mary ELECTRIC RANGE PREPARER Unavailable Unavailable Fons, M Mary ELECTRIC RANGE PREPARER Unavailable Unavailable Fons, M Mary ELECTRIC RANGE PREPARER Unavailable Unavailable Fons, M Mary ELECTRIC RANGE PREPARER Unavailable Unavailable Fons, M Mary ELECTRIC RANGE PREPARER Unavailable Unavailable Fons, M Mary ELECTRIC RANGE PREPARER Unavailable Unavailable Fons, M Mary ELECTRIC RANGE PREPARER Unavailable Unavailable Fons, M Mary ELECTRIC RANGE PREPARER Unavailable Unavailable Fons, M Mary ELECTRIC RANGE PREPARER Unavailable Unavailable Fons, M Mary ELECTRIC RANGE PREPARER Unavailable Unavailable Fons, M Mary ELECTRIC RANGE PREPARER Unavailable Unavailable Fons, M Mary ELECTRIC RANGE PREPARER Unavailable Unavailable Fons, M Mary ELECTRIC RANGE PREPARER Unavailable Unavailable Fons, M Mary ELECTRIC RANGE PREPARER Unavailable Unavailable Fons, M Mary ELECTRIC RANGE PREPARER Unavailable Unavailable Fons, M Mary ELECTRIC RANGE PREPARER Unavailable Unavailable Fons, M Mary ELECTRIC RANGE PREPARER Unavailable Unavailable Fons, M Mary ELECTRIC RANGE PREPARER Unavailable Unavailable Fons, M Mary ELECTRIC RANGE PREPARER Unavailable Unavailable Fons, M Mary ELECTRIC RANGE PREPARER Unavailable Unavailable Fons, M Mary ELECTRIC RANGE PREPARER Unavailable Unavailable Fons, M Mary ELECTRIC RANGE PREPARER Unavailable Unavailable Fons, M Mary ELECTRIC RANGE PREPARER Unavailable Unavailable Fons, M Mary ELECTRIC RANGE PREPARER Unavailable Unavailable Fons, M Mary ELECTRIC RANGE PREPARER Unavailable Unavailable Fons, M Mary ELECTRIC RANGE PREPARER Unavailable Unavailable Fons, M Mary ELECTRIC RANGE PREPARER Unavailable Unavailable Fons, M Mary ELECTRIC RANGE PREPARER Unavailable Unavailable Fons, M Mary ELECTRIC RANGE PREPARER Unavailable Unavailable Fons, M Mary ELECTRIC RANGE PREPARER Unavailable Unavailable Fons, M Mary ELECTRIC RANGE PREPARER Unavailable Unavailable Fons, M Mary ELECTRIC RANGE PREPARER Unavailable Unavailable Fons, M Mary ELECTRIC RANGE PREPARER Unavailable Unavailable Fons, M Mary ELECTRIC RANGE PREPARER Unavailable Unavailable Fons, M Mary ELECTRIC RANGE PREPARER Unavailable Unavailable Fons, M Mary ELECTRIC RANGE PREPARER Unavailable Unavailable Fons, M Mary ELECTRIC RANGE PREPARER Unavailable Unavailable Fons, M Mary ELECTRIC RANGE PREPARER Unavailable Unavailable Fons, M Mary ELECTRIC RANGE PREPARER Unavailable Unavailable Fons, M Mary ELECTRIC RANGE PREPARER Unavailable Unavailable Fons, M Mary ELECTRIC RANGE PREPARER Unavailable Unavailable Fons, M Mary ELECTRIC RANGE PREPARER Unavailable Unavailable Fons, M Mary ELECTRIC RANGE PREPARER Unavailable Unavailable Fons, M Mary ELECTRIC RANGE PREPARER Unavailable Unavailable Fons, M Mary ELECTRIC RANGE PREPARER Unavailable Unavailable Fons, M Mary ELECTRIC RANGE PREPARER Unavailable Unavailable Fons, M Mary ELECTRIC RANGE PREPARER Unavailable Unavailable Ramos Landaverde MD Unavailable Unavailable [...] Unavailable Unavailable Henry MEJIA MD Unavailable Unavailable eHnry MEJIA MD Unavailable Unavailable Henry MEJIA MD [...] Unavailable Unavailable KORManjinder Smith MD Unavailable Unavailable KORTManjinder MD Unavailable Unavailable KORManjinder Smith MD Unavailable Unavailable KORManjinder Smith MD Unavailable Unavailable KORManjinder Smith MD Unavailable Unavailable KORManjinder Smith MD Unavailable Unavailable KORTManjinder MD Unavailable Unavailable KORT C ROBBIE LAGUNA Unavailable Unavailable KORT, Manjinder AVALOS MD Unavailable Unavailable KORT, C ROBBIE MD Unavailable Unavailable KORT, C ROBBIE LAGUNA Unavailable Unavailable KORT, C ROBBIE LAGUNA Unavailable Unavailable KORT, C ROBBIE LAGUNA Unavailable Unavailable KORT, C [...] C ROBBIE MD Unavailable Unavailable KORT, C RBOBIE MD Unavailable Unavailable KORT, C ROBBIE MD [...] Unavailable Hicks, L Camelia PA Unavailable Unavailable Henry MEJIA MD Unavailable Unavailable [...] is protected by Article 27-F of the [facility] Public Health law. If you continue you may have access to information: Regarding HIV / AIDS; Provided by facilities licensed or operated by the [facility] Office of Mental Health; or Provided by the [facility] Office for People With Developmental Disabilities. If such information is present, then the following [facility] mandated warning applies: This information has been [...] law may result in a fine or mcfp sentence or both. A general authorization for the release of medical or other information is NOT sufficient authorization for further disc losure. Allergies and Adverse Reactions Type Description Substance Reaction Status Data Source(s ) Drug allergy Narcotics Narcotics Seizure [facility] Drug allergy antihistamines antihistamines SEIZURES; Seizure [facility] Drug allergy narcotics narcotics [facility] Drug allergy ANTIHISTAMINES ANTIHISTAMINES [facility] Propensity to adverse reactions FEXOFENADINE-PSEUDOEPHED ER Fexofenadine- Pseudoephed Er Other (See Comments) Low Active [facility] Low Propensity to adverse reactions GABAPENTIN gabapentin Acti ve [facility] Drug Allergy Drug Allergy NKDA [facility] ([facility] Family History Family Member Name Family Member Gender Family Member Status Date o f Status Description Data Source(s) Unknown Male Problem [facility] ([facility]) Encounters Encounter Providers Location Date Indications Data Source(s ) Outpatient Attender: Loretta Ogden PAConsultant: Loretta SAMAYOA 03/18/2021 08:33:00 AM EST - 03/18/2021 09:33:00 AM [facility] Outpatient Attender: Loretta Ogden PAConsultant: SOTERO GOLD MD 03/17/2021 10:12:00 AM EST - 03/17/2021 10:12:00 AM [facility] Outpatient Attender: Loretta SAMAYOA [facility] 10/2020 10:00:00 AM EST [facility] Emergency Attender: Graham Sosa DO 021 07:36:00 PM EST - 03/13/2021 09:31:00 PM EST [facility] Outpatient Attender: Loretta Ogden PAConsultant: SOTERO GOLD MD 03/12/2021 01:08:00 PM EST - 03/12/2021 01:08:00 PM [facility] Emergency Attender: Kevin SAMAYOA-CAttender: Maki Bone MD 03/10/2021 04:42:00 PM EST - 03/10/2021 08:55:00 PM EST SCALP DISCOMFORT [facility] SCALP DISCOMFORT Patient discharged. Emergency Attender: Steve Phan MDConsultant: SOTERO Urbina 02/21/2021 12:18:00 AM EST - 02/21/2021 02:23:00 AM [facility] Patient discharged. Outpatient Attender: Efraín SAMAYOA 12/26/19 11:29:36 AM EDT - 12/25/2020 12:20:23 PM EDT [facility] ([facility] ) Outpatient Attender: Mary VAZQUEZ SJP.NAYA-SJP.NAYA 12:43:02 PM EDT - 11/14/2020 02:59:32 PM EDT [facility] Outpatient Attender: Efraín SAMAYOA 10/05/19 04:54:18 PM EDT - 10/04/2020 05:48:06 PM EDT [facility] ([facility] ) Outpatient Referrer: Ary Zaragoza 09/25/2020 03:46:30 PM ED T [facility] Outpatient Referrer: Ary Zaragoza 09/25/2020 02:28:40 PM ED T [facility] Outpatient Attender: Ary MARSHALL 09/25/2020 12:12:21 PM EDT - 09/25/2020 01:56:58 PM EDT [facility] Outpatient Referrer: Ary Zaragoza 09/19/2020 10:07:10 AM ED T [facility] Outpatient Attender: SOTERO [place] [facility] 10:20:00 AM EDT [facility] ([facility] Outpatient Attender: SHARRI BUSTILLOS DPM [place] [facility] 06/2020 09:45:00 AM EDT [facility] ([facility] Outpatient Attender: SOTERO [place] [facility] 10:20:00 AM EDT [facility] ([facility] Outpatient Attender: SOTERO MEJIA MD 06/18/2020 12:20:00 PM EST [facility] Outpatient Attender: SOTERO [place] [facility] 11/2020 03:00:00 PM EST [facility] ([facility] Outpatient Attender: Bree Landaverde MD 05/19/2020 09:30:00 AM EST [facility] Outpatient Attender: Danielle SAMAYOA 03:52:01 PM EST - 05/14/2020 04:49:56 PM EST [facility] ([facility] ) Outpatient Attender: Efraín SAMAYOA 04/30/19 01:12:18 PM EST - 04/30/2020 02:06:20 PM EST [facility] ([facility] ) Outpatient Attender: SOTERO [place] [facility] 03:00:00 PM EST [facility] ([facility] Outpatient Referrer: Ary Zaragoza 04/24/2020 02:06:25 PM ES [facility] Outpatient Referrer: ROBBIE HOLDER MD 04/10/2020 02:33:00 PM E [facility] Outpatient Attender: Ary MARSHALL 04/10/2020 10:53:10 AM EST - 04/10/2020 12:00:29 PM EST [facility] Outpatient Referrer: ROBBIE HOLDER MD 03/19/2020 09:03:01 AM E [facility] Outpatient Attender: SOTERO [place] [facility] 11/2019 12:30:00 PM EST [facility] ([facility] Outpatient Attender: SOTERO [place] [facility] 12:45:00 PM EST [facility] ([facility] Outpatient Attender: SOTERO [place] [facility] 10:15:00 AM EST [facility] ([facility] Outpatient Attender: Camelia Beller: Todd SAMAYOA SJSvetlana.NAYA-SJP.NAYA 02/18/2020 08:51:06 AM EST - 02/18/2020 09:43:12 AM EST [facility] Outpatient Referrer: Mary VAZQUEZ SJP.NAYA-SJP.NAYA 02/18/2020 12:00:00 AM EST [facility] Outpatient Attender: SOTERO MEJIA MDConsultant: SOTERO CHEUNG MD 02/07/2020 10:51:00 AM EDT - 02/07/2020 11:51:00 AM EDT [facility] Outpatient Attender: SOTERO MEJIA MD [facility] 10:00:00 AM EDT [facility] ([facility] Outpatient Attender: KEVIN APODACA WReferrer: Trav Feliz MDConsultant: SOTERO MEJIA MD 02/01/2020 08:50:00 AM EDT - 02/01/2020 08:50:00 AM EDT [facility] Immunizations Vaccine Date Status Description Data Source(s) COVID-19 VACCINE Moderna 07/25/2020 12:00:00 AM EDT completed [facility] Vaccine Series Complete: YESThis Data wa s Submitted to [facility] Via [employer]. 208 07/15/2020 12:00:00 AM EDT completed <td I D="[id number]">Covid-19 (Pfizer)</td><td>07/15/2020, 06/27/2020</td><td></td> [facility] COVID-19 VACCINE Pfizer 07/15/2020 12:00:00 AM EDT completed [facility] Vaccine Series Complete: YESThis Data wa s Submitted to [facility] Via [employer]. 208 06/27/2020 12:00:00 AM EDT completed <td I D="[id number]">Covid-19 (Pfizer)</td><td>07/15/2020, 06/27/2020</td><td></td> [facility] COVID-19 VACCINE Moderna 06/27/2020 12:00:00 AM EDT completed [facility] Vaccine Series Complete: NOThis Data was Submitted to [facility] Via [employer]. Medications Medication Brand Name Start Date Product Form Dose Route Admi nistrative Instructions Pharmacy Instructions Status Indications Reaction Description Data Source(s) atorvastatin 40 MG Oral Tablet atorvastatin (LIPITOR) 40 MG tablet atorvastatin (LIPITOR) 40 MG tablet 10/27/2020 12:00:00 AM EDT 40 mg Oral active Mixed hyperlipidemia Take 1 tablet (40 mg total) by mouth richard ly [facility] Mixed hyperlipidemia gabapentin 300 MG Oral Capsule Gabapentin 08/04/2020 12:00:00 AM EDT ORAL completed [facility] ([facility] 200 ACTUAT Levalbuterol 0.045 MG/ACTUAT Metered Dose I nhaler Levalbuterol Tartrate 06/20/2020 12:00:00 AM EST active [facility] ([facility] Nebulizer Kit/Tubing/Mouthpiece 02/26/2020 12:00:00 AM EST active [facility] ([facility] Cephalexin 500 MG Oral Capsule [Keflex] Keflex 02/26/2020 12:00:0 0 AM EST ORAL completed [facility] ([facility] travoprost 0.04 MG/ML Ophthalmic Solution travoprost ( TRAVATAN Z) 0.004 % SOLN travoprost (TRAVATAN Z) 0.004 % SOLN 01/24/2020 12:00:00 AM EDT active Health system 200 ACTUAT Levalbuterol 0.045 MG/ACTUAT Metered Dose I nhaler Levalbuterol Tartrate 01/01/2020 12:00:00 AM EDT ORAL completed [facility] ([facility] Albuterol 0.83 MG/ML Inhalant Solution a lbuterol (PROVENTIL) (2.5 MG/3ML) 0.083% nebulizer solution albuterol (PROVENTIL) (2.5 MG/3ML) 0.083 % nebulizer solution 2.5 mg Inhalation aborted Inhale 2.5 m g [facility] Insurance Providers Payer name Policy type / Coverage type Policy ID Covered libertarian ID Covered libertarian's relationship to marinelli Policy Marinelli Plan Information [facility] [id number] [facility] [id number] MEDICARE BLUE PPO 306 [id number] SP [id number] MEDICARE [id number] SP [id number] A [facility] [id number] [facility] [id number] EXCELLUS H [id number] Self [id number] EXCELLUS H [id number] Self [id number] Blue Shield MCR Advantage Commercial [id number] Self UHC UNITED MEDICARE COMPLETE [id number] Self [id number] EXCELLUS BCBS [id number] Spo [id number] [employer] BCBS [id number] xxxxxxxxxxxxxxx [id number] RPR- Needs Payer Match [id number] Spouse [id number] [facility] MEDICARE [id number] Jazzy [id number] [facility] MEDICARE [id number] xxxxxxxxx [id number] [facility] MEDICARE [id number] Jazzy [id number] [facility] [employer] [id number] Self [id number] [employer] Blue Cross and Blue Shield - [place] Blue Cross/B lue Shield [id number] Spouse [id number] RPR- Needs Payer Match [id number] Spouse [id number] [employer] and Blue Shield - [place] Blue Cross/B lue Shield [id number] Spouse [id number] RPR- Needs Payer Match [id number] Spouse [id number] [facility] [employer] [id number] Self [id number] RPR- Needs Payer Match [id number] Spouse [id number] [employer] and Blue Shield - [place] Blue Cross/B lue Shield [id number] Spouse [id number] [facility] [employer] Co. [id number] Self [id number] MEDICARE COMPLETE [id number] SP [id number] N[place] Of Temp Disability Commercial [id number] Self [id number] Nys Of Temp Disability Commercial [id number] Self [id number] MEDICARE BLUE PPO [id number] SP [id number] [facility] [facility] [place] [id number] SP [id number] MEDICARE BLUE PPO [id number] SP [id number] [facility] [facility] [place] [id number] SP [id number] [employer] [facility] [place] O [id number] O [id number] [employer]LL[employer] BCBS B [id number] S [id number] MEDICARE BLUE PPO 306 [id number] SP [id number] [employer] [facility] [place] [id number] SP [id number] MEDICARE BLUE PPO P [id number] S [id number] MEDICARE COMPLETE [id number] SP [id number] BCBS [place] PPO [id number] UNHC MEDICARE COMPLETE [id number] 18 [id number] BLUE CROSS BLUE [place] [id number] 01 [id number] CLINIC BLUE CROSS BS [id number] 01 [id number] UNHC MEDICARE COMPLETE - O/P [id number] 18 [id number] BLUE CROSS BLUE SHIELD -O/P [id number] 1 [id number] UNHC MEDICARE COMPLETE -PHYS [id number] 18 [id number] BLUE CROSS BLUE SHIELD -PHYSICIAN [id number] 01 [id number] EXCELL[employer] BCBS B [id number] S [id number] MEDICARE COMPLETE-UHC O [id number] S [id number] EXCELLUS BCBS B [id number] S [id number] EXCELLUS BCBS B [id number] P H [id number] UNHC MEDICARE COMPLETE [id number] 18 [id number] UNHC MEDICARE COMPLETE [place] [id number] 18 [id number] MEDICARE COMPLETE [id number] ANS-Commercial [id number] ANS-Medicare Part B [id number] UNHC MEDICARE COMPLETE - O/P [id number] 18 [id number] [facility]-Medicare Part B [id number] [facility]-[employer] [id number] ANS-Commercial [id number] [facility]-Medicare Part B [id number] MEDICARE COMPLETE [id number] SP [id number] [place] [id number] [facility] [id number] Problems, Conditions, and Diagnoses Code Display Name Description Problem Type Effective Dates Data Source(s) R410 Disorientation, unspecified Disorientation, unspecifie d Diagnosis 03/17/2021 10:12:00 AM [facility] N03603 Epilepsy, unspecified, not intractable, without status epilepticus Epilepsy, unspecified, not intractable, without status epilepticus Diagnosis 03/17/2021 10:12:00 AM [facility] L299 Pruritus, unspecified Pruritus, unspecified Diagnosis 03/12/2021 01:08:00 PM [facility] R251 Tremor, unspecified Tremor, unspecified Diagnosis 1 05/13/2020 01:08:00 PM [facility] E785 Hyperlipidemia, unspecified Hyperlipidemia, unspecifie d Diagnosis 03/12/2021 01:08:00 PM [facility] [id number] Toxic effect of detergents, accidental (unintentional), initial encounter Toxic effect of detergents, accidental ( unintentional), initial encounter Diagnosis 02/21/2021 12:18:00 AM [facility] I80230 Unspecified asthma, uncomplicated Unspecified as thma, uncomplicated Diagnosis 02/21/2021 12:18:00 AM [facility] L240 Irritant contact dermatitis due to deter gents Irritant contact dermatitis due to detergents Diagnosis 02/21/2021 12:18:00 AM [facility] R21 Rash and other nonspecific skin eruption Rash and other nonspecific skin eruption Diagnosis 02/21/2021 12:18:00 AM [facility] R07.89 Other chest pain Other chest pain Diagnosis 11/14/2020 12 :43:02 PM EDT [facility] R00.2 Palpitations Palpitations Diagnosis 11/14/2020 12:43:02 P M EDT [facility] E78.2 Mixed hyperlipidemia Mixed hyperlipidemia Diagnosis 11/14/2020 12:43:02 PM EDT [facility] R92.8 Other abnormal and inconclusive findings on diagnostic imaging of breast Other abnormal and inconclusive findings Diagnosis 04/10/2020 10:53:10 AM [facility] R07.9 Chest pain, unspecified Chest pain, unspecified Diagno sis 02/18/2020 08:51:06 AM [facility] Z711 Person with feared health complaint in w nida no diagnosis is made Person with feared health complaint in whom no diagnosis is made Diagnosis 02/01/2020 08:50:00 AM EDT [facility] N64.4 Breast pain Breast pain [id number] 09/19/2020 12:00:00 AM EDT [facility] M47.812 Cervical spondylosis Cervical spondylosis [id number] 07/01/2020 12:00:00 AM EDT [facility] R92.8 Abnormal finding on breast imaging Abnormal find ing on breast imaging [id number] 03/18/2020 12:00:00 AM EST [facility] Surgeries/Procedures Procedure Description Date Indications Data Source(s) OFFICE OUTPATIENT VISIT 15 MINUTES 03/17/2021 12:00:00 AM EST [facility] ([facility]) Brief Emotional/Behav Assessment W/ Scoring Doc Per Standard Inst 03/12/2021 12:00:00 AM EST [facility] ([facility]) OFFICE OUTPATIENT NEW 45 MINUTES 03/12/2021 12:00:00 A M EST [facility] ([facility]) ECG ROUTINE ECG W/LEAST 12 LDS W/I&R <td>POCT AMB EKG</td><td>Routine</td><td>11/19/2020 1:23 PM EDT</td><td> Other chest pain</td><td> </td> 11/19/2020 01:23:00 PM EDT Other chest pain [facility] Other chest pain HEPATIC FUNCTION PANEL <td>HEPATIC FUNCTION PANEL</td><td>Routine</td><td>08/04/2020</td><td></td><td> </td> 08/04/2020 12:00:00 AM EDT [facility] LIPID PANEL <td>LIPID PANEL</td><td>Rout ine</td><td>08/04/2020</td><td></td><td> </td> 08/04/2020 12:00:00 AM EDT [facility] BASIC METABOLIC PANEL CALCIUM TOTAL <td>BASIC METABOLI C PANEL</td><td>Routine</td><td>08/04/2020</td><td></td><td> </td> 08/04/2020 12:00:00 AM EDT [facility] Results ID Date Data Source [id number] 03/18/2021 09:46:00 AM EST [facility] [address] [place] [address] PHONE: [phone] FAX: [phone] Name .................. : NIRAJ GARCIA Acct Number.................. : [id number] ROOM. ................. : MR Number ................... : [id number] Stay type ............. : O/P Discharge Date......... ... : 03/18/21 Admit Date ......... : 03/18/21 Admit Phys .................... : COREY Alvarado Date of ....... : 1965 Family Phys ................... : OGDEN J Phone .................. : [phone] Age ................................ : 55 Film# .................. .:[id number] Sex ................................. : F Unsigned transcriptions are preliminary reports and do not represent a medical or legal document CT HEAD W/O CONTRAST [id number] COMPLETE:03/18/21 08:40 48535 Reason for Exam: DISORIENTATION CT BRAIN WITHOUT [...] 09:17, Dictation Date: Page 1 of 2 [facility] [address] [place] [address] PHONE: [phone] FAX: [phone] Name .................. : NIRAJ GARCIA Acct Number.................. : [id number] ROOM. ................. : MR Number ................... : [id number] Stay type ............. : O/P Discharge Date......... ... : 03/18/21 Admit Date ......... : 03/18/21 Admit Phys .................... : COREY Alvarado Date of ....... : 1965 Family Phys ................... : OGDEN J Phone .................. : [phone] Age ................................ : 55 Film# .................. .:[id number] Sex ................................. : F Unsigned transcriptions are preliminary reports and do not represent a medical or legal document CT HEAD W/O CONTRAST [id number] COMPLETE:03/18/21 08:40 [id number] Reason for Exam: DISORIENTATION Copy for: COREY JAIME Ese via fax Copy for: 710 MED REC Page 2 of 2 Name Value Range Interpretation Code Description Data Pallavi rce(s) Supporting Document(s) ID Date Data Source [id number] 03/17/2021 11:42:00 AM EST [facility] ([facility]) Name Value Range Interpretation Code Description Data Pallavi rce(s) Supporting Document(s) Lamotrigine [Mass/volume] in Serum or Plasma 16.8 ug/mL 2.0-20.0 [facility] ([facility]) Detection Limit = 1.0 Valproate [Mass/volume] in Serum or Plasma 44 ug/mL 50-100 [facility] low normal [facility] ([facility]) <content>Detection Limit = 4</content><b r/><content><4 indicates None Detected</content>
<content>Toxicity may occur at levels of 100-500. Measurements</content>
<content>of free unbound valproic acid may improve the assess-</content>
<content>ment of clinical response.</content>
<content></content> ID Date Data Source [id number] 03/17/2021 11:16:00 AM EST [facility] ([facility] Name Value Range Interpretation Code Description Data Pallavi rce(s) Supporting Document(s) Valproate [Mass/volume] in Serum or Plasma 44 ug/mL 50-100 Belo w low normal [facility] ([facility] <content>Detection Limit = 4</content><b r/><content><4 indicates None Detected</content>
<content>Toxicity may occur at levels of 100-500. Measurements</content>
<content>of free unbound valproic acid may improve the assess-</content>
<content>ment of clinical response.</content>
<content></content> Lamotrigine [Mass/volume] in Serum or Plasma 16.8 ug/mL 2.0-20.0 [facility] ([facility] Detection Limit = 1.0 ID Date Data Source [id number] 03/21/2021 08:52:00 AM [facility] Name Value Range Interpretation Code Description Data Pallavi rce(s) Supporting Document(s) Lamotrigine [Mass/volume] in Serum or Plasma 16.8 ug/mL 2.0-20.0 [facility] Detection Limit = 1.0 ID Date Data Source [id number] 03/19/2021 08:58:00 AM [facility] Name Value Range Interpretation Code Description Data Pallavi rce(s) Supporting Document(s) Valproate [Mass/volume] in Serum or Plasma 44 ug/mL 50-100 L [facility] Detection Limit = 4 <4 indicates None Detected Toxicity may occur at levels of 100-500. Measurements of free unbound valproic acid may improve the assess- ment of clinical response. ID Date Data Source [id number] 03/13/2021 08:50:00 PM [facility] ED Physician Documentation NAME: JOSE HEALY : 1965 AGE: 55 MR#: [id number] SERVICE DATE: 03/13/[address]: Graham Sosa DO PRIMARY CARE DR: No Family PHYS Provided ROOM#: [facility] (Adult, General) General Chief Complaint: Multi system [...] rce(s) Supporting Document(s) ID Date Data Source [id number] 03/12/2021 02:47:00 PM EST [facility] ([facility]) Name Value Range Interpretation Code Description Data Pallavi rce(s) Supporting Document(s) Amphetamines Screen,Urine Laboratory test result [facility] ([facility]) Is patient fasting? N Benzodiazepines Screen,Urine Laboratory test result [facility] ([facility]) Is patient fasting? N Barbiturates Screen,Urine Laboratory test result [facility] ([facility]) Is patient fasting? N Cocaine (Metab.) Screen,Urine Laboratory test result [facility] ([facility]) Is patient fasting? N Cannabinoid Screen, Urine Laboratory test result [facility] ([facility]) Is patient fasting? N Oxycodone/Oxymorphone,Urine Laboratory test result [facility] ([facility]) Is patient fasting? N Opiate Screen, Urine Laboratory test result [facility] ([facility]) Is patient fasting? N Phencyclidine Screen,Urine Laboratory test result [facility] ([facility]) Is patient fasting? N Methadone Screen, Urine Laboratory test result [facility] ([facility]) Is patient fasting? N Propoxyphene Screen,Urine Laboratory test result [facility] ([facility]) Is patient fasting? N Meperidine Screen, Urine Laboratory test result [facility] ([facility]) Is patient fasting? N Fentanyl, Urine Laboratory test result [facility] ([facility]) Is patient fasting? N Creatinine, Urine 196.3 mg/dL 20.0-300.0 [facility] ([facility]) Is patient fasting? N Tramadol Screen, Urine Laboratory test result [facility] ([facility]) Is patient fasting? N Specific [place] 1.015 NA [facility] ([facility]) Is patient fasting? N Please Note: Laboratory test result [facility] ([facility]) Is patient fasting? N pH, Urine 7.0 NA 4.5-8.9 [facility] ([facility]) Is patient fasting? N ID Date Data Source [id number] 03/12/2021 02:47:00 PM EST [facility] ([facility]) Name Value Range Interpretation Code Description Data Pallavi rce(s) Supporting Document(s) Source Laboratory test result [facility] ([facility]) Is patient fasting? N Laboratory test finding (navigational concept) Laboratory test result [facility] ([facility]) Is patient fasting? N Color Laboratory test result [facility] ([facility]) Is patient fasting? N Clarity Laboratory test result [facility] ([facility]) Is patient fasting? N pH 7 5-9 [facility] ([facility]) Is patient fasting? N Spec [place] 1.010 1.001-1.030 [facility] ([facility]) Is patient fasting? N Ketone 5 Abnormal (applies to non-numeric res ults) [facility] ([facility]) Is patient fasting? N Bilirubin Laboratory test result [facility] ([facility]) Is patient fasting? N Glucose Laboratory test result [facility] ([facility]) Is patient fasting? N Nitrite Laboratory test result [facility] ([facility]) Is patient fasting? N Protein 15 [facility] ([facility]) Is patient fasting? N Blood Laboratory test result [facility] ([facility]) Is patient fasting? N Leuk Est 25 [facility] ([facility]) Is patient fasting? N Urobilinogen 1 [facility] ([facility]) Is patient fasting? N Microscopic Laboratory test result M [facility] ([facility]) Is patient fasting? N RBC Laboratory test result [facility] ([facility]) Is patient fasting? N WBC Laboratory test result [facility] ([facility]) Is patient fasting? N Epithelial Laboratory test result Abnormal (applies to non -numeric results) [facility] ([facility]) Is patient fasting? N Bacteria Laboratory test result [facility] ([facility]) Is patient fasting? N ID Date Data Source [id number] 03/12/2021 02:47:00 PM EST [facility] ([facility]) Name Value Range Interpretation Code Description Data Pallavi rce(s) Supporting Document(s) Thyrotropin [Units/volume] in Serum or Plasma 1.32 uIU/mL 0.47-5.01 [facility] ([facility]) Is patient fasting? N ID Date Data Source [id number] 03/12/2021 02:47:00 PM EST [facility] ([facility]) Name Value Range Interpretation Code Description Data Pallavi rce(s) Supporting Document(s) Cve Panel Laboratory test result [facility] ([facility]) Is patient fasting? N Cholesterol 170 mg/dL 131-200 [facility] ([facility]) Is patient fasting? N Triglycerides 90 mg/dL 35-160 [facility] ([facility]) Is patient fasting? N HDL 52 mg/dL 29-86 [facility] ([facility]) Is patient fasting? N LDL 99 mg/dL 65-175 [facility] ([facility]) Is patient fasting? N LDL/HDL 1.90 1.47-3.22 [facility] ([facility]) Is patient fasting? N Risk Factor 3.3 3.2-4.4 [facility] ([facility]) Is patient fasting? N ID Date Data Source [id number] 03/12/2021 02:47:00 PM EST [facility] ([facility]) Name Value Range Interpretation Code Description Data Pallavi rce(s) Supporting Document(s) Comprehensive Metabo Laboratory test result [facility] ([facility]) Is patient fasting? N Sodium 142 meq/L 134-153 [facility] ([facility]) Is patient fasting? N Potassium 3.8 meq/L 3.6-5.0 [facility] ([facility]) Is patient fasting? N Chloride 106 meq/L 98-107 [facility] ([facility]) Is patient fasting? N Co2 25 meq/L 22-30 [facility] ([facility]) Is patient fasting? N Glucose 97 mg/dL 70-99 [facility] ([facility]) Is patient fasting? N BUN 17 mg/dL 7-21 [facility] ([facility]) Is patient fasting? N Creatinine 1.0 mg/dL 0.7-1.5 [facility] ([facility]) Is patient fasting? N BUN/Creat 17 8-27 [facility] ([facility]) Is patient fasting? N Albumin 4.9 g/dL 3.9-5.0 [facility] ([facility]) Is patient fasting? N Total Protein 7.6 g/dL 6.3-8.2 [facility] ([facility]) Is patient fasting? N A/G Ratio 1.8 0.8-2.0 [facility] ([facility]) Is patient fasting? N Globulin 2.7 GM/DL 2.4-3.2 [facility] ([facility]) Is patient fasting? N Calcium 9.5 mg/dL 8.4-10.2 [facility] ([facility]) Is patient fasting? N Total Bili Laboratory test result 0.2-1.3 [facility] ([facility]) Is patient fasting? N Alkaline Phos 103 U/L 38-126 [facility] ([facility]) Is patient fasting? N Sgot/Ast 32 U/L 5-40 [facility] ([facility]) Is patient fasting? N Anion Gap 11.0 mmol/L 8.0-16.0 [facility] ([facility]) Is patient fasting? N SGPT/Alt 30 U/L 7-56 [facility] ([facility]) Is patient fasting? N Age 55 yrs [facility]) Is patient fasting? N Non-Aa GFR Laboratory test result [facility] ([facility]) Is patient fasting? N Afr Amer GFR Laboratory test result [facility] ([facility]) Is patient fasting? N ID Date Data Source [id number] 03/12/2021 02:47:00 PM EST [facility] Name Value Range Interpretation Code Description Data Pallavi rce(s) Supporting Document(s) WBC 7.2 10^3/uL 4.2-11.0 [facility] ([facility]) Is patient fasting? N CBC W/Automated Diff Laboratory test result [facility] ([facility]) Is patient fasting? N Hemoglobin 14.1 g/dL 12.0-16.0 [facility] ([facility]) Is patient fasting? N RBC 4.69 10^6/uL 4.20-5.40 [facility] ([facility]) Is patient fasting? N Hematocrit 42.8 % 37.0-47.0 [facility] ([facility]) Is patient fasting? N MCV 91.3 fL 81.0-101 [facility] ([facility]) Is patient fasting? N MCH 30.1 pg 27.0-34.0 [facility] ([facility]) Is patient fasting? N RDW 13.0 % 11.5-14.5 [facility] ([facility]) Is patient fasting? N MCHC 32.9 g/dL 31.0-36.0 [facility] ([facility]) Is patient fasting? N MPV 11.0 fL 7.4-10.4 Above high normal [facility] ([facility]) Is patient fasting? N Platelets 295 10^3/uL 150-450 [facility] ([facility]) Is patient fasting? N Neut 55.9 % 37.0-80.0 [facility] ([facility]) Is patient fasting? N Lymph 31.3 % 25.0-40.0 [facility] ([facility]) Is patient fasting? N Willacy 10.2 % 3.0-8.0 Above high normal [facility] ([facility]) Is patient fasting? N Eos 1.2 % 0.0-7.0 [facility] ([facility]) Is patient fasting? N %Ig 0.4 % 0.0-0.0 Above high normal [facility] ([facility]) Is patient fasting? N Baso 1.0 % 0.0-2.5 [facility] ([facility]) Is patient fasting? N %NRBC 0.0 % 0.0-0.0 [facility] ([facility]) Is patient fasting? N #Neut 4.04 10^3/uL 2.00-6.90 [facility] ([facility]) Is patient fasting? N #Lymph 2.26 10^3/uL 0.60-3.40 [facility] ([facility]) Is patient fasting? N #Willacy 0.74 10^3/uL 0.00-0.90 [facility] ([facility]) Is patient fasting? N #Eos 0.09 10^3/uL 0.00-0.70 [facility] ([facility]) Is patient fasting? N #Baso 0.07 10^3/uL 0.00-0.20 [facility] ([facility]) Is patient fasting? N #Ig 0.03 10^3/uL 0.00-0.10 [facility] ([facility]) Is patient fasting? N #NRBC 0.00 10^3/uL 0.00-0.00 [facility] ([facility]) Is patient fasting? N Manual Diff Laboratory test result [facility] ([facility]) Is patient fasting? N RBC Morph Laboratory test result [facility] ([facility]) Is patient fasting? N ID Date Data Source [id number] 03/12/2021 02:16:00 PM EST [facility] ([facility] Name Value Range Interpretation Code Description Data Pallavi rce(s) Supporting Document(s) Laboratory test finding (navigational concept) Laboratory test result [facility] ([facility] Laboratory test finding (navigational concept) Laboratory test result [facility] ([facility] Cannabinoid Screen, Urine Laboratory test result [facility] ([facility] Laboratory test finding (navigational concept) Laboratory test result [facility] ([facility] Opiate Screen, Urine Laboratory test result [facility] ([facility] Opiate test includes Codeine, Morphine, Hydromorphone, Hydrocodone. Laboratory test finding (navigational concept) Laboratory test result [facility] ([facility] Laboratory test finding (navigational concept) Laboratory test result [facility] ([facility] Test includes Oxycodone and Oxymorphone Laboratory test finding (navigational concept) Laboratory test result [facility] ([facility] Laboratory test finding (navigational concept) Laboratory test result [facility] ([facility] Laboratory test finding (navigational concept) Laboratory test result [facility] ([facility] Laboratory test finding (navigational concept) Laboratory test result [facility] ([facility] This test was developed and its performa nce characteristics determined by [facility]. It has not been cleared or approved by the Food and Drug Administration. Tramadol Screen, Urine Laboratory test result [facility] ([facility] Laboratory test finding (navigational concept) Laboratory test result [facility] ([facility] Test includes Fentanyl and Norfentanyl This test was developed and its performance characteristics determined by [facility]. It has not been cleared or approved by the Food and Drug Administration. Specific [place] 1.015 NA [facility] ([facility] Creatinine, Urine 196.3 mg/dL 20.0-300.0 [facility] ([facility] Please Note: Laboratory test result [facility] ([facility] Drug-test results should be interpreted in the context of clinical information. Patient metabolic variables, specific drug chemistry, and specimen characteristics can affect test outcome. Technical consultation is available if a test result is inconsistent with an expected outcome. ([email or web address] or call toll-free [phone]) Drug brands, if listed herein, are trademarks of their respective owners. pH, Urine 7.0 NA 4.5-8.9 [facility] ([facility] ID Date Data Source [id number] 03/12/2021 02:16:00 PM EST [facility] ([facility] [...] result [facility] ([facility] Spec [place] 1.010 1.001-1.030 [facility] ([facility] pH 7 5-9 [facility] Glucose Laboratory test result [facility] ([facility] Bilirubin Laboratory test result [facility] ([facility] Nitrite Laboratory test result [facility] ([facility] Ketone 5 Abnormal (applies to non-numeric res ults) [facility] ([facility] Protein 15 [facility] Leuk Est 25 [facility] Blood Laboratory test result [facility] ([facility] Microscopic Laboratory test result [facility] ([facility] Urobilinogen 1 [facility] WBC Laboratory test result [facility] RBC Laboratory test result [facility] Bacteria Laboratory test result [facility] ([facility] Epithelial Laboratory test result Abnormal (applies to non -numeric results) [facility] ([facility] ID Date Data Source [id number] 03/12/2021 02:16:00 PM EST [facility] ([facility] Name Value Range Interpretation Code Description Data Pallavi rce(s) Supporting Document(s) Thyrotropin [Units/volume] in Serum or Plasma 1.32 uIU/mL 0.47-5.01 [facility] ([facility] ID Date Data Source [id number] 03/12/2021 02:16:00 PM EST [facility] ([facility] Name Value Range Interpretation Code Description Data Pallavi rce(s) Supporting Document(s) Cve Panel Laboratory test result [facility] ([facility] LIPID PANEL Cholesterol 170 mg/dL 131-200 [facility] HDL 52 mg/dL 29-86 [facility] Triglycerides 90 mg/dL 35-160 [facility] ([facility] LDL 99 mg/dL 65-175 [facility] LDL/HDL 1.90 1.47-3.22 [facility] ([facility] CVE RISK CHOL/HDL LDL/HDL MEN: 1/2 AVERAGE 3.43 1.00 AVERAGE 4.97 3.55 2X AVERAGE 9.55 6.25 3X AVERAGE 23.99 7.99 WOMEN: /2 AVERAGE 3.27 1.47 AVERAGE 4.44 3.22 2X AVERAGE 7.05 5.03 3X AVERAGE 11.04 6.14 Risk Factor 3.3 3.2-4.4 [facility] ([facility] ID Date Data Source [id number] 03/12/2021 02:16:00 PM EST [facility] ([facility] Name Value Range Interpretation Code Description Data Pallavi rce(s) Supporting Document(s) Sodium 142 meq/L 134-153 [facility] Comprehensive Metabo Laboratory test result [facility] ([facility] COMPREHENSIVE METABOLIC PANEL Potassium 3.8 meq/L 3.6-5.0 [facility] Chloride 106 meq/L 98-107 [facility] Glucose 97 mg/dL 70-99 [facility] Co2 25 meq/L 22-30 [facility] BUN 17 mg/dL 7-21 [facility] ([facility] Creatinine 1.0 mg/dL 0.7-1.5 [facility] ([facility] Total Protein 7.6 g/dL 6.3-8.2 [facility] ([facility] BUN/Creat 17 8-27 [facility] ([facility] Albumin 4.9 g/dL 3.9-5.0 [facility] A/G Ratio 1.8 0.8-2.0 [facility] ([facility] Globulin 2.7 GM/DL 2.4-3.2 [facility] Total Bili Laboratory test result 0.2-1.3 [facility] ([facility] Calcium 9.5 mg/dL 8.4-10.2 [facility] ([facility] Alkaline Phos 103 U/L 38-126 [facility] ([facility] Sgot/Ast 32 U/L 5-40 [facility] ([facility] SGPT/Alt 30 U/L 7-56 [facility] ([facility] Anion Gap 11.0 mmol/L 8.0-16.0 [facility] Age 55 yrs [facility] ([facility] Non-Aa GFR Laboratory test result [facility] ([facility] Afr Amer GFR Laboratory test result [facility] Male GFR Interprentation 20-49 yrs >60 [...] >32 mL/min Normal ID Date Data Source [id number] 03/12/2021 02:16:00 PM EST [facility] ([facility] Name Value Range Interpretation Code Description Data Pallavi rce(s) Supporting Document(s) CBC W/Automated Diff Laboratory test result [facility] ([facility] COMPLETE BLOOD COUNT WBC 7.2 10^3/uL 4.2-11.0 [facility] Hemoglobin 14.1 g/dL 12.0-16.0 [facility] ([facility] RBC 4.69 10^6/uL 4.20-5.40 [facility] MCV 91.3 fL 81.0-101 [facility] ([facility] Hematocrit 42.8 % 37.0-47.0 [facility] ([facility] MCH 30.1 pg [...] 0.0-7.0 [facility] Willacy 10.2 % 3.0-8.0 Above high normal [facility] ([facility] %Ig 0.4 % 0.0-0.0 Above high normal [facility] ([facility] Baso 1.0 % 0.0-2.5 [facility] %NRBC 0.0 % 0.0-0.0 [facility] #Neut 4.04 10^3/uL 2.00-6.90 [facility] #Willacy 0.74 10^3/uL 0.00-0.90 [facility] ([facility] #NRBC 0.00 10^3/uL 0.00-0.00 [facility] RBC Morph Laboratory test result [facility] ([facility] ID Date Data Source [id number] 03/17/2021 06:27:00 AM EST [facility] Name Value Range Interpretation Code Description Data Pallavi rce(s) Supporting Document(s) Amphetamines [Presence] in Urine by Screen method Negative ng/mL Cu qnag=1576 [facility] Barbiturates [Presence] in Urine by Screen method Negative ng/mL Cuto rm=396 [facility] Benzodiazepines [Presence] in Urine by Screen method Negative ng /mL Boapgs=469 [facility] Cannabinoids [Presence] in Urine by Screen method Negative ng/mL Cuto ff=20 [facility] Benzoylecgonine [Presence] in Urine by Screen method Negative ng /mL Rjchio=054 [facility] Opiates [Presence] in Urine by Screen method Negative ng/mL Cutoff=30 0 [facility] Opiate test includes Codeine, Morphine, Hydromorphone, Hydrocodone. Oxycodone+Oxymorphone [Presence] in Urine by Screen method N egative ng/mL Ujlgkf=515 [facility] Test includes Oxycodone and Oxymorphone Phencyclidine [Presence] in Urine Negative ng/mL Cutoff=25 [facility] Methadone [Presence] in Urine by Screen method Negative ng/mL Cutoff= 300 [facility] Propoxyphene [Presence] in Urine by Screen method Negative ng/mL Cuto tk=542 [facility] Meperidine [Presence] in Urine Negative ng/mL Ktocjc=407 [facility] This test was developed and its performa nce characteristicsdetermined by [facility]. It has not been cleared or approvedby the Food and Drug Administration. Fentanyl [Mass/volume] in Urine Negative pg/mL Qfmpps=9645 [facility] Test includes Fentanyl and NorfentanylTh is test was developed and its performance characteristicsdetermined by [facility]. It has not been cleared or approvedby the Food and Drug Administration. Tramadol [Presence] in Urine by Screen method Negative ng/mL Cutoff=2 00 [facility] Creatinine [Mass/volume] in Urine 196.3 mg/dL 20.0-300.0 [facility] Specific gravity of Urine 1.015 NA [facility] Laboratory comment [Text] in Report Narrative COMMENT [facility] Drug-test results should be interpreted in the context of clinicalinformation. Patient metabolic variables, specific drug chemistry, andspecimen characteristics can affect test outcome. Technicalconsultation is available if a test result is inconsistent with anexpected outcome. (email- [email or web address] or call [email or web address])Drug brands, if listed herein, are trademarks of their respectiveowners. pH of Urine 7.0 NA 4.5-8.9 [facility] ital ID Date Data Source [id number] 03/12/2021 10:44:00 PM EST [facility] Name Value Range Interpretation Code Description Data Pallavi rce(s) Supporting Document(s) UA REFLEX TO UA CULTURE [facility] URINALYSIS SOURCE R [facility] COL[facility] yellow NORMAL: Yellow [facility] CLARITY clear NORMAL: Clear [facility] Specific gravity of Urine by Test strip 1.010 1.001 - 1.030 [facility] pH 7 5 - 9 [facility] Glucose [Mass/volume] in Urine by Test strip NORM NORMAL: Negat [facility] Bilirubin.total [Presence] in Urine by Test strip NEG NORMAL: Negative [facility] Ketones [Presence] in Urine by Test strip 5 NORMAL: Negative [facility] Protein [Mass/volume] in Urine by Test strip 15 NORMAL: Negat [facility] Nitrite [Presence] in Urine by Test strip NEG NORMAL: Negative [facility] BLOOD NEG NORMAL: Negative [facility] Leukocyte esterase [Presence] in Urine by Test strip 25 ASHLEY L: Negative [facility] Urobilinogen [Mass/volume] in Urine by Test strip 1 less yaya n 1.0 mg/dL [facility] MICROSCOPIC See Below [facility] ital WBC 1 - 3 NORMAL: NONE SEEN [facility] Erythrocytes [#/volume] in Urine by Test strip None Seen NORMAL: NON E SEEN [facility] EPITHELIAL MODERATE NORMAL: NONE SEEN A [facility] Bacteria [Presence] in Urine sediment by Light microscopy Tr candido NORMAL: NONE SEEN [facility] ID Date Data Source [id number] 03/12/2021 09:45:00 PM EST [facility] Name Value Range Interpretation Code Description Data Pallavi rce(s) Supporting Document(s) Thyrotropin [Units/volume] in Serum or Plasma by Detec tion limit <= 0.05 mIU/L 1.32 uIU/mL 0.47 - 5.01 [facility] ID Date Data Source [id number] 03/12/2021 09:32:00 PM [facility] Name Value Range Interpretation Code Description Data Pallavi rce(s) Supporting Document(s) CVE PANEL [facility] al LIPID PANEL Cholesterol [Mass/volume] in Serum or Plasma 170 MG/DL 131 - 200 [facility] Deprecated Triglyceride [Mass/volume] in Serum or Plasma 90 MG/DL 3 5 - 160 [facility] HDL 52 MG/DL 29 - 86 [facility] al Cholesterol in LDL [Mass/volume] in Serum or Plasma by Direc t assay 99 mg/dL 65 - 175 [facility] Cholesterol.total/Cholesterol in HDL [Mass Ratio] in Serum o r Plasma 3.3 3.2 - 4.4 [facility] LDL/HDL 1.90 1.47 - 3.22 [facility] ital CVE RISK CHOL/HDL LDL/HDLMEN: 1/2 AVERAGE 3.43 1.00 AVERAGE 4.97 3.55 2X AVERAGE 9.55 6.25 3X AVERAGE 23.99 7.99WOMEN: 1/2 AVERAGE 3.27 1.47 AVERAGE 4.44 3.22 2X AVERAGE 7.05 5.03 3X AVERAGE 11.04 6.14 ID Date Data Source [id number] 03/12/2021 09:32:00 PM EST [facility] Name Value Range Interpretation Code Description Data Pallavi rce(s) Supporting Document(s) COMPREHENSIVE METABOLIC PANEL [facility] COMPREHENSIVE METABOLIC PANEL Sodium [Moles/volume] in Serum or Plasma 142 mEq/L 134 - 153 [facility] Potassium [Moles/volume] in Serum or Plasma 3.8 mEq/L 3.6 - 5.0 [facility] Chloride [Moles/volume] in Serum or Plasma 106 mEq/L 98 - 107 [facility] Carbon dioxide, total [Moles/volume] in Serum or Plasma 25 MEQ/L 22 - 30 [facility] Glucose [Mass/volume] in Serum or Plasma 97 MG/DL 70 - 99 [facility] BUN 17 MG/DL 7 - 21 [facility] al Creatinine [Mass/volume] in Serum or Plasma 1.0 MG/DL 0.7 - 1.5 [facility] BUN/CREAT 17 8 - 27 [facility] Protein [Mass/volume] in Serum or Plasma 7.6 G/DL 6.3 - 8.2 [facility] Albumin [Mass/volume] in Serum or Plasma 4.9 G/DL 3.9 - 5.0 [facility] Globulin [Mass/volume] in Serum by calculation 2.7 GM/DL 2.4 - 3.2 [facility] A/G RATIO 1.8 0.8 - 2.0 [facility] Calcium [Mass/volume] in Serum or Plasma 9.5 MG/DL 8.4 - 10.2 [facility] Bilirubin.total [Mass/volume] in Serum or Plasma <0.7 MG/DL 0.2 - 1.3 [facility] Alkaline phosphatase [Enzymatic activity/volume] in Serum or Plasma 103 U/L 38 - 126 [facility] Aspartate aminotransferase [Enzymatic activity/volume] in Serum or Plasma 32 U/L 5 - 40 [facility] Alanine aminotransferase [Enzymatic activity/volume] in Seru m or Plasma 30 U/L 7 - 56 [facility] Anion gap 3 in Serum or Plasma 11.0 mmol/L 8.0 - 16.0 [facility] AGE 55 yrs [facility] al NON-AA GFR >60 mL/min [facility] ital AFR AMER GFR >60 mL/min [facility] Male GFR In terprentation 20-49 [...] >32 mL/min Normal ID Date Data Source [id number] 03/12/2021 09:27:00 PM EST [facility] Name Value Range Interpretation Code Description Data Pallavi rce(s) Supporting Document(s) CBC W/AUTOMATED DIFF [facility] COMPLETE BLOOD COUNT Leukocytes [#/volume] in Blood by Automated count 7.2 10^3/uL 4.2 - 1 1.0 [facility] Erythrocytes [#/volume] in Blood by Automated count 4.69 10^6/uL 4. 20 - 5.40 [facility] Hemoglobin [Mass/volume] in Blood 14.1 g/dL 12.0 - 16.0 [facility] Hematocrit [Volume Fraction] of Blood by Automated count 42.8 % 3 7.0 - 47.0 [facility] Erythrocyte mean corpuscular volume [Entitic volume] by Auto mated count 91.3 fL 81.0 - 101 [facility] Erythrocyte mean corpuscular hemoglobin [Entitic mass] by Automated count 30.1 pg 27.0 - 34.0 [facility] Erythrocyte mean corpuscular hemoglobin concentration [Mass/volume] by Automated count 32.9 g/dL 31.0 - 36.0 [facility] Erythrocyte distribution width [Ratio] by Automated count 13.0 % 11.5 - 14.5 [facility] Platelets [#/volume] in Blood by Automated count 295 10^3/uL 150 - 45 0 [facility] Platelet mean volume [Entitic volume] in Blood by Automated count 11.0 fL 7.4 - 10.4 H [facility] Neutrophils/100 leukocytes in Blood by Automated count 55.9 % 37. 0 - 80.0 [facility] Lymphocytes/100 leukocytes in Blood by Manual count 31.3 % 25.0 - 40.0 [facility] Monocytes/100 leukocytes in Blood by Automated count 10.2 % 3.0 - 8.0 H [facility] Eosinophils/100 leukocytes in Blood by Automated count 1.2 % 0.0 - 7.0 [facility] Basophils/100 leukocytes in Blood by Automated count 1.0 % 0.0 - 2.5 [facility] %IG 0.4 % 0.0 - 0.0 H [facility] %NRBC 0.0 % 0.0 - 0.0 [facility] Neutrophils [#/volume] in Blood by Automated count 4.04 10^3/uL 2.00 - 6.90 [facility] Lymphocytes [#/volume] in Blood by Automated count 2.26 10^3/uL 0.60 - 3.40 [facility] Monocytes [#/volume] in Blood by Automated count 0.74 10^3/uL 0.00 - 0.90 [facility] Eosinophils [#/volume] in Blood by Automated count 0.09 10^3/uL 0.00 - 0.70 [facility] Basophils [#/volume] in Blood by Automated count 0.07 10^3/uL 0.00 - 0.20 [facility] #IG 0.03 10^3/uL 0.00 - 0.10 [facility] #NRBC 0.00 10^3/uL 0.00 - 0.00 [facility] MANUAL DIFF NOT INDICATED [facility] RBC MORPH NOT INDICATED [facility] ID Date Data Source [id number] 03/11/2021 01:58:00 AM [facility] ED Physician Documentation NAME: JOSE HEALY : 1965 AGE: 55 MR#: [id number] SERVICE DATE: 03/10/[address]: Kevin Preciado [...] rce(s) Supporting Document(s) ID Date Data Source [id number] 02/21/2021 12:18:00 AM EST [facility] 1 Medication Reconciliation Report [facility] Emergency Department [address] [place] [address] Phone #: [phone]- [phone] 02/21/2021 00:18 Patient: [...] Name Value Range Interpretation Code Description [facility] Supporting Document(s) ID Date Data Source [id number] 02/21/2021 12:18:00 AM [facility] 1 Medication Administration Record [facility] Emergency Department [address] [place] [address] Phone #: ext- [phone] 02/21/2021 00:18 Patient: JOSE HEALY Sex: F : 1965 Age: 55yWeight: 63.5 kgHeight/Length: 65 inBMI: 23.3ALLERGIES: Narcotics cause seizures, AntihistamineDate/Time Medication Administered Medication Ordered Name Value Range Interpretation Code Description Data [facility](s) Supporting Document(s) ID Date Data Source [id number] 02/21/2021 12:18:00 AM [facility] 1 General Instructions [facility] Emergency Department [address] [place] [address] Phone #: [phone] 02/21/2021 00:18 Patient: JOSE HEALY Sex: F [...] by patient.Follow-up with: Sotero Roberto, , , [address] [place] [address], [phone] Follow up in two if not better. [...] schuyler, oak, or sumac 2 General Instructions [facility] Emergency Department [address] [place] [address] Phone #: ext- [phone] 02/21/2021 00:18 Patient: JOSE HEALY Sex: F : 1965 Age: 55y Chemicals in hair dyes and rinses, soaps, solvents, waxes, fingernail maltese, and deodorants Jewelry or watchbands made of [...] oils that gave you 3 General Instructions [facility] Emergency Department [address] [place] [address] Phone #: ext- [phone] 02/21/2021 00:18 Patient: [...] skin Yellow-brown crusts on the open blisters [id number] [employer]. [address] [place] [address]. All rights reserved. This information is not intended as asubstitute for professional medical care. Always follow your healthcare professional's instructions. You have been given the following additional information: Contact Dermatitis(Electronically signed by Steve Phan 02/21/2021 19:42) Name Value Range Interpretation Code Description Data Pallavi rce(s) Supporting Document(s) ID Date Data Source [id number] 02/21/2021 12:18:00 AM EST [facility] 1 Clinical Report - Nurses [facility] Emergency Department [address] [place] [address] Phone #: [phone] 02/21/2021 00:18 Patient: JOSE HEALY Sex: F [...] 02/21/21 Kiki Bassett R.N.MedicationsDepakote Oral. --01:49 02/21/21 Kiki Reddy R.N. lamoTRIgine Oral. --01:49 02/21/21 Kiki [...] July (Moderna)). 2 Clinical Report - Nurses [facility] Emergency Department [address] [place] [address], [place] [address] Phone #: ext- [phone] 02/21/2021 00:18 Patient: [...] Patient verbalized understanding. Written instructions provided in Botswanan. The patient was discharged by the physician. She was discharged home. She left ambulatory and via private vehicle. --02:02/21/21 Kiki Reddy R.N. 02:20 02/21/21. BP: deferred. HR: deferred. RR: deferred. O2 saturation: deferred. Temp: deferred. Pain level now deferred. --02:02/21/21 Kiki Reddy R.N.Locked/Released at 02/21/2021 21:37 by Kiki Reddy R.N. 3 Clinical Report - Nurses [facility] Emergency Department [address] [place] [address] Phone #: ext- [phone] 02/21/2021 00:18 Patient: JOSE HEALY Sex: F : 1965 Age: 55y Name Value Range Interpretation Code Description Data Pallavi rce(s) Supporting Document(s) ID Date Data Source [id number] 02/21/2021 12:18:00 AM EST [facility] 1 Clinical Report - Physicians/Mid Levels [facility] Emergency Department [address] [place] [address] Phone #: ext- [phone] 02/21/2021 00:18 Patient: [...] alcohol use. 2 Clinical Report - Physicians/Mid [facility] Emergency Department [address] [place] [address] Phone #: ext- [phone] 02/21/2021 00:18 Patient: [...] MEDICATIONS: 3 Clinical Report - Physicians/Mid Levels [facility] Emergency Department [address] [place] [address] Phone #: ext- [phone] 02/21/2021 00:18 Patient: JOSE HEALY Sex: F : 1965 Age: 55y Ativan Oral. Depakote Oral. Eye Drops* : for glaucoma. lamoTRIgine Oral. Topiramate Oral. Understanding of the discharge instructions verbalized by patient. Follow-up with: Sotero Mejia, , , [address] [place] [address], [phone] Follow up in two if not better. Call for an appointment. Reason for referral: evaluation.(Electronically signed by Steve Phan 02/21/2021 19:42) Name Value Range Interpretation Code Description Data Pallavi rce(s) Supporting Document(s) ID Date Data Source [id number] 10/01/2020 12:12:13 PM EDT [facility] NT INFORMATIONPatient MRN Name Date of Age Gend*PT [id number] Jose Healy 1965 54 years F ---PT Location Admission Date/Time Visit ID Attending Provider --- --- --- --- EPI ID CSN Admitting Provider [id number] ---09/25/20 Jose Healy [id number] female 54 yearsInitial consult 04/10/2020, BI-RADS 4Referred [...] PMH: Seizure disorder - refractory epilepsyDrHanna Dobbins [facility] Menstrual History:Menarche: 13Age at first [...] almost daily. She is followedby neuro at [facility]. She maintains on lamotrigine and topiramate. Shealso [...] Back pain Epilepsy Followed by neurology in [place] [facility] ETT 09/18/2018 Borderline for ischemia at [...] Social Gatherings with Friends and Family: Attends [employer] Services: Active Member of Clubs or Organizations: [...] recommended in one year as per the [place] [employer]. CLASSIFICATION: BI-RADS 2 - BENIGN [...] rce(s) Supporting Document(s) ID Date Data Source [id number] 09/25/2020 02:54:00 PM EDT [facility] ULTR ASOUND BREAST RIGHT LIMITEDCLINICAL HISTORY: [...] rce(s) Supporting Document(s) ID Date Data Source [id number] 09/25/2020 01:51:00 PM EDT [facility] AssociatesEXAM: PATTIE PASTOR MAMMOGRAM DIAG BL [...] recommended in one year as per the [employer].CLASSIFICATION: BI-RADS 2 - BENIGN FINDINGS.ACR Breast Density: B- Scattered fibroglandular densityResultCode: BR 2 BDISCLAIMER: According to the [place] and the [place] [employer], any patient with a lifetime risk assessment greater than 20% or patients with dense breasts (heterogeneously or extremely dense), may benefit from additional screening tests for breast cancer. Further screening tests for patients with dense breasts (heterogeneously or extremely dense) should be based upon the patient's breast cancer risk status. All patients, having their mammogram with [facility], with a lifetime risk assessment greater than [...] rce(s) Supporting Document(s) ID Date Data Source [id number] 08/04/2020 12:25:00 PM EDT [facility] ([facility] Name Value Range Interpretation Code Description Data Pallavi rce(s) Supporting Document(s) Chol 247 mg/dL 0-200 Above high normal [facility] ([facility] CHRONIC KIDNEY DISEASE [...] 295 mg/dL 40-200 Above high normal [facility] ([facility] CHRONIC KIDNEY DISEASE [...] YEARS EXCLUSIVE. Cho/HDL Ratio 6.2 Calc [facility] ([facility] CHRONIC KIDNEY DISEASE STAGING PER [...] 2-19 YEARS EXCLUSIVE. ID Date Data Source [id number] 08/04/2020 12:25:00 PM EDT [facility] ([facility] Name Value Range Interpretation Code Description Data Pallavi rce(s) Supporting Document(s) Glu 113 mg/dL 70-110 Above high normal [facility] ([facility] CHRONIC KIDNEY DISEASE [...] YEARS EXCLUSIVE. BUN 16 mg/dL 8-23 [facility] CHRONIC KIDNEY DISEASE [...] YEARS EXCLUSIVE. BUN/Creatinine Ratio 14.5 CALC [facility] ([facility] CHRONIC KIDNEY DISEASE [...] 1.1 mg/dL 0.5-1.0 Above high normal [facility] ([facility] CHRONIC KIDNEY DISEASE [...] EXCLUSIVE. TP 7.2 g/dL 6.6-8.7 [facility] CHRONIC KIDNEY DISEASE STAGING [...] YEARS EXCLUSIVE. A/G Ratio 2.2 CALC [facility] ([facility] CHRONIC KIDNEY [...] INDIVIDUALA AGED 2-19 YEARS EXCLUSIVE. eGFR Non-Afr. Moroccan 56 # [facility] [...] 2-19 YEARS EXCLUSIVE. ID Date Data Source [id number] 06/18/2020 03:43:00 PM [facility] [address] [place] [address] [phone] NAME SEX PT STATUS ACCOUNT NUMBER JOSE HEALY REG REF [id number] ORDERING PHYSICIAN LOCATION MEDICAL RECORD NO. SOTERO MEJIA MD RAD [id number] ATTENDING PHYSICIAN DATE OF DATE OF EXAM/TIME [...] Lynne MD on 06/18/201542 Date Time CC: OSTERO MEJIA MD; Conrado Lynne MD Techn: CARR Trans Dt/Tm: Trans by: DT Prt Dt/Tm: [id number]: Total DLP = 0.00 mGy-cm Fluoroscopy Time (in secs): Name Value Range Interpretation Code Description Data Pallavi rce(s) Supporting Document(s) ID Date Data Source [id number] 05/19/2020 11:12:00 AM [facility] Normal result is "BinaxNow Covid-19 Ag n egative"BinaxNow Covid-19 Ag is a rapid lateral flowimmunochromatographic immunoassayThis test detects both viable(live) and non-viable, SARS-COVand SARS-COV-2.Positive test results do not differentiate between SARS-COVand [id number] results , from patients with symptom onset beyondseven days, should be treated as presumptive andconfirmation with a molecular assay, if necessary, forpatient managementIf the differentiation of specific SARS viruses and strainsis needed, additional testing, in consultation with stateand local public health departments, is required.SARS-CoV-2 Ag Resp Ql IA.rapid Name Value Range Interpretation Code Description Data Pallavi rce(s) Supporting Document(s) ID Date Data Source [id number] 05/19/2020 12:00:00 AM EST [facility] Name Value Range Interpretation Code Description Data Pallavi rce(s) Supporting Document(s) SARS-CoV-2 (COVID-19) RNA [Presence] in Respiratory specimen by IRASEMA with probe detection Not Detected [facility] This lab was ordered by [facility] and reported by [facility]. ID Date Data Source [id number] 05/14/2020 12:00:00 AM EST [facility] Name Value Range Interpretation Code Description Data Pallavi rce(s) Supporting Document(s) SARS coronavirus 2 RNA [Presence] in Res piratory specimen by IRASEMA with probe detection NEGATIVE [facility] This lab was ordered by Sarah Moulton and reported by [facility]. ID Date Data Source [id number] 04/25/2020 04:21:00 PM EST [facility] ([facility] ) Cho/HDL Ratio 9.1 Calc [facility] ID Date Data Source [id number] 04/25/2020 04:21:00 PM EST [facility] Name Value Range Interpretation Code Description Data Pallavi rce(s) Supporting Document(s) Glu 104 mg/dL 70-110 [facility] Creat 1.1 mg/dL 0.5-1.0 Above high normal [facility] BUN 15 mg/dL 8-23 [facility] ([facility] BUN/Creatinine Ratio 14.0 Calc [facility] ([facility] K 4.2 mmol/L 3.5-5.1 [facility] ([facility] Na 135 mmol/L 136-145 Below low normal [facility] ( [facility] CA 9.8 mg/dL 8.6-10.2 [facility] ([facility] Co2 16.5 mmol/L 22.0-29.0 Below low normal [facility] CL 105.5 mmol/L 98.0-107.0 [facility] ([facility] A/G Ratio 2.2 Calc [facility] ([facility] TP 7.0 g/dL 6.6-8.7 [facility] ([facility] Alb 4.8 g/dL 3.4-4.8 [facility] ([facility] Alp 61.5 U/L 35-129 [facility] ([facility] Globulin 2.2 Calc [facility] ([facility] Ast (Sgot) 31 U/L 0-40 [facility] ([facility] Alt (SGPT) 35 U/L 0-41 [facility] ([facility] Tbili 0.32 mg/dL 0.0-1.2 [facility] ([facility] Osmolality-Calculated 270.4 Calc [facility] Comment Laboratory test result [facility] Anion Gap 17 mmol/L [facility] ([facility] eGFR Non-Afr. Moroccan 56 # [facility] CKD-EPI eGFR 65 # [facility] ( [facility] CKD-EPI ID Date Data Source [id number] 04/25/2020 04:20:00 PM EST [facility] ([facility] Name Value Range Interpretation Code Description Data Pallavi rce(s) Supporting Document(s) Hemoglobin A1c/Hemoglobin.total in Blood 5.4 % 4.8-5.6 [facility] ([facility] <content>Prediabetes: 5.7 - 6.4</content >
<content>Diabetes: >6.4</content>
<content>Glycemic control for adults with diabetes: <7.0</content>
<content></content> ID Date Data Source [id number] 04/18/2020 02:00:00 PM EST [facility] [employer] [facility] STER EOTACTIC BREAST BIOPSY RIGHTADDENDUM: DiagnosisRight [...] was brought to the stereotactic unit where seed cleaner operator and stereotactic images of the right breast [...] density. Pathology is pending.DISCLAIMER: According to [employer] [place] [employer] and the [place] [employer], any patient with a lifetime risk assessment greater than 20% of patients with dense breasts (heterogeneously or extremely dense), may benefit from additional screening tests for breast cancer. Further screening tests for patients with dense breasts (heterogeneously or extremely dense) should be based upon the patient's breast cancer risk status. All patients, having their mammogram with [facility], with a lifetime risk assessment greater than [...] rce(s) Supporting Document(s) ID Date Data Source [id number] 04/10/2020 01:14:40 PM EST [facility] NT INFORMATIONPatient MRN Name Date of Age Gend*PT [id number] Jose Healy 1965 54 years F ---PT Location Admission Date/Time Visit ID Attending Provider --- --- --- --- EPI ID CSN Admitting Provider [id number] ---04/10/20 Jose Healy [id number] female 54 yearsRene Brandee Healy is a [...] PMH: Seizure disorder - refractory epilepsyDr. Dobbins [facility] History:Menarche: 13Age at first live [...] daily. She is followed by neuro at [facility]. Shemaintains on lamotrigine and topiramate. She also [...] Back pain Epilepsy Followed by neurology in [place] [facility] E[facility] 09/18/2018 Borderline for ischemia at [...] file Gets together: Not on file Attends hinduism service: Not on file Active member of [...] parts of this document, were dictated using [employer] software. A reasonable attempt at proofreading has beenmade to minimize errors. Please call with any questions or corrections. Name Value Range Interpretation Code Description Data Pallavi rce(s) Supporting Document(s) ID Date Data Source [id number] 03/13/2020 12:00:00 AM EST [facility] Sotero Mejia MD Patient Name: PRIYA HEALY116 [facility] Date of : 1965[place] [address] Date of Exam: 03/13/2020PH#: Fax: [phone] EXAM: [...] rce(s) Supporting Document(s) ID Date Data Source [id number] 03/13/2020 12:00:00 AM EST [facility] Sotero Mejia MD Patient Name: PRIYA HEALY116 [facility] Date of : 1965[place] [address] Date of Exam: 03/13/2020PH#: Fax: [phone] EXAM: [...] rce(s) Supporting Document(s) ID Date Data Source [id number] 02/28/2020 12:00:00 AM EST [facility] Sotero Mejia MD Patient Name: KOURTNEY HEALY [address] Date of : 1965[place], [place] [address] Date of Exam: 02/28/2020PH#: Fax: [phone] EXAM: [...] was read with the assistance of [employer]que [employer], an FDAapproved computer aided detection system for [...] rce(s) Supporting Document(s) ID Date Data Source [id number] 02/26/2020 11:48:00 AM EST [facility] ([employer] [...] HCT IS 5% LESS SOURCE FOR DATA: [employer] 1800 OPERATION MANUAL( AUTOMATED BLOOD COUNTS AND [...] >32 mL/min Normal BUN 19 mg/dL 8-23 [facility] NORMAL RANGES Age [...] HCT IS 5% LESS SOURCE FOR DATA: [employer] 1800 OPERATION MANUAL( AUTOMATED BLOOD COUNTS AND [...] HCT IS 5% LESS SOURCE FOR DATA: [employer] 1800 OPERATION MANUAL( AUTOMATED BLOOD COUNTS AND [...] >32 mL/min Normal BUN/Creatinine Ratio 18.3 CALC [facility] ([facility] NORMAL RANGES Age [...] HCT IS 5% LESS SOURCE FOR DATA: [employer] 1800 OPERATION MANUAL( AUTOMATED BLOOD COUNTS AND [...] HCT IS 5% LESS SOURCE FOR DATA: [employer] 1800 OPERATION MANUAL( AUTOMATED BLOOD COUNTS AND [...] >32 mL/min Normal Na 136 mmol/L 136-145 [facility] ([facility] NORMAL [...] HCT IS 5% LESS SOURCE FOR DATA: [employer] 1800 OPERATION MANUAL( AUTOMATED BLOOD COUNTS AND [...] CA 10.3 mg/dL 8.6-10.2 Above high normal [facility] ([facility] NORMAL RANGES Age [...] HCT IS 5% LESS SOURCE FOR DATA: [employer] 1800 OPERATION MANUAL( AUTOMATED BLOOD COUNTS AND [...] >32 mL/min Normal K 4.1 mmol/L 3.5-5.1 [facility] ([facility] NORMAL RANGES Age WBC RBC [...] >32 mL/min Normal CL 103.9 mmol/L 98.0-107.0 [facility] ([facility] NORMAL RANGES Age WBC [...] >32 mL/min Normal Anion Gap 16 mmol/L [facility] NORMAL RANGES Age WBC RBC [...] HCT IS 5% LESS SOURCE FOR DATA: [employer] 1800 OPERATION MANUAL( AUTOMATED BLOOD COUNTS AND [...] and above >32 mL/min Normal eGFR Non-Afr. Moroccan 63 # [facility] ([facility] [...] HCT IS 5% LESS SOURCE FOR DATA: [employer] 1800 OPERATION MANUAL( AUTOMATED BLOOD COUNTS AND [...] HCT IS 5% LESS SOURCE FOR DATA: [employer] 1800 OPERATION MANUAL( AUTOMATED BLOOD COUNTS AND [...] >32 mL/min Normal ID Date Data Source [id number] 02/26/2020 11:48:00 AM EST [facility] ([facility] Name Value Range Interpretation Code Description Data Pallavi rce(s) Supporting Document(s) WBC 5.6 10E3/uL 4.1-10.9 [facility] ([facility] NORMAL RANGES Age WBC RBC [...] HCT IS 5% LESS SOURCE FOR DATA: [employer] 1800 OPERATION MANUAL( AUTOMATED BLOOD COUNTS AND [...] HCT IS 5% LESS SOURCE FOR DATA: [employer] 1800 OPERATION MANUAL( AUTOMATED BLOOD COUNTS AND [...] RBC 4.52 10E6/uL 4.20-6.30 [facility] ([facility] NORMAL RANGES Age [...] HCT IS 5% LESS SOURCE FOR DATA: [employer] 1800 OPERATION MANUAL( AUTOMATED BLOOD COUNTS AND [...] >32 mL/min Normal MCV 89.6 fL 80.0-97.0 [facility] NORMAL RANGES Age WBC RBC [...] HCT IS 5% LESS SOURCE FOR DATA: [employer] 1800 OPERATION MANUAL( AUTOMATED BLOOD COUNTS AND [...] >32 mL/min Normal HCT 40.5 % 37.0-51.0 [facility] NORMAL RANGES Age WBC RBC [...] >32 mL/min Normal PLT 288 10E3/uL 140-440 [facility] ([facility] NORMAL RANGES Age WBC RBC [...] HCT IS 5% LESS SOURCE FOR DATA: [employer] DYN 1800 OPERATION MANUAL( AUTOMATED BLOOD COUNTS [...] >32 mL/min Normal MCHC 33.8 g/dL 31.0-36.0 [facility] ([facility] NORMAL RANGES [...] HCT IS 5% LESS SOURCE FOR DATA: [employer] 1800 OPERATION MANUAL( AUTOMATED BLOOD COUNTS AND [...] >32 mL/min Normal MCH 30.3 pg 26.0-32.0 [facility] ([facility] NORMAL RANGES [...] HCT IS 5% LESS SOURCE FOR DATA: [employer] 1800 OPERATION MANUAL( AUTOMATED BLOOD COUNTS AND [...] >32 mL/min Normal RDW-CV 13.7 % 11.5-14.5 [facility] NORMAL RANGES Age WBC RBC [...] HCT IS 5% LESS SOURCE FOR DATA: [employer] 1800 OPERATION MANUAL( AUTOMATED BLOOD COUNTS AND [...] HCT IS 5% LESS SOURCE FOR DATA: [employer] 1800 OPERATION MANUAL( AUTOMATED BLOOD COUNTS AND [...] HCT IS 5% LESS SOURCE FOR DATA: [employer] 1800 OPERATION MANUAL( AUTOMATED BLOOD COUNTS AND [...] >32 mL/min Normal MXD% 7.0 % 0.1-24.0 [facility] ([facility] NORMAL RANGES [...] HCT IS 5% LESS SOURCE FOR DATA: [employer] 1800 OPERATION MANUAL( AUTOMATED BLOOD COUNTS AND [...] mL/min Normal Lym# 2.1 10E3/uL 0.6-4.1 [facility] ([facility] NORMAL RANGES Age WBC RBC [...] HCT IS 5% LESS SOURCE FOR DATA: [employer] 1800 OPERATION MANUAL( AUTOMATED BLOOD COUNTS AND [...] >32 mL/min Normal Neut# 3.1 % 2.0-7.8 [facility] NORMAL RANGES Age WBC RBC [...] HCT IS 5% LESS SOURCE FOR DATA: [employer] 1800 OPERATION MANUAL( AUTOMATED BLOOD COUNTS AND [...] >32 mL/min Normal MXD# 0.4 10E3/uL 0.0-1.8 [facility] ([facility] NORMAL RANGES Age WBC RBC [...] >32 mL/min Normal MPV 9.5 fL 9.0-13.0 [facility] NORMAL RANGES Age [...] HCT IS 5% LESS SOURCE FOR DATA: [employer] 1800 OPERATION MANUAL( AUTOMATED BLOOD COUNTS AND [...] >32 mL/min Normal ID Date Data Source [id number] 02/18/2020 03:04:17 PM EST [facility] Name Value Range Interpretation Code Description Data Pallavi rce(s) Supporting Document(s) &PDF [facility] ROCSVb6vGhZEXiGv75/ZGHrxYJSqi7YiZJuuTMr5VZptQCBmA9FgkKrjQK7DXVPDIL1pLqHZSPYHOQ0b oRX [file] ICAgICAgICAgICAgICAgICAgICAgICAgICAgICAgICAgICAgICAgICAgICAgICAgICAgICAgICAgICAg FONxEOXnQMYgCJCnEKOdVYHwVPXmSC1EDQLcMRDrZJKxGXWeEYTrCZEwRFCcFHCvVTHjCTGeCPIxITKq ICAgICAgICAgICAgICAgICAgICAgICAgICAgICAgIC WqXRFdJTYaZHAxGODeOFFtLANiOMFnYDHsNGAjWJEhIS4DQTFqPICkRBHuZOPcOCTmNZUrVICyMXRhJZ AgICAgICAgICAgICAgICAgICAgICAgICAgICAgICAgICAgICAgICAgICAgICAgICAgICAgICAgICAgIC VbTDEyWBUjILVeOEVgJN9SUXOvFSQhGFQuBFJvAIEo ICAgICAgICAgICAgICAgICAgICAgICAgICAgICAgICAgICAgICAgICAgICAgICAgICAgICAgICAgICAg FIBcYUDuKJKsPXMzQKQkYRVzZSWcESSpYX6ERUEwFWCxPLMxHMNaSTTlCKQaRUOnXZCzRTFlZUWfTUJe ICAgICAgICAgICAgICAgICAgICAgICAgICAgICAgIC SmHTXaWWEbGQRfBNDdZCMxEYMmURIlMYEfHQRqGOEtOFDqZQ0PIVNnWJVrRWXtJJZdEQCuTUAbMKIeVD AgICAgICAgICAgICAgICAgICAgICAgICAgICAgICAgICAgICAgICAgICAgICAgICAgICAgICAgICAgIC YsHWKmHXRpQVUxVXMjUMKoZN2RFVLsAQObLHFwILLt ICAgICAgICAgICAgICAgICAgICAgICAgICAgICAgICAgICAgICAgICAgICAgICAgICAgICAgICAgICAg EQMrGRPnBGWqETMdNLNeKKWgLHNpTJJnKCClIY6DUHGoZJQbXSRaIKQaWOUrRMPhOQKnEOPxIUKfBBXb ICAgICAgICAgICAgICAgICAgICAgICAgICAgICAgIC EaKCWgIKKoBHCmJOOdUVDvZZTnWRZoUNRfJPIyXYStMIQqQANuFC0DEXHhUARaZOGyNZPkGWMqLFPeUZ AgICAgICAgICAgICAgICAgICAgICAgICAgICAgICAgICAgICAgICAgICAgICAgICAgICAgICAgICAgIC OkNEUoMFNtHWWlXRKaWLZuZMJuRA0CQSMgVOEyZXDz ICAgICAgICAgICAgICAgICAgICAgICAgICAgICAgICAgICAgICAgICAgICAgICAgICAgICAgICAgICAg UIObBQBkOAVgBPKpZLDnSJYjGFSfTSSnVVDkHHVtZW8XNN54lSMuk0Y1WYYdVE9rmzw/Ey5JLXoxecSm hFEtKQ8BWrAaAP4skb8XYkHqGZ9ufi2NGEqMDdEkK4 S7gGFnDJIyBXEBPiYyX24sLBefQk45ECkgLZBiGgQcVRe6Ag8VCjHzE6vcYGHaOoX4FFGgZsZ9XBVwCl VbXDsuBG0Wl0VocNXdBYz+Zg3VKF8ki3RrUGozKZBpKJ3adc6OZUhUBlQzR3R9pUNaJ8A6UWaxJa8GSO GfYDQcXEiyCBDVCXxeTV9PXT6jdrD5GE0MzQLiXAHo DYKheEDxIXu3I17okPPlUHbhLV2RRIM+Viktoria+Ia3KJXGhITIxBIFdQsKgPONVDvCkV32znQVsTYMdSDPi HGAzAf3KXYMgJ5DahtIzjFavsuKrMATeNTFDSP7DXTxakrGgvFHbnKrbDZ19xNvfTR2GDv9XQsCfJY0a ro3NjMVeQn7PYDYzZf6BUAPyAPIeIWXuSAA5WFYjHf VdHApaKUYzKUKqGJJ1SCAvXDDmAA7PMxMrQEFiJLwcRXXpLCHyTVLvpr3UQNRqCODmKIOyNxMuGJPbFQ EzUXnfLSGwLAHpJJleQMPeLFJwFM7GIaVeVTLuZKH0JFCxHOJmNWKpah1AFVKtOEWbGtOdQUHhKQYdKT LcYPljHDXiLYZ2UWI5SJZyOJUwVO5IWoNbIYJtQZQ8 KePvCENrPQRqzd4UPYUoURXvYvA5YkOnWIGvWLDwKNofQEVuCUB6Twq5RAZqNCCmEJ1XEhFaJIZhQQU8 DDczTTTfKJGmtj0NJYWqBCZgQxdjHGMfNNRfMUIvFJmxFHUaUIL8DJExUZWwXXMzGB2LHbLbTCBjXYpv XJaeLFWnAMKqhy5FWAOgPRVmBDS7HgDxOMSyFDSwNA kqLPAuXTL5QWV4HBAfAKLaXW0NFrOxYTXeNPg0XJIqFHNsVORghe3FDHXiJRYrAVN6TIGhNRRoWTZkMI hrVKKvHAS4TxZwQALpGHLmPH9MMjPbIJYfLIc0WFIsGHYoEYLmuh2RICErTSBmVMDmBvVgNTHsLKVrHW w0rgLgwBLxCDz2VL5VP5PrgaDxYjPUTq8Hq760BLBl QISjRf7PP6jmIa2sLXWlUGDKQn4SNIm8MVDwBCSzVBOdAQS3YOPxEeU5NKebAlQgYOX2SOT9ApA+IDwx N3UmRzCuGbInHFynDeJkBMfaFVYoJEJ8Thi2RojgJm8lGKSXGo6+MGqcbXMaeBxdRYXGSzVoBOP3WSju XEGQBf9K ID Date Data Source [id number] 02/08/2020 02:01:00 PM EDT [facility] [address] [place] [address] PHONE: [phone] FAX: [phone] Name .................. : NIRAJ GARCIA Acct Number.................. : [id number] ROOM. ................. : MR Number ................... : [id number] Stay type ............. : O/P Discharge Date......... ... : 02/07/20 Admit Date ......... : 02/07/20 Admit Phys .................... : ROBERTO Reyes Date of ....... : 1965 Family Phys ................... : ROBERTO Amy Phone .................. : [phone] Age ................................ : 54 Film# .................. .:[id number] Sex ................................. : F Unsigned transcriptions are preliminary reports and do not represent a medical or legal document CHEST 2 VIEWS [id number] COMPLETE:02/07/20 13:26 ARS 31655 (REASON FOR CHEST: unspecified a sthma,uncomplicated TWO [...] this dictation. Electronically Reviewed and Signed By uHgh Oleary MD , 02/08/20 14:01, KGG Transcribe Initials: SSR, Transcribe Date: 02/07/20 13:53, Dictation Date: Copy for: ROBERTO DE LA GARZA via fax Copy for: [facility] Page 1 of 1 Name Value Range Interpretation Code Description Data Pallavi rce(s) Supporting Document(s) ID Date Data Source [id number] 01/29/2020 12:00:00 AM EDT [facility] Name Value Range Interpretation Code Description Data Pallavi rce(s) Supporting Document(s) SARS coronavirus 2 RNA panel N [facility] This lab was ordered by [place] [id number] [facility] and reported by [facility]. Procedure Social History Code Duration Value Status Description Data Source(s ) Alcohol intake 11/14/2020 12:00:00 AM EDT Current drinker of al cohol (finding) completed Current drinker of alcohol (finding) [facility] Alcohol intake 04/10/2020 12:00:00 AM EST Yes completed [facility] Smoking 04/10/2020 12:00:00 AM EST Never smoker completed Never s moker [facility] Vital Signs ID Date Data Source UNK Name Value Range Interpretation Code Description Data Source(s) Respiratory rate 16 /min 16 /min [facility] ( [facility]) Oxygen saturation in Arterial blood by Pulse oximetry 98 % 98 % [facility] ([facility]) Systolic blood pressure 122 mm[Hg] 122 mm[Hg] [facility] ([facility]) Diastolic blood pressure 80 mm[Hg] 80 mm[Hg] [facility] ([facility]) Heart rate 89 /min 89 /min [facility] ([facility]) Body temperature 96.6 [degF] 96.6 [degF] [facility] ([facility]) Body weight 139.25 [lb_av] 139.25 [lb_av] [facility] ([facility]) Body weight 63.164 kg 63.164 kg [facility] ([facility]) Diastolic blood pressure 80 mm[Hg] 80 mm[Hg] [facility] Heart rate 72 /min 72 /min [facility] ([facility]) Systolic blood pressure 128 mm[Hg] 128 mm[Hg] [facility] ([facility]) Body temperature 97.5 [degF] 97.5 [degF] [facility] ([facility]) Respiratory rate 16 /min 16 /min [facility] Oxygen saturation in Arterial blood by Pulse oximetry 97 % 97 % [facility] ([facility]) Body weight 138.12 [lb_av] 138.12 [lb_av] [facility] ([facility]) Body weight 62.654 kg 62.654 kg [facility] ([facility]) Body height 65 [in_i] 65 [in_i] [facility] ([facility]) 5'5" Body mass index (BMI) [Ratio] 23.0 kg/m2 23.0 k g/m2 [facility] ([facility]) Body surface area Derived from formula 1.69 m2 1.69 m2 [facility] ([facility]) Diastolic blood pressure 70 mm[Hg] 70 mm[Hg] [facility] Heart rate 60 /min 60 /min [facility] Systolic blood pressure 136 mm[Hg] 136 mm[Hg] [facility] Body height 162.6 cm 162.6 cm [facility] Body weight 66.679 kg 66.679 kg [facility] Body mass index (BMI) [Ratio] 25.23 kg/m2 25.23 kg/m2 [facility] Oxygen saturation in Arterial blood by Pulse oximetry 99 % 99 % [facility] Respiratory rate 16 /min 16 /min [facility] ( [facility] Body temperature 98.2 [degF] 98.2 [degF] [facility] ([facility] Heart rate 68 /min 68 /min [facility] ([facility] Body height 64 [in_i] 64 [in_i] [facility] ([facility] 5'4" Body weight 144.00 [lb_av] 144.00 [lb_av] [facility] ([facility] [place] body weight 120 [lb_av] 120 [lb_av] [facility] ([facility] Body mass index (BMI) [Ratio] 24.7 kg/m2 24.7 k g/m2 [facility] ([facility] Oxygen saturation in Arterial blood by Pulse oximetry 98 % 98 % [facility] ([facility] Systolic blood pressure 126 mm[Hg] 126 mm[Hg] [facility] ([facility] Diastolic blood pressure 76 mm[Hg] 76 mm[Hg] [facility] ([facility] Body height 64 [...] Heart rate 60 /min 60 /min [facility] ([facility] Respiratory rate 18 /min 18 /min [facility] ( [facility] Body height 64 [in_i] 64 [in_i] [facility] ([facility] 5'4" Diastolic blood pressure 88 mm[Hg] 88 mm[Hg] [facility] ([facility] Body weight 142.00 [lb_av] 142.00 [lb_av] [facility] ([facility] [place] body weight 120 [lb_av] 120 [lb_av] [facility] [...] [lb_av] [facility] ([facility] [place] body weight 120 [lb_av] 120 [lb_av] [facility] [...] 80 /min [facility] ([facility] [place] body weight 120 [lb_av] 120 [lb_av] [facility] [...] Systolic blood pressure 154 mm[Hg] 154 mm[Hg] [facility] Diastolic blood pressure 83 mm[Hg] 83 mm[Hg] [facility] Heart rate 68 /min 68 /min [facility] Body height 162.6 cm 162.6 cm [facility] Body weight 70.761 kg 70.761 kg [facility] Body mass index (BMI) [Ratio] 26.78 kg/m2 26.78 kg/m2 [facility] Body weight 158.00 [lb_av] 158.00 [lb_av] [facility] ([facility] Body temperature 98.0 [degF] 98.0 [degF] [facility] ([facility] Body height 64 [in_i] 64 [in_i] [facility] ([facility] 5'4" Respiratory rate 18 /min 18 /min [facility] ( [facility] Oxygen saturation in Arterial blood by Pulse oximetry 98 % 98 % [facility] ([facility] Heart rate 66 /min 66 /min [facility] ([facility] Diastolic blood pressure 78 mm[Hg] 78 mm[Hg] [facility] ([facility] Systolic blood pressure 128 mm[Hg] 128 mm[Hg] [facility] ([facility] [place] body weight 120 [lb_av] 120 [lb_av] [facility] ([facility] Body mass index (BMI) [Ratio] 27.1 kg/m2 27.1 k g/m2 [facility] ([facility] Respiratory rate 18 /min 18 /min [facility] ( [facility] Body height 64 [in_i] 64 [in_i] [facility] ([facility] 5'4" Body weight 157.00 [lb_av] 157.00 [lb_av] [facility] ([facility] [place] body weight 120 [lb_av] 120 [lb_av] [facility] ([facility] Body mass index (BMI) [Ratio] 26.9 kg/m2 26.9 k g/m2 [facility] ([facility] Oxygen saturation in Arterial blood by Pulse oximetry 97 % 97 % [facility] ([facility] Systolic blood pressure 128 mm[Hg] 128 mm[Hg] [facility] ([facility] Diastolic blood pressure 88 mm[Hg] 88 mm[Hg] [facility] ([facility] Body temperature 98.1 [degF] 98.1 [degF] [facility] ([facility] Heart rate 68 /min 68 /min [facility] ([facility] Systolic blood pressure 136 mm[Hg] 136 mm[Hg] [facility] ([facility] Diastolic blood pressure 80 mm[Hg] 80 mm[Hg] [facility] ([facility] Body temperature 97.9 [degF] 97.9 [degF] [facility] ([facility] Heart rate 82 /min 82 /min [facility] ([facility] Respiratory rate 18 /min 18 /min [facility] ( [facility] Body weight 156.00 [lb_av] 156.00 [lb_av] [facility] ([facility] Oxygen saturation in Arterial blood by Pulse oximetry 98 % 98 % [facility] ([facility] [place] body weight 120 [lb_av] 120 [lb_av] [facility] ([facility] Body mass index (BMI) [Ratio] 26.8 kg/m2 26.8 k g/m2 [facility] ([facility] Body height 64 [in_i] 64 [in_i] [facility] ([facility] 5'4" Body weight 162.00 [lb_av] 162.00 [lb_av] [facility] ([facility] [place] body weight 120 [lb_av] 120 [lb_av] [facility] ([facility] Body mass index (BMI) [Ratio] 27.8 kg/m2 27.8 k g/m2 [facility] ([facility] Oxygen saturation in Arterial blood by Pulse oximetry 98 % 98 % [facility] ( [facility] Respiratory rate 18 /min 18 /min [facility] ( [facility] Body height 64 [in_i] 64 [in_i] [facility] ([facility] 5'4" Systolic blood pressure 126 mm[Hg] 126 mm[Hg] [facility] ([facility] Diastolic blood pressure 86 mm[Hg] 86 mm[Hg] [facility] ([facility] Body temperature 97.8 [degF] 97.8 [degF] [facility] ([facility] Heart rate 68 /min 68 /min [facility] ([facility] Patient Treatment Plan of Care Planned Activity Planned Date Details Description Data Source (s) atorvastatin 40 MG Oral Tablet 10/27/2020 12:00:00 AM EDT [facility] travoprost 0.04 MG/ML Ophthalmic Solution 01/24/2020 12:00:00 AM ED T [facility] Albuterol 0.83 MG/ML Inhalant Solution [facility]
[2021-03-24] MEDS ORDERED: LEVAINH INH (06:45)
[2021-03-24] MEDS ORDERED: OMEP-221 PO (06:45)
[2021-03-24] MEDS ORDERED: DIVA250T7 PO (06:45)
[2021-03-24] MEDS ORDERED: ATIV1TAB10 PO ×2 (06:45)
[2021-03-24] MEDS ORDERED: ALEV220T22 PO (06:45)
[2021-03-24] MEDS ORDERED: LAMO25TA4 PO (06:45)
[2021-03-24] MEDS ORDERED: IBUP-1764 PO (06:45)
[2021-03-24] MEDS ORDERED: TOPI50TA9 PO (06:45)
[2021-03-24] MEDS ORDERED: HOME MED LIST COMPLETE! XX SCH (06:50)
[2021-03-24] MEDS ORDERED: LORazepam 0.5 MG TAB PO SCH (09:00)
[2021-03-24] MEDS: TOPIRAMATE (TopAMAX) 25 MG TAB PO SCH ×2 (09:04→20:22)
[2021-03-24] MEDS: lamoTRIgine 100MG TAB PO SCH ×2 (09:04→20:22)
[2021-03-24] MEDS ORDERED: IBUPROFEN 400MG TAB PO ONE (11:10)
[2021-03-24] MEDS ORDERED: MOM 30ML SUSPENSION UDC PO PRN (14:55)
[2021-03-24] MEDS ORDERED: ACETAMINOPHEN TAB 650MG DOSE (2X325MG) PO PRN (14:55)
[2021-03-24] MEDS ORDERED: MAALOX 30 ML SUSP *UDC PO PRN (14:55)
[2021-03-24] MEDS ORDERED: NICOTINE 21MG/24HR 1 EA TRANSDERMAL TD PRN (14:55)
[2021-03-24] MEDS ORDERED: DIVALPROEX 250MG *ER* TAB PO SCH (21:00)
[2021-03-24] MEDS ORDERED: PROPRANOLOL 60 MG LA CAP PO SCH (21:00)
[2021-03-24] MEDS ORDERED: ATORVASTATIN 20 MG TAB PO SCH (21:00)
[2021-03-24] MEDS ORDERED: LORazepam 1 MG TAB PO SCH (21:00)
[2021-03-24] MEDS ORDERED: OMEPRAZOLE 20 MG CAP PO SCH (21:00)
[2021-03-24 22:52] VITALS: BP 155/76
[2021-03-25] MEDS: OLANZapine ORAL DISINTEGRATING TAB 5MG PO PRN (00:45)
[2021-03-25] MEDS: traZODone 50 MG TAB PO PRN (00:45)
--- NOTE | 2021-03-25 05:44 | ECGEPIP ---
[facility] - ED Test Date: 2021-03-24 Pat Name: JOSE HEALY Department: Room: - Gender: Female Debate Director: : 1965 Requested By: DIEGO Day Order Number: [id number] Reading MD: Tariq Cotton Measurements Intervals Keo Rate: 60 P: 63 SD: 218 QRS: 72 QRSD: 74 T: 70 QT: 416 QTc: 416 Interpretive Statements V2 lead absent, unacceptable tracing for interpretation Sinus rhythm with 1st degree AV block Nonspecific ST and T wave abnormality Electronically Signed on 03-25-2021 5:44:55 EST by Tariq Cotton
[2021-03-25] MEDS ORDERED: FLUBLOK(EGG FREE)(QUAD)INFLUENZA VACC 0.5ML SYRINGE 18YRS & OLDER IM ONE (09:00)
[2021-03-25] MEDS ORDERED: FLUTICASONE PROP 0.05% NASAL SPRAY 16 GM (FLONASE) PRN (11:05)
[2021-03-25] MEDS ORDERED: LORazepam 1 MG TAB PO PRN (11:05)
[2021-03-25] MEDS ORDERED: IBUPROFEN 200MG TAB PO PRN (11:05)
[2021-03-25] MEDS ORDERED: LEVALBUTEROL HFA 45MCG/ACT 15 GM INHALER INH PRN (11:05)
--- NOTE | 2021-03-25 12:28 | MHHPEPDOC ---
General Chief Complaint "I came in for medical reasons." History of Present Illness HISTORY OF THE PRESENT ILLNESS: Patient is a 55 -year-old , Disabled, Domiciled, , female, who reports that she had a beetle infestation in her home. She has delusional thinking and reports visual hallucinations regarding these beetles. She states that she has the larva got under skin, she believes that they have burrowed themselves and she reports that they form letters under her skin such as the letter "V" and the letter "W". The beetle infestation started 3 months ago, she and her have had an coreroom foundry laborer to their home, and since then she has become more focused and ruminative about them. Patient has had one other psychiatric admission, she was diagnosed with unspecified psychotic disorder she complained about visual hallucinations at that time. PER ED REPORT: Pt was brought to the ED by her , at the suggestion of her PCP, due to pt thinking there are parasites in her body. Pt states that her doctor told her to come to the ED for a medical evaluation because she has been "breaking out in squares, circles, & semi-circles." She states that these patches are the result of beetle eggs burrowing into her skin & growing there. She states that her house was infested with beetles & they had an coreroom foundry laborer get rid of them, but there are still beetle eggs in the house that they cannot get rid of. She states that if the skin problems are not being caused by beetle eggs they could be caused by worms or parasites. She states that whatever is causing it has also burrowed into her lower back & moves around, causing her terrible pain. Pt states that she sometimes tries to pull the beetle eggs out of her skin using her fingernails or fingernail clippers, to the point that she starts bleeding. Pt is tearful & states that she does not want to be at home due to the fear that she will continue to be infested. Pt also states that she has not been sleeping well because the eggs have infested the bed & pillows and are constantly poking her. Pt denies both SI & HI. She denies any hx of suicide attempts or self- harm. Pt denies both AH & VH. She does not appear to be internally preocc upied. Pt c/o depressed mood, anxiety, poor concentration, decreased energy levels, poor sleep, & poor appetite. Pt has a hx of one admission to [facility] for psychosis, which was determined to be the result of changes made to her seizure meds. She does not currently have OP tx. Pt reports occasional alcohol use & denies drug use. Her tox screen was negative. Psychiatric Review of Systems Depression (2 or more weeks): insomnia/hypersomnia, other (fear and anxiety and stress, seizures have increased due to this anxiety of the beetle infestation and causing skin condition) Psychosis: visual hallucination, delusions Anxiety: gen/non-specific anxiety Anxiety/ 6 months or more of: restlessness, keyed up, difficulty concentrating, irritability, sleep disturbance Past Psychiatric History Previous Psychiatric Diagnosis: Unspecified Psychotic Previous Psychiatric Admissions: 2019 Suicide Attempts: Denies. Psychiatric Follow-up: Psychiatric medications: Lamictal 150 mg twice daily, Depakote ER 250 mg twice daily, Ativan 0.5 mg twice daily, topiramate 150 mg twice daily, propranolol 60 mg daily Past Medical History Medical Problems Seizures tremors GERD irritable bowel syndrome, asthma environmental allergies balance issues Head Injury: Yes (fall in the bathroom a couple of months ago after a seizure, hit her head twice) Seizures: Yes Hospitalizations: Yes Surgeries: Yes (tonsillectomy, ear surgery (skin grafts) appendectomy) Family Medical/Psychiatric HX Medical Problems Dad- Cardica, HTN, lymphoma, diabetes Mother - HTN Addiction: Yes (Brother - ETOH) Suicide Attemps/Completions: No Addiction History alcohol (occasional) Social History Childhood: Born in [place], had both parents growing up. Has 3 sisters and 1 brother. Pt is a middle child. Describes his childhood "happy" Abuse/Trauma: Denies Current Living Situation: Lives with , 2 cats Education: Bachelor's in Finance and Economics Employment: Retired. Was a substitute for [employer] Social Support: Legal: None Marital: , 2 daughters Mental Status Examination General Appearance: well groomed, appears stated age, hospital scubs/clothing Build: average, other (short) Demeanor: withdrawn, preoccupied (reporting beetle larvae under her skin), guarded Eye Contact: fair Activity: anxious Behavior: cooperative, withdrawn Speech: clear Mood: depressed, anxious Affect: constricted Thought Process: depressed Thought Content (Delusions): paranoia, delusions, other (delusional parasitosis) Thought Content (Other): preoccupied, obsessional, appears paranoid Thought Content (Aggressive): none reported Perception (Hallucinations): visual, tactile Perception (Other): none reported Cognition (Impairment of): none reported Cognition(Intelligence Est.): average Oriented: Awake, Alert, Oriented times three Insight: other (Limited) Judgment: Other (Limited) Psychosis: Psychotic Perceptions Diagnoses Unspecified psychotic disorder Delusional parasitosis Generalized anxiety disorder A-FIB/CHADSVASC A-FIB History Current/History of A-Fib/PAF?: No Current PO Anticoag Therapy: No Assessment Patient is a 55-year-old , retired, domiciled female who has had one other psychiatric admission last year and and was diagnosed onset unspecified psychotic disorder. On this occasion patient is reporting what appears to be delusional parasitosis, states that she had a beetle infestation 3 months ago and since then the beetles are now under her skin forming letters and causing her pain in itchiness and frustration. Patient reports moderate depression and anxiety, poor sleep, visual and tactile hallucinations. Patient is alert and oriented, dressed appropriately, has coherent and linear thinking although she is somewhat ruminative, anxious, having delusional thinking. Cognitive functioning and memory, abstract reasoning is intact. Has a depressed mood and affect is constricted. Calm and cooperative in the interview her speech is clear normal rate tone and volume. She denies any suicidal homicidal ideations planning or intent. Her insight and judgment appear to be impaired at this time. We will start patient on Risperdal 2 mg at bedtime, she will be afforded individual and group therapy, medication management, milieu therapy and a safe environment. We will commence with outpatient services when patient is stable and at baseline. Initial Treatment Plan 1. Patient was admitted on a [9.39] status. 2. Complete history was obtained. 3. With patients permission, family will be contacted and database will be expanded. 4. Patients medication regimen will be reviewed and changed accordingly. 5. Patient will be provided with protected environment. 6. Patient will be treated with individual, group, and milieu therapies. 7. Patient will receive supportive psych-education. 8. Discharge planning will commence immediately. 9. Outpatient follow-up treatment will be strongly recommended. 10. The initial treatment plan will focus initially on: * Depression. * altered thoughts ESTIMATED LENGTH OF STAY: 3-5 DAYS. TIME SPENT COUNSELING AND COORDINATING INITIAL CARE: 60 minutes. Ordered/Pending Vital Signs Vital Signs Date Time Temp Pulse Resp B/P (MAP) Pulse Ox O2 Delivery O2 Flow Rate FiO2 03/24/21 22:52 97.8 60 18 155/76 (102) 100 Room Air Medications Scheduled Atorvastatin Calcium (Atorvastatin Calcium) 40 Mg Tablet, 40 MG PO QHS, (Reported) Cholecalciferol (Vitamin D3) (Vitamin D3) 1,000 Unit Tablet, 1,000 UNITS PO DAILY, (Reported) Divalproex Sodium (Divalproex Sodium ER) 250 Mg Tab.er.24h, 250 MG PO QHS, (Re ported) Lamotrigine (Lamotrigine) 25 Mg Tablet, 50 MG PO BID, (Reported) TAKES WITH 100MG FOR 150MG TOTAL Lamotrigine (Lamotrigine) 100 Mg Tablet, 100 MG PO BID, (Reported) TAKES WITH 50MG FOR 150MG TOTAL Lorazepam (Ativan) 0.5 Mg Tablet, 0.5 MG PO DAILY, (Reported) Lorazepam (Ativan) 0.5 Mg Tablet, 1 MG PO QHS, (Reported) Omeprazole (Omeprazole) 40 Mg Capsule.dr, 40 MG PO QHS, (Reported) Propranolol HCl (Propranolol HCl ER) 60 Mg Cap, 60 MG PO QHS, (Reported) Topiramate (Topiramate) 50 Mg Tablet, 150 MG PO BID, (Reported) Scheduled PRN Fluticasone Propionate (Fluticasone Propionate) 16 Gm [place].susp, 2 SPRAYS NA DAILY PRN for NASAL CONGESTION, (Reported) Ibuprofen (Ibuprofen) 200 Mg Tablet, 400 MG PO Q6H PRN for MILD PAIN (PS 1-4), (Reported) Levalbuterol Hydrochloride (Xopenex Hfa) 15 Gm Hfa.aer.ad, 2 PUFF INH Q4H PRN for SHORTNESS OF BREATH, (Reported) Lorazepam (Lorazepam) 1 Mg Tab, 1 MG PO BID PRN for SEIZURES, (Reported) Naproxen Sodium (Aleve) 220 Mg Tablet, 220 MG PO BID PRN for HEADACHE, (Reported) Allergies Coded Allergies: codeine (Verified Allergy, Unknown, 03/24/21) diphenhydramine (Verified Allergy, Unknown, 03/24/21) gabapentin (Verified Allergy, Unknown, 03/24/21) meperidine (Verified Allergy, Unknown, 03/24/21) tramadol (Verified Allergy, Unknown, NOT ALLOWED DUE TO SEIZURE DISORDER, 03/24/21) JUAN LUIS DIEGO NP Mar 25, 2021 11:15
[2021-03-25] MEDS: VITAMIN D 1,000 INTERNATIONAL UNITS TABLET PO SCH (12:54)
[2021-03-25] MEDS: LORazepam 0.5 MG TAB PO SCH (12:54)
[2021-03-25] MEDS: lamoTRIgine 100MG TAB PO SCH ×2 (12:55→20:37)
[2021-03-25] MEDS: TOPIRAMATE (TopAMAX) 100 MG TAB PO SCH ×2 (12:55→20:39)
[2021-03-25] MEDS: TOPIRAMATE (TopAMAX) 25 MG TAB PO SCH ×2 (12:55→20:39)
[2021-03-25] MEDS: lamoTRIgine 25MG TAB PO SCH ×2 (12:55→20:37)
[2021-03-25 16:50] VITALS: BP 125/90
[2021-03-25 18:50] LABS: BASO # 0.1 10^3/uL (0.0-0.2); BASO % 0.8 % (0.0-1.0); EOS # 0.1 10^3/uL (0.0-0.5); EOS % 1.2 % (0.0-3.0); HEMATOCRIT 42.4 % (36.0-47.0); LYMPH % 30.3 % (24.0-44.0); MEAN CORPUSCULAR HEMOGLOBIN 29.6 pg (27.0-33.0); MEAN CORPUSCULAR VOLUME 89.6 fl (80.0-96.0); MONO # 0.6 10^3/uL (0.0-0.8); MONO % 8.5 % (2.0-8.0); NEUTROPHILS # 3.9 10^3/uL (1.5-8.5); PLATELET COUNT, AUTOMATED 281 10^3/uL (150-450); RED BLOOD COUNT 4.73 10^6/uL (4.00-5.40); WHITE BLOOD COUNT 6.6 10^3/uL (4.0-10.0)
[2021-03-25 19:21] LABS: ERYTHROCYTE SEDIMENTATION RATE 9 mm/hr (0-30)
[2021-03-25] MEDS: PROPRANOLOL 60 MG LA CAP PO SCH (20:38)
[2021-03-25] MEDS: OMEPRAZOLE 20 MG CAP PO SCH (20:39)
[2021-03-25] MEDS: ATORVASTATIN 20 MG TAB PO SCH (20:40)
[2021-03-25] MEDS: DIVALPROEX 250MG *ER* TAB PO SCH (20:40)
[2021-03-25] MEDS: LORazepam 1 MG TAB PO SCH (20:40)
[2021-03-25] MEDS ORDERED: risperiDONE 2 MG TAB PO SCH (21:00)
--- NOTE | 2021-03-25 22:01 | HPEPDOC ---
[facility] Medical History & Physical Date of Admission Mar 24, 2021 Date of Service: Mar 25, 2021 History and Physical CHIEF COMPLAINT: Medical health screening HISTORY OF PRESENT ILLNESS: Mrs. Perez is a 55-year-old female with epilepsy who was in the inpatient mental health unit for delusional thinking and hallucinations. Patient tells me that about 3 months ago, she was been dealing with a beetle infestation. She had been picking up the larvae. Since then she has having the sensation of bugs crawling under her skin, and she sees tunneling and markings on her arm. She also tells me she has been seeing purple spots with her vision. Patient was taken to the hospital for these visual hallucinations. Otherwise, she always feels cold. Denies any fever. Denies shortness of breath, current chest pain, abdominal pain, diarrhea, or dysuria. PAST MEDICAL HISTORY: 1. Epilepsy/tremors/Grand mal seizures 2. Chronic neck and back pain 3. Asthma 4. GERD PAST SURGICAL HISTORY: 1. Appendectomy 2. Covered eardrums with skin grafts (1978 and 1981) 3. Ear bone surgery of left (1978) 4. Bilateral cataract surgery 5. Right eye glaucoma surgery 6. Tonsillectomy SOCIAL HISTORY: Tobacco use: Former smoker ETOH: Socially drinks alcohol Illicit drug use: Denies FAMILY HISTORY: Father: History of diabetes Mother: History of hypertension ALLERGIES: Please see below. REVIEW OF SYSTEMS: CONSTITUTIONAL: Denies fevers, but always feels cold. HEENT: As of late, when she wears her glasses, she sees purple spots. Also has floaters CARDIOVASCULAR: Denies chest pain RESPIRATORY: Denies shortness of breath GASTROINTESTINAL: Denies abdominal pain. Denies diarrhea GENITOURINARY: Denies dysuria SKIN: Reports seeing tunneling from bugs HEMATOLOGIC: Denies bruising NEUROLOGICAL: Reports sensation of bugs crawling under skin PSYCHIATRIC: Reports anxiety about her current situation HOME MEDICATIONS: Please see below. PHYSICAL EXAMINATION: VITAL SIGNS: Temperature 96.9, pulse 63, respiratory rate 18, blood pressure 125/90, pulse oximetry 100% on room air. GENERAL: Comfortable, in no apparent distress. HEENT: Head normocephalic/atraumatic, EOMI, sclera clear. NECK: Supple. RESPIRATORY: Lungs clear to auscultation bilaterally, no rales, wheeze or rhonchi. CARDIOVASCULAR: Regular rate and rhythm. ABDOMEN: Soft, nontender, no guarding or rebound tenderness. Normal bowel sounds. CUTANEOUS: I did not see any tracking or bumps, skin is smooth. MUSCLE SKELETAL: Muscle strength 5/5 in all extremities. NEUROLOGICAL: CN 312 grossly intact, no focal deficits noted. PSYCHOLOGICAL: Anxious. LABORATORY DATA: See below. IMAGING: Radiologist interpretation CT head No acute intracranial abnormality. CXR No acute findings. MICROBIOLOGY: Please see below. ASSESSMENT and PLAN: 1. Visual and tactile hallucination -Being managed in the inpatient mental health unit -[place] inflammatory labs and CBC with auto differentiation. Inflammatory markers are all negative. WBC within normal and no eosinophilia. I was not able to see or find tracking where patient pointed out location. Very unlikely to have parasites. Most likely visual hallucination with formication -Patient's formication may be secondary to Topiramate. Psychiatry decreased Topiramate 2. Epilepsy/tremor/grand mal seizure disorder -Continue topiramate, lamotrigine, and divalproex 3. Hyperlipidemia -Continue atorvastatin Thank you for consulting us. We will sign off at this time. If there are any further questions or concerns, please do not hesitate to reconsult us. Vital Signs Vital Signs Date Time Temp Pulse Resp B/P (MAP) Pulse Ox O2 Delivery O2 Flow Rate FiO2 03/25/21 16:50 96.9 63 18 125/90 (102) 100 Room Air Laboratory Data Labs 24H Laboratory Tests 2 03/25/21 18:27: Immature Granulocyte % (Auto) 0.2, Neutrophils (%) (Auto) 59.0, Lymphocytes (%) (Auto) 30.3, Monocytes (%) (Auto) 8.5H, Eosinophils (%) (Auto) 1.2, Basophils (%) (Auto) 0.8, Neutrophils # (Auto) 3.9, Lymphocytes # (Auto) 2.0, Monocytes # (Auto) 0.6, Eosinophils # (Auto) 0.1, Basophils # (Auto) 0.1, Nucleated Red Blood Cells % (auto) 0.0, Erythrocyte Sedimentation Rate 9, C-Reactive Protein, Quantitative < 0.30 CBC/BMP Laboratory Tests 03/25/21 18:27 Microbiology Microbiology 03/24/21 Urine Culture - Final, Complete Home Medications Scheduled Atorvastatin Calcium (Atorvastatin Calcium) 40 Mg Tablet, 40 MG PO QHS Cholecalciferol (Vitamin D3) (Vitamin D3) 1,000 Unit Tablet, 1,000 UNITS PO DAILY Divalproex Sodium (Divalproex Sodium ER) 250 Mg Tab.er.24h, 250 MG PO QHS Lamotrigine (Lamotrigine) 25 Mg Tablet, 50 MG PO BID TAKES WITH 100MG FOR 150MG TOTAL Lamotrigine (Lamotrigine) 100 Mg Tablet, 100 MG PO BID TAKES WITH 50MG FOR 150MG TOTAL Lorazepam (Ativan) 0.5 Mg Tablet, 0.5 MG PO DAILY Lorazepam (Ativan) 0.5 Mg Tablet, 1 MG PO QHS Omeprazole (Omeprazole) 40 Mg Capsule.dr, 40 MG PO QHS Propranolol HCl (Propranolol HCl ER) 60 Mg Cap, 60 MG PO QHS Topiramate (Topiramate) 50 Mg Tablet, 150 MG PO BID Scheduled PRN Fluticasone Propionate (Fluticasone Propionate) 16 Gm [place].susp, 2 SPRAYS NA DAILY PRN for NASAL CONGESTION Ibuprofen (Ibuprofen) 200 Mg Tablet, 400 MG PO Q6H PRN for MILD PAIN (PS 1-4) Levalbuterol Hydrochloride (Xopenex Hfa) 15 Gm Hfa.aer.ad, 2 PUFF INH Q4H PRN for SHORTNESS OF BREATH Lorazepam (Lorazepam) 1 Mg Tab, 1 MG PO BID PRN for SEIZURES Naproxen Sodium (Aleve) 220 Mg Tablet, 220 MG PO BID PRN for HEADACHE Allergies Coded Allergies: codeine (Verified Allergy, Unknown, 03/24/21) diphenhydramine (Verified Allergy, Unknown, 03/24/21) gabapentin (Verified Allergy, Unknown, 03/24/21) meperidine (Verified Allergy, Unknown, 03/24/21) tramadol (Verified Allergy, Unknown, NOT ALLOWED DUE TO SEIZURE DISORDER, 03/24/21) A-FIB/CHADSVASC A-FIB History Current/History of A-Fib/PAF?: No GIL CUMMINS DO Mar 25, 2021 19:59
[2021-03-26 06:13] VITALS: BP 138/71
[2021-03-26] MEDS: lamoTRIgine 25MG TAB PO SCH ×2 (09:47→20:50)
[2021-03-26] MEDS: lamoTRIgine 100MG TAB PO SCH ×2 (09:47→20:50)
[2021-03-26] MEDS: VITAMIN D 1,000 INTERNATIONAL UNITS TABLET PO SCH (09:47)
[2021-03-26] MEDS: TOPIRAMATE (TopAMAX) 25 MG TAB PO SCH ×2 (09:47→20:51)
[2021-03-26] MEDS: LORazepam 0.5 MG TAB PO SCH (09:47)
[2021-03-26] MEDS: TOPIRAMATE (TopAMAX) 100 MG TAB PO SCH ×2 (09:47→20:50)
--- NOTE | 2021-03-26 13:18 | MHIPNPDOC ---
[facility] Progress Note Progress Note DATE OF SERVICE: 03/26/21 HISTORY: Patient is a 55 -year-old , Disabled, Domiciled, , female, who reports that she had a beetle infestation in her home. She has delusional thinking and reports visual hallucinations regarding these beetles. She states that she has the larva got under skin, she believes that they have burrowed themselves and she reports that they form letters under her skin such as the letter "V" and the letter "W". The beetle infestation started 3 months ago, she and her have had an director of patient care to their home, and since then she has become more focused and ruminative about them. Patient has had one other psychiatric admission, she was diagnosed with unspecified psychotic disorder she complained about visual hallucinations at that time. PER ED REPORT: Pt was brought to the ED by her , at the suggestion of her PCP, due to pt thinking there are parasites in her body. Pt states that her doctor told her to come to the ED for a medical evaluation because she has been "breaking out in squares, circles, & semi-circles." She states that these patches are the result of beetle eggs burrowing into her skin & growing there. She states that her house was infested with beetles & they had an director of patient care get rid of them, but there are still beetle eggs in the house that they cannot get rid of. She states that if the skin problems are not being caused by beetle eggs they could be caused by worms or parasites. She states that whatever is causing it has also burrowed into her lower back & moves around, causing her terrible pain. Pt states that she sometimes tries to pull the beetle eggs out of her skin using her fingernails or fingernail clippers, to the point that she starts bleeding. Pt is tearful & states that she does not want to be at home due to the fear that she will continue to be infested. Pt also states that she has not been sleeping well because the eggs have infested the bed & pillows and are constantly poking her. Pt denies both SI & HI. She denies any hx of suicide attempts or self- harm. Pt denies both AH & VH. She does not appear to be internally preoccupied. Pt c/o depressed mood, anxiety, poor concentration, decreased energy levels, poor sleep, & poor appetite. Pt has a hx of one admission to [facility] for psychosis, which was determined to be the result of changes made to her seizure meds. She does not currently have OP tx. Pt reports occasional alcohol use & denies drug use. Her tox screen was negative. VITAL SIGNS: See below. NEW TEST RESULTS: . CURRENT MEDICATIONS: See below. MENTAL STATUS EXAMINATION: Patient is a 55 -year-old , Disabled, Domiciled, , female, who is admitted for delusional parasitopsis. She reports that she had a beetle infestation in her home. She has delusional thinking and reports visual hallucinations regarding these beetles. She states that she has the larva got under skin. Speech: Is fluid, conversant, normal rate, tone and volume Language skills are intact Thought processes including: linear and goal oriented Thought content: denies depression and anxiety. Denies suicidal/homicidal ideation, planning or intent. Abstract reasoning, and computation: fair Description of associations: denies, none observed Description of abnormal or psychotic thoughts: denies, none observed. Judgment: fair Insight: fair Orientation: alert and oriented to person, place, time and situation Recent and remote memory: intact Attention span and concentration: good Language: expansive Fund of knowledge: average Mood: Euthymic Mood Affect: reactive DIAGNOSES: Unspecified psychotic disorder Delusional parasitosis Generalized anxiety disorder ASSESSMENT: Reports that she is not doing well today because she has had several seizures today. States that the PCP had ordered a CT scan last week but she was not able to get this. She reports that the Risperdal is too sedating for her and that she wants it decreased to 1 mg. Patient was tangential and very conversant about seeing other providers once she is discharged. Feels that she needs to see a welfare officer and patient financial advocate. States that she is ready to go home. Reports that her is doing a lot of work to get ready for her re turn. She did not have much ruminations about her parasitosis. Patient appears to be minimizing earlier psychosis. But she is alert and oriented, denies suicidality, homicidality, depression, anxiety and is organized and coherent. She has mild appearance of being overzealous about seeing other/new providers. Patient's daughter is very concerned. Reporting that she is often psychotic at home, making delusional statements but refusing to go to psychiatric appointments. There is thought that she is taking Benadryl at home. She had reported to another daughter that she is taking this. Daughter states that she has been very delusional about the beetles, increased epileptic seizures and doctor shopping. MANAGEMENT PLAN: Continues all medications and supportive therapies as previousl y ordered. TIME SPENT: 35 minutes. Vital Signs Vital Signs Date Time Temp Pulse Resp B/P (MAP) Pulse Ox O2 Delivery O2 Flow Rate FiO2 03/26/21 06:13 97.4 68 18 138/71 (93) 100 Room Air Laboratory Data 24H Labs Laboratory Tests 2 03/25/21 18:27: Immature Granulocyte % (Auto) 0.2, Neutrophils (%) (Auto) 59.0, Lymphocytes (%) (Auto) 30.3, Monocytes (%) (Auto) 8.5H, Eosinophils (%) (Auto) 1.2, Basophils (%) (Auto) 0.8, Neutrophils # (Auto) 3.9, Lymphocytes # (Auto) 2.0, Monocytes # (Auto) 0.6, Eosinophils # (Auto) 0.1, Basophils # (Auto) 0.1, Nucleated Red Blood Cells % (auto) 0.0, Erythrocyte Sedimentation Rate 9, C-Reactive Protein, Quantitative < 0.30 CBC/BMP Laboratory Tests 03/25/21 18:27 Current Medications Current Medications Medications (Trade) Dose Ordered Sig/Zak Route PRN Reason Start Time Stop Time Status Last Admin Dose Admin Acetaminophen (Tylenol Tab) 650 mg Q6HP PRN PO HEADACHE or MILD DISCOMFORT 03/24/21 14:55 Al Hydrox/Mg Hydrox/Simethicone (Mylanta) 30 ml Q4HP PRN PO HEARTBURN/INDIGESTION 03/24/21 14:55 Atorvastatin Calcium (Lipitor) 40 mg QHS PO 03/24/21 21:00 03/25/21 00:32 DC 03/24/21 20:22 Atorvastatin Calcium (Lipitor) 40 mg QHS PO 03/25/21 21:00 03/25/21 20:40 Divalproex Sodium (Depakote Er) 250 mg QHS PO 03/24/21 21:00 03/25/21 00:32 DC 03/24/21 20:22 Divalproex Sodium (Depakote Er) 250 mg QHS PO 03/25/21 21:00 03/25/21 20:40 Fluticasone Propionate (Flonase 0.05% Nasal [place]) 2 spray DAILY PRN NA NASAL CONGESTION 03/25/21 11:05 Home Med (Home Med List Complete!) ASDIRECTED XX 03/24/21 06:50 03/24/21 06:51 DC Ibuprofen (Advil) 400 mg Q6H PRN PO MILD PAIN (PS 1-4) 03/25/21 11:05 Lamotrigine (LaMICtal) 50 mg BID PO 03/25/21 09:00 03/25/21 20:37 Lamotrigine (LaMICtal) 100 mg BID PO 03/25/21 09:00 03/25/21 20:37 Lamotrigine (LaMICtal) 150 mg BID PO 03/24/21 09:00 03/25/21 00:32 DC 03/24/21 20:22 Levalbuterol HCl (Xopenex Hfa) 2 puff Q4H PRN INH SHORTNESS OF BREATH 03/25/21 11:05 Lorazepam (Ativan) 0.5 mg DAILY PO 03/24/21 09:00 03/25/21 00:32 DC 03/24/21 09:04 Lorazepam (Ativan) 0.5 mg DAILY PO 03/25/21 09:00 03/25/21 12:54 Lorazepam (Ativan) 1 mg BID PRN PO SEIZURES 03/25/21 11:05 Lorazepam (Ativan) 1 mg QHS PO 03/24/21 21:00 03/25/21 00:32 DC 03/24/21 20:22 Lorazepam (Ativan) 1 mg QHS PO 03/25/21 21:00 03/25/21 20:40 Magnesium Hydroxide (Milk Of Magnesia) 30 ml DAILYPRN PRN PO CONSTIPATION 03/24/21 14:55 Nicotine (Nicoderm Cq 21mg) 1 patch DAILY PRN TD NICOTINE WITHDRAWAL 03/24/21 14:55 Olanzapine (ZyPREXA ZYDIS) 5 mg Q6HP PRN PO AGITATION/ANXIETY 03/24/21 14:55 03/25/21 00:45 Omeprazole (PriLOSEC) 40 mg QHS PO 03/24/21 21:00 03/25/21 00:32 DC 03/24/21 20:22 Omeprazole (PriLOSEC) 40 mg QHS PO 12/15/21 21:00 03/25/21 20:39 Propranolol HCl (Inderal La) 60 mg QHS PO 03/24/21 21:00 03/25/21 00:32 DC 03/24/21 20:23 Propranolol HCl (Inderal La) 60 mg QHS PO 03/25/21 21:00 03/25/21 20:38 Risperidone (RisperDAL) 2 mg QHS PO 03/25/21 21:00 03/25/21 20:39 Topiramate (TopAMAX) 50 mg BID PO 03/25/21 09:00 03/25/21 20:39 Topiramate (TopAMAX) 100 mg BID PO 03/25/21 09:00 03/25/21 20:39 Topiramate (TopAMAX) 150 mg BID PO 03/24/21 09:00 03/25/21 00:32 DC 03/24/21 20:22 Trazodone HCl (Desyrel) 50 mg QHSP PRN PO INSOMNIA 03/24/21 14:55 03/25/21 00:45 Vitamin D (Vitamin D) 1,000 units DAILY PO 03/25/21 09:00 03/25/21 12:54 Allergies Coded Allergies: codeine (Verified Allergy, Unknown, 03/24/21) diphenhydramine (Verified Allergy, Unknown, 03/24/21) gabapentin (Verified Allergy, Unknown, 03/24/21) meperidine (Verified Allergy, Unknown, 03/24/21) tramadol (Verified Allergy, Unknown, NOT ALLOWED DUE TO SEIZURE DISORDER, 03/24/21) JUAN LUIS DIEGO NP Mar 26, 2021 07:07
[2021-03-26 18:00] VITALS: BP 139/60
[2021-03-26] MEDS: risperiDONE 1 MG TAB PO SCH (20:51)
[2021-03-26] MEDS: DIVALPROEX 250MG *ER* TAB PO SCH (20:51)
[2021-03-26] MEDS: LORazepam 1 MG TAB PO SCH (20:51)
[2021-03-26] MEDS: ATORVASTATIN 20 MG TAB PO SCH (20:51)
[2021-03-26] MEDS: OMEPRAZOLE 20 MG CAP PO SCH (20:52)
[2021-03-26] MEDS: PROPRANOLOL 60 MG LA CAP PO SCH (20:53)
[2021-03-27 06:25] VITALS: BP 157/72
[2021-03-27 07:14] LABS: CHOLESTEROL RISK RATIO 3.555 (<5); VALPROIC ACID (DEPAKOTE) 44.2 UG/ML (50.0-100.0)
[2021-03-27] MEDS: lamoTRIgine 25MG TAB PO SCH ×2 (08:09→20:25)
[2021-03-27] MEDS: VITAMIN D 1,000 INTERNATIONAL UNITS TABLET PO SCH (08:09)
[2021-03-27] MEDS: LORazepam 0.5 MG TAB PO SCH (08:09)
[2021-03-27] MEDS: TOPIRAMATE (TopAMAX) 100 MG TAB PO SCH ×2 (08:09→20:29)
[2021-03-27] MEDS: lamoTRIgine 100MG TAB PO SCH ×2 (08:10→20:28)
--- NOTE | 2021-03-27 11:16 | MHIPNPDOC ---
[facility] Progress Note Progress Note DATE OF SERVICE: 03/27/21 HISTORY: Patient is a 55 -year-old , Disabled, Domiciled, , female, who reports that she had a beetle infestation in her home. She has delusional thinking and reports visual hallucinations regarding these beetles. She states that she has the larva got under skin, she believes that they have burrowed themselves and she reports that they form letters under her skin such as the letter "V" and the letter "W". The beetle infestation started 3 months ago, she and her have had an power ballast machine operator to their home, and since then she has become more focused and ruminative about them. Patient has had one other psychiatric admission, she was diagnosed with unspecified psychotic disorder she complained about visual hallucinations at that time. PER ED REPORT: Pt was brought to the ED by her , at the suggestion of her PCP, due to pt thinking there are parasites in her body. Pt states that her doctor told her to come to the ED for a medical evaluation because she has been "breaking out in squares, circles, & semi-circles." She states that these patches are the result of beetle eggs burrowing into her skin & growing there. She states that her house was infested with beetles & they had an power ballast machine operator get rid of them, but there are still beetle eggs in the house that they cannot get rid of. She states that if the skin problems are not being caused by beetle eggs they could be caused by worms or parasites. She states that whatever is causing it has also burrowed into her lower back & moves around, causing her terrible pain. Pt states that she sometimes tries to pull the beetle eggs out of her skin using her fingernails or fingernail clippers, to the point that she starts bleeding. Pt is tearful & states that she does not want to be at home due to the fear that she will continue to be infested. Pt also states that she has not been sleeping well because the eggs have infested the bed & pillows and are constantly poking her. Pt denies both SI & HI. She denies any hx of suicide attempts or self- harm. Pt denies both AH & VH. She does not appear to be internally preoccupied. Pt c/o depressed mood, anxiety, poor concentration, decreased energy levels, poor sleep, & poor appetite. Pt has a hx of one admission to [facility] for psychosis, which was determined to be the result of changes made to her seizure meds. She does not currently have OP tx. Pt reports occasional alcohol use & denies drug use. Her tox screen was negative. VITAL SIGNS: See below. NEW TEST RESULTS: . CURRENT MEDICATIONS: See below. MENTAL STATUS EXAMINATION: Patient is a 55 -year-old , Disabled, Domiciled, , female, who is admitted for delusional parasitopsis. She reports that she had a beetle infestation in her home. She has delusional thinking and reports visual hallucinations regarding these beetles. She states that she has the larva got under skin. Speech: Is fluid, conversant, normal rate, tone and volume Language skills are intact Thought processes including: linear and goal oriented Thought content: has mild depression and moderate anxiety. Denies suicidal/homicidal ideation, planning or intent. Abstract reasoning, and computation: fair Description of associations: denies, none observed Description of abnormal or psychotic thoughts: denies, none observed. Judgment: fair Insight: fair Orientation: alert and oriented to person, place, time and situation Recent and remote memory: intact Attention span and concentration: good Language: expansive Fund of knowledge: average Mood: Neutral Mood Affect: flat DIAGNOSES: Unspecified psychotic disorder Delusional parasitosis Generalized anxiety disorder ASSESSMENT: Patient states today that she "feels differently and has a change of heart, she does not feel that she is ready to be discharged, feels that she is rushing to get home." She states that the night before last she had thoughts that the bugs were on her and that she had blood on her sheets. ( She made no mention of this yesterday in her interview) She complains of her arms hurting and her wristband was pushed further up her arm and she saw shapes on her. She became tearful at one point of her interview, describing her visual hallucinations stating that no one believes her. 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 Feels that her visual acuity and peripheral vision should be evaluated. She describes in length that she started seeing halos after surgery and that her vision while watching TV has been altered. (she sees the television cameraman but the outer periphery is pixilated. I discussed with her that Dr. Khanna and psychiatrist felt that Topamax may be causing delusional parasitosis and that this medication was reduced from 150 mg BID to 100 mg in AM and 150 mg at HS. Patient became very sullen and stated that she needed to speak to her neurologist and stated that she would need more Ativan during the day. She reported no increase of seizures today. She was very conversant about needing to see balance clinic, neurologist and making future appointments for other providers. MANAGEMENT PLAN: Continues all medications and supportive therapies as previously ordered. TIME SPENT: 35 minutes. Vital Signs Vital Signs Date Time Temp Pulse Resp B/P (MAP) Pulse Ox O2 Delivery O2 Flow Rate FiO2 03/27/21 06:25 97.3 59 18 157/72 (100) 100 Room Air Laboratory Data 24H Labs Laboratory Tests 2 03/27/21 06:34: Triglycerides Level 97, Total Cholesterol 160, LDL Cholesterol 96, Non-HDL Cholesterol (LDL + VLDL) 115, Total HDL Cholesterol 45, Cholesterol/HDL Ratio 3.555, Valproic Acid (Depakene) Level 44.2L Current Medications Current Medications Medications (Trade) Dose Ordered Sig/Zak Route PRN Reason Start Time Stop Time Status Last Admin Dose Admin Acetaminophen (Tylenol Tab) 650 mg Q6HP PRN PO HEADACHE or MILD DISCOMFORT 03/24/21 14:55 Al Hydrox/Mg Hydrox/Simethicone (Mylanta) 30 ml Q4HP PRN PO HEARTBURN/INDIGESTION 03/24/21 14:55 Atorvastatin Calcium (Lipitor) 40 mg QHS PO 03/24/21 21:00 03/25/21 00:32 DC 03/24/21 20:22 Atorvastatin Calcium (Lipitor) 40 mg QHS PO 03/25/21 21:00 03/26/21 20:51 Divalproex Sodium (Depakote Er) 250 mg QHS PO 03/24/21 21:00 03/25/21 00:32 DC 03/24/21 20:22 Divalproex Sodium (Depakote Er) 250 mg QHS PO 03/25/21 21:00 03/26/21 20:51 Fluticasone Propionate (Flonase 0.05% Nasal [place]) 2 spray DAILY PRN NA NASAL CONGESTION 03/25/21 11:05 Home Med (Home Med List Complete!) ASDIRECTED XX 03/24/21 06:50 03/24/21 06:51 DC Ibuprofen (Advil) 400 mg Q6H PRN PO MILD PAIN (PS 1-4) 03/25/21 11:05 Lamotrigine (LaMICtal) 50 mg BID PO 03/25/21 09:00 03/27/21 08:09 Lamotrigine (LaMICtal) 100 mg BID PO 03/25/21 09:00 03/27/21 08:10 Lamotrigine (LaMICtal) 150 mg BID PO 03/24/21 09:00 03/25/21 00:32 DC 03/24/21 20:22 Levalbuterol HCl (Xopenex Hfa) 2 puff Q4H PRN INH SHORTNESS OF BREATH 03/25/21 11:05 Lorazepam (Ativan) 0.5 mg DAILY PO 03/24/21 09:00 03/25/21 00:32 DC 03/24/21 09:04 Lorazepam (Ativan) 0.5 mg DAILY PO 03/25/21 09:00 03/27/21 08:09 Lorazepam (Ativan) 1 mg BID PRN PO SEIZURES 03/25/21 11:05 03/26/21 10:07 Lorazepam (Ativan) 1 mg QHS PO 03/24/21 21:00 03/25/21 00:32 DC 03/24/21 20:22 Lorazepam (Ativan) 1 mg QHS PO 03/25/21 21:00 03/26/21 20:51 Magnesium Hydroxide (Milk Of Magnesia) 30 ml DAILYPRN PRN PO CONSTIPATION 03/24/21 14:55 Nicotine (Nicoderm Cq 21mg) 1 patch DAILY PRN TD NICOTINE WITHDRAWAL 03/24/21 14:55 Olanzapine (ZyPREXA ZYDIS) 5 mg Q6HP PRN PO AGITATION/ANXIETY 03/24/21 14:55 03/25/21 00:45 Omeprazole (PriLOSEC) 40 mg QHS PO 03/24/21 21:00 03/25/21 00:32 DC 03/24/21 20:22 Omeprazole (PriLOSEC) 40 mg QHS PO 03/25/21 21:00 03/26/21 20:52 Propranolol HCl (Inderal La) 60 mg QHS PO 03/24/21 21:00 03/25/21 00:32 DC 03/24/21 20:23 Propranolol HCl (Inderal La) 60 mg QHS PO 03/25/21 21:00 03/26/21 20:53 Risperidone (RisperDAL) 1 mg QHS PO 03/26/21 21:00 03/26/21 20:51 Risperidone (RisperDAL) 2 mg QHS PO 03/25/21 21:00 03/26/21 12:53 DC 03/25/21 20:39 Topiramate (TopAMAX) 50 mg BID PO 03/25/21 09:00 03/26/21 19:08 DC 03/26/21 09:47 Topiramate (TopAMAX) 50 mg QHS PO 03/26/21 21:00 03/26/21 20:51 Topiramate (TopAMAX) 100 mg BID PO 03/25/21 09:00 03/26/21 19:08 DC 03/26/21 09:47 Topiramate (TopAMAX) 100 mg DAILY PO 03/27/21 09:00 03/27/21 08:09 Topiramate (TopAMAX) 100 mg QHS PO 03/26/21 21:00 03/26/21 20:50 Topiramate (TopAMAX) 150 mg BID PO 03/24/21 09:00 03/25/21 00:32 DC 03/24/21 20:22 Trazodone HCl (Desyrel) 50 mg QHSP PRN PO INSOMNIA 03/24/21 14:55 03/25/21 00:45 Vitamin D (Vitamin D) 1,000 units DAILY PO 03/25/21 09:00 03/27/21 08:09 Allergies Coded Allergies: codeine (Verified Allergy, Unknown, 03/24/21) diphenhydramine (Verified Allergy, Unknown, 03/24/21) gabapentin (Verified Allergy, Unknown, 03/24/21) meperidine (Verified Allergy, Unknown, 03/24/21) tramadol (Verified Allergy, Unknown, NOT ALLOWED DUE TO SEIZURE DISORDER, 03/24/21) JUAN LUIS DIEGO NP Mar 27, 2021 11:16
--- NOTE | 2021-03-27 13:58 | REPVR ---
PROCEDURE INFORMATION: Exam: CT Head Without Contrast Exam date and time: 03/27/2021 1:27 PM Age: 55 years old Clinical indication: Injury or trauma; Fall; Blunt trauma (contusions or hematomas); Additional info: Mechanical fall TECHNIQUE: Imaging protocol: Computed tomography of the head without contrast. Axial and coronal reformatted images were created and reviewed. Radiation optimization: All CT scans at this facility use at least one of these dose optimization techniques: automated exposure control; mA and/or kV adjustment per patient size (includes targeted exams where dose is matched to clinical indication); or iterative reconstruction. COMPARISON: CT Head without contrast 03/24/2021 2:27 AM FINDINGS: Brain: Subtle, patchy areas of hypoattenuation in the periventricular and subcortical white matter, nonspecific but suggestive of mild chronic small vessel ischemic disease. No CT evidence of acute intracranial hemorrhage or acute territorial infarction. No significant mass effect or midline shift. Basal cisterns patent. Cerebral ventricles: Prominence of the cortical sulci, cisterns and ventricular system, consistent with cerebral and cerebellar volume loss. Paranasal sinuses: Unremarkable. No fluid levels. Mastoid air cells: Grossly unremarkable. Vasculature: Calcific atherosclerotic disease in the cavernous internal carotid arteries. Bones/joints: No acute osseous abnormality. Soft tissues: Grossly unremarkable. IMPRESSION: 1. No CT evidence of acute intracranial pathology. 2. Additional findings, as above. Electronically signed by: Jovan Smyth On 03/27/2021 13:58:18 PM
[2021-03-27] MEDS: IBUPROFEN 400MG TAB PO PRN (17:42)
[2021-03-27 18:42] VITALS: BP 144/81
[2021-03-27] MEDS: PROPRANOLOL 60 MG LA CAP PO SCH (20:25)
[2021-03-27] MEDS: OMEPRAZOLE 20 MG CAP PO SCH (20:27)
[2021-03-27] MEDS: TOPIRAMATE (TopAMAX) 25 MG TAB PO SCH (20:27)
[2021-03-27] MEDS: ATORVASTATIN 20 MG TAB PO SCH (20:28)
[2021-03-27] MEDS: LORazepam 1 MG TAB PO SCH (20:28)
[2021-03-27] MEDS: risperiDONE 1 MG TAB PO SCH (20:28)
[2021-03-27] MEDS: DIVALPROEX 250MG *ER* TAB PO SCH (20:29)
[2021-03-28] MEDS: traZODone 50 MG TAB PO PRN (01:28)
[2021-03-28] MEDS: OLANZapine ORAL DISINTEGRATING TAB 5MG PO PRN ×2 (01:28→20:17)
[2021-03-28] MEDS: IBUPROFEN 400MG TAB PO PRN (01:41)
[2021-03-28 06:00] VITALS: BP 168/86
[2021-03-28] MEDS: VITAMIN D 1,000 INTERNATIONAL UNITS TABLET PO SCH (09:17)
[2021-03-28] MEDS: LORazepam 0.5 MG TAB PO SCH (09:17)
[2021-03-28] MEDS: lamoTRIgine 25MG TAB PO SCH ×2 (09:17→20:17)
[2021-03-28] MEDS: lamoTRIgine 100MG TAB PO SCH ×2 (09:17→20:13)
[2021-03-28] MEDS: amLODIPine 5 MG TAB PO SCH (09:18)
[2021-03-28] MEDS: TOPIRAMATE (TopAMAX) 100 MG TAB PO SCH ×2 (09:18→20:11)
[2021-03-28 18:00] VITALS: BP 154/67
[2021-03-28] MEDS: TOPIRAMATE (TopAMAX) 25 MG TAB PO SCH (20:11)
[2021-03-28] MEDS: risperiDONE 1 MG TAB PO SCH (20:12)
[2021-03-28] MEDS: OMEPRAZOLE 20 MG CAP PO SCH (20:12)
[2021-03-28] MEDS: ATORVASTATIN 20 MG TAB PO SCH (20:12)
[2021-03-28] MEDS: DIVALPROEX 250MG *ER* TAB PO SCH (20:12)
[2021-03-28] MEDS: PROPRANOLOL 60 MG LA CAP PO SCH (20:14)
[2021-03-28] MEDS: LORazepam 1 MG TAB PO SCH (20:15)
--- NOTE | 2021-03-28 22:58 | MHIPNPDOC ---
[facility] Progress Note Progress Note DATE OF SERVICE: 03/28/21 HISTORY: Patient is a 55 -year-old , Disabled, Domiciled, , female, who reports that she had a beetle infestation in her home. She has delusional thinking and reports visual hallucinations regarding these beetles. She states that she has the larva got under skin, she believes that they have burrowed themselves and she reports that they form letters under her skin such as the letter "V" and the letter "W". The beetle infestation started 3 months ago, she and her have had an aircraft communicator to their home, and since then she has become more focused and ruminative about them. Patient has had one other psychiatric admission, she was diagnosed with unspecified psychotic disorder she complained about visual hallucinations at that time. PER ED REPORT: Pt was brought to the ED by her , at the suggestion of her PCP, due to pt thinking there are parasites in her body. Pt states that her doctor told her to come to the ED for a medical evaluation because she has been "breaking out in squares, circles, & semi-circles." She states that these patches are the result of beetle eggs burrowing into her skin & growing there. She states that her house was infested with beetles & they had an aircraft communicator get rid of them, but there are still beetle eggs in the house that they cannot get rid of. She states that if the skin problems are not being caused by beetle eggs they could be caused by worms or parasites. She states that whatever is causing it has also burrowed into her lower back & moves around, causing her terrible pain. Pt states that she sometimes tries to pull the beetle eggs out of her skin using her fingernails or fingernail clippers, to the point that she starts bleeding. Pt is tearful & states that she does not want to be at home due to the fear that she will continue to be infested. Pt also states that she has not been sleeping well because the eggs have infested the bed & pillows and are constantly poking her. Pt denies both SI & HI. She denies any hx of suicide attempts or self- harm. Pt denies both AH & VH. She does not appear to be internally preoccupied. Pt c/o depressed mood, anxiety, poor concentration, decreased energy levels, poor sleep, & poor appetite. Pt has a hx of one admission to [facility] for psychosis, which was determined to be the result of changes made to her seizure meds. She does not currently have OP tx. Pt reports occasional alcohol use & denies drug use. Her tox screen was negative. INTERVAL HISTORY: Perseverates on idea that staff was annoyed with her yesterday after she asked multiple people to look at her bathroom door because she felt she heard something there. Was difficult to interrupt at times due to the nature of her perseverations. Also provided many extraneous details about her treatment outside of the hospital, the nature of the beetle infestation at her home, and justifications of why she "was not anxious". Appears to believe that people are mistrustful/hateful towards her. Denied side effects with medications except to report that her seizures have increased. Per documentation yesterday patient's claimed seizure was a fall without LOC or loss of bladder/bowel control. Did not appear consistent from either her or nursing description with a seizure. Worried about CT scan which showed no acute intracranial processes, felt that this was not explained to her appropriately. VITAL SIGNS: See below. NEW TEST RESULTS: . CURRENT MEDICATIONS: See below. MENTAL STATUS EXAMINATION: Patient is a 55 -year-old , Disabled, Domiciled, , female, who is admitted for delusional parasitopsis. She reports that she had a beetle infestation in her home. She has delusional thinking and reports visual hallucinations regarding these beetles. She states that she has the larva got under skin. Speech: Is fluid, conversant, normal rate, tone and volume Language skills are intact Thought processes including: anxious perseveration Thought content: has mild depression and moderate anxiety. Denies suicidal/homicidal ideation, planning or intent. Abstract reasoning, and computation: fair Description of associations: denies, none observed Description of abnormal or psychotic thoughts: denies, none observed. Judgment: fair Insight: fair Orientation: alert and oriented to person, place, time and situation Recent and remote memory: intact Attention span and concentration: good Language: expansive Fund of knowledge: average Mood: Neutral Mood Affect: flat DIAGNOSES: Unspecified psychotic disorder Delusional parasitosis Generalized anxiety disorder ASSESSMENT: Perseverating at length about staff being annoyed with her yesterday. Speaks at length about trying to justify herself and that she was "not anxious" yesterday. Also talks at length about seeking treatment with her doctor in [place]. Is annoyed with mediation changes that have been proposed but has been compliant with them so far. [place] that staff was demanding she take scheduled medications in order for her to receive pain PRNs, provided education to her about right to refuse treatment. MANAGEMENT PLAN: Continues all medications and supportive therapies as previously ordered. TIME SPENT: 15 minutes. Vital Signs Vital Signs Date Time Temp Pulse Resp B/P (MAP) Pulse Ox O2 Delivery O2 Flow Rate FiO2 03/28/21 20:14 71 138/73 03/28/21 18:00 97.0 16 03/28/21 06:00 98 03/27/21 06:25 Room Air Current Medications Current Medications Medications (Trade) Dose Ordered Sig/Zak Route PRN Reason Start Time Stop Time Status Last Admin Dose Admin Acetaminophen (Tylenol Tab) 650 mg Q6HP PRN PO HEADACHE or MILD DISCOMFORT 03/24/21 14:55 Al Hydrox/Mg Hydrox/Simethicone (Mylanta) 30 ml Q4HP PRN PO HEARTBURN/INDIGESTION 03/24/21 14:55 Amlodipine Besylate (Norvasc) 5 mg DAILY PO 03/28/21 09:00 03/28/21 09:18 Atorvastatin Calcium (Lipitor) 40 mg QHS PO 03/24/21 21:00 03/25/21 00:32 DC 03/24/21 20:22 Atorvastatin Calcium (Lipitor) 40 mg QHS PO 03/25/21 21:00 03/28/21 20:12 Divalproex Sodium (Depakote Er) 250 mg QHS PO 03/24/21 21:00 03/25/21 00:32 DC 03/24/21 20:22 Divalproex Sodium (Depakote Er) 250 mg QHS PO 03/25/21 21:00 03/28/21 20:12 Fluticasone Propionate (Flonase 0.05% Nasal [place]) 2 spray DAILY PRN NA NASAL CONGESTION 03/25/21 11:05 Home Med (Home Med List Complete!) ASDIRECTED XX 03/24/21 06:50 03/24/21 06:51 DC Ibuprofen (Advil) 400 mg Q6H PRN PO MILD PAIN (PS 1-4) 03/25/21 11:05 03/27/21 17:20 DC Ibuprofen (Advil) 400 mg Q6H PRN PO MILD PAIN (PS 1-4) 03/27/21 17:20 03/28/21 01:41 Lamotrigine (LaMICtal) 50 mg BID PO 03/25/21 09:00 03/28/21 20:17 Lamotrigine (LaMICtal) 100 mg BID PO 03/25/21 09:00 03/28/21 20:13 Lamotrigine (LaMICtal) 150 mg BID PO 03/24/21 09:00 03/25/21 00:32 DC 03/24/21 20:22 Levalbuterol HCl (Xopenex Hfa) 2 puff Q4H PRN INH SHORTNESS OF BREATH 03/25/21 11:05 Lorazepam (Ativan) 0.5 mg DAILY PO 03/24/21 09:00 03/25/21 00:32 DC 03/24/21 09:04 Lorazepam (Ativan) 0.5 mg DAILY PO 03/25/21 09:00 03/28/21 09:17 Lorazepam (Ativan) 1 mg BID PRN PO SEIZURES 03/25/21 11:05 03/26/21 10:07 Lorazepam (Ativan) 1 mg QHS PO 03/24/21 21:00 03/25/21 00:32 DC 03/24/21 20:22 Lorazepam (Ativan) 1 mg QHS PO 03/25/21 21:00 03/28/21 20:15 Magnesium Hydroxide (Milk Of Magnesia) 30 ml DAILYPRN PRN PO CONSTIPATION 03/24/21 14:55 Nicotine (Nicoderm Cq 21mg) 1 patch DAILY PRN TD NICOTINE WITHDRAWAL 03/24/21 14:55 Olanzapine (ZyPREXA ZYDIS) 5 mg Q6HP PRN PO AGITATION/ANXIETY 03/24/21 14:55 03/28/21 20:17 Omeprazole (PriLOSEC) 40 mg QHS PO 03/24/21 21:00 03/25/21 00:32 DC 03/24/21 20:22 Omeprazole (PriLOSEC) 40 mg QHS PO 03/25/21 21:00 03/28/21 20:12 Propranolol HCl (Inderal La) 60 mg QHS PO 03/24/21 21:00 03/25/21 00:32 DC 03/24/21 20:23 Propranolol HCl (Inderal La) 60 mg QHS PO 03/25/21 21:00 03/28/21 20:14 Risperidone (RisperDAL) 1 mg QHS PO 03/26/21 21:00 03/28/21 20:12 Risperidone (RisperDAL) 2 mg QHS PO 03/25/21 21:00 03/26/21 12:53 DC 03/25/21 20:39 Topiramate (TopAMAX) 50 mg BID PO 03/25/21 09:00 03/26/21 19:08 DC 03/26/21 09:47 Topiramate (TopAMAX) 50 mg QHS PO 03/26/21 21:00 03/28/21 20:11 Topiramate (TopAMAX) 100 mg BID PO 03/25/21 09:00 03/26/21 19:08 DC 03/26/21 09:47 Topiramate (TopAMAX) 100 mg DAILY PO 03/27/21 09:00 03/28/21 09:18 Topiramate (TopAMAX) 100 mg QHS PO 03/26/21 21:00 03/28/21 20:11 Topiramate (TopAMAX) 150 mg BID PO 03/24/21 09:00 03/25/21 00:32 DC 03/24/21 20:22 Trazodone HCl (Desyrel) 50 mg QHSP PRN PO INSOMNIA 03/24/21 14:55 03/28/21 01:28 Vitamin D (Vitamin D) 1,000 units DAILY PO 03/25/21 09:00 03/28/21 09:17 Allergies Coded Allergies: codeine (Verified Allergy, Unknown, 03/24/21) diphenhydramine (Verified Allergy, Unknown, 03/24/21) gabapentin (Verified Allergy, Unknown, 03/24/21) meperidine (Verified Allergy, Unknown, 03/24/21) tramadol (Verified Allergy, Unknown, NOT ALLOWED DUE TO SEIZURE DISORDER, 03/24/21) DYLAN MCODNALD MD Mar 28, 2021 22:58
[2021-03-29 06:38] VITALS: BP 120/58
[2021-03-29] MEDS: VITAMIN D 1,000 INTERNATIONAL UNITS TABLET PO SCH (08:45)
[2021-03-29] MEDS: LORazepam 0.5 MG TAB PO SCH (08:45)
[2021-03-29] MEDS: lamoTRIgine 25MG TAB PO SCH ×2 (08:45→20:42)
[2021-03-29] MEDS: lamoTRIgine 100MG TAB PO SCH ×2 (08:45→20:42)
[2021-03-29] MEDS: TOPIRAMATE (TopAMAX) 100 MG TAB PO SCH ×2 (08:46→20:43)
[2021-03-29] MEDS: amLODIPine 5 MG TAB PO SCH (08:47)
[2021-03-29 18:59] VITALS: BP 132/76
[2021-03-29] MEDS: PROPRANOLOL 60 MG LA CAP PO SCH (20:41)
[2021-03-29] MEDS: LORazepam 1 MG TAB PO SCH (20:42)
[2021-03-29] MEDS: ATORVASTATIN 20 MG TAB PO SCH (20:42)
[2021-03-29] MEDS: risperiDONE 1 MG TAB PO SCH (20:42)
[2021-03-29] MEDS: DIVALPROEX 250MG *ER* TAB PO SCH (20:42)
[2021-03-29] MEDS: OMEPRAZOLE 20 MG CAP PO SCH (20:42)
[2021-03-29] MEDS: TOPIRAMATE (TopAMAX) 25 MG TAB PO SCH (20:42)
[2021-03-30] MEDS: IBUPROFEN 400MG TAB PO PRN ×2 (04:40→22:10)
[2021-03-30 06:43] VITALS: BP 144/78
[2021-03-30] MEDS: lamoTRIgine 25MG TAB PO SCH ×2 (09:07→20:27)
[2021-03-30] MEDS: lamoTRIgine 100MG TAB PO SCH ×2 (09:07→20:27)
[2021-03-30] MEDS: amLODIPine 5 MG TAB PO SCH (09:07)
[2021-03-30] MEDS: TOPIRAMATE (TopAMAX) 100 MG TAB PO SCH ×2 (09:08→20:26)
[2021-03-30] MEDS: VITAMIN D 1,000 INTERNATIONAL UNITS TABLET PO SCH (09:08)
[2021-03-30] MEDS: LORazepam 0.5 MG TAB PO SCH (09:08)
--- NOTE | 2021-03-30 14:14 | MHIPNPDOC ---
[facility] Progress Note Progress Note DATE OF SERVICE: 03/30/21 HISTORY: Patient is a 55 -year-old , Disabled, Domiciled, , female, who reports that she had a beetle infestation in her home. She has delusional thinking and reports visual hallucinations regarding these beetles. She states that she has the larva got under skin, she believes that they have burrowed themselves and she reports that they form letters under her skin such as the letter "V" and the letter "W". The beetle infestation started 3 months ago, she and her have had an electric sealing machine operator to their home, and since then she has become more focused and ruminative about them. Patient has had one other psychiatric admission, she was diagnosed with unspecified psychotic disorder she complained about visual hallucinations at that time. PER ED REPORT: Pt was brought to the ED by her , at the suggestion of her PCP, due to pt thinking there are parasites in her body. Pt states that her doctor told her to come to the ED for a medical evaluation because she has been "breaking out in squares, circles, & semi-circles." She states that these patches are the result of beetle eggs burrowing into her skin & growing there. She states that her house was infested with beetles & they had an electric sealing machine operator get rid of them, but there are still beetle eggs in the house that they cannot get rid of. She states that if the skin problems are not being caused by beetle eggs they could be caused by worms or parasites. She states that whatever is causing it has also burrowed into her lower back & moves around, causing her terrible pain. Pt states that she sometimes tries to pull the beetle eggs out of her skin using her fingernails or fingernail clippers, to the point that she starts bleeding. Pt is tearful & states that she does not want to be at home due to the fear that she will continue to be infested. Pt also states that she has not been sleeping well because the eggs have infested the bed & pillows and are constantly poking her. Pt denies both SI & HI. She denies any hx of suicide attempts or self- harm. Pt denies both AH & VH. She does not appear to be internally preoccupied. Pt c/o depressed mood, anxiety, poor concentration, decreased energy levels, poor sleep, & poor appetite. Pt has a hx of one admission to [facility] for psychosis, which was determined to be the result of changes made to her seizure meds. She does not currently have OP tx. Pt reports occasional alcohol use & denies drug use. Her tox screen was negative. VITAL SIGNS: See below. NEW TEST RESULTS: . CURRENT MEDICATIONS: See below. MENTAL STATUS EXAMINATION: Patient is a 55 -year-old , Disabled, Domiciled, , female, who is admitted for delusional parasitopsis. She reports that she had a beetle infestation in her home. She has delusional thinking and reports visual hallucinations regarding these beetles. She states that she has the larva got under skin. Speech: Is fluid, conversant, normal rate, tone and volume Language skills are intact Thought processes including: linear and goal oriented Thought content: has mild depression and moderate anxiety. Denies suicidal/homicidal ideation, planning or intent. Abstract reasoning, and computation: fair Description of associations: denies, none observed Description of abnormal or psychotic thoughts: denies, none observed. Judgment: fair Insight: fair Orientation: alert and oriented to person, place, time and situation Recent and remote memory: intact Attention span and concentration: good Language: expansive Fund of knowledge: average Mood: Neutral Mood Affect: flat DIAGNOSES: Unspecified psychotic disorder Delusional parasitosis Generalized anxiety disorder ASSESSMENT: Reports nerve pain that wasn't "sharp pain, felt that her spine was twisting and something was pushing on it at the same time, something was hammering on it." Continues to have tactile hallucinations, reports "webbing things on her spine and pain flowing from her spine from the front, around to her back." Continues to have perseverance about the Topamax. Talks about the reduction of Topamax causing an issue to other medications. She states that the neurologist was considering changing the Topamax. States that this new medications was $400 per month but doesn't remember the medications that was being considered. States that she can also see the [facility] while seeing the neurologist and feels that she should be seeing a forming roll operator heavy duty upon discharge. 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 Since this fall she has had an increase in headaches "it felt like part of my head was missing, pulled apart and I woke up and i felt away from my head because I banged it so hard. Reports that she had increased seizures since and had multiple seizures prior. She is reporting more seizures since the fall, reports her seizures were 15 in a row and that she had to take more Ativan. Reports that she had a fall on Tuesday, CT scan was taken - "the CT was fine. The EEG might have been helpful but there were no big lumps. And I have insurance so no panicky on the bill. I have morning seizures every day." Patient is quite tangential on her somatic complaints (visual complaints, tactile hallucinations, back pain). States that she does not have macular degeneration. According to other staff, patient's daughter and reports that she has been having psychotic symptoms for several months. Patient reports that her daughter left home in January, she reports that approximately 2-3 months ago is when the beetle infestation occurred. Her family reports that there was no beetle infestation. She appears to be more somatic while in the hospital. MANAGEMENT PLAN: Continues all medications and supportive therapies as previously ordered. TIME SPENT: 35 minutes. Vital Signs Vital Signs Date Time Temp Pulse Resp B/P (MAP) Pulse Ox O2 Delivery O2 Flow Rate FiO2 03/30/21 09:07 66 149/71 03/30/21 06:43 97.2 18 100 Room Air Current Medications Current Medications Medications (Trade) Dose Ordered Sig/Zak Route PRN Reason Start Time Stop Time Status Last Admin Dose Admin Acetaminophen (Tylenol Tab) 650 mg Q6HP PRN PO HEADACHE or MILD DISCOMFORT 03/24/21 14:55 Al Hydrox/Mg Hydrox/Simethicone (Mylanta) 30 ml Q4HP PRN PO HEARTBURN/INDIGESTION 03/24/21 14:55 Amlodipine Besylate (Norvasc) 5 mg DAILY PO 03/28/21 09:00 03/30/21 09:07 Atorvastatin Calcium (Lipitor) 40 mg QHS PO 03/24/21 21:00 03/25/21 00:32 DC 03/24/21 20:22 Atorvastatin Calcium (Lipitor) 40 mg QHS PO 03/25/21 21:00 03/29/21 20:42 Divalproex Sodium (Depakote Er) 250 mg QHS PO 03/24/21 21:00 03/25/21 00:32 DC 03/24/21 20:22 Divalproex Sodium (Depakote Er) 250 mg QHS PO 03/25/21 21:00 03/29/21 20:42 Fluticasone Propionate (Flonase 0.05% Nasal [place]) 2 spray DAILY PRN NA NASAL CONGESTION 03/25/21 11:05 Home Med (Home Med List Complete!) ASDIRECTED XX 03/24/21 06:50 03/24/21 06:51 DC Ibuprofen (Advil) 400 mg Q6H PRN PO MILD PAIN (PS 1-4) 03/25/21 11:05 03/27/21 17:20 DC Ibuprofen (Advil) 400 mg Q6H PRN PO MILD PAIN (PS 1-4) 03/27/21 17:20 03/30/21 04:40 Lamotrigine (LaMICtal) 50 mg BID PO 03/25/21 09:00 03/30/21 09:07 Lamotrigine (LaMICtal) 100 mg BID PO 03/25/21 09:00 03/30/21 09:07 Lamotrigine (LaMICtal) 150 mg BID PO 03/24/21 09:00 03/25/21 00:32 DC 03/24/21 20:22 Levalbuterol HCl (Xopenex Hfa) 2 puff Q4H PRN INH SHORTNESS OF BREATH 03/25/21 11:05 Lorazepam (Ativan) 0.5 mg DAILY PO 03/24/21 09:00 03/25/21 00:32 DC 03/24/21 09:04 Lorazepam (Ativan) 0.5 mg DAILY PO 03/25/21 09:00 03/30/21 09:08 Lorazepam (Ativan) 1 mg BID PRN PO SEIZURES 03/25/21 11:05 03/26/21 10:07 Lorazepam (Ativan) 1 mg QHS PO 03/24/21 21:00 03/25/21 00:32 DC 03/24/21 20:22 Lorazepam (Ativan) 1 mg QHS PO 03/25/21 21:00 03/29/21 20:42 Magnesium Hydroxide (Milk Of Magnesia) 30 ml DAILYPRN PRN PO CONSTIPATION 03/24/21 14:55 Nicotine (Nicoderm Cq 21mg) 1 patch DAILY PRN TD NICOTINE WITHDRAWAL 03/24/21 14:55 Olanzapine (ZyPREXA ZYDIS) 5 mg Q6HP PRN PO AGITATION/ANXIETY 03/24/21 14:55 03/28/21 20:17 Omeprazole (PriLOSEC) 40 mg QHS PO 03/24/21 21:00 03/25/21 00:32 DC 03/24/21 20:22 Omeprazole (PriLOSEC) 40 mg QHS PO 03/25/21 21:00 03/29/21 20:42 Propranolol HCl (Inderal La) 60 mg QHS PO 03/24/21 21:00 03/25/21 00:32 DC 03/24/21 20:23 Propranolol HCl (Inderal La) 60 mg QHS PO 03/25/21 21:00 03/29/21 20:41 Risperidone (RisperDAL) 1 mg QHS PO 03/26/21 21:00 03/29/21 20:42 Risperidone (RisperDAL) 2 mg QHS PO 03/25/21 21:00 03/26/21 12:53 DC 03/25/21 20:39 Topiramate (TopAMAX) 50 mg BID PO 03/25/21 09:00 03/26/21 19:08 DC 03/26/21 09:47 Topiramate (TopAMAX) 50 mg QHS PO 03/26/21 21:00 03/29/21 20:42 Topiramate (TopAMAX) 100 mg BID PO 03/25/21 09:00 03/26/21 19:08 DC 03/26/21 09:47 Topiramate (TopAMAX) 100 mg DAILY PO 03/27/21 09:00 03/30/21 09:08 Topiramate (TopAMAX) 100 mg QHS PO 03/26/21 21:00 03/29/21 20:43 Topiramate (TopAMAX) 150 mg BID PO 03/24/21 09:00 03/25/21 00:32 DC 03/24/21 20:22 Trazodone HCl (Desyrel) 50 mg QHSP PRN PO INSOMNIA 03/24/21 14:55 03/28/21 01:28 Vitamin D (Vitamin D) 1,000 units DAILY PO 03/25/21 09:00 03/30/21 09:08 Allergies Coded Allergies: codeine (Verified Allergy, Unknown, 03/24/21) diphenhydramine (Verified Allergy, Unknown, 03/24/21) gabapentin (Verified Allergy, Unknown, 03/24/21) meperidine (Verified Allergy, Unknown, 03/24/21) tramadol (Verified Allergy, Unknown, NOT ALLOWED DUE TO SEIZURE DISORDER, 03/24/21) JUAN LUIS DIEGO NP Mar 30, 2021 11:31
[2021-03-30 16:36] VITALS: BP 142/68
[2021-03-30] MEDS: ATORVASTATIN 20 MG TAB PO SCH (20:26)
[2021-03-30] MEDS: DIVALPROEX 250MG *ER* TAB PO SCH (20:26)
[2021-03-30] MEDS: LORazepam 1 MG TAB PO SCH (20:26)
[2021-03-30] MEDS: OMEPRAZOLE 20 MG CAP PO SCH (20:27)
[2021-03-30] MEDS: TOPIRAMATE (TopAMAX) 25 MG TAB PO SCH (20:27)
[2021-03-30] MEDS: PROPRANOLOL 60 MG LA CAP PO SCH (20:27)
[2021-03-30] MEDS: risperiDONE 1 MG TAB PO SCH (20:30)
[2021-03-31 06:19] VITALS: BP 102/65
[2021-03-31] MEDS: amLODIPine 5 MG TAB PO SCH (08:36)
[2021-03-31] MEDS: VITAMIN D 1,000 INTERNATIONAL UNITS TABLET PO SCH (08:36)
[2021-03-31] MEDS: lamoTRIgine 25MG TAB PO SCH ×2 (08:36→20:45)
[2021-03-31] MEDS: LORazepam 0.5 MG TAB PO SCH (08:36)
[2021-03-31] MEDS: lamoTRIgine 100MG TAB PO SCH ×2 (08:36→20:45)
[2021-03-31] MEDS: TOPIRAMATE (TopAMAX) 100 MG TAB PO SCH ×2 (08:37→20:46)
--- NOTE | 2021-03-31 12:18 | MHIPNPDOC ---
[facility] Progress Note Progress Note DATE OF SERVICE: 03/31/21 HISTORY:Patient is a 55 -year-old , Disabled, Domiciled, , female, who reports that she had a beetle infestation in her home. She has delusional thinking and reports visual hallucinations regarding these beetles. She states that she has the larva got under skin, she believes that they have burrowed themselves and she reports that they form letters under her skin such as the letter "V" and the letter "W". The beetle infestation started 3 months ago, she and her have had an alligator hunter to their home, and since then she has become more focused and ruminative about them. Patient has had one other psychiatric admission, she was diagnosed with unspecified psychotic disorder she complained about visual hallucinations at that time. PER ED REPORT: Pt was brought to the ED by her , at the suggestion of her PCP, due to pt thinking there are parasites in her body. Pt states that her doctor told her to come to the ED for a medical evaluation because she has been "breaking out in squares, circles, & semi-circles." She states that these patches are the result of beetle eggs burrowing into her skin & growing there. She states that her house was infested with beetles & they had an alligator hunter get rid of them, but there are still beetle eggs in the house that they cannot get rid of. She states that if the skin problems are not being caused by beetle eggs they could be caused by worms or parasites. She states that whatever is causing it has also burrowed into her lower back & moves around, causing her terrible pain. Pt states that she sometimes tries to pull the beetle eggs out of her skin using her fingernails or fingernail clippers, to the point that she starts bleeding. Pt is tearful & states that she does not want to be at home due to the fear that she will continue to be infested. Pt also states that she has not been sleeping well because the eggs have infested the bed & pillows and are constantly poking her. Pt denies both SI & HI. She denies any hx of suicide attempts or self- harm. Pt denies both AH & VH. She does not appear to be internally preoccupied. Pt c/o depressed mood, anxiety, poor concentration, decreased energy levels, poor sleep, & poor appetite. Pt has a hx of one admission to [facility] for psychosis, which was determined to be the result of changes made to her seizure meds. She does not currently have OP tx. Pt reports occasional alcohol use & denies drug use. Her tox screen was negative. VITAL SIGNS: See below. NEW TEST RESULTS: . CURRENT MEDICATIONS: See below. MENTAL STATUS EXAMINATION: Patient is a 55 -year-old , Disabled, Domiciled, , female, who is admitted for delusional parasitosis. She reports that she had a beetle infestation in her home. She has delusional thinking and reports visual hallucinations regarding these beetles. She states that she has the larva got under skin. Speech: Is fluid, conversant, normal rate, tone and volume Language skills are intact Thought processes including: linear and goal oriented Thought content: has mild depression and moderate anxiety. Denies suicidal/homicidal ideation, planning or intent. Abstract reasoning, and computation: fair Description of associations: denies, none observed Description of abnormal or psychotic thoughts: denies, none observed. Judgment: fair Insight: fair Orientation: alert and oriented to person, place, time and situation Recent and remote memory: intact Attention span and concentration: good Language: expansive Fund of knowledge: average Mood: Neutral Mood Affect: flat DIAGNOSES: Unspecified psychotic disorder Delusional parasitosis Generalized anxiety disorder rule out Factitious Disorder ASSESSMENT: Patient does not report any delusional thinking about the parasitosis. She approached the provider early this morning, stating that she is not ready to be discharged today. Requesting to be discharged tomorrow. She did not speak of any pain, discomfort, itching, nerve pain or any somatic complaints. She reports that she is "psychologically better" now that there are improvements at home. There are no insects because the furniture and carpets have been steam cleaned. Reported that she feels "severely attached to the peers on the unit and developing emotional friendships." EEG ordered and patient appeared elated, states "I like that idea, that's good." She states that her daughter Domenica wants her to volunteer somewhere because her daughter feels that she has too much time on her hands. While hospitalized patient meets criteria for possibly Factitious Disorder. Patient has demonstrated recurring/chronic sickness that is unexplained per her reports. (nerve pain, visual complaints, skin condition). She has had numerous somatic complaints, even predicting that she will incur increased seizures (but none that are witnessed even though patient is out in the milieu readily) patient Patient has high education and does have an extensive knowledge of medications and terms. According to her daughter the patient "doctor shops" has numerous doctor appointments and hospital visits, was in [place] a short time ago for week long EEG and was not observed with any seizures for a week. Daughter also states that the patient refuses to be seen by psychiatrists on the outside. Will speak with family to determine their criteria for safe discharge. Patient denies suicidal, homicidal thinking, she denies depression or anxiety and is not observed with psychotic thinking. She did not discuss any issues with delusional parasitosis. Have a ttempted to call family for family meeting, not able to leave message due to full mailbox. Dr. Bruno has attempted to speak with this provider, call to Dr. Multani made and have left messages x 2. MANAGEMENT PLAN: Continues all medications and supportive therapies as previously ordered. TIME SPENT: 25 minutes. Vital Signs Vital Signs Date Time Temp Pulse Resp B/P (MAP) Pulse Ox O2 Delivery O2 Flow Rate FiO2 03/31/21 08:36 67 128/64 03/31/21 06:19 97.2 16 100 Room Air Current Medications Current Medications Medications (Trade) Dose Ordered Sig/Zak Route PRN Reason Start Time Stop Time Status Last Admin Dose Admin Acetaminophen (Tylenol Tab) 650 mg Q6HP PRN PO HEADACHE or MILD DISCOMFORT 03/24/21 14:55 Al Hydrox/Mg Hydrox/Simethicone (Mylanta) 30 ml Q4HP PRN PO HEARTBURN/INDIGESTION 03/24/21 14:55 Amlodipine Besylate (Norvasc) 5 mg DAILY PO 03/28/21 09:00 03/31/21 08:36 Atorvastatin Calcium (Lipitor) 40 mg QHS PO 03/24/21 21:00 03/25/21 00:32 DC 03/24/21 20:22 Atorvastatin Calcium (Lipitor) 40 mg QHS PO 03/25/21 21:00 03/30/21 20:26 Divalproex Sodium (Depakote Er) 250 mg QHS PO 03/24/21 21:00 03/25/21 00:32 DC 03/24/21 20:22 Divalproex Sodium (Depakote Er) 250 mg QHS PO 03/25/21 21:00 03/30/21 20:26 Fluticasone Propionate (Flonase 0.05% Nasal [place]) 2 spray DAILY PRN NA NASAL CONGESTION 03/25/21 11:05 Home Med (Home Med List Complete!) ASDIRECTED XX 03/24/21 06:50 03/24/21 06:51 DC Ibuprofen (Advil) 400 mg Q6H PRN PO MILD PAIN (PS 1-4) 03/25/21 11:05 03/27/21 17:20 DC Ibuprofen (Advil) 400 mg Q6H PRN PO MILD PAIN (PS 1-4) 03/27/21 17:20 03/30/21 22:10 Lamotrigine (LaMICtal) 50 mg BID PO 03/25/21 09:00 03/31/21 08:36 Lamotrigine (LaMICtal) 100 mg BID PO 03/25/21 09:00 03/31/21 08:36 Lamotrigine (LaMICtal) 150 mg BID PO 03/24/21 09:00 03/25/21 00:32 DC 03/24/21 20:22 Levalbuterol HCl (Xopenex Hfa) 2 puff Q4H PRN INH SHORTNESS OF BREATH 03/25/21 11:05 Lorazepam (Ativan) 0.5 mg DAILY PO 03/24/21 09:00 03/25/21 00:32 DC 03/24/21 09:04 Lorazepam (Ativan) 0.5 mg DAILY PO 03/25/21 09:00 03/31/21 08:36 Lorazepam (Ativan) 1 mg BID PRN PO SEIZURES 03/25/21 11:05 03/26/21 10:07 Lorazepam (Ativan) 1 mg QHS PO 03/24/21 21:00 03/25/21 00:32 DC 03/24/21 20:22 Lorazepam (Ativan) 1 mg QHS PO 03/25/21 21:00 03/30/21 20:26 Magnesium Hydroxide (Milk Of Magnesia) 30 ml DAILYPRN PRN PO CONSTIPATION 03/24/21 14:55 Nicotine (Nicoderm Cq 21mg) 1 patch DAILY PRN TD NICOTINE WITHDRAWAL 03/24/21 14:55 Olanzapine (ZyPREXA ZYDIS) 5 mg Q6HP PRN PO AGITATION/ANXIETY 03/24/21 14:55 03/28/21 20:17 Omeprazole (PriLOSEC) 40 mg QHS PO 03/24/21 21:00 03/25/21 00:32 DC 03/24/21 20:22 Omeprazole (PriLOSEC) 40 mg QHS PO 03/25/21 21:00 03/30/21 20:27 Propranolol HCl (Inderal La) 60 mg QHS PO 03/24/21 21:00 03/25/21 00:32 DC 03/24/21 20:23 Propranolol HCl (Inderal La) 60 mg QHS PO 03/25/21 21:00 03/30/21 20:27 Risperidone (RisperDAL) 1 mg QHS PO 03/26/21 21:00 03/29/21 20:42 Risperidone (RisperDAL) 2 mg QHS PO 03/25/21 21:00 03/26/21 12:53 DC 03/25/21 20:39 Topiramate (TopAMAX) 50 mg BID PO 03/25/21 09:00 03/26/21 19:08 DC 03/26/21 09:47 Topiramate (TopAMAX) 50 mg QHS PO 03/26/21 21:00 03/30/21 20:27 Topiramate (TopAMAX) 100 mg BID PO 03/25/21 09:00 03/26/21 19:08 DC 03/26/21 09:47 Topiramate (TopAMAX) 100 mg DAILY PO 03/27/21 09:00 03/31/21 08:37 Topiramate (TopAMAX) 100 mg QHS PO 03/26/21 21:00 03/30/21 20:26 Topiramate (TopAMAX) 150 mg BID PO 03/24/21 09:00 03/25/21 00:32 DC 03/24/21 20:22 Trazodone HCl (Desyrel) 50 mg QHSP PRN PO INSOMNIA 03/24/21 14:55 03/28/21 01:28 Vitamin D (Vitamin D) 1,000 units DAILY PO 03/25/21 09:00 03/31/21 08:36 Allergies Coded Allergies: codeine (Verified Allergy, Unknown, 03/24/21) diphenhydramine (Verified Allergy, Unknown, 03/24/21) gabapentin (Verified Allergy, Unknown, 03/24/21) meperidine (Verified Allergy, Unknown, 03/24/21) tramadol (Verified Allergy, Unknown, NOT ALLOWED DUE TO SEIZURE DISORDER, 03/24/21) JUAN LUIS DIEGO NP Mar 31, 2021 11:25
[2021-03-31 16:54] VITALS: BP 138/71
[2021-03-31] MEDS: OMEPRAZOLE 20 MG CAP PO SCH (20:45)
[2021-03-31] MEDS: ATORVASTATIN 20 MG TAB PO SCH (20:46)
[2021-03-31] MEDS: risperiDONE 1 MG TAB PO SCH (20:48)
[2021-03-31] MEDS: PROPRANOLOL 60 MG LA CAP PO SCH (20:48)
[2021-03-31] MEDS: DIVALPROEX 250MG *ER* TAB PO SCH (20:48)
[2021-03-31] MEDS: LORazepam 1 MG TAB PO SCH (20:48)
[2021-03-31] MEDS: TOPIRAMATE (TopAMAX) 25 MG TAB PO SCH (20:49)
[2021-03-31] MEDS: IBUPROFEN 400MG TAB PO PRN (22:02)
[2021-04-01 06:06] VITALS: BP 145/68
[2021-04-01] MEDS: lamoTRIgine 100MG TAB PO SCH ×2 (08:11→21:05)
[2021-04-01] MEDS: lamoTRIgine 25MG TAB PO SCH ×2 (08:11→21:05)
[2021-04-01] MEDS: VITAMIN D 1,000 INTERNATIONAL UNITS TABLET PO SCH (08:11)
[2021-04-01] MEDS: LORazepam 0.5 MG TAB PO SCH (08:11)
[2021-04-01] MEDS: amLODIPine 5 MG TAB PO SCH (08:12)
[2021-04-01] MEDS: TOPIRAMATE (TopAMAX) 100 MG TAB PO SCH ×2 (08:12→21:04)
--- NOTE | 2021-04-01 14:11 | MHIPNPDOC ---
[facility] Progress Note Progress Note DATE OF SERVICE: 04/01/21 HISTORY: Patient is a 55 -year-old , Disabled, Domiciled, , female, who reports that she had a beetle infestation in her home. She has delusional thinking and reports visual hallucinations regarding these beetles. She states that she has the larva got under skin, she believes that they have burrowed themselves and she reports that they form letters under her skin such as the letter "V" and the letter "W". The beetle infestation started 3 months ago, she and her have had an transfer driver to their home, and since then she has become more focused and ruminative about them. Patient has had one other psychiatric admission, she was diagnosed with unspecified psychotic disorder she complained about visual hallucinations at that time. PER ED REPORT: Pt was brought to the ED by her , at the suggestion of her PCP, due to pt thinking there are parasites in her body. Pt states that her doctor told her to come to the ED for a medical evaluation because she has been "breaking out in squares, circles, & semi-circles." She states that these patches are the result of beetle eggs burrowing into her skin & growing there. She states that her house was infested with beetles & they had an transfer driver get rid of them, but there are still beetle eggs in the house that they cannot get rid of. She states that if the skin problems are not being caused by beetle eggs they could be caused by worms or parasites. She states that whatever is causing it has also burrowed into her lower back & moves around, causing her terrible pain. Pt states that she sometimes tries to pull the beetle eggs out of her skin using her fingernails or fingernail clippers, to the point that she starts bleeding. Pt is tearful & states that she does not want to be at home due to the fear that she will continue to be infested. Pt also states that she has not been sleeping well because the eggs have infested the bed & pillows and are constantly poking her. Pt denies both SI & HI. She denies any hx of suicide attempts or self- harm. Pt denies both AH & VH. She does not appear to be internally preoccupied. Pt c/o depressed mood, anxiety, poor concentration, decreased energy levels, poor sleep, & poor appetite. Pt has a hx of one admission to [facility] for psychosis, which was determined to be the result of changes made to her seizure meds. She does not currently have OP tx. Pt reports occasional alcohol use & denies drug use. Her tox screen was negative. VITAL SIGNS: See below. NEW TEST RESULTS: . CURRENT MEDICATIONS: See below. MENTAL STATUS EXAMINATION: Patient is a 55 -year-old , Disabled, Domiciled, , female, who is admitted for delusional parasitosis. She reports that she had a beetle infestation in her home. She has delusional thinking and reports visual hallucinations regarding these beetles. She states that she has the larva got under skin. Speech: Is fluid, conversant, normal rate, tone and volume Language skills are intact Thought processes including: linear and goal oriented Thought content: has mild depression and moderate anxiety. Denies suicidal/homicidal ideation, planning or intent. Abstract reasoning, and computation: fair Description of associations: denies, none observed Description of abnormal or psychotic thoughts: denies, none observed. Judgment: fair Insight: fair Orientation: alert and oriented to person, place, time and situation Recent and remote memory: intact Attention span and concentration: good Language: expansive Fund of knowledge: average Mood: Neutral Mood Affect: flat DIAGNOSES: Unspecified psychotic disorder Delusional parasitosis Generalized anxiety disorder rule out Factitious Disorder ASSESSMENT: Patient met this provider and stated that she was motivated to be discharged. She states "I don't want to not be home for [place]." She reported that her chief complaint for her being in the hospital was that she had a "back ache." She reports that the groups were very helpful and that they had provided emotional support for her. She had a lengthy conversation about needing an MRI of both her brain and the spine. She says she thinks she needs an MRI of her eyes. She wants to see a neurological surgeon, "who probably won't do any surgery but will prescribe exercise and other non-invasive therapies. She reports that she had 4 minor seizures today before she had her medications. Patient had an EEG today but no results at this writing. She then reported that she is afraid of things and that there are bugs in her beds that smell. She further made the statement that she is "no longer afraid because I am not stupid and I am not at fault." According to the RN, patient stated that this provider was "interfering in my treatment"; she spoke to the RN that she needs multiple tests done for various somatic reasons but cannot elaborate on what has caused her list of somatic concerns. Spoke to patient's Norman who states that she had called him and said to him that she is "turning into a bug and that bugs are coming out of her mouth and that she is seeing stick figures" He reports that she has been seen in the ED in [place] but was rehydrated and told that they could not handle her Epileptic seizures and to call [place]. He states that she has epileptic seizures daily and that most are mild (head drooping, speech may be altered). Norman states that patient was very close to her father and that he of cancer approximately 5 years, prior to this, patient had no chronic or recurring illnesses that were somatic in nature. He states that patient's mother is 90 years old and living at [facility]. He reports that she had no hallucinations until last year when she had glaucoma issues, but did have cataract surgery. When provider tell Norman that many of the patient's statements to a nurse versus this provider are vastly different he states that he has noted that the patient does tell him something that she does not report to their daughter. He states that he is surprised that patient is being discharged. Reinforced with Norman that patient's reports of hallucinations varies between RN, provider and him. Reinforced that her symptoms are vague or have varying degrees of severity depending on who the recipient of the news is, eagerness to have more medical tests and procedures and she is very elated when discussing this, presence of symptoms appear only when she's alone. Norman is accepting her back home, will discharge after family meeting at 10:00. He does report concern as she in the past has poked her skin with needles trying to get bugs out. Reported to him that patient has not scratched her arm, has not been observed trying to get bugs out of her mouth or trying to wipe anything off of her person. She did not report this provider that she is having hallucinations of stick figures. MANAGEMENT PLAN: Continues all medications and supportive therapies as previously ordered. Discharge tomorrow. TIME SPENT: 35 minutes. Vital Signs Vital Signs Date Time Temp Pulse Resp B/P (MAP) Pulse Ox O2 Delivery O2 Flow Rate FiO2 04/01/21 08:12 76 146/70 04/01/21 06:06 96.7 16 98 Room Air Current Medications Current Medications Medications (Trade) Dose Ordered Sig/Zak Route PRN Reason Start Time Stop Time Status Last Admin Dose Admin Acetaminophen (Tylenol Tab) 650 mg Q6HP PRN PO HEADACHE or MILD DISCOMFORT 03/24/21 14:55 Al Hydrox/Mg Hydrox/Simethicone (Mylanta) 30 ml Q4HP PRN PO HEARTBURN/INDIGESTION 03/24/21 14:55 Amlodipine Besylate (Norvasc) 5 mg DAILY PO 03/28/21 09:00 04/01/21 08:12 Atorvastatin Calcium (Lipitor) 40 mg QHS PO 03/24/21 21:00 03/25/21 00:32 DC 03/24/21 20:22 Atorvastatin Calcium (Lipitor) 40 mg QHS PO 03/25/21 21:00 03/31/21 20:46 Divalproex Sodium (Depakote Er) 250 mg QHS PO 03/24/21 21:00 03/25/21 00:32 DC 03/24/21 20:22 Divalproex Sodium (Depakote Er) 250 mg QHS PO 03/25/21 21:00 03/31/21 20:48 Fluticasone Propionate (Flonase 0.05% Nasal [place]) 2 spray DAILY PRN NA NASAL CONGESTION 03/25/21 11:05 Home Med (Home Med List Complete!) ASDIRECTED XX 03/24/21 06:50 03/24/21 06:51 DC Ibuprofen (Advil) 400 mg Q6H PRN PO MILD PAIN (PS 1-4) 03/25/21 11:05 03/27/21 17:20 DC Ibuprofen (Advil) 400 mg Q6H PRN PO MILD PAIN (PS 1-4) 03/27/21 17:20 03/31/21 22:02 Lamotrigine (LaMICtal) 50 mg BID PO 03/25/21 09:00 04/01/21 08:11 Lamotrigine (LaMICtal) 100 mg BID PO 03/25/21 09:00 04/01/21 08:11 Lamotrigine (LaMICtal) 150 mg BID PO 03/24/21 09:00 03/25/21 00:32 DC 03/24/21 20:22 Levalbuterol HCl (Xopenex Hfa) 2 puff Q4H PRN INH SHORTNESS OF BREATH 03/25/21 11:05 Lorazepam (Ativan) 0.5 mg DAILY PO 03/24/21 09:00 03/25/21 00:32 DC 03/24/21 09:04 Lorazepam (Ativan) 0.5 mg DAILY PO 03/25/21 09:00 04/01/21 08:11 Lorazepam (Ativan) 1 mg BID PRN PO SEIZURES 03/25/21 11:05 03/26/21 10:07 Lorazepam (Ativan) 1 mg QHS PO 03/24/21 21:00 03/25/21 00:32 DC 03/24/21 20:22 Lorazepam (Ativan) 1 mg QHS PO 03/25/21 21:00 03/31/21 20:48 Magnesium Hydroxide (Milk Of Magnesia) 30 ml DAILYPRN PRN PO CONSTIPATION 03/24/21 14:55 Nicotine (Nicoderm Cq 21mg) 1 patch DAILY PRN TD NICOTINE WITHDRAWAL 03/24/21 14:55 Olanzapine (ZyPREXA ZYDIS) 5 mg Q6HP PRN PO AGITATION/ANXIETY 03/24/21 14:55 03/28/21 20:17 Omeprazole (PriLOSEC) 40 mg QHS PO 03/24/21 21:00 03/25/21 00:32 DC 03/24/21 20:22 Omeprazole (PriLOSEC) 40 mg QHS PO 03/25/21 21:00 03/31/21 20:45 Propranolol HCl (Inderal La) 60 mg QHS PO 03/24/21 21:00 03/25/21 00:32 DC 03/24/21 20:23 Propranolol HCl (Inderal La) 60 mg QHS PO 03/25/21 21:00 03/31/21 20:48 Risperidone (RisperDAL) 1 mg QHS PO 03/26/21 21:00 03/31/21 20:48 Risperidone (RisperDAL) 2 mg QHS PO 03/25/21 21:00 03/26/21 12:53 DC 03/25/21 20:39 Topiramate (TopAMAX) 50 mg BID PO 03/25/21 09:00 03/26/21 19:08 DC 03/26/21 09:47 Topiramate (TopAMAX) 50 mg QHS PO 03/26/21 21:00 03/31/21 20:49 Topiramate (TopAMAX) 100 mg BID PO 03/25/21 09:00 03/26/21 19:08 DC 03/26/21 09:47 Topiramate (TopAMAX) 100 mg DAILY PO 03/27/21 09:00 04/01/21 08:12 Topiramate (TopAMAX) 100 mg QHS PO 03/26/21 21:00 03/31/21 20:46 Topiramate (TopAMAX) 150 mg BID PO 03/24/21 09:00 03/25/21 00:32 DC 03/24/21 20:22 Trazodone HCl (Desyrel) 50 mg QHSP PRN PO INSOMNIA 03/24/21 14:55 03/28/21 01:28 Vitamin D (Vitamin D) 1,000 units DAILY PO 03/25/21 09:00 04/01/21 08:11 Allergies Coded Allergies: codeine (Verified Allergy, Unknown, 03/24/21) diphenhydramine (Verified Allergy, Unknown, 03/24/21) gabapentin (Verified Allergy, Unknown, 03/24/21) meperidine (Verified Allergy, Unknown, 03/24/21) tramadol (Verified Allergy, Unknown, NOT ALLOWED DUE TO SEIZURE DISORDER, 03/24/21) JUAN LUIS DIEGO NP Apr 01, 2021 14:11
[2021-04-01 16:25] VITALS: BP 140/78
--- NOTE | 2021-04-01 18:21 | EEG ---
ELECTROENCEPHALOGRAM DATE: 04/01/2021 REFERRING PHYSICIAN: GINO WALTERS MD DIAGNOSIS: History of seizures. EEG#: [id number] HISTORY: The patient is a 55-year-old woman who was admitted at [facility] due to hallucinations and delusional thinking. The patient stated she might go to the emergency department because the bugs in her neck were trying to choke her. She is currently taking Lamictal, Topamax, Depakote, risperidone, Ativan, trazodone, Zyprexa, propranolol, etc. TECHNICAL DESCRIPTION: This digital electroencephalogram (EEG) was reviewed in bipolar and referential montages following reformatting in 10-20 international electrode placement system. INTERPRETATION: The patient was noted to be in awake and drowsy states during this EEG. Resting and awake background rhythm consisted of well-formed posterior dominant rhythm with anterior/posterior gradient comprising of 9 Hz alpha activity measuring 15-100 microvolts in amplitude which was symmetric and reactive to eye opening. Attenuation of posterior dominant rhythm was seen during transition to drowsiness. Stage I and II sleep were reviewed and were symmetric bilaterally. Hyperventilation was not performed. Photic stimulation remained unremarkable. EKG revealed normal sinus rhythm. Multiple episodes of primary generalized spikes & slow wave complexes, polyspikes, spike and wave fragments in frontal head region were noted on several occasions. No relevant clinical activity was noted CONCLUSION: This EEG in awake, drowsy states, stage I and II sleep is abnormal due to presence of primary generalized spike and wave, polyspikes and frontal fragments of generalized discharges consistent with primary generalized or frontal lobe epilepsy. No clinical or electrographic seizures were recorded. Clinical correlation is recommended. [facility]
[2021-04-01] MEDS: OMEPRAZOLE 20 MG CAP PO SCH (21:05)
[2021-04-01] MEDS: TOPIRAMATE (TopAMAX) 25 MG TAB PO SCH (21:05)
[2021-04-01] MEDS: DIVALPROEX 250MG *ER* TAB PO SCH (21:05)
[2021-04-01] MEDS: LORazepam 1 MG TAB PO SCH (21:05)
[2021-04-01] MEDS: ATORVASTATIN 20 MG TAB PO SCH (21:05)
[2021-04-01] MEDS: risperiDONE 1 MG TAB PO SCH (21:06)
[2021-04-01] MEDS: PROPRANOLOL 60 MG LA CAP PO SCH (21:06)
[2021-04-02 00:40] VITALS: BP 131/82
--- NOTE | 2021-04-02 01:22 | IPNPDOC ---
Text Note Date of Service The patient was seen on 04/02/21. NOTE Alerted by nursing staff at approx 0100 that patient suffered an unwitnessed fall. Per nursing staff, patient's roommate alerted them of the fall when she woke up to the smell of feces and noticed patient on the floor. Staff state that they went to check on patient at that time and observed patient had gotten herself up and got into the chair in her room. VSS at that time. I came and examined patient who told me that she "tripped on the floor" on her way to the bathroom. Patient states that she might have been dizzy because "she gets a little dizzy sometimes." Patient states that she did not strike her head. Patient complains of some right sided soreness but is still able to ambulate freely. Patient denies any chest pain, sob, loc. Physical exam unremarkable. Per my chart review, patient not receiving any anticoagulation. No medical intervention necessary at this time. VS,Fishbone, I+O VS, Fishbone, I+O Vital Signs Date Time Temp Pulse Resp B/P (MAP) Pulse Ox O2 Delivery O2 Flow Rate FiO2 04/02/21 00:40 97.8 71 18 131/82 (98) 96 Room Air NELLY LANGSTON Apr 02, 2021 01:22
[2021-04-02] MEDS: IBUPROFEN 400MG TAB PO PRN (02:51)
[2021-04-02 07:09] VITALS: BP 148/71
[2021-04-02 08:26] VITALS: BP 148/71
[2021-04-02] MEDS: LORazepam 0.5 MG TAB PO SCH (08:26)
[2021-04-02] MEDS: lamoTRIgine 25MG TAB PO SCH (08:26)
[2021-04-02] MEDS: TOPIRAMATE (TopAMAX) 100 MG TAB PO SCH (08:26)
[2021-04-02] MEDS: VITAMIN D 1,000 INTERNATIONAL UNITS TABLET PO SCH (08:26)
[2021-04-02] MEDS: amLODIPine 5 MG TAB PO SCH (08:26)
[2021-04-02] MEDS: lamoTRIgine 100MG TAB PO SCH (08:26)
[2021-04-02] MEDS ORDERED: TOPA100T12 PO (12:17)
[2021-04-02] MEDS ORDERED: AMLO1TAB24 PO (12:17)
[2021-04-02] MEDS ORDERED: RISP-8 PO (12:17)
[2021-04-02] MEDS ORDERED: TOPA1TAB PO (12:17)
--- NOTE | 2021-04-02 13:00 | MHDSPDOC ---
[facility] Discharge Summary Discharge Summary DATE OF ADMISSION: Mar 24, 2021 at 14:53 DATE OF DISCHARGE: April 02, 2021 at 1226 DISCHARGE DIAGNOSES: Unspecified psychotic disorder Delusional parasitosis Generalized anxiety disorder rule out Factitious Disorder REASON FOR ADMISSION: Patient is a 55 -year-old , Disabled, Domiciled, , female, who reports that she had a beetle infestation in her home. She has delusional thinking and reports visual hallucinations regarding these beetles. She states that she has the larva got under skin, she believes that they have burrowed themselves and she reports that they form letters under her skin such as the letter "V" and the letter "W". The beetle infestation started 3 months ago, she and her have had an senior devops engineer to their home, and since then she has become more focused and ruminative about them. Patient has had one other psychiatric admission, she was diagnosed with unspecified psychotic disorder she complained about visual hallucinations at that time. PER ED REPORT: Pt was brought to the ED by her , at the suggestion of her PCP, due to pt thinking there are parasites in her body. Pt states that her doctor told her to come to the ED for a medical evaluation because she has been "breaking out in squares, circles, & semi-circles." She states that these patches are the result of beetle eggs burrowing into her skin & growing there. She states that her h ouse was infested with beetles & they had an senior devops engineer get rid of them, but there are still beetle eggs in the house that they cannot get rid of. She states that if the skin problems are not being caused by beetle eggs they could be caused by worms or parasites. She states that whatever is causing it has also burrowed into her lower back & moves around, causing her terrible pain. Pt states that she sometimes tries to pull the beetle eggs out of her skin using her fingernails or fingernail clippers, to the point that she starts bleeding. Pt is tearful & states that she does not want to be at home due to the fear that she will continue to be infested. Pt also states that she has not been sleeping well because the eggs have infested the bed & pillows and are constantly poking her. Pt denies both SI & HI. She denies any hx of suicide attempts or self- harm. Pt denies both AH & VH. She does not appear to be internally preoccupied. Pt c/o depressed mood, anxiety, poor concentration, decreased energy levels, poor sleep, & poor appetite. Pt has a hx of one admission to [facility] for psychosis, which was determined to be the result of changes made to her seizure meds. She does not currently have OP tx. Pt reports occasional alcohol use & denies drug use. Her tox screen was negative. VITAL SIGNS: See below. CONSULTANTS INVOLVED: See Medical H + P by Hospitalist TREATMENT AND PROGRESS ON THE UNIT: Patient was admitted to the [facility] on a 9.39 legal status was afforded the following treatment modalities: 1) Individual Therapy 2) Group Therapy 3) Medication Management 4) Milieu Therapy 5) Safe Environment HOSPITAL COURSE: 03/26/21 Reports that she is not doing well today because she has had several seizures today. States that the PCP had ordered a CT scan last week but she was not able to get this. She reports that the Risperdal is too sedating for her and that she wants it decreased to 1 mg. Patient was tangential and very conversant about seeing other providers once she is discharged. Feels that she needs to see a cremator and cpc. States that she is ready to go home. Reports that her is doing a lot of work to get ready for her return. She did not have much ruminations about her parasitosis. Patient appears to be minimizing earlier psychosis. But she is alert and oriented, denies suicidality, homicidality, depression, anxiety and is organized and coherent. Sh paco has mild appearance of being overzealous about seeing other/new providers. Patient's daughter is very concerned. Reporting that she is often psychotic at home, making delusional statements but refusing to go to psychiatric appointments. There is thought that she is taking Benadryl at home. She had reported to another daughter that she is taking this. Daughter states that she has been very delusional about the beetles, increased epileptic seizures and doctor shopping. 03/27/21 Patient states today that she "feels differently and has a change of heart, she does not feel that she is ready to be discharged, feels that she is rushing to get home." She states that the night before last she had thoughts that the bugs were on her and that she had blood on her sheets. ( She made no mention of this yesterday in her interview) She complains of her arms hurting and her wristband was pushed further up her arm and she saw shapes on her. She became tearful at one point of her interview, describing her visual hallucinations stating that no one believes her. 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 Feels that her visual acuity and peripheral vision should be evaluated. She describes in length that she started seeing halos after surgery and that her vision while watching TV has been altered. (she sees the medical specialist but the outer periphery is pixilated. I discussed with her that Dr. Khanna and psychiatrist felt that Topamax may be causing delusional parasitosis and that this medication was reduced from 150 mg BID to 100 mg in AM and 150 mg at HS. Patient became very sullen and stated that she needed to speak to her neurologist and stated that she would need more Ativan during the day. She reported no increase of seizures today. She was very conversant about needing to see balance clinic, neurologist and making future appointments for other providers. 03/28/21 Perseverating at length about staff being annoyed with her yesterday. Speaks at length about trying to justify herself and that she was "not anxious" yesterday. Also talks at length about seeking treatment with her doctor in [place]. Is annoyed with mediation changes that have been proposed but has been compliant with them so far. [place] that staff was demanding she take scheduled medications in order for her to receive pain PRNs, provided education to her about right to refuse treatment. 03/29/21 Reports a fall at home, was sitting on the counter in the bathroom and fell and hit her head a month ago. Since this fall she has had an increase in headaches "it felt like part of my head was missing, pulled apart and I woke up and i felt away from my head because I banged it so hard. Reports that she had increased seizures since and had multiple seizures prior. She is reporting more seizures since the fall, reports her seizures were 15 in a row and that she had to take more Ativan. Reports that she had a fall on Tuesday, CT scan was taken - "the CT was fine. The EEG might have been helpful but there were no big lumps. And I have insurance so no panicky on the bill. I have morning seizures every day." Patient is quite tangential on her somatic complaints (visual complaints, tactile hallucinations, back pain). States that she does not have macular degeneration. According to other staff, patient's daughter and reports that she has been having psychotic symptoms for several months. Patient reports that her daughter left home in January, she reports that approximately 2-3 months ago is when the beetle infestation occurred. Her family reports that there was no beetle infestation. She appears to be more somatic while in the hospital. 03/30/21 Reports nerve pain that wasn't "sharp pain, felt that her spine was twisting and something was pushing on it at the same time, something was hammering on it." Continues to have tactile hallucinations, reports "webbing things on her spine and pain flowing from her spine from the front, around to her back." Continues to have perseverance about the Topamax. Talks about the reduction of Topamax causing an issue to other medications. She states that the neurologist was considering changing the Topamax. States that this new medications was $400 per month but doesn't remember the medications that was being considered. States that she can also see the [facility] while seeing the neurologist and feels that she should be seeing a cremator upon discharge. 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 She approached the provider early this morning, stating that she is not ready to be discharged today. Requesting to be discharged tomorrow. She did not speak of any pain, discomfort, itching, nerve pain or any somatic complaints. She reports that she is "psychologically better" now that there are improvements at home. There are no insects because the furniture and carpets have been steam cleaned. Reported that she feels "severely attached to the peers on the unit and developing emotional friendships." EEG ordered and patient appeared elated, states "I like that idea, that's good." She states that her daughter Domenica wants her to volunteer somewhere because her daughter feels that she has too much time on her hands. While hospitalized patient meets criteria for possibly Factitious Disorder. Patient has demonstrated recurring/chronic sickness that is unexplained per her reports. (nerve pain, visual complaints, skin condition). She has had numerous somatic complaints, even predicting that she will incur increased seizures (but none that are witnessed even though patient is out in the milieu readily) patient Patient has high education and does have an extensive knowledge of medications and terms. According to her daughter the patient "doctor shops" has numerous doctor appointments and hospital visits, was in [place] a short time ago for week long EEG and was not observed with any seizures for a week. Daughter also states that the patient refuses to be seen by psychiatrists on the outside. Will speak with family to determine their criteria for safe discharge. Patient denies suicidal, homicidal thinking, she denies depression or anxiety and is not observed with psychotic thinking. She did not discuss any issues with delusional parasitosis. Have attempted to call family for family meeting, not able to leave message due to full mailbox. Dr. Bruno has attempted to speak with this provider, call to Dr. Multani made and have left messages x 2. 04/01/21 Patient met this provider and stated that she was motivated to be discharged. She states "I don't want to not be home for [place]." She reported that her chief complaint for her being in the hospital was that she had a "back ache." She reports that the groups were very helpful and that they had provided emotional support for her. She had a lengthy conversation about needing an MRI of both her brain and the spine. She says she thinks she needs an MRI of her eyes. She wants to see a neurological surgeon, "who probably won't do any surgery but will prescribe exercise and other non-invasive therapies. She reports that she had 4 minor seizures today before she had her medications. Patient had an EEG today but no results at this writing. She then reported that she is afraid of things and that there are bugs in her beds that smell. She further made the statement that she is "no longer afraid because I am not stupid and I am not at fault." According to the RN, patient stated that this provider was "interfering in my treatment"; she spoke to the RN that she needs multiple tests done for various somatic reasons but cannot elaborate on what has caused her list of somatic concerns. Spoke to patient's Norman who states that she had called him and said to him that she is "turning into a bug and that bugs are coming out of her mouth and that she is seeing stick figures" He reports that she has been seen in the ED in [place] but was rehydrated and told that they could not handle her Epileptic seizures and to call [place]. He states that she has epileptic seizures daily and that most are mild (head drooping, speech may be altered). Norman states that patient was very close to her father and that he of cancer approximately 5 years, prior to this, patient had no chronic or recurring illnesses that were somatic in nature. He states that patient's mother is 90 years old and living at [facility]. He reports that she had no hallucinations until last year when she had glaucoma issues, but did have cataract surgery. When provider tell Norman that many of the patient's statements to a nurse versus this provider are vastly different he states that he has noted that the patient does tell him something that she does not report to their daughter. He also reported that she had gone into a [employer] and had taken Benadryl. He states that he is surprised that patient is being discharged. Reinforced with Norman that patient's reports of hallucinations varies between RN, provider and him. Reinforced that her symptoms are vague or have varying degrees of severity depending on who the recipient of the news is, eagerness to have more medical tests and procedures and she is very elated when discussing this, presence of symptoms appear only when she's alone. Norman is accepting her back home, will discharge after family meeting at 10:00. He does report concern as she in the past has poked her skin with needles trying to get bugs out. Reported to him that patient has not scratched her arm, has not been observed trying to get bugs out of her mouth or trying to wipe anything off of her person. She did not report this provider that she is having hallucinations of stick figures. 04/02/21 10:00 Had family meeting with patient, on phone and associate media planner. Patient is requesting to be discharged today. As of yesterday, her spouse voiced concern due to her continued delusional statements to him over the phone. Per Norman, patient's patient had stated to him that she was seeing stick figures in bed and on her clothes. She also stated to him that the insects were speaking to her in Latin. These continued complaints made him very uneasy. He stated that she also demanded that the couches and bed be thrown out and replaced with new. She also demanded to have new clothes purchased for her discharge. Per the patient, she shook her head no when the spouse had reported her complaints. She states that she needs to be seen in [place] for her eyes. She states that her visual hallucinations could be eye problems like Jeffy Bonnet syndrome. (When asked if she had ever been diagnosed with Jeffy Bonnet syndrome, she states no but that she had heard that about this and wants to ask about it) During the family meeting, patient stated that she needed to be discharged because she needed to go home and see 4 medical doctors. She stated "I can't stay here, I can't just go anywhere, I need to see my [facility] doctor because I need an MRI." She then reported that prior to her hospitalization she believed that there were beetles and larvae in the home. She states that she believed them to be in the room last night. Reinforced with patient that her room mate does not have complaints of an infestation. She acknowledge that this was not happening at the time of the family meeting. Patient reinforced with the that she is not currently believing that there are any insects under her skin. She stated that her future plans were to go to 1) Counseling, 2) Find Supportive Group Therapy. She spoke to her and stated that she felt that she was ready for discharge. She affirmed that she wasn't having delusional thinking about bugs coming out of her mouth or on her person. As patient left the room, she states "I want to thank you because this all stemmed from the way he was acting. I didn't like the way he was responding to me when I was telling him about the bugs making me feel prickly. If he doesn't believe me, he can just deal with the lease himself and if he wants to come to the new place that's fine." Return call from spouse when patient left the room. Patient had told him that she needed new clothes because she does not want clothes from home that were infested. Reinforced with spouse that although she may still have delusions, some of the delusions are motivation for her to be seen by other and new providers. He voiced his frustrations as he does acknowledge that she has been purposeful in her inconsistent reporting to providers vs him. He acknowledges that she has spent inordinate amount of time googling and researching medical ailments and studying other conditions on-line. Reinforced that while she still has delusions, she is reporting that she is not a danger to herself or others, she has been caring for herself (eating, sleeping and taking care of her ADLs) she has been alert and oriented and not confused at any point of her hospitalization. Explained to spouse that Factitious Disorder can be helped with Cognitive Behavioral Therapy. Reinforced her current medications and her strong reservations with any medications changes and including the reduction of Topamax as delusional parasitosis may have been a side effect of the Topamax. Also explained that the patient was adamant that she wanted no more interventions after Risperdal was reduced to 1 mg at HS and Topamax was reduced by 50 mg in the AM. DISCHARGE ASSESSMENT: In today's interview, patient is alert and oriented, pt.s dress is appropriate. Hygiene and grooming is well-kempt. Smiles on approach and is pleasant and engaged in the interview. Denies depression and anxiety. Denies suicidal and homicidal ideation, planning or intent. Denies and is not observed with jennifer, flight of ideas or having poor insight and judgement. Reinforced with patient need to abstain from alcohol and drugs. Patient denies any thoughts of self harm, although continues to have some ruminations about insects but they appear to be magnified only when speaking to her . Many times the patient had reported differing themes to providers. Her preoccupation had such vast degrees of delusions, it seemed quite inconsistent with any schizophrenia-like psychosis. This appeared quite confusing as she continued to report delusional parasitosis to her but not necessarily with provider or primary RN. MENTAL STATUS EXAMINATION ON DISCHARGE: Speech: Is fluid, conversant, normal rate, tone and volume Language skills are intact Thought processes including: linear and goal oriented Thought content: denies depression and anxiety. Denies suicidal/homicidal ideation, planning or intent. Abstract reasoning, and computation: fair Description of associations: denies, none observed Description of abnormal or psychotic thoughts: denies, none observed. Judgment: fair Insight: fair Orientation: alert and oriented to person, place, time and situation Recent and remote memory: intact Attention span and concentration: good Language: expansive Fund of knowledge: average Mood: Euthymic Mood Affect: reactive Suicide Risk Assessment: 1) Does the patient wish to be ? No 2) Since your admission, have you had any actual thought of killing yourself? No 3) Since your admission, have you been thinking about how you might do this? No 4) Since your admission, have you had these thoughts and had some intention of acting on them? No 5) Since your admission, have you started to work out or worked out the details of how to kill yourself? No 5A) Do you intent to carry out this plan? No and NA 6) Have you ever done anything, started anything, or prepared to do anything with any intent to ? No 6A) How long since your admission did you do any of these? NA MEDICATIONS ON DISCHARGE: See Medication Reconciliation PLAN/FOLLOWUP ARRANGEMENTS: Mental Health Appt 1 * Mental Health [facility] * Established With This Provider No * Therapist CESAR HUGHES * Date Apr 13, 2021 * Time 11:00 * Address of Clinic or Practice [address] [facility] * Follow Up Care Education Label * Medical * Medical Follow Up [facility] * Established With This Provider Yes * Address of Clinic or Practice [address] [place] [address] * * Additional information I WILL CALL THE PATIENT ONCE I AM ABLE TO MAKE HER APPOINTMENT. The amount of time spent in the coordination of care for this patient was approximately 45 minutes. ETOH/Disorder Med Rx ETOH/DRUG DISORDER RX: N/A Vital Signs/I&Os Vital Signs Date Time Temp Pulse Resp B/P (MAP) Pulse Ox O2 Delivery O2 Flow Rate FiO2 04/02/21 08:32 Room Air 04/02/21 08:26 69 148/71 04/02/21 07:09 97.4 18 100 Laboratory Data Microbiology Microbiology 03/24/21 Urine Culture - Final, Complete Medications Scheduled Amlodipine Besylate (Amlodipine Besylate) 5 Mg Tablet, 5 MG PO DAILY for Blood pressure, #7 Atorvastatin Calcium (Atorvastatin Calcium) 40 Mg Tablet, 40 MG PO QHS, (Reported) Cholecalciferol (Vitamin D3) (Vitamin D3) 1,000 Unit Tablet, 1,000 UNITS PO DAILY, (Reported) Divalproex Sodium (Divalproex Sodium ER) 250 Mg Tab.er.24h, 250 MG PO QHS, (Reported) Lamotrigine (Lamotrigine) 25 Mg Tablet, 50 MG PO BID, (Reported) TAKES WITH 100MG FOR 150MG TOTAL Lamotrigine (Lamotrigine) 100 Mg Tablet, 100 MG PO BID, (Reported) TAKES WITH 50MG FOR 150MG TOTAL Lorazepam (Ativan) 0.5 Mg Tablet, 0.5 MG PO DAILY, (Reported) Lorazepam (Ativan) 0.5 Mg Tablet, 1 MG PO QHS, (Reported) Omeprazole (Omeprazole) 40 Mg Capsule.dr, 40 MG PO QHS, (Reported) Propranolol HCl (Propranolol HCl ER) 60 Mg Cap, 60 MG PO QHS, (Reported) Risperidone (Risperidone) 1 Mg Tablet, 1 MG PO QHS for Hallucinations, #7 Topiramate (Topamax) 100 Mg Tablet, 100 MG PO QAM-PM for Seizures, #14 Topiramate (Topamax) 25 Mg Tablet, 50 MG PO QHS for Seizures, #14 Scheduled PRN Fluticasone Propionate (Fluticasone Propionate) 16 Gm [place].susp, 2 SPRAYS NA DAILY PRN for NASAL CONGESTION, (Reported) Ibuprofen (Ibuprofen) 200 Mg Tablet, 400 MG PO Q6H PRN for MILD PAIN (PS 1-4), (Reported) Levalbuterol Hydrochloride (Xopenex Hfa) 15 Gm Hfa.aer.ad, 2 PUFF INH Q4H PRN for SHORTNESS OF BREATH, (Reported) Lorazepam (Lorazepam) 1 Mg Tab, 1 MG PO BID PRN for SEIZURES, (Reported) Naproxen Sodium (Aleve) 220 Mg Tablet, 220 MG PO BID PRN for HEADACHE, (Reported) Allergies Coded Allergies: codeine (Verified Allergy, Unknown, 03/24/21) diphenhydramine (Verified Allergy, Unknown, 03/24/21) gabapentin (Verified Allergy, Unknown, 03/24/21) meperidine (Verified Allergy, Unknown, 03/24/21) tramadol (Verified Allergy, Unknown, NOT ALLOWED DUE TO SEIZURE DISORDER, 03/24/21) JUAN LUIS DIEGO NP Apr 02, 2021 12:29
== END 2021-04-02 12:50 | disposition home or self-care (01) | DRG 751 ==
LOC: M ED 00:07 → M ED INP 14:53 → M PSY 22:48
PROVIDERS: ADMIT Psychiatry & Neurology Psychiatry; ATTEND Psychiatry & Neurology Psychiatry
DX: F29 Unspecified psychosis not due to a substance or known physiological condition (principal); F22 Delusional disorders; F41.1 Generalized anxiety disorder; G40.909 Epilepsy, unspecified, not intractable, without status epilepticus; K21.9 Gastro-esophageal reflux disease without esophagitis; K58.9 Irritable bowel syndrome, unspecified; J45.909 Unspecified asthma, uncomplicated; Z90.49 Acquired absence of other specified parts of digestive tract; Z20.822 Contact with and (suspected) exposure to COVID-19; Z79.899 Other long term (current) drug therapy; Z88.5 Allergy status to narcotic agent; Z88.8 Allergy status to other drugs, medicaments and biological substances; M54.2 Cervicalgia; M54.50 Low back pain, unspecified; Z98.41 Cataract extraction status, right eye; Z98.42 Cataract extraction status, left eye; E78.5 Hyperlipidemia, unspecified; F68.11 Factitious disorder imposed on self, with predominantly psychological signs and symptoms

== ENCOUNTER 2021-04-15 22:34 | Emergency (ER) | payer BC, MEDICARE ==
[~2021-04-15] VITALS: Ht 165.1 cm; Wt 60.5 kg
[~2021-04-15 22:34] MED LIST changes: +ALEV220T22 PO; +AMLO1TAB24 PO; +ATIV1TAB10 PO; +DIVA250T7 PO; +IBUP-1764 PO; +LAMO100T80 PO; +OMEP-221 PO; +RISP-8 PO; +TOPA100T12 PO; +TOPA1TAB PO; +TOPI50TA9 PO
[2021-04-16 03:26] LABS: HEMATOCRIT 39.4 % (36.0-47.0); MEAN CORPUSCULAR HEMOGLOBIN 29.4 pg (27.0-33.0); MEAN CORPUSCULAR VOLUME 89.1 fl (80.0-96.0); PLATELET COUNT, AUTOMATED 252 10^3/uL (150-450); RED BLOOD COUNT 4.42 10^6/uL (4.00-5.40); WHITE BLOOD COUNT 7.8 10^3/uL (4.0-10.0)
[2021-04-16 03:41] LABS: AMPHETAMINES LEVEL URINE NEGATIVE (NEGATIVE); BARBITURATES URINE NEGATIVE (NEGATIVE); BENZODIAZEPINES URINE NEGATIVE (NEGATIVE); CANNABINOIDS URINE NEGATIVE (NEGATIVE); COCAINE METABOLITE URINE NEGATIVE (NEGATIVE); METHADONE URINE NEGATIVE (NEGATIVE); OPIATES URINE NEGATIVE (NEGATIVE); PHENCYCLIDINE URINE NEGATIVE (NEGATIVE)
[2021-04-16 04:07] LABS: ALT/SGPT 28 U/L (12-78); BLOOD UREA NITROGEN 15 MG/DL (7-18); CALCIUM LEVEL 9.3 MG/DL (8.5-10.1); CARBON DIOXIDE LEVEL 25 MEQ/L (21-32); CHLORIDE LEVEL 111 MEQ/L (98-107); CREATININE FOR GFR 0.92 MG/DL (0.55-1.30); GLOMERULAR FILTRATION RATE > 60.0 (>51); GLUCOSE, FASTING 80 MG/DL (70-100); POTASSIUM SERUM 4.1 MEQ/L (3.5-5.1); SODIUM LEVEL 142 MEQ/L (136-145)
[2021-04-16 04:08] LABS: ACETAMINOPHEN LEVEL < 2.0 UG/ML (10.0-30.0); ALBUMIN 3.7 GM/DL (3.2-5.2); BILIRUBIN,DIRECT < 0.1 MG/DL (0.0-0.2); BILIRUBIN,TOTAL 0.3 MG/DL (0.2-1.0); ETHYL ALCOHOL (ETHANOL) < 0.003 % (0.000-0.010); SALICYLATE LEVEL < 1.7 MG/DL (5.0-30.0); VALPROIC ACID (DEPAKOTE) 22.9 UG/ML (50.0-100.0)
[2021-04-16 04:09] LABS: RSV AMPLIFICATION NEGATIVE (NEGATIVE)
[2021-04-16] MEDS ORDERED: TOPI25TA10 PO (04:53)
[2021-04-16] MEDS ORDERED: TOPI100T9 PO (04:53)
[2021-04-16] MEDS ORDERED: HOME MED LIST COMPLETE! XX SCH (04:55)
[2021-04-16] MEDS ORDERED: LORazepam 1 MG TAB PO ONE (05:05)
[2021-04-16] MEDS ORDERED: lamoTRIgine 100MG TAB PO ONE (07:45)
[2021-04-16] MEDS ORDERED: LORazepam 0.5 MG TAB PO ONE (07:45)
[2021-04-16] MEDS ORDERED: TOPIRAMATE (TopAMAX) 25 MG TAB PO ONE (07:45)
[2021-04-16] MEDS ORDERED: PILL CUTTER 1 EACH XX ONE (08:02)
[2021-04-16 14:53] VITALS: BP 147/72
== END 2021-04-16 15:01 ==
LOC: M ED 22:34
DX: F06.2 Psychotic disorder with delusions due to known physiological condition (principal); R20.9 Unspecified disturbances of skin sensation; Z88.6 Allergy status to analgesic agent; Z88.8 Allergy status to other drugs, medicaments and biological substances

== ENCOUNTER 2021-05-19 17:03 | Emergency (ER) | payer BC, MEDICARE ==
[~2021-05-19] VITALS: Ht 165.1 cm; Wt 61.5 kg
[~2021-05-19 17:03] MED LIST changes: -OMEP-221 PO; +OMEP40CA5 PO; +TOPI25TA10 PO
[2021-05-19] MEDS ORDERED: ALPRAZolam 0.5 MG TAB PO ONE (18:15)
[2021-05-19 19:16] LABS: HEMATOCRIT 40.2 % (36.0-47.0); HEMOGLOBIN 12.9 g/dl (12.0-15.5); MEAN CORPUSCULAR HEMOGLOBIN 29.5 pg (27.0-33.0); MEAN CORPUSCULAR HGB CONC 32.1 g/dl (32.0-36.5); MEAN CORPUSCULAR VOLUME 91.8 fl (80.0-96.0); PLATELET COUNT, AUTOMATED 250 10^3/uL (150-450); RED BLOOD COUNT 4.38 10^6/uL (4.00-5.40); WHITE BLOOD COUNT 6.4 10^3/uL (4.0-10.0)
[2021-05-19 19:29] LABS: RSV AMPLIFICATION NEGATIVE (NEGATIVE)
[2021-05-19 19:33] LABS: ACETAMINOPHEN LEVEL < 2.0 UG/ML (10.0-30.0); ALT/SGPT 29 U/L (12-78); BILIRUBIN,DIRECT < 0.1 MG/DL (0.0-0.2); BILIRUBIN,TOTAL 0.3 MG/DL (0.2-1.0); BLOOD UREA NITROGEN 18 MG/DL (7-18); CALCIUM LEVEL 8.9 MG/DL (8.5-10.1); CARBON DIOXIDE LEVEL 25 MEQ/L (21-32); CHLORIDE LEVEL 112 MEQ/L (98-107); CREATININE FOR GFR 0.92 MG/DL (0.55-1.30); ETHYL ALCOHOL (ETHANOL) < 0.003 % (0.000-0.010); GLOMERULAR FILTRATION RATE > 60.0 (>51); GLUCOSE, FASTING 82 MG/DL (70-100); POTASSIUM SERUM 4.2 MEQ/L (3.5-5.1); SALICYLATE LEVEL < 1.7 MG/DL (5.0-30.0); SODIUM LEVEL 143 MEQ/L (136-145); TOTAL PROTEIN 7.5 GM/DL (6.4-8.2)
[2021-05-19 20:29] LABS: AMPHETAMINES LEVEL URINE NEGATIVE (NEGATIVE); BARBITURATES URINE NEGATIVE (NEGATIVE); BENZODIAZEPINES URINE NEGATIVE (NEGATIVE); CANNABINOIDS URINE NEGATIVE (NEGATIVE); COCAINE METABOLITE URINE NEGATIVE (NEGATIVE); METHADONE URINE NEGATIVE (NEGATIVE); OPIATES URINE NEGATIVE (NEGATIVE); PHENCYCLIDINE URINE NEGATIVE (NEGATIVE)
[2021-05-19 22:03] LABS: APPEARANCE, URINE CLEAR (CLEAR); BACTERIA, URINE AUTO NEGATIVE (NEGATIVE); BILIRUBIN, URINE AUTO NEGATIVE (NEGATIVE); BLOOD, URINE BLOOD NEGATIVE (NEGATIVE); COLOR, URINE YELLOW (YELLOW); GLUCOSE, URINE (UA) AUTO NEGATIVE (NEGATIVE); KETONE, URINE AUTO TRACE mg/dL (NEGATIVE); LEUKOCYTE ESTERASE, URINE AUTO NEGATIVE (NEGATIVE); NITRITE, URINE AUTO NEGATIVE (NEGATIVE); PROTEIN, URINE AUTO NEGATIVE (NEGATIVE); RBC, URINE AUTO 0 /HPF (0-3); SPECIFIC GRAVITY URINE AUTO 1.015 (1.002-1.035); SQUAMOUS EPITHELIAL CELL UR AU 0 /HPF (0-6); UROBILINOGEN, URINE AUTO 0.2 mg/dL (0.0-2.0); WBC, URINE AUTO 1 /HPF (0-3)
[2021-05-19] MEDS ORDERED: TOPI50TA9 PO (23:43)
[2021-05-19] MEDS ORDERED: DOCU100C16 PO (23:43)
[2021-05-19] MEDS ORDERED: XALA0.007 OU (23:43)
[2021-05-19] MEDS ORDERED: HOME MED LIST COMPLETE! XX SCH (23:45)
[2021-05-20] MEDS ORDERED: LORazepam 1 MG TAB PO STA (01:23)
[2021-05-20] MEDS ORDERED: PROPRANOLOL 20 MG TAB PO ONE (01:25)
[2021-05-20] MEDS ORDERED: ATORVASTATIN 20 MG TAB PO ONE (01:25)
[2021-05-20] MEDS ORDERED: DIVALPROEX 250MG *ER* TAB PO ONE (01:25)
[2021-05-20] MEDS ORDERED: OMEPRAZOLE 20MG CAP PO ONE (01:25)
[2021-05-20] MEDS ORDERED: PROPRANOLOL 60 MG LA CAP PO ONE (01:35)
[2021-05-20 01:58] VITALS: BP 173/76
[2021-05-20] MEDS ORDERED: LORazepam 0.5 MG TAB PO SCH (09:00)
[2021-05-20] MEDS ORDERED: PILL CUTTER 1 EACH XX PRN (09:00)
[2021-05-20] MEDS ORDERED: TOPIRAMATE (TopAMAX) 100 MG TAB PO SCH (09:00)
[2021-05-20] MEDS: lamoTRIgine 100MG TAB PO SCH ×2 (11:32→21:01)
[2021-05-20] MEDS ORDERED: ACETAMINOPHEN TAB 650MG DOSE (2X325MG) PO ONE (11:40)
[2021-05-20] MEDS ORDERED: LATANOPROST 0.005% OPHTH SOLN 2.5 ML OU SCH (21:00)
[2021-05-20 21:55] VITALS: BP 167/74
== END 2021-05-20 21:59 ==
LOC: M ED 17:03
DX: F23 Brief psychotic disorder (principal); R56.9 Unspecified convulsions; I10 Essential (primary) hypertension; K21.9 Gastro-esophageal reflux disease without esophagitis; Z87.891 Personal history of nicotine dependence; Z79.899 Other long term (current) drug therapy; Z88.5 Allergy status to narcotic agent; Z88.8 Allergy status to other drugs, medicaments and biological substances

== ENCOUNTER 2021-08-16 17:04 | Emergency (ER) | payer BC, MEDICARE ==
[~2021-08-16] VITALS: Ht 162.6 cm; Wt 63.5 kg
[~2021-08-16 17:04] MED LIST changes: -D31000TA2 PO; +DOCU100C16 PO; +VITA100093 PO; +XALA0.007 OU
[2021-08-16] MEDS ORDERED: QUET100T2 PO (17:15)
[2021-08-16] MEDS ORDERED: AMLO1TAB24 PO (17:15)
[2021-08-16 18:02] LABS: HEMOGLOBIN 14.2 g/dl (12.0-15.5); MEAN CORPUSCULAR HEMOGLOBIN 30.5 pg (27.0-33.0); MEAN CORPUSCULAR VOLUME 92.5 fl (80.0-96.0); PLATELET COUNT, AUTOMATED 258 10^3/uL (150-450); RED BLOOD COUNT 4.65 10^6/uL (4.00-5.40); WHITE BLOOD COUNT 6.6 10^3/uL (4.0-10.0)
[2021-08-16 18:21] LABS: AMPHETAMINES LEVEL URINE NEGATIVE (NEGATIVE); BARBITURATES URINE NEGATIVE (NEGATIVE); BENZODIAZEPINES URINE NEGATIVE (NEGATIVE); CANNABINOIDS URINE NEGATIVE (NEGATIVE); COCAINE METABOLITE URINE NEGATIVE (NEGATIVE); METHADONE URINE NEGATIVE (NEGATIVE); OPIATES URINE NEGATIVE (NEGATIVE); PHENCYCLIDINE URINE NEGATIVE (NEGATIVE)
[2021-08-16 18:31] LABS: ACETAMINOPHEN LEVEL < 2.0 UG/ML (10.0-30.0); ALBUMIN 3.9 GM/DL (3.2-5.2); ALT/SGPT 27 U/L (12-78); BILIRUBIN,DIRECT < 0.1 MG/DL (0.0-0.2); BILIRUBIN,TOTAL 0.2 MG/DL (0.2-1.0); BLOOD UREA NITROGEN 22 MG/DL (7-18); CALCIUM LEVEL 9.2 MG/DL (8.5-10.1); CARBON DIOXIDE LEVEL 27 MEQ/L (21-32); CHLORIDE LEVEL 113 MEQ/L (98-107); CREATININE FOR GFR 0.95 MG/DL (0.55-1.30); ETHYL ALCOHOL (ETHANOL) 0.004 % (0.000-0.010); GLOMERULAR FILTRATION RATE > 60.0 (>51); GLUCOSE, FASTING 80 MG/DL (70-100); POTASSIUM SERUM 3.5 MEQ/L (3.5-5.1); SALICYLATE LEVEL < 1.7 MG/DL (5.0-30.0); SODIUM LEVEL 146 MEQ/L (136-145); THYROID STIMULATING HORMONE 0.964 uIU/ML (0.358-3.740); TOTAL PROTEIN 7.9 GM/DL (6.4-8.2)
[2021-08-16] MEDS ORDERED: OLANZapine 10 MG TAB PO ONE (20:50)
[2021-08-16 22:16] LABS: RSV AMPLIFICATION NEGATIVE (NEGATIVE)
[2021-08-17] MEDS ORDERED: DIVA250T7 PO (00:30)
[2021-08-17] MEDS ORDERED: TOPI100T9 PO ×2 (00:30)
[2021-08-17] MEDS ORDERED: PROAAER10 INH (00:30)
[2021-08-17] MEDS ORDERED: HOME MED LIST COMPLETE! XX SCH (00:35)
[2021-08-17] MEDS ORDERED: LORazepam 1 MG TAB PO STA ×2 (09:31→10:22)
[2021-08-17] MEDS ORDERED: TOPIRAMATE (TopAMAX) 100 MG TAB PO ONE (09:35)
[2021-08-17] MEDS ORDERED: lamoTRIgine 100MG TAB PO ONE ×2 (09:35→21:00)
[2021-08-17] MEDS ORDERED: DIVALPROEX 250MG *ER* TAB PO ONE (09:35)
[2021-08-17] MEDS ORDERED: IBUPROFEN 400MG TAB PO ONE (15:45)
[2021-08-17] MEDS ORDERED: DIVALPROEX 500MG *ER* TAB PO SCH (21:00)
[2021-08-17] MEDS ORDERED: ATORVASTATIN 20 MG TAB PO SCH (21:00)
[2021-08-17] MEDS ORDERED: DIVALPROEX 500MG *ER* TAB PO ONE (21:00)
[2021-08-17] MEDS ORDERED: OMEPRAZOLE 20MG CAP PO SCH ×2 (21:00)
[2021-08-17] MEDS ORDERED: PROPRANOLOL 60 MG LA CAP PO SCH (21:00)
[2021-08-17] MEDS ORDERED: PROPRANOLOL 20 MG TAB PO SCH (21:00)
[2021-08-17] MEDS ORDERED: LORazepam 1 MG TAB PO SCH (21:00)
[2021-08-17] MEDS ORDERED: TOPIRAMATE (TopAMAX) 100 MG TAB PO SCH (21:00)
[2021-08-17] MEDS ORDERED: QUEtiapine FUMARATE 100 MG TAB PO SCH (21:00)
[2021-08-17] MEDS ORDERED: TOPIRAMATE (TopAMAX) 25 MG TAB PO SCH ×3 (21:00)
[2021-08-17] MEDS ORDERED: amLODIPine 5 MG TAB PO SCH ×2 (21:00)
[2021-08-17] MEDS: lamoTRIgine 100MG TAB PO SCH (22:11)
[2021-08-18] MEDS: lamoTRIgine 100MG TAB PO SCH (08:24)
[2021-08-18] MEDS ORDERED: LORazepam 0.5 MG TAB PO SCH ×2 (09:00→10:00)
[2021-08-18] MEDS ORDERED: LORazepam 1 MG TAB PO PRN (09:00)
[2021-08-18] MEDS ORDERED: TOPIRAMATE (TopAMAX) 100 MG TAB PO SCH ×2 (09:00)
[2021-08-18] MEDS ORDERED: DIVALPROEX 250MG *ER* TAB PO SCH ×2 (09:35→21:00)
[2021-08-18 14:27] VITALS: BP 129/67
[2021-08-18] MEDS ORDERED: LORazepam 1 MG TAB PO SCH (21:00)
== END 2021-08-18 15:55 ==
LOC: M ED 17:04
DX: F23 Brief psychotic disorder (principal); F41.9 Anxiety disorder, unspecified; H40.9 Unspecified glaucoma; M54.9 Dorsalgia, unspecified; M48.00 Spinal stenosis, site unspecified; Z79.899 Other long term (current) drug therapy; Z88.5 Allergy status to narcotic agent; Z88.8 Allergy status to other drugs, medicaments and biological substances

== ENCOUNTER 2021-09-05 19:48 | Inpatient (IN) | payer MEDICARE ==
[~2021-09-05] VITALS: Ht 165.1 cm; Wt 61.4 kg
[~2021-09-05 19:48] MED LIST changes: +PROAAER10 INH; +QUET100T2 PO
[2021-09-05 20:38] LABS: MEAN CORPUSCULAR HEMOGLOBIN 30.4 pg (27.0-33.0); MEAN CORPUSCULAR HGB CONC 33.3 g/dl (32.0-36.5); MEAN CORPUSCULAR VOLUME 91.3 fl (80.0-96.0); PLATELET COUNT, AUTOMATED 223 10^3/uL (150-450); RED BLOOD COUNT 4.27 10^6/uL (4.00-5.40); WHITE BLOOD COUNT 5.8 10^3/uL (4.0-10.0)
[2021-09-05 21:30] LABS: ACETAMINOPHEN LEVEL < 2.0 UG/ML (10.0-30.0); ALBUMIN 3.9 GM/DL (3.2-5.2); ALT/SGPT 22 U/L (12-78); BILIRUBIN,DIRECT 0.3 MG/DL (0.0-0.2); BILIRUBIN,TOTAL 0.4 MG/DL (0.2-1.0); BLOOD UREA NITROGEN 18 MG/DL (7-18); CALCIUM LEVEL 9.6 MG/DL (8.5-10.1); CARBON DIOXIDE LEVEL 26 MEQ/L (21-32); CHLORIDE LEVEL 105 MEQ/L (98-107); CREATININE FOR GFR 0.91 MG/DL (0.55-1.30); ETHYL ALCOHOL (ETHANOL) < 0.003 % (0.000-0.010); GLOMERULAR FILTRATION RATE > 60.0 (>51); GLUCOSE, FASTING 87 MG/DL (70-100); POTASSIUM SERUM 4.3 MEQ/L (3.5-5.1); SALICYLATE LEVEL < 1.7 MG/DL (5.0-30.0); SODIUM LEVEL 139 MEQ/L (136-145); TOTAL PROTEIN 7.7 GM/DL (6.4-8.2)
[2021-09-05 21:43] LABS: AMPHETAMINES LEVEL URINE NEGATIVE (NEGATIVE); BARBITURATES URINE NEGATIVE (NEGATIVE); BENZODIAZEPINES URINE NEGATIVE (NEGATIVE); CANNABINOIDS URINE NEGATIVE (NEGATIVE); COCAINE METABOLITE URINE NEGATIVE (NEGATIVE); METHADONE URINE NEGATIVE (NEGATIVE); OPIATES URINE NEGATIVE (NEGATIVE); PHENCYCLIDINE URINE NEGATIVE (NEGATIVE)
[2021-09-05] MEDS ORDERED: amLODIPine 5 MG TAB PO ONE (22:20)
[2021-09-06 00:06] LABS: RSV AMPLIFICATION NEGATIVE (NEGATIVE)
[2021-09-06] MEDS ORDERED: ALPRAZolam 0.5 MG TAB PO ONE (01:05)
[2021-09-06] MEDS ORDERED: DULO1CAP4 PO (07:51)
[2021-09-06] MEDS ORDERED: HOME MED LIST COMPLETE! XX SCH (08:50)
[2021-09-06] MEDS ORDERED: TOPIRAMATE (TopAMAX) 100 MG TAB PO SCH ×2 (09:00)
[2021-09-06] MEDS ORDERED: LORazepam 0.5 MG TAB PO SCH (09:00)
[2021-09-06] MEDS ORDERED: IBUPROFEN 400MG TAB PO PRN (09:05)
[2021-09-06] MEDS ORDERED: AMLO1TAB24 PO (10:38)
[2021-09-06] MEDS ORDERED: ATOR40TA75 PO (10:38)
[2021-09-06] MEDS ORDERED: TOPI50TA9 PO (10:38)
[2021-09-06] MEDS ORDERED: QUET100T2 PO (10:55)
[2021-09-06] MEDS ORDERED: LORazepam 1 MG TAB PO PRN (10:55)
[2021-09-06] MEDS ORDERED: TOPIRAMATE (TopAMAX) 25 MG TAB PO SCH (11:03)
[2021-09-06] MEDS: lamoTRIgine 100MG TAB PO SCH ×2 (11:40→21:20)
[2021-09-06] MEDS: VITAMIN D 1,000 INTERNATIONAL UNITS TABLET PO SCH (11:41)
[2021-09-06] MEDS: DULoxetine 20 MG CAP (CYMBALTA) PO SCH (11:41)
[2021-09-06] MEDS ORDERED: PILL CUTTER 1 EACH XX ONE (12:37)
[2021-09-06] MEDS: TOPIRAMATE (TopAMAX) 100 MG TAB PO SCH (12:40)
[2021-09-06] MEDS ORDERED: QUEtiapine FUMARATE **XR** 200MG TABLET PO SCH (21:00)
[2021-09-06] MEDS ORDERED: OMEPRAZOLE 20MG CAP PO ONE (21:00)
[2021-09-06] MEDS ORDERED: DIVALPROEX 250MG *ER* TAB PO SCH (21:00)
[2021-09-06] MEDS: ATORVASTATIN 20 MG TAB PO SCH (21:17)
[2021-09-06] MEDS: OMEPRAZOLE 20MG CAP PO SCH (21:17)
[2021-09-06] MEDS: DIVALPROEX 500MG *ER* TAB PO SCH (21:19)
[2021-09-06] MEDS: QUEtiapine FUMARATE 100 MG TAB PO SCH (21:20)
[2021-09-06] MEDS: TOPIRAMATE (TopAMAX) 25 MG TAB PO SCH (21:20)
[2021-09-06] MEDS: LORazepam 1 MG TAB PO SCH (21:20)
[2021-09-06] MEDS: amLODIPine 5 MG TAB PO SCH (21:27)
[2021-09-06] MEDS: PROPRANOLOL 60 MG LA CAP PO SCH (21:52)
[2021-09-06] MEDS: LATANOPROST 0.005% OPHTH SOLN 2.5 ML OU SCH (21:55)
[2021-09-07] MEDS ORDERED: PILL CUTTER 1 EACH XX ONE (09:20)
[2021-09-07] MEDS: VITAMIN D 1,000 INTERNATIONAL UNITS TABLET PO SCH (09:25)
[2021-09-07] MEDS: DULoxetine 20 MG CAP (CYMBALTA) PO SCH (09:26)
[2021-09-07] MEDS: lamoTRIgine 100MG TAB PO SCH ×2 (09:26→22:03)
[2021-09-07] MEDS: TOPIRAMATE (TopAMAX) 100 MG TAB PO SCH (09:26)
[2021-09-07] MEDS: QUEtiapine FUMARATE 100 MG TAB PO SCH (22:03)
[2021-09-07] MEDS: LATANOPROST 0.005% OPHTH SOLN 2.5 ML OU SCH (22:03)
[2021-09-07] MEDS: LORazepam 1 MG TAB PO SCH (22:03)
[2021-09-07] MEDS: ATORVASTATIN 20 MG TAB PO SCH (22:03)
[2021-09-07] MEDS: amLODIPine 5 MG TAB PO SCH (22:05)
[2021-09-07] MEDS: DIVALPROEX 500MG *ER* TAB PO SCH (22:06)
[2021-09-07] MEDS: OMEPRAZOLE 20MG CAP PO SCH (22:06)
[2021-09-07] MEDS: TOPIRAMATE (TopAMAX) 25 MG TAB PO SCH (22:07)
[2021-09-07] MEDS: PROPRANOLOL 60 MG LA CAP PO SCH (22:50)
[2021-09-08] MEDS: lamoTRIgine 100MG TAB PO SCH ×2 (08:17→22:06)
[2021-09-08] MEDS: DULoxetine 20 MG CAP (CYMBALTA) PO SCH (08:18)
[2021-09-08] MEDS: TOPIRAMATE (TopAMAX) 100 MG TAB PO SCH (08:18)
[2021-09-08] MEDS: VITAMIN D 1,000 INTERNATIONAL UNITS TABLET PO SCH (08:18)
[2021-09-08] MEDS ORDERED: PILL CUTTER 1 EACH XX ONE (08:21)
[2021-09-08] MEDS ORDERED: MOM 30ML SUSPENSION UDC PO PRN (14:35)
[2021-09-08] MEDS ORDERED: LORazepam 1 MG TAB PO PRN (14:35)
[2021-09-08] MEDS ORDERED: traZODone 50 MG TAB PO PRN (14:35)
[2021-09-08] MEDS ORDERED: FLUTICASONE PROP 0.05% NASAL SPRAY 16 GM (FLONASE) PRN (14:35)
[2021-09-08] MEDS ORDERED: MAALOX 30 ML SUSP *UDC PO PRN (14:35)
[2021-09-08] MEDS ORDERED: ALBUTEROL 90 MCG/ACT 8GM HFA INHALER INH PRN (14:35)
[2021-09-08] MEDS ORDERED: IBUPROFEN 400MG TAB PO PRN (14:35)
[2021-09-08 15:50] VITALS: BP 166/70
[2021-09-08] MEDS: LATANOPROST 0.005% OPHTH SOLN 2.5 ML OU SCH (21:00)
[2021-09-08] MEDS: DIVALPROEX 500MG *ER* TAB PO SCH (22:05)
[2021-09-08] MEDS: ATORVASTATIN 20 MG TAB PO SCH (22:05)
[2021-09-08] MEDS: TOPIRAMATE (TopAMAX) 25 MG TAB PO SCH (22:06)
[2021-09-08] MEDS: QUEtiapine FUMARATE 100 MG TAB PO SCH (22:06)
[2021-09-08] MEDS: LORazepam 1 MG TAB PO SCH (22:06)
[2021-09-08] MEDS: PROPRANOLOL 60 MG LA CAP PO SCH (22:07)
[2021-09-09 06:56] VITALS: BP 108/71
[2021-09-09] MEDS: amLODIPine 5 MG TAB PO SCH (09:04)
[2021-09-09] MEDS: lamoTRIgine 100MG TAB PO SCH ×2 (09:04→21:27)
[2021-09-09] MEDS: TOPIRAMATE (TopAMAX) 100 MG TAB PO SCH (09:05)
[2021-09-09] MEDS: DULoxetine 20 MG CAP (CYMBALTA) PO SCH (09:05)
[2021-09-09] MEDS: VITAMIN D 1,000 INTERNATIONAL UNITS TABLET PO SCH (09:05)
[2021-09-09] MEDS: OMEPRAZOLE 20MG CAP PO SCH (11:55)
[2021-09-09] MEDS: ATORVASTATIN 20 MG TAB PO SCH (21:27)
[2021-09-09] MEDS: TOPIRAMATE (TopAMAX) 25 MG TAB PO SCH (21:27)
[2021-09-09] MEDS: QUEtiapine FUMARATE 100 MG TAB PO SCH (21:27)
[2021-09-09] MEDS: DIVALPROEX 500MG *ER* TAB PO SCH (21:28)
[2021-09-09] MEDS: LATANOPROST 0.005% OPHTH SOLN 2.5 ML OU SCH (21:28)
[2021-09-09] MEDS: LORazepam 1 MG TAB PO SCH (21:28)
[2021-09-09] MEDS: PROPRANOLOL 60 MG LA CAP PO SCH (21:30)
[2021-09-10 06:35] VITALS: BP 147/69
[2021-09-10] MEDS: DULoxetine 20 MG CAP (CYMBALTA) PO SCH (08:55)
[2021-09-10] MEDS: LORazepam 0.5 MG TAB PO SCH (08:55)
[2021-09-10] MEDS: lamoTRIgine 100MG TAB PO SCH ×2 (08:57→21:38)
[2021-09-10] MEDS: VITAMIN D 1,000 INTERNATIONAL UNITS TABLET PO SCH (08:57)
[2021-09-10] MEDS: TOPIRAMATE (TopAMAX) 100 MG TAB PO SCH (08:57)
[2021-09-10] MEDS: PILL CUTTER 1 EACH XX PRN (08:57)
[2021-09-10] MEDS: OMEPRAZOLE 20MG CAP PO SCH (08:57)
[2021-09-10] MEDS: amLODIPine 5 MG TAB PO SCH (08:57)
[2021-09-10] MEDS: DIVALPROEX 250MG *ER* TAB PO SCH (11:55)
[2021-09-10] MEDS: ANALGESIC BALM CRM 3OZ TOP SCH ×2 (11:55→21:37)
[2021-09-10 18:19] VITALS: BP 146/66
[2021-09-10] MEDS: LORazepam 1 MG TAB PO SCH (21:38)
[2021-09-10] MEDS: QUEtiapine FUMARATE 100 MG TAB PO SCH (21:38)
[2021-09-10] MEDS: DIVALPROEX 500MG *ER* TAB PO SCH (21:38)
[2021-09-10] MEDS: TOPIRAMATE (TopAMAX) 25 MG TAB PO SCH (21:38)
[2021-09-10] MEDS: ATORVASTATIN 20 MG TAB PO SCH (21:38)
[2021-09-10] MEDS: PROPRANOLOL 60 MG LA CAP PO SCH (21:39)
[2021-09-10] MEDS: LATANOPROST 0.005% OPHTH SOLN 2.5 ML OU SCH (21:39)
[2021-09-11 06:32] VITALS: BP 123/72
[2021-09-11] MEDS: TOPIRAMATE (TopAMAX) 100 MG TAB PO SCH (09:16)
[2021-09-11] MEDS: OMEPRAZOLE 20MG CAP PO SCH (09:17)
[2021-09-11] MEDS: DIVALPROEX 250MG *ER* TAB PO SCH (09:17)
[2021-09-11] MEDS: lamoTRIgine 100MG TAB PO SCH ×2 (09:18→20:55)
[2021-09-11] MEDS: amLODIPine 5 MG TAB PO SCH (09:18)
[2021-09-11] MEDS: VITAMIN D 1,000 INTERNATIONAL UNITS TABLET PO SCH (09:18)
[2021-09-11] MEDS: LORazepam 0.5 MG TAB PO SCH (09:19)
[2021-09-11] MEDS: ANALGESIC BALM CRM 3OZ TOP SCH ×2 (09:20→20:54)
[2021-09-11] MEDS: ACETAMINOPHEN TAB 650MG DOSE (2X325MG) PO PRN (12:44)
[2021-09-11] MEDS: DULoxetine 20 MG CAP (CYMBALTA) PO SCH (18:13)
[2021-09-11 18:35] VITALS: BP 142/68
[2021-09-11] MEDS: LATANOPROST 0.005% OPHTH SOLN 2.5 ML OU SCH (20:54)
[2021-09-11] MEDS: DIVALPROEX 500MG *ER* TAB PO SCH (20:55)
[2021-09-11] MEDS: TOPIRAMATE (TopAMAX) 25 MG TAB PO SCH (20:55)
[2021-09-11] MEDS: LORazepam 1 MG TAB PO SCH (20:55)
[2021-09-11] MEDS: PROPRANOLOL 60 MG LA CAP PO SCH (20:55)
[2021-09-11] MEDS: ATORVASTATIN 20 MG TAB PO SCH (20:55)
[2021-09-11] MEDS ORDERED: QUEtiapine FUMARATE 50MG TAB PO SCH (21:00)
[2021-09-12 06:49] VITALS: BP 132/63
[2021-09-12] MEDS: lamoTRIgine 100MG TAB PO SCH ×2 (08:46→21:56)
[2021-09-12] MEDS: VITAMIN D 1,000 INTERNATIONAL UNITS TABLET PO SCH (08:46)
[2021-09-12] MEDS: OMEPRAZOLE 20MG CAP PO SCH (08:46)
[2021-09-12] MEDS: LORazepam 0.5 MG TAB PO SCH (08:46)
[2021-09-12] MEDS: amLODIPine 5 MG TAB PO SCH (08:47)
[2021-09-12] MEDS: TOPIRAMATE (TopAMAX) 100 MG TAB PO SCH (08:48)
[2021-09-12] MEDS: DIVALPROEX 250MG *ER* TAB PO SCH (09:28)
[2021-09-12] MEDS: ANALGESIC BALM CRM 3OZ TOP SCH ×2 (09:30→21:55)
[2021-09-12] MEDS: DULoxetine 20 MG CAP (CYMBALTA) PO SCH (17:53)
[2021-09-12 18:00] VITALS: BP 128/60
[2021-09-12] MEDS: DIVALPROEX 500MG *ER* TAB PO SCH (21:56)
[2021-09-12] MEDS: LORazepam 1 MG TAB PO SCH (21:56)
[2021-09-12] MEDS: QUEtiapine FUMARATE 200 MG TAB PO SCH (21:56)
[2021-09-12] MEDS: LATANOPROST 0.005% OPHTH SOLN 2.5 ML OU SCH (21:56)
[2021-09-12] MEDS: TOPIRAMATE (TopAMAX) 25 MG TAB PO SCH (21:57)
[2021-09-12] MEDS: ATORVASTATIN 20 MG TAB PO SCH (21:57)
[2021-09-12] MEDS: PROPRANOLOL 60 MG LA CAP PO SCH (21:57)
[2021-09-13 06:45] VITALS: BP 199/62
[2021-09-13 07:39] VITALS: BP 119/62
[2021-09-13] MEDS: lamoTRIgine 100MG TAB PO SCH ×2 (09:06→21:27)
[2021-09-13] MEDS: OMEPRAZOLE 20MG CAP PO SCH (09:06)
[2021-09-13] MEDS: VITAMIN D 1,000 INTERNATIONAL UNITS TABLET PO SCH (09:06)
[2021-09-13] MEDS: LORazepam 0.5 MG TAB PO SCH (09:06)
[2021-09-13] MEDS: TOPIRAMATE (TopAMAX) 100 MG TAB PO SCH (09:07)
[2021-09-13] MEDS: DIVALPROEX 250MG *ER* TAB PO SCH (09:07)
[2021-09-13] MEDS: amLODIPine 5 MG TAB PO SCH (09:07)
[2021-09-13] MEDS: PILL CUTTER 1 EACH XX PRN (09:15)
[2021-09-13] MEDS: ANALGESIC BALM CRM 3OZ TOP SCH ×2 (09:18→21:26)
[2021-09-13 18:00] VITALS: BP 128/70
[2021-09-13] MEDS: DULoxetine 20 MG CAP (CYMBALTA) PO SCH (18:54)
[2021-09-13] MEDS: LATANOPROST 0.005% OPHTH SOLN 2.5 ML OU SCH (21:26)
[2021-09-13] MEDS: TOPIRAMATE (TopAMAX) 25 MG TAB PO SCH (21:27)
[2021-09-13] MEDS: LORazepam 1 MG TAB PO SCH (21:27)
[2021-09-13] MEDS: PROPRANOLOL 60 MG LA CAP PO SCH (21:27)
[2021-09-13] MEDS: QUEtiapine FUMARATE 200 MG TAB PO SCH (21:28)
[2021-09-13] MEDS: ATORVASTATIN 20 MG TAB PO SCH (21:28)
[2021-09-13] MEDS: DIVALPROEX 500MG *ER* TAB PO SCH (21:28)
[2021-09-14 07:07] VITALS: BP 108/54
[2021-09-14] MEDS: OMEPRAZOLE 20MG CAP PO SCH (08:59)
[2021-09-14] MEDS: ANALGESIC BALM CRM 3OZ TOP SCH ×2 (08:59→21:34)
[2021-09-14] MEDS: DIVALPROEX 250MG *ER* TAB PO SCH (09:02)
[2021-09-14] MEDS: TOPIRAMATE (TopAMAX) 100 MG TAB PO SCH (09:02)
[2021-09-14] MEDS: amLODIPine 5 MG TAB PO SCH (09:02)
[2021-09-14] MEDS: LORazepam 0.5 MG TAB PO SCH (09:03)
[2021-09-14] MEDS: lamoTRIgine 100MG TAB PO SCH ×2 (09:03→21:35)
[2021-09-14] MEDS: VITAMIN D 1,000 INTERNATIONAL UNITS TABLET PO SCH (09:03)
[2021-09-14 16:16] VITALS: BP 137/63
[2021-09-14] MEDS: DULoxetine 20 MG CAP (CYMBALTA) PO SCH (18:34)
[2021-09-14] MEDS: PROPRANOLOL 60 MG LA CAP PO SCH (21:34)
[2021-09-14] MEDS: QUEtiapine FUMARATE 200 MG TAB PO SCH (21:34)
[2021-09-14] MEDS: TOPIRAMATE (TopAMAX) 25 MG TAB PO SCH (21:34)
[2021-09-14] MEDS: LATANOPROST 0.005% OPHTH SOLN 2.5 ML OU SCH (21:34)
[2021-09-14] MEDS: LORazepam 1 MG TAB PO SCH (21:34)
[2021-09-14] MEDS: ATORVASTATIN 20 MG TAB PO SCH (21:35)
[2021-09-14] MEDS: DIVALPROEX 500MG *ER* TAB PO SCH (21:35)
[2021-09-15 06:32] VITALS: BP 123/60
[2021-09-15] MEDS: lamoTRIgine 100MG TAB PO SCH ×2 (09:45→21:16)
[2021-09-15] MEDS: VITAMIN D 1,000 INTERNATIONAL UNITS TABLET PO SCH (09:45)
[2021-09-15] MEDS: amLODIPine 5 MG TAB PO SCH (09:45)
[2021-09-15] MEDS: DIVALPROEX 250MG *ER* TAB PO SCH (09:45)
[2021-09-15] MEDS: PILL CUTTER 1 EACH XX PRN (09:45)
[2021-09-15] MEDS: OMEPRAZOLE 20MG CAP PO SCH (09:45)
[2021-09-15] MEDS: ANALGESIC BALM CRM 3OZ TOP SCH ×2 (09:46→21:15)
[2021-09-15] MEDS: LORazepam 0.5 MG TAB PO SCH (09:46)
[2021-09-15] MEDS: TOPIRAMATE (TopAMAX) 100 MG TAB PO SCH (09:46)
[2021-09-15] MEDS: ACETAMINOPHEN TAB 650MG DOSE (2X325MG) PO PRN (15:05)
[2021-09-15 16:46] VITALS: BP 130/63
[2021-09-15] MEDS: DULoxetine 20 MG CAP (CYMBALTA) PO SCH (17:44)
[2021-09-15] MEDS ORDERED: risperiDONE 0.5 MG TAB PO SCH (21:00)
[2021-09-15] MEDS: DIVALPROEX 500MG *ER* TAB PO SCH (21:15)
[2021-09-15] MEDS: LATANOPROST 0.005% OPHTH SOLN 2.5 ML OU SCH (21:15)
[2021-09-15] MEDS: PROPRANOLOL 60 MG LA CAP PO SCH (21:15)
[2021-09-15] MEDS: LORazepam 1 MG TAB PO SCH (21:16)
[2021-09-15] MEDS: ATORVASTATIN 20 MG TAB PO SCH (21:16)
[2021-09-15] MEDS: TOPIRAMATE (TopAMAX) 25 MG TAB PO SCH (21:16)
[2021-09-16 06:25] VITALS: BP 99/54
[2021-09-16] MEDS: ANALGESIC BALM CRM 3OZ TOP SCH (09:08)
[2021-09-16 09:09] VITALS: BP 120/76
[2021-09-16] MEDS: OMEPRAZOLE 20MG CAP PO SCH (09:09)
[2021-09-16] MEDS: lamoTRIgine 100MG TAB PO SCH (09:09)
[2021-09-16] MEDS: amLODIPine 5 MG TAB PO SCH (09:09)
[2021-09-16] MEDS: LORazepam 0.5 MG TAB PO SCH (09:09)
[2021-09-16] MEDS: TOPIRAMATE (TopAMAX) 100 MG TAB PO SCH (09:09)
[2021-09-16] MEDS: DIVALPROEX 250MG *ER* TAB PO SCH (09:09)
[2021-09-16] MEDS: VITAMIN D 1,000 INTERNATIONAL UNITS TABLET PO SCH (09:10)
[2021-09-16] MEDS: PILL CUTTER 1 EACH XX PRN (09:13)
[2021-09-16] MEDS ORDERED: RISP-7 PO (10:35)
[2021-09-16] MEDS ORDERED: DEPA250T2 PO (10:35)
== END 2021-09-16 13:20 | disposition home or self-care (01) | DRG 885 ==
LOC: M ED 19:48 → M ED INP 09-08 14:31 → M PSY 09-08 15:50
PROVIDERS: ADMIT Psychiatry & Neurology Psychiatry; ATTEND Psychiatry & Neurology Psychiatry
DX: F29 Unspecified psychosis not due to a substance or known physiological condition (principal); F22 Delusional disorders; F41.1 Generalized anxiety disorder; F25.9 Schizoaffective disorder, unspecified; Z20.822 Contact with and (suspected) exposure to COVID-19; G40.909 Epilepsy, unspecified, not intractable, without status epilepticus; I10 Essential (primary) hypertension; J45.909 Unspecified asthma, uncomplicated; K58.9 Irritable bowel syndrome, unspecified; G25.0 Essential tremor; Z90.49 Acquired absence of other specified parts of digestive tract; Z79.899 Other long term (current) drug therapy; Z88.5 Allergy status to narcotic agent; Z88.8 Allergy status to other drugs, medicaments and biological substances; K21.9 Gastro-esophageal reflux disease without esophagitis; E78.5 Hyperlipidemia, unspecified; Z87.891 Personal history of nicotine dependence

== ENCOUNTER 2021-09-25 09:40 | Inpatient (IN) | payer MEDICARE ==
[~2021-09-25] VITALS: Ht 165.1 cm; Wt 59.6 kg
[~2021-09-25 09:40] MED LIST changes: +DEPA250T2 PO; +DULO1CAP4 PO; -FLUTISP; +FLUTISP NARES; +RISP-7 PO
[2021-09-25] MEDS ORDERED: DEPA250T2 PO (10:27)
[2021-09-25] MEDS ORDERED: ATIV1TAB10 PO (10:27)
[2021-09-25] MEDS ORDERED: RISP-7 PO (10:27)
[2021-09-25] MEDS ORDERED: HOME MED LIST COMPLETE! XX SCH (10:30)
[2021-09-25] MEDS ORDERED: IBUPROFEN 400MG TAB PO PRN (15:25)
[2021-09-25] MEDS ORDERED: ALBUTEROL 90 MCG/ACT 8GM HFA INHALER INH PRN (15:25)
[2021-09-25] MEDS ORDERED: MOM 30ML SUSPENSION UDC PO PRN (15:25)
[2021-09-25] MEDS ORDERED: MAALOX 30 ML SUSP *UDC PO PRN (15:25)
[2021-09-25] MEDS ORDERED: traZODone 50 MG TAB PO PRN (15:25)
[2021-09-25] MEDS ORDERED: LORazepam 1 MG TAB PO PRN ×2 (15:25)
[2021-09-25] MEDS ORDERED: diphenhydrAMINE 25MG CAP PO PRN (15:25)
[2021-09-25] MEDS ORDERED: FLUTICASONE PROP 0.05% NASAL SPRAY 16 GM (FLONASE) NARES PRN (15:25)
[2021-09-25] MEDS ORDERED: IBUPROFEN 200MG TAB PO PRN (15:25)
[2021-09-25 20:43] VITALS: BP 148/82
[2021-09-25] MEDS ORDERED: risperiDONE 0.5 MG TAB PO SCH (21:00)
[2021-09-25] MEDS: TOPIRAMATE (TopAMAX) 100 MG TAB PO SCH (21:38)
[2021-09-25] MEDS: DIVALPROEX 250MG *ER* TAB PO SCH (21:38)
[2021-09-25] MEDS: LORazepam 1 MG TAB PO SCH (21:38)
[2021-09-25] MEDS: amLODIPine 5 MG TAB PO SCH (21:39)
[2021-09-25] MEDS: TOPIRAMATE (TopAMAX) 25 MG TAB PO SCH (21:39)
[2021-09-25] MEDS: lamoTRIgine 100MG TAB PO SCH (21:39)
[2021-09-25] MEDS: DULoxetine 20 MG CAP (CYMBALTA) PO SCH (21:39)
[2021-09-25] MEDS: LATANOPROST 0.005% OPHTH SOLN 2.5 ML OU SCH (23:48)
[2021-09-25] MEDS: PROPRANOLOL 60 MG LA CAP PO SCH (23:54)
[2021-09-26 06:22] VITALS: BP 121/68
[2021-09-26] MEDS: LORazepam 0.5 MG TAB PO SCH (09:00)
[2021-09-26] MEDS: lamoTRIgine 100MG TAB PO SCH ×2 (09:00→22:32)
[2021-09-26] MEDS: NICOTINE 21MG/24HR 1 EA TRANSDERMAL TD SCH (09:00)
[2021-09-26] MEDS: DIVALPROEX 250MG *ER* TAB PO SCH ×2 (09:00→22:31)
[2021-09-26] MEDS: VITAMIN D 1,000 INTERNATIONAL UNITS TABLET PO SCH (09:01)
[2021-09-26] MEDS: TOPIRAMATE (TopAMAX) 100 MG TAB PO SCH ×2 (09:01→22:31)
[2021-09-26] MEDS: risperiDONE 0.5 MG TAB PO SCH (15:28)
[2021-09-26 18:00] VITALS: BP 136/68
[2021-09-26] MEDS ORDERED: risperiDONE 1 MG TAB PO SCH (21:00)
[2021-09-26] MEDS: PROPRANOLOL 60 MG LA CAP PO SCH (22:30)
[2021-09-26] MEDS: LATANOPROST 0.005% OPHTH SOLN 2.5 ML OU SCH (22:30)
[2021-09-26] MEDS: LORazepam 1 MG TAB PO SCH (22:31)
[2021-09-26] MEDS: amLODIPine 5 MG TAB PO SCH (22:32)
[2021-09-26] MEDS: TOPIRAMATE (TopAMAX) 25 MG TAB PO SCH (22:32)
[2021-09-26] MEDS: DULoxetine 20 MG CAP (CYMBALTA) PO SCH (22:32)
[2021-09-27 06:55] VITALS: BP 136/80
[2021-09-27] MEDS: TOPIRAMATE (TopAMAX) 100 MG TAB PO SCH ×2 (08:43→21:53)
[2021-09-27] MEDS: VITAMIN D 1,000 INTERNATIONAL UNITS TABLET PO SCH (08:44)
[2021-09-27] MEDS: lamoTRIgine 100MG TAB PO SCH ×2 (08:44→21:52)
[2021-09-27] MEDS: LORazepam 0.5 MG TAB PO SCH (08:44)
[2021-09-27] MEDS: DIVALPROEX 250MG *ER* TAB PO SCH ×2 (08:44→21:53)
[2021-09-27] MEDS: risperiDONE 0.5 MG TAB PO SCH (08:44)
[2021-09-27] MEDS: NICOTINE 21MG/24HR 1 EA TRANSDERMAL TD SCH (08:56)
[2021-09-27] MEDS: DULoxetine 20 MG CAP (CYMBALTA) PO SCH (21:51)
[2021-09-27] MEDS: LORazepam 1 MG TAB PO SCH (21:52)
[2021-09-27] MEDS: amLODIPine 5 MG TAB PO SCH (21:52)
[2021-09-27] MEDS: PROPRANOLOL 60 MG LA CAP PO SCH (21:52)
[2021-09-27] MEDS: LATANOPROST 0.005% OPHTH SOLN 2.5 ML OU SCH (21:52)
[2021-09-27] MEDS: TOPIRAMATE (TopAMAX) 25 MG TAB PO SCH (21:53)
[2021-09-27] MEDS: risperiDONE 2 MG TAB PO SCH (21:53)
[2021-09-28 06:17] VITALS: BP 118/61
[2021-09-28] MEDS: NICOTINE 21MG/24HR 1 EA TRANSDERMAL TD SCH (08:35)
[2021-09-28] MEDS: lamoTRIgine 100MG TAB PO SCH ×2 (08:37→21:28)
[2021-09-28] MEDS: LORazepam 0.5 MG TAB PO SCH (08:37)
[2021-09-28] MEDS: risperiDONE 1 MG TAB PO SCH (08:37)
[2021-09-28] MEDS: VITAMIN D 1,000 INTERNATIONAL UNITS TABLET PO SCH (08:37)
[2021-09-28] MEDS: DIVALPROEX 250MG *ER* TAB PO SCH ×2 (08:38→21:28)
[2021-09-28] MEDS: TOPIRAMATE (TopAMAX) 100 MG TAB PO SCH ×2 (08:38→21:34)
[2021-09-28 16:18] VITALS: BP 142/66
[2021-09-28] MEDS: DULoxetine 20 MG CAP (CYMBALTA) PO SCH (21:27)
[2021-09-28] MEDS: PROPRANOLOL 60 MG LA CAP PO SCH (21:27)
[2021-09-28] MEDS: LATANOPROST 0.005% OPHTH SOLN 2.5 ML OU SCH (21:27)
[2021-09-28 21:28] VITALS: BP 142/66
[2021-09-28] MEDS: amLODIPine 5 MG TAB PO SCH (21:28)
[2021-09-28] MEDS: LORazepam 1 MG TAB PO SCH (21:28)
[2021-09-28] MEDS: TOPIRAMATE (TopAMAX) 25 MG TAB PO SCH (21:28)
[2021-09-28] MEDS: risperiDONE 2 MG TAB PO SCH (21:34)
[2021-09-29 06:21] VITALS: BP 121/73
[2021-09-29] MEDS ORDERED: RISP-8 PO (08:55)
[2021-09-29] MEDS ORDERED: DULO1CAP4 PO (08:55)
[2021-09-29] MEDS ORDERED: RISP-9 PO (08:55)
[2021-09-29] MEDS ORDERED: NICO21PAT TD (08:55)
[2021-09-29] MEDS ORDERED: ATIV1TAB10 PO ×2 (08:55)
[2021-09-29] MEDS: NICOTINE 21MG/24HR 1 EA TRANSDERMAL TD SCH (09:00)
[2021-09-29] MEDS: VITAMIN D 1,000 INTERNATIONAL UNITS TABLET PO SCH (09:15)
[2021-09-29] MEDS: LORazepam 0.5 MG TAB PO SCH (09:15)
[2021-09-29] MEDS: DIVALPROEX 250MG *ER* TAB PO SCH (09:15)
[2021-09-29] MEDS: TOPIRAMATE (TopAMAX) 100 MG TAB PO SCH (09:15)
[2021-09-29] MEDS: lamoTRIgine 100MG TAB PO SCH (09:15)
[2021-09-29] MEDS: risperiDONE 1 MG TAB PO SCH (09:15)
== END 2021-09-29 12:53 | disposition home or self-care (01) | DRG 885 ==
LOC: M ED 09:40 → M ED INP 15:22 → M PSY 19:56
PROVIDERS: ADMIT Student in an Organized Health Care Education/Training Program; ATTEND Student in an Organized Health Care Education/Training Program
DX: F29 Unspecified psychosis not due to a substance or known physiological condition (principal); F60.89 Other specific personality disorders; F68.10 Factitious disorder imposed on self, unspecified; F45.1 Undifferentiated somatoform disorder; F41.1 Generalized anxiety disorder; Z79.899 Other long term (current) drug therapy; Z88.5 Allergy status to narcotic agent; Z88.8 Allergy status to other drugs, medicaments and biological substances; G40.409 Other generalized epilepsy and epileptic syndromes, not intractable, without status epilepticus; K21.9 Gastro-esophageal reflux disease without esophagitis; G47.00 Insomnia, unspecified; M54.2 Cervicalgia; M54.50 Low back pain, unspecified; Z98.41 Cataract extraction status, right eye; Z98.42 Cataract extraction status, left eye; Z87.891 Personal history of nicotine dependence; E78.5 Hyperlipidemia, unspecified